=== PATIENT | male | born 1935 | race Caucasian/White ===

== ENCOUNTER 2017-06-15 16:05 | Observation (INO) ==
[2017-06-15] MEDS ORDERED: Simethicone 80 MG TAB.CHEW PO STA (17:17)
--- NOTE | 2017-06-15 17:23 | Emergency Department Note ---
Disposition Clinical Impression: SBO (small bowel obstruction), Left adrenal mass, UTI (urinary tract infection) , Elevated troponin Congestive heart failure Qualifiers: Congestive heart failure type: systolic Congestive heart failure chronicity: acute on chronic Qualified Code(s): I50.23 - Acute on chronic systolic ( congestive) heart failure Nausea & vomiting Qualifiers: Vomiting type: unspecified Vomiting Intractability: non-intractable Qualified Code(s): R11.2 - Nausea with vomiting, unspecified Disposition: Admitted As Inpatient Condition: Fair General Adult HPI - General Chief complaint: ED Shortness of Breath/Dyspnea Stated complaint: bilat foot swelling/chills/SOB Time Seen by Provider: 06/15/17 17:09 Source: patient Mode of arrival: ambulatory Limitations: no limitations Nursing Notes Reviewed: Yes Vital Signs Reviewed: Yes - History of Present Illness HPI Narrative: 81-year-old male with history of Chronic Kidney Disease, CAD with recent consult for possible CABG presents to the emergency department with worsening shortness of breath, lower stomach swelling, subjective chills over the last few days. Patient was sent to the hospital by his primary care provider as he was concerned about worsening CHF. Patient is also complaining of some nausea vomiting and diarrhea. He also has associated generalized abdominal tenderness. Pain Scale: 0 - Related Data Home Medications Medication Instructions Recorded Confirmed Cholecalciferol (D-3) [Vitamin D] 2,000 unit PO DAILY 04/22/17 06/15/17 Lactobacillus Combination No.8 1 cap PO DAILY 04/22/17 06/15/17 [Adult Probiotic] Multivitamin [Multi-Day Vitamins] 1 tab PO DAILY 04/22/17 06/15/17 [place]-3/Dha/Epa/Fish Oil [Fish Oil 1,000 mg PO DAILY 04/22/17 06/15/17 1,000 mg Softgel] Saw [place] Xtr/Zinc Picolin [Saw 1 cap PO DAILY 04/22/17 06/15/17 [place] Capsule] Potassium Chloride [Klor-Con 10] 10 meq PO BID 06/15/17 06/15/17 Previous Rx's Medication Instructions Recorded Rivaroxaban [Xarelto] 20 mg PO DAILY #30 tablet 04/27/17 Aspirin 81 mg PO DAILY #0 04/30/17 Atorvastatin [Lipitor] 40 mg PO HS #0 tab 04/30/17 Diltiazem CD (24hr) [Cardizem CD] 120 mg PO DAILY #0 04/30/17 Furosemide [Lasix] 40 mg PO DAILY #0 tab 04/30/17 Lisinopril [Zestril] 20 mg PO DAILY #0 tab 04/30/17 Metoprolol XL (24 HR) Succ [Toprol 100 mg PO BID #0 04/30/17 Xl] Allergies Allergy/AdvReac Type Severity Reaction Status Date / Time No Known Allergies Allergy Verified 06/15/17 17:03 All systems ED: reviewed and negative except as stated. Review of Systems: As Per HPI Constitutional: Reports: chills Cardiovascular: Reports: edema Respiratory: Reports: cough, dyspnea Gastrointestinal: Reports: abdominal pain, nausea Genitourinary: Denies: urgency Musculoskeletal: Denies: back pain Integumentary: Denies: rash Neurological: Denies: headache Past Medical History - Past Medical History Medical history: Reports: atrial fibrillation, coronary artery disease, hypertension Psychiatric history: Reports: no psych history - Social History Smoking Status: Never smoker Smokeless Tobacco Status: No Alcohol use: Reports: none Drug use: Reports: none Physical Exam General: Well Appearing elderly male, in no acute distress Head: autraumatic, EOMI, no conjuncitval pallor, no scleral icterus, Mouth: oral mucous membranes moist Neck: neck soft, trachea midline Chest:: Equal chest wall rise Lungs: rales bilaterally Heart: normal heart sounds, normal rate and rhythm, Abdomen: soft, mild tenderness of the lower abdomen to palpation, no rigidity, no guarding, no rebdound tenderness Lower Extremities: Bilateral pitting edema 2+, calves non-tender Integumentary: Skin warm, dry, and intact Neuro: Alert Psych: normal affect, normal mood - General Limitations: no limitations General appearance: alert Course Vital Signs Temperature 97.6 F 06/15/17 17:03 Pulse Rate 76 06/15/17 17:03 Respiratory Rate 20 06/15/17 17:03 Blood Pressure 111/77 06/15/17 17:03 O2 Sat by Pulse Oximetry 97 06/15/17 17:03 Temperature 97.6 F 06/16/17 07:20 Pulse Rate 92 06/16/17 07:20 Respiratory Rate 14 06/16/17 07:20 Blood Pressure 117/76 06/16/17 07:20 O2 Sat by Pulse Oximetry 93 06/16/17 07:20 Oxygen Delivery Oxygen Delivery Room Air Medical Decision Making - MDM Narrative Medical decision making narrative: 81-year-old male presents to the emergency department with worsening shortness of breath, and lower extremities swelling bilaterally. Initial chest x-ray reveals dilated loops of bowel which is concerning for bowel obstruction. Electrocardiogram reveals known atrial fibrillation with ST segment depressions in the V4, V5, V6. These are the same as previous electrical cardiograms. At this time, we are obtaining a CBC, BNP, CMP, Lipase. Due to the chest x-ray revealing dilated loops of bowel, and the fact that this patient has had multiple hernia repair surgeries, we are obtaining a CT scan of the abdomen and pelvis to rule out bowel obstruction. Patient is currently hemodynamically stable and not in any acute distress at this time. Patient CT scan scan of the abdomen and pelvis revealed a small bowel obstruction secondary to herniation of the distal ileum and cecum into a large right inguinal hernia. There is also a heterogeneous lesion in the left adrenal gland that may represent focal hemorrhage, but malignancy cannot be excluded. The radiologist recommends follow-up adrenal mass protocol CT or MRI in the next 3 months for further evaluation. The patient does have mild renal insufficiency on his superimposed chronic kidney disease. His new creatinine is 1.63 today. I have also have [place] 3002 on this patient. I have given him 40 mg of IV Lasix here in the emergency department. I am awaiting general surgery and the hospitalist for admission of this patient. Chest X-Ray 06/15/17 17:15 IMPRESSION: Multiple dilated bowel loops within visualized upper abdomen with air-fluid levels. Findings could represent a partially visualized of bowel obstruction or ileus. Consider correlation with any acute abdominal symptoms and further evaluation with dedicated abdomen imaging. Interval improvement in the right lower lobe opacity. Recommend radiographic follow-up to complete resolution. D/ / Sabino Garvin MD / Sabino Garvin MD Interpreting Provider: Sabino Garvin MD Abdomen/Pelvis CT 06/15/17 17:54 IMPRESSION: 1. Findings acute small bowel obstruction secondary to herniation of the distal ileum and cecum into a large right inguinal hernia. 2. Moderate left inguinal hernia containing a short segment of nonobstructed sigmoid colon. 3. Indeterminate heterogeneous lesion in the left adrenal gland may represent focal hemorrhage, although malignancy cannot be excluded. Follow-up adrenal mass protocol CT or MRI is recommended within 3 months after the patient's acute symptoms have resolved. 4. Benign right adrenal adenoma. 5. Nonobstructing calculus within the urinary bladder lumen. 6. Moderate prostatomegaly. D/ / Ha Escobar MD / Ha Escobar MD Interpreting Provider: Ha Escobar MD Vital Signs Temperature 97.6 F 06/15/17 17:03 Pulse Rate 76 06/15/17 17:03 Respiratory Rate 20 06/15/17 17:03 Blood Pressure 111/77 06/15/17 17:03 O2 Sat by Pulse Oximetry 97 06/15/17 17:03 Temperature 97.6 F 06/15/17 17:03 Pulse Rate 76 06/15/17 17:03 Respiratory Rate 20 06/15/17 17:03 Blood Pressure 111/77 06/15/17 17:03 O2 Sat by Pulse Oximetry 97 06/15/17 17:03 Oxygen Delivery Oxygen Delivery Room Air - Medical Records Medical records reviewed: Yes I reviewed the patient's medical records. - Lab Data Lab results reviewed: Yes I reviewed the patient's lab results. Result diagrams: 06/16/17 05:05 06/16/17 05:05 Lab Results 06/15/17 06/15/17 06/15/17 Range/Units 17:46 17:46 17:46 WBC 9.8 (4.3-11.1) K/mcL RBC 4.30 (4.19-5.50) M/mcL Hgb 13.8 (12.9-16.9) g/dL Hct 41.3 (37.5-50.1) % MCV 96.0 (83.0-100.0) fL MCH 32.1 (28.0-33.3) pg MCHC 33.4 (31.6-35.5) g/dL RDW 16.0 H (11.5-14.5) % Plt Count 166 (140-400) K/mcL MPV 10.6 (9.4-12.4) fL Immature Gran % 0.5 (0-4) % Seg Neutrophils % 76.6 % Lymphocytes % 13.9 % Monocytes % 8.8 % Eosinophils % 0.1 % Basophils % 0.1 % Neutrophils # 7.5 (1.6-8.9) K/mcL Lymphocytes # 1.4 (0.6-4.6) K/mcL Monocytes # 0.9 (0.0-1.3) K/mcL Eosinophils # 0.0 (0.0-0.6) K/mcL Basophils # 0.0 (0.0-0.2) K/mcL Sodium (136-145) mEq/L Potassium (3.5-4.5) mEq/L Chloride (98-109) mEq/L Carbon Dioxide (19-29) mEq/L BUN (8-26) mg/dL Creatinine (0.72-1.25) mg/dL Est GFR ( Amer) (> 60) Est GFR (Non-Af Amer) (> 60) BUN/Creatinine Ratio (6-26) Glucose (70-99) mg/dL Calculated Osmolality (280-300) Lactic Acid (0.5-2.2) mmol/L Calcium (8.6-10.8) mg/dL Total Bilirubin (0.2-1.2) mg/dL AST (5-34) Units/L ALT (0-55) Units/L Alkaline Phosphatase (38-126) Units/L Troponin I 0.11 H* (0-0.03) ng/mL B-Natriuretic Peptide (0-100) pg/mL Serum Total Protein (6.0-8.3) g/dL Albumin (3.5-5.0) g/dL Globulin (2.4-3.5) g/dL Albumin/Globulin Ratio (1.1-2.2) Lipase 18 (8-78) Units/L Urine Color (Yellow) Urine Clarity (Clear) Urine pH (5.0-8.0) pH Units Ur Specific [place] (1.010-1.025) Urine Protein (Neg-Trace) mg/dL Urine Glucose (UA) (Normal) mg/dL Urine Ketones (Negative) mg/dL Urine Blood (Negative) Urine Nitrite (Negative) Urine Bilirubin (Negative) Urine Urobilinogen (Normal) mg/dL Ur Leukocyte Esterase (Negative) Urine Microscopic RBC (0-3) per hpf Urine Microscopic WBC (0-3) per hpf Ur Squamous Epith Cells (None-Few) per lpf Urine Bacteria (None-Few) per hpf Hyaline Casts (None-Few) per lpf Ur Culture Indicated? (NO) 06/15/17 06/15/17 06/15/17 Range/Units 17:46 17:46 18:34 WBC (4.3-11.1) K/mcL RBC (4.19-5.50) M/mcL Hgb (12.9-16.9) g/dL Hct (37.5-50.1) % MCV (83.0-100.0) fL MCH (28.0-33.3) pg MCHC (31.6-35.5) g/dL RDW (11.5-14.5) % Plt Count (140-400) K/mcL MPV (9.4-12.4) fL Immature Gran % (0-4) % Seg Neutrophils % % Lymphocytes % % Monocytes % % Eosinophils % % Basophils % % Neutrophils # (1.6-8.9) K/mcL Lymphocytes # (0.6-4.6) K/mcL Monocytes # (0.0-1.3) K/mcL Eosinophils # (0.0-0.6) K/mcL Basophils # (0.0-0.2) K/mcL Sodium 140 (136-145) mEq/L Potassium 3.9 (3.5-4.5) mEq/L Chloride 105 (98-109) mEq/L Carbon Dioxide 25 (19-29) mEq/L BUN 42 H (8-26) mg/dL Creatinine 1.63 H (0.72-1.25) mg/dL Est GFR ( Amer) 49 L (> 60) Est GFR (Non-Af Amer) 41 L (> 60) BUN/Creatinine Ratio 26 (6-26) Glucose 116 H (70-99) mg/dL Calculated Osmolality 301 H (280-300) Lactic Acid (0.5-2.2) mmol/L Calcium 9.4 (8.6-10.8) mg/dL Total Bilirubin 1.0 (0.2-1.2) mg/dL AST 101 H (5-34) Units/L ALT 170 H (0-55) Units/L Alkaline Phosphatase 102 (38-126) Units/L Troponin I (0-0.03) ng/mL B-Natriuretic Peptide 3002 H (0-100) pg/mL Serum Total Protein 6.2 (6.0-8.3) g/dL Albumin 3.2 L (3.5-5.0) g/dL Globulin 3.0 (2.4-3.5) g/dL Albumin/Globulin Ratio 1.1 (1.1-2.2) Lipase (8-78) Units/L Urine Color Yellow (Yellow) Urine Clarity Turbid A (Clear) Urine pH 6.0 (5.0-8.0) pH Units Ur Specific [place] 1.017 (1.010-1.025) Urine Protein 30 H (Neg-Trace) mg/dL Urine Glucose (UA) Normal (Normal) mg/dL Urine Ketones Negative (Negative) mg/dL Urine Blood Large H (Negative) Urine Nitrite Negative (Negative) Urine Bilirubin Negative (Negative) Urine Urobilinogen Normal (Normal) mg/dL Ur Leukocyte Esterase Large H (Negative) Urine Microscopic RBC 3-5 H (0-3) per hpf Urine Microscopic WBC TNTC H (0-3) per hpf Ur Squamous Epith Cells Moderate H (None-Few) per lpf Urine Bacteria Many H (None-Few) per hpf Hyaline Casts None Seen (None-Few) per lpf Ur Culture Indicated? YES A (NO) 06/15/17 Range/Units 19:36 WBC (4.3-11.1) K/mcL RBC (4.19-5.50) M/mcL Hgb (12.9-16.9) g/dL Hct (37.5-50.1) % MCV (83.0-100.0) fL MCH (28.0-33.3) pg MCHC (31.6-35.5) g/dL RDW (11.5-14.5) % Plt Count (140-400) K/mcL MPV (9.4-12.4) fL Immature Gran % (0-4) % Seg Neutrophils % % Lymphocytes % % Monocytes % % Eosinophils % % Basophils % % Neutrophils # (1.6-8.9) K/mcL Lymphocytes # (0.6-4.6) K/mcL Monocytes # (0.0-1.3) K/mcL Eosinophils # (0.0-0.6) K/mcL Basophils # (0.0-0.2) K/mcL Sodium (136-145) mEq/L Potassium (3.5-4.5) mEq/L Chloride (98-109) mEq/L Carbon Dioxide (19-29) mEq/L BUN (8-26) mg/dL Creatinine (0.72-1.25) mg/dL Est GFR ( Amer) (> 60) Est GFR (Non-Af Amer) (> 60) BUN/Creatinine Ratio (6-26) Glucose (70-99) mg/dL Calculated Osmolality (280-300) Lactic Acid 1.1 (0.5-2.2) mmol/L Calcium (8.6-10.8) mg/dL Total Bilirubin (0.2-1.2) mg/dL AST (5-34) Units/L ALT (0-55) Units/L Alkaline Phosphatase (38-126) Units/L Troponin I (0-0.03) ng/mL B-Natriuretic Peptide (0-100) pg/mL Serum Total Protein (6.0-8.3) g/dL Albumin (3.5-5.0) g/dL Globulin (2.4-3.5) g/dL Albumin/Globulin Ratio (1.1-2.2) Lipase (8-78) Units/L Urine Color (Yellow) Urine Clarity (Clear) Urine pH (5.0-8.0) pH Units Ur Specific [place] (1.010-1.025) Urine Protein (Neg-Trace) mg/dL Urine Glucose (UA) (Normal) mg/dL Urine Ketones (Negative) mg/dL Urine Blood (Negative) Urine Nitrite (Negative) Urine Bilirubin (Negative) Urine Urobilinogen (Normal) mg/dL Ur Leukocyte Esterase (Negative) Urine Microscopic RBC (0-3) per hpf Urine Microscopic WBC (0-3) per hpf Ur Squamous Epith Cells (None-Few) per lpf Urine Bacteria (None-Few) per hpf Hyaline Casts (None-Few) per lpf Ur Culture Indicated? (NO) - Radiology Data Radiology results reviewed: Yes I reviewed the patient's radiology results. - EKG Data EKG #1 EKG attestation: Yes I reviewed and interpreted this EKG. EKG results narrative: Ventricular rate 118 bpm, TX interval no P waves, QRS duration 107 ms, QT 316 ms , QTC 386 process, normal axis. Atrial fibrillation with rapid ventricular response, ventricular rate 118 bpm. There is some ST depression in leads V4, V5, V6. However, this is not anything new compared to an electrocardiogram performed on 04/22/2017. Critical Care Time Critical Care Time: Yes Total Critical Care Time: 30 Attestation: Critical care performed: Time is exclusive of separately billable procedures. Time includes: direct patient care, patient reassessment, coordination of patient care, interpretation of data (laboratory data, radiology data, and respiratory data), review of patient's medical records, medical consultation and documentation of patient care. Procedures included in critical care time: Procedures excluded from critical care time: Attestation Statement - Attestation Attestation: I, Isaiah Costello DO, examined this patient [id number] and my medical decision-making was reviewed with Dr. Prakash Hernandez, Resident Physician. I agree with the documented findings, disposition and treatment plan as described except to the extent set forth below. Please see my progress notes for details. 81-year-old male presents to emergency room for evaluation of shortness of breath increased orthopnea and conversational dyspnea. Is also noted some fluid accumulation is legs. Has been in the hospital on multiple evaluations in the last month. He is told that his coronary artery disease requiring bypass surgery. Patient elected not to do that at this time. Patient denies any trauma or injuries. No abdominal discomfort or pain. Denies any fevers chills nausea vomiting is intermittent diarrhea but no other complaints or symptoms at this time. Physical exam is unremarkable lungs do have some intermittent crackles on expiration. Abdomen is soft no tenderness noted. Edema in the bilateral lower extremity up to the knee. Patient otherwise is in no acute distress at this time. EKG labs BNP troponin chest x-ray and evaluation to be completed. See detailed documentation of physical exam, medical intervention, medical decision-making and disposition and the resident physician's note Chest x-ray was concerning for possible dilated loops of bowel. CT of the abdomen does show hernia in the right lower quadrant inguinal area with distention proximal to the hernia site. Patient has been passing stool and having normal gas pattern in this time. No obstructive pathology based on symptom history but CT imaging is concerning for possible obstruction. There is also a significantly elevated BNP. IV Lasix given in the emergency room. Admission process to be completed for what appears to be shortness of breath secondary to fluid overload with chronic coronary artery disease as well as what appears to be distention of the intestines with nonspecific presentation of outlet obstruction versus luminal narrowing. Patient admitted for further evaluation and definitive management. Stable vital signs were repeated throughout the course of care here in the emergency room. Urine is concerning for infection will hospitalist to determine if antibiotic regimen is needed at this time
[2017-06-15 17:53] LABS: Basophils % 0.1 %; Eosinophils % 0.1 %; Hematocrit 41.3 % (37.5-50.1); Hemoglobin 13.8 g/dL (12.9-16.9); Immature Granulocytes % 0.5 % (0-4); Lymphocytes # 1.4 K/mcL (0.6-4.6); Lymphocytes % 13.9 %; Mean Corpuscular HGB Conc 33.4 g/dL (31.6-35.5); Mean Corpuscular Hemoglobin 32.1 pg (28.0-33.3); Mean Platelet Volume 10.6 fL (9.4-12.4); Monocytes # 0.9 K/mcL (0.0-1.3); Monocytes % 8.8 %; Neutrophils # 7.5 K/mcL (1.6-8.9); Platelet Count 166 K/mcL (140-400); Segmented Neutrophils % 76.6 %
[2017-06-15 18:07] LABS: Albumin 3.2 g/dL (3.5-5.0); Albumin/Globulin Ratio 1.1 (1.1-2.2); Calcium 9.4 mg/dL (8.6-10.8); Potassium 3.9 mEq/L (3.5-4.5); Total Protein 6.2 g/dL (6.0-8.3)
[2017-06-15] MEDS ORDERED: Ondansetron 4 MG/2 ML VIAL IVP ONE (18:19)
[2017-06-15 18:42] LABS: Bilirubin,Urine Negative (Negative); Blood,Urine Large (Negative); Clarity,Urine Turbid (Clear); Color,Urine Yellow (Yellow); Glucose,Urine (UA) Normal (Normal); Ketones,Urine Negative (Negative); Leukocyte Esterase,Urine Large (Negative); Nitrite,Urine Negative (Negative); Protein,Urine 30 mg/dL (Neg-Trace); Specific Gravity,Urine 1.017 (1.010-1.025); Urobilinogen,Urine Normal (Normal)
[2017-06-15 18:44] LABS: Bacteria,Urine Many per hpf (None-Few); Hyaline Casts,Urine None Seen per lpf (None-Few); Squamous Epithelial Cell,Urine Moderate per lpf (None-Few); WBC,Urine TNTC per hpf (0-3)
[2017-06-15] MEDS ORDERED: Furosemide 40 MG/4 ML VIAL IVP ONE (18:58)
--- NOTE | 2017-06-15 19:37 | Emergency Department Note ---
Disposition Clinical Impression: SBO (small bowel obstruction), Left adrenal mass, Elevated troponin Congestive heart failure Qualifiers: Congestive heart failure type: unspecified congestive heart failure type Congestive heart failure chronicity: acute on chronic Qualified Code(s): I50.9 - Heart failure, unspecified Nausea & vomiting Qualifiers: Vomiting type: unspecified Vomiting Intractability: non-intractable Qualified Code(s): R11.2 - Nausea with vomiting, unspecified UTI (urinary tract infection) Qualifiers: Urinary tract infection type: site unspecified Hematuria presence: without hematuria Qualified Code(s): N39.0 - Urinary tract infection, site not specified Disposition: Admitted As Inpatient Condition: Fair Referrals: Derick Marcelino MD [Primary Care Provider] - Forms: ED Satisfaction Letter Time of Disposition: 20:40 SOB HPI - General Chief Complaint: ED Shortness of Breath/Dyspnea Stated Complaint: bilat foot swelling/chills/SOB Time Seen by Provider: 06/15/17 17:09 Source: patient Mode of arrival: ambulatory Limitations: no limitations Nursing Notes Reviewed: Yes Vital Signs Reviewed: Yes - Related Data Home Medications Medication Instructions Recorded Confirmed Cholecalciferol (D-3) [Vitamin D] 2,000 unit PO DAILY 04/22/17 06/15/17 Lactobacillus Combination No.8 1 cap PO DAILY 04/22/17 06/15/17 [Adult Probiotic] Multivitamin [Multi-Day Vitamins] 1 tab PO DAILY 04/22/17 06/15/17 [place]-3/Dha/Epa/Fish Oil [Fish Oil 1,000 mg PO DAILY 04/22/17 06/15/17 1,000 mg Softgel] Saw [place] Xtr/Zinc Picolin [Saw 1 cap PO DAILY 04/22/17 06/15/17 [place] Capsule] Potassium Chloride [Klor-Con 10] 10 meq PO BID 06/15/17 06/15/17 Previous Rx's Medication Instructions Recorded Rivaroxaban [Xarelto] 20 mg PO DAILY #30 tablet 04/27/17 Aspirin 81 mg PO DAILY #0 04/30/17 Atorvastatin [Lipitor] 40 mg PO HS #0 tab 04/30/17 Diltiazem CD (24hr) [Cardizem CD] 120 mg PO DAILY #0 04/30/17 Furosemide [Lasix] 40 mg PO DAILY #0 tab 04/30/17 Lisinopril [Zestril] 20 mg PO DAILY #0 tab 04/30/17 Metoprolol XL (24 HR) Succ [Toprol 100 mg PO BID #0 04/30/17 Xl] Allergies Allergy/AdvReac Type Severity Reaction Status Date / Time No Known Allergies Allergy Verified 06/15/17 17:03 Constitutional: Reports: chills Cardiovascular: Reports: edema Respiratory: Reports: cough, dyspnea Gastrointestinal: Reports: abdominal pain, nausea Genitourinary: Denies: urgency Musculoskeletal: Denies: back pain Integumentary: Denies: rash Neurological: Denies: headache Past Medical History - Past Medical History Medical history: Reports: atrial fibrillation, coronary artery disease, hypertension Psychiatric history: Reports: no psych history - Social History Smoking Status: Never smoker Smokeless Tobacco Status: No Alcohol use: Reports: none Drug use: Reports: none Physical Exam - General Limitations: no limitations General appearance: alert - Head Head exam: atraumatic, normocephalic, normal inspection - Eye Eye exam: Present: normal appearance, PERRL, EOMI - ENT ENT exam: normal oropharynx, mucous membranes moist, other (NG tube in place) - Neck Neck exam: Present: normal inspection, full ROM, trachea midline - Chest Chest inspection: Present: normal inspection, symmetric chest wall rise - Respiratory Respiratory exam: Present: normal lung sounds bilaterally - Cardiovascular Cardiovascular exam: Present: regular rate, normal rhythm, normal heart sounds - Abdominal Exam Abdominal exam: Present: soft, other (mild generalized distention, no tenderness ). Absent: distention, guarding, rebound, rigidity - Extremities Exam Extremities exam: Present: normal inspection, full ROM. Absent: tenderness - Neurological Exam Neurological exam: Present: alert, oriented X3 - Psychiatric Psychiatric exam: Present: normal affect, normal mood - Skin Skin exam: Present: warm, dry, intact, normal color Course Vital Signs Temperature 97.6 F 06/15/17 17:03 Pulse Rate 76 06/15/17 17:03 Respiratory Rate 20 06/15/17 17:03 Blood Pressure 111/77 06/15/17 17:03 O2 Sat by Pulse Oximetry 97 06/15/17 17:03 Temperature 97.6 F 06/15/17 17:03 Pulse Rate 89 06/15/17 19:20 Respiratory Rate 14 06/15/17 19:20 Blood Pressure 123/87 06/15/17 19:20 O2 Sat by Pulse Oximetry 92 06/15/17 19:20 Oxygen Delivery Oxygen Delivery Room Air Shortness of Breath/Dyspnea - [facility] Narrative Medical decision making narrative: This patient was a sign out from previous team, Dr. Hernandez and Dr. Costello. Please see their notes for any additional details. In summary, patient is an 81 -year-old male with past medical history of CHF, previous CAD. He presented today due to shortness of breath. Patient was found to be in CHF exacerbation. He was given Lasix here. He had an incidental finding of dilated small bowel loops on chest x-ray. Further evaluation by CAT scan showed small bowel obstruction, nonincarcerated inguinal hernia. Patient was reexamined vomits up at bedside. He currently denies any abdominal pain. NG tube was placed. UA shows signs of UTI. Patient ordered ciprofloxacin. Hospitalist has accepted for admission. Of note, patient has elevated troponin level of 0.11, however, this is trending down from previous troponin levels. No current chest pain or shortness of breath. Vitals currently stable. Patient has no complaint currently. I spoke with surgery who have agreed to be a consult for the patient. Order has been placed for surgery consult. - Medical Records Medical records reviewed: Yes I reviewed the patient's medical records. - Lab Data Lab results reviewed: Yes I reviewed the patient's lab results. Result diagrams: 06/15/17 17:46 06/15/17 17:46 Lab Results 06/15/17 06/15/17 06/15/17 Range/Units 17:46 17:46 17:46 WBC 9.8 (4.3-11.1) K/mcL RBC 4.30 (4.19-5.50) M/mcL Hgb 13.8 (12.9-16.9) g/dL Hct 41.3 (37.5-50.1) % MCV 96.0 (83.0-100.0) fL MCH 32.1 (28.0-33.3) pg MCHC 33.4 (31.6-35.5) g/dL RDW 16.0 H (11.5-14.5) % Plt Count 166 (140-400) K/mcL MPV 10.6 (9.4-12.4) fL Immature Gran % 0.5 (0-4) % Seg Neutrophils % 76.6 % Lymphocytes % 13.9 % Monocytes % 8.8 % Eosinophils % 0.1 % Basophils % 0.1 % Neutrophils # 7.5 (1.6-8.9) K/mcL Lymphocytes # 1.4 (0.6-4.6) K/mcL Monocytes # 0.9 (0.0-1.3) K/mcL Eosinophils # 0.0 (0.0-0.6) K/mcL Basophils # 0.0 (0.0-0.2) K/mcL Sodium (136-145) mEq/L Potassium (3.5-4.5) mEq/L Chloride (98-109) mEq/L Carbon Dioxide (19-29) mEq/L BUN (8-26) mg/dL Creatinine (0.72-1.25) mg/dL Est GFR ( Amer) (> 60) Est GFR (Non-Af Amer) (> 60) BUN/Creatinine Ratio (6-26) Glucose (70-99) mg/dL Calculated Osmolality (280-300) Lactic Acid (0.5-2.2) mmol/L Calcium (8.6-10.8) mg/dL Total Bilirubin (0.2-1.2) mg/dL AST (5-34) Units/L ALT (0-55) Units/L Alkaline Phosphatase (38-126) Units/L Troponin I 0.11 H* (0-0.03) ng/mL B-Natriuretic Peptide (0-100) pg/mL Serum Total Protein (6.0-8.3) g/dL Albumin (3.5-5.0) g/dL Globulin (2.4-3.5) g/dL Albumin/Globulin Ratio (1.1-2.2) Lipase 18 (8-78) Units/L Urine Color (Yellow) Urine Clarity (Clear) Urine pH (5.0-8.0) pH Units Ur Specific [place] (1.010-1.025) Urine Protein (Neg-Trace) mg/dL Urine Glucose (UA) (Normal) mg/dL Urine Ketones (Negative) mg/dL Urine Blood (Negative) Urine Nitrite (Negative) Urine Bilirubin (Negative) Urine Urobilinogen (Normal) mg/dL Ur Leukocyte Esterase (Negative) Urine Microscopic RBC (0-3) per hpf Urine Microscopic WBC (0-3) per hpf Ur Squamous Epith Cells (None-Few) per lpf Urine Bacteria (None-Few) per hpf Hyaline Casts (None-Few) per lpf Ur Culture Indicated? (NO) 06/15/17 06/15/17 06/15/17 Range/Units 17:46 17:46 18:34 WBC (4.3-11.1) K/mcL RBC (4.19-5.50) M/mcL Hgb (12.9-16.9) g/dL Hct (37.5-50.1) % MCV (83.0-100.0) fL MCH (28.0-33.3) pg MCHC (31.6-35.5) g/dL RDW (11.5-14.5) % Plt Count (140-400) K/mcL MPV (9.4-12.4) fL Immature Gran % (0-4) % Seg Neutrophils % % Lymphocytes % % Monocytes % % Eosinophils % % Basophils % % Neutrophils # (1.6-8.9) K/mcL Lymphocytes # (0.6-4.6) K/mcL Monocytes # (0.0-1.3) K/mcL Eosinophils # (0.0-0.6) K/mcL Basophils # (0.0-0.2) K/mcL Sodium 140 (136-145) mEq/L Potassium 3.9 (3.5-4.5) mEq/L Chloride 105 (98-109) mEq/L Carbon Dioxide 25 (19-29) mEq/L BUN 42 H (8-26) mg/dL Creatinine 1.63 H (0.72-1.25) mg/dL Est GFR ( Amer) 49 L (> 60) Est GFR (Non-Af Amer) 41 L (> 60) BUN/Creatinine Ratio 26 (6-26) Glucose 116 H (70-99) mg/dL Calculated Osmolality 301 H (280-300) Lactic Acid (0.5-2.2) mmol/L Calcium 9.4 (8.6-10.8) mg/dL Total Bilirubin 1.0 (0.2-1.2) mg/dL AST 101 H (5-34) Units/L ALT 170 H (0-55) Units/L Alkaline Phosphatase 102 (38-126) Units/L Troponin I (0-0.03) ng/mL B-Natriuretic Peptide 3002 H (0-100) pg/mL Serum Total Protein 6.2 (6.0-8.3) g/dL Albumin 3.2 L (3.5-5.0) g/dL Globulin 3.0 (2.4-3.5) g/dL Albumin/Globulin Ratio 1.1 (1.1-2.2) Lipase (8-78) Units/L Urine Color Yellow (Yellow) Urine Clarity Turbid A (Clear) Urine pH 6.0 (5.0-8.0) pH Units Ur Specific [place] 1.017 (1.010-1.025) Urine Protein 30 H (Neg-Trace) mg/dL Urine Glucose (UA) Normal (Normal) mg/dL Urine Ketones Negative (Negative) mg/dL Urine Blood Large H (Negative) Urine Nitrite Negative (Negative) Urine Bilirubin Negative (Negative) Urine Urobilinogen Normal (Normal) mg/dL Ur Leukocyte Esterase Large H (Negative) Urine Microscopic RBC 3-5 H (0-3) per hpf Urine Microscopic WBC TNTC H (0-3) per hpf Ur Squamous Epith Cells Moderate H (None-Few) per lpf Urine Bacteria Many H (None-Few) per hpf Hyaline Casts None Seen (None-Few) per lpf Ur Culture Indicated? YES A (NO) 06/15/17 Range/Units 19:36 WBC (4.3-11.1) K/mcL RBC (4.19-5.50) M/mcL Hgb (12.9-16.9) g/dL Hct (37.5-50.1) % MCV (83.0-100.0) fL MCH (28.0-33.3) pg MCHC (31.6-35.5) g/dL RDW (11.5-14.5) % Plt Count (140-400) K/mcL MPV (9.4-12.4) fL Immature Gran % (0-4) % Seg Neutrophils % % Lymphocytes % % Monocytes % % Eosinophils % % Basophils % % Neutrophils # (1.6-8.9) K/mcL Lymphocytes # (0.6-4.6) K/mcL Monocytes # (0.0-1.3) K/mcL Eosinophils # (0.0-0.6) K/mcL Basophils # (0.0-0.2) K/mcL Sodium (136-145) mEq/L Potassium (3.5-4.5) mEq/L Chloride (98-109) mEq/L Carbon Dioxide (19-29) mEq/L BUN (8-26) mg/dL Creatinine (0.72-1.25) mg/dL Est GFR ( Amer) (> 60) Est GFR (Non-Af Amer) (> 60) BUN/Creatinine Ratio (6-26) Glucose (70-99) mg/dL Calculated Osmolality (280-300) Lactic Acid 1.1 (0.5-2.2) mmol/L Calcium (8.6-10.8) mg/dL Total Bilirubin (0.2-1.2) mg/dL AST (5-34) Units/L ALT (0-55) Units/L Alkaline Phosphatase (38-126) Units/L Troponin I (0-0.03) ng/mL B-Natriuretic Peptide (0-100) pg/mL Serum Total Protein (6.0-8.3) g/dL Albumin (3.5-5.0) g/dL Globulin (2.4-3.5) g/dL Albumin/Globulin Ratio (1.1-2.2) Lipase (8-78) Units/L Urine Color (Yellow) Urine Clarity (Clear) Urine pH (5.0-8.0) pH Units Ur Specific [place] (1.010-1.025) Urine Protein (Neg-Trace) mg/dL Urine Glucose (UA) (Normal) mg/dL Urine Ketones (Negative) mg/dL Urine Blood (Negative) Urine Nitrite (Negative) Urine Bilirubin (Negative) Urine Urobilinogen (Normal) mg/dL Ur Leukocyte Esterase (Negative) Urine Microscopic RBC (0-3) per hpf Urine Microscopic WBC (0-3) per hpf Ur Squamous Epith Cells (None-Few) per lpf Urine Bacteria (None-Few) per hpf Hyaline Casts (None-Few) per lpf Ur Culture Indicated? (NO) - Radiology Data Radiology results reviewed: Yes I reviewed the patient's radiology results. Chest X-Ray 06/15/17 17:15 IMPRESSION: Multiple dilated bowel loops within visualized upper abdomen with air-fluid levels. Findings could represent a partially visualized of bowel obstruction or ileus. Consider correlation with any acute abdominal symptoms and further evaluation with dedicated abdomen imaging. Interval improvement in the right lower lobe opacity. Recommend radiographic follow-up to complete resolution. D/ / Sabino Garvin MD / Sabino Garvin MD Interpreting Provider: Sabino Garvin MD Abdomen/Pelvis CT 06/15/17 17:54 IMPRESSION: 1. Findings acute small bowel obstruction secondary to herniation of the distal ileum and cecum into a large right inguinal hernia. 2. Moderate left inguinal hernia containing a short segment of nonobstructed sigmoid colon. 3. Indeterminate heterogeneous lesion in the left adrenal gland may represent focal hemorrhage, although malignancy cannot be excluded. Follow-up adrenal mass protocol CT or MRI is recommended within 3 months after the patient's acute symptoms have resolved. 4. Benign right adrenal adenoma. 5. Nonobstructing calculus within the urinary bladder lumen. 6. Moderate prostatomegaly. D/ / Ha Escobar MD / Ha Escobar MD Interpreting Provider: Ha Escobar MD Inge - Inge Situation: Demographics, MOA Background: Presenting Complaint, Relevant PMH, Meds, & Allergies Assessment: Vital Signs, Course and respsone to treatment, Exam Concerns, Patient/Family Expectation, Pertinant Lab Results, Outstanding Labs Recommendation: Barrier(s) to disposition S.B.ARhona Report Given to: Dr. Edenilson Alcazar Repor Time: 20:40
--- NOTE | 2017-06-15 19:43 | Emergency Department Note ---
START Narrative - START START: I examined this patient and my medical decision-making was reviewed with the Resident Physician. I agree with the documented findings, disposition and treatment plan as described except to the extent set forth below. 81 year old male with hx of unstable angina and known blockages but have decided to do medical managment rather than CABG presents with acute small bowel obstrution in addition to incresed swelling in his bilateral legs and with a HX of CHF and appears to have an elevate troponin due to previous ACS episode in additin to CHF excarbation. WE will admit to medicine with consult to surgery.
[2017-06-16] MEDS ORDERED: Acetaminophen 325 MG TABLET PO PRN (03:43)
[2017-06-16] MEDS ORDERED: Naloxone 0.4 MG/ML INJ IVP PRN (03:43)
[2017-06-16] MEDS ORDERED: 0.9 % Sodium Chloride 1,000 ML IVC SCH (04:00)
[2017-06-16 05:40] LABS: Basophils % 0.2 %; Eosinophils % 0.5 %; Hematocrit 38.6 % (37.5-50.1); Hemoglobin 12.7 g/dL (12.9-16.9); Immature Granulocytes % 0.5 % (0-4); Lymphocytes # 1.1 K/mcL (0.6-4.6); Lymphocytes % 13.6 %; Mean Corpuscular HGB Conc 32.9 g/dL (31.6-35.5); Mean Corpuscular Hemoglobin 32.1 pg (28.0-33.3); Mean Corpuscular Volume 97.5 fL (83.0-100.0); Monocytes # 0.7 K/mcL (0.0-1.3); Monocytes % 7.9 %; Neutrophils # 6.4 K/mcL (1.6-8.9); Platelet Count 154 K/mcL (140-400); Red Blood Count 3.96 M/mcL (4.19-5.50); Red Cell Distribution Width 15.9 % (11.5-14.5); Segmented Neutrophils % 77.3 %
[2017-06-16 05:52] LABS: BUN/Creatinine Ratio 33 (6-26); Blood Urea Nitrogen 39 mg/dL (8-26); Calcium 8.7 mg/dL (8.6-10.8); Carbon Dioxide 27 mEq/L (19-29); Chloride 107 mEq/L (98-109); Glucose 102 mg/dL (70-99); Magnesium 1.9 mg/dL (1.6-2.6); Osmolality,Calculated 304 (280-300); Potassium 3.5 mEq/L (3.5-4.5); Sodium 142 mEq/L (136-145); eGFR For African Americans > 60 (> 60); eGFR For Non-African Americans 59 (> 60)
--- NOTE | 2017-06-16 06:42 | Internal Med History&Physical ---
Date of Encounter: 06/16/17 Time of Encounter: 01:00 Assessment and Plan (1) A-fib Current visit: Yes Status: Acute Heart rate is well controlled. On xarelto, now on hold because of nothing by mouth. Will resume as patient can have diet. Qualifiers: Atrial fibrillation type: chronic Qualified Code(s): I48.2 - Chronic atrial fibrillation (2) DVT prophylaxis Current visit: No Status: Acute Patient is on xarelto. Hold because of nothing by mouth. Expect resume soon. (3) CAD (coronary artery disease) Current visit: No Status: Chronic Patient denies chest pain. Continue home medications when diet resumed Qualifiers: Coronary Disease-Associated Artery/Lesion type: [place] artery [place] vs. transplanted heart: [place] heart Associated angina: without angina Qualified Code(s): I25.10 - Atherosclerotic heart disease of [place] coronary artery without angina pectoris (4) Congestive heart failure Current visit: Yes Status: Acute LVEF 45-50%. Patient's shortness of breath has improved after Lasix IV in emergency room Qualifiers: Congestive heart failure type: systolic Congestive heart failure chronicity : acute on chronic Qualified Code(s): I50.23 - Acute on chronic systolic ( congestive) heart failure (5) SBO (small bowel obstruction) Current visit: Yes Status: Acute CT abdomen shows partial small bowel obstruction, caused by right-sided inguinal hernia. - Patient still passing gas and had a bowel movement. - There is no signs of incarceration of hernia - NG tube placed the ER - Keep nothing by mouth, lower rate IV fluid with concern of CHF. - Surgical consult informed by ER (6) UTI (urinary tract infection) Current visit: Yes Status: Acute Placed patient on Rocephin. Follow-up urine culture Qualifiers: Urinary tract infection type: site unspecified Hematuria presence: without hematuria Qualified Code(s): N39.0 - Urinary tract infection, site not specified Internal Medicine - H&P: HPI Chief complaint: Shortness of breath and leg swelling Admitted From: Home Plans for Post Hospital Care: Home History of present illness: Mr. Roman is a 81 year old male with history of A. fib on xarelto, CHF, CAD, inguinal hernia presents to ER for shortness of breath and bilateral leg swelling. Patient said he went to see PCP today and was suspected rales in lung , and pt was advised to go to ER to rule out pneumonia. In emergency room, chest x-ray shows no pneumonia but reveals dilated bowel loops. Further CT scan shows partial small bowel obstruction due to a right inguinal hernia. Patient was admitted for small bowel obstruction. Patient was also found UTI in emergency room. Patient denies nausea, vomiting, abdominal pain. Patient can passing gas and had bowel movement today. Patient does have some dysuria and urgency. Past Med Surg Social Fam HX - Past Medical History Medical history: atrial fibrillation, coronary artery disease, hypertension Psychiatric history: no psych history - Past Surgical History Surgical History: herniorrhaphy - Social History Smoking Status: Never smoker Smokeless Tobacco Status: No Alcohol use: none Drug use: none - Family History Brother Living Status: Hx Family Cancer: Yes (prostate) Internal Medicine - H&P: Meds Cholecalciferol (D-3) [Vitamin D] 2,000 unit PO DAILY 04/22/17 [History] Lactobacillus Combination No.8 [Adult Probiotic] 1 cap PO DAILY 04/22/17 [ History] Multivitamin [Multi-Day Vitamins] 1 tab PO DAILY 04/22/17 [History] [place]-3/Dha/Epa/Fish Oil [Fish Oil 1,000 mg Softgel] 1,000 mg PO DAILY 04/22/17 [History] Saw [place] Xtr/Zinc Picolin [Saw [place] Capsule] 1 cap PO DAILY 04/22/17 [ History] Rivaroxaban [Xarelto] 20 mg PO DAILY #30 tablet 04/27/17 [Rx] Aspirin 81 mg PO DAILY #0 04/30/17 [Rx] Atorvastatin [Lipitor] 40 mg PO HS #0 tab 04/30/17 [Rx] Diltiazem CD (24hr) [Cardizem CD] 120 mg PO DAILY #0 04/30/17 [Rx] Furosemide [Lasix] 40 mg PO DAILY #0 tab 04/30/17 [Rx] Lisinopril [Zestril] 20 mg PO DAILY #0 tab 04/30/17 [Rx] Metoprolol XL (24 HR) Succ [Toprol Xl] 100 mg PO BID #0 04/30/17 [Rx] Potassium Chloride [Klor-Con 10] 10 meq PO BID 06/15/17 [History] 3 Allergy/AdvReac Type Severity Reaction Status Date / Time No Known Allergies Allergy Verified 06/15/17 17:03 All Systems PM: A 10-system review of systems was performed and is negative for pertinent findings except as documented above in the HPI. - Constitutional Vitals: Temp Pulse Resp BP Pulse Ox 98.7 F 97 18 113/93 96 06/15/17 22:58 06/15/17 22:58 06/15/17 22:58 06/15/17 22:58 06/15/17 23:21 General appearance: Present: A&O X 3, no acute distress, answers questions appropriately - Head Head exam: Present: atraumatic, normocephalic - Eye Eye exam: Present: PERRL, conjuntiva pink, sclera anicteric Pupils: Present: PERRL - Neck Neck exam general surgery: Present: supple, trachea midline. Absent: lymphadenopathy - Respiratory Respiratory exam: Present: CTAB. Absent: accessory muscle use, rales, rhonchi, wheezes - Cardiovascular Cardiovascular exam: Present: RRR, +S1, +S2. Absent: diastolic murmur, gallop, rubs, systolic murmur - GI/Abdominal GI/Abdominal exam: Present: hyperactive bowel sounds, soft, no peritoneal signs. Absent: distended, tenderness Additional comments: Right inguinal hernia goes to scrotum, nontender, no signs of incarceration. Patient said he can put the hernia back the belly. - Extremities Exam Extremities exam: Present: warm, radial pulses palpable and symmetrical. Absent : calf tenderness, cyanotic, pedal edema - Neurological Exam Neurological exam: Present: CN II-XII intact, oriented X3, no focal deficits. Absent: pronater drift, facial droop, speech deficit - Skin Skin exam: Present: dry, intact Internal Med - H&P Results - Labs CBC & Chem 7: 06/16/17 05:05 06/16/17 05:05 Labs: Short CBC 06/16/17 Range/Units 05:05 WBC 8.3 (4.3-11.1) K/mcL Hgb 12.7 L (12.9-16.9) g/dL Hct 38.6 (37.5-50.1) % Plt Count 154 (140-400) K/mcL Neutrophils # 6.4 (1.6-8.9) K/mcL BMP 06/16/17 05:05 Sodium 142 Potassium 3.5 Chloride 107 Carbon Dioxide 27 BUN 39 H Creatinine 1.19 Glucose 102 H Calcium 8.7 Cardiac Enzymes 06/16/17 Range/Units 05:05 Troponin I 0.08 H* (0-0.03) ng/mL
--- NOTE | 2017-06-16 10:26 | General Surgery Consult Note ---
Date of Encounter: 06/16/17 Time of Encounter: 09:00 Assessment and Plan (1) Inguinal hernia of right side without obstruction or gangrene Current Visit: Yes Status: Acute R sided inguinal hernia viewed on CT scan and palpated. Hernia is currently not causing pain and this is a chronic problem. Patient is unsure if he wants surgery. Patient was instructed to follow-up with surgery after leaving the hospital to discuss options for management. Hernia not causing an obstruction as patient is still having regular flatus and BM. Plans: -f/u appointment in the outpatient office for further management - NG discontinued - Diet: may advance to fulls - Will continue to monitor tomorrow to see how he tolerates advancement of diet. (2) Nausea & vomiting Current Visit: Yes Status: Acute Patient's N/V has resolved. Patient is having positive flatus today and bowel movement yesterday therefore no small bowel obstruction present. Patient is hungry and ready to eat. Patient's NG tube was removed while in the room today. NG output equal to 50 mL. Can advance diet to full liquids. Qualifiers: Vomiting type: unspecified Vomiting Intractability: non-intractable Qualified Code(s): R11.2 - Nausea with vomiting, unspecified (3) Hydrocele in adult Current Visit: Yes Status: Acute f/u appointment with surgery in the outpatient setting. History of Present Illness Consult date: 06/16/17 Reason for consult: hernia Requesting physician: Vinod Lira History of present illness: Patient is a 81-year-old male with a past medical history of right sided inguinal hernia for years, CKD, Afib on xarelto, CAD presents to ER for shortness of breath, bilateral leg swelling, and NV. Surgery was consulted for possible small bowel obstruction secondary to inguinal hernia. Patient states that he is having inguinal hernia and denies pain within that region. Patient states that he is passing gas and had a BM yesterday. Today his N/V has resolved. Vitals are within normal limits. His NG output = [address] of abdomen and pelvis reported small bowel obstruction secondary to herniation of the distal ileum and cecum into a large right inguinal hernia. Past Med Surg Social Fam HX - Past Medical History Medical history: atrial fibrillation, cardiomyopathy (EF 40% ), coronary artery disease (with CABG 3 vessel ), hypertension Psychiatric history: no psych history - Past Surgical History Surgical History: herniorrhaphy - Social History Smoking Status: Never smoker Smokeless Tobacco Status: No Alcohol use: none Drug use: none - Family History Brother Living Status: Hx Family Cancer: Yes (prostate) Medications and Allergies Cholecalciferol (D-3) [Vitamin D] 2,000 unit PO DAILY 04/22/17 [History] Lactobacillus Combination No.8 [Adult Probiotic] 1 cap PO DAILY 04/22/17 [ History] Multivitamin [Multi-Day Vitamins] 1 tab PO DAILY 04/22/17 [History] [place]-3/Dha/Epa/Fish Oil [Fish Oil 1,000 mg Softgel] 1,000 mg PO DAILY 04/22/17 [History] Saw [place] Xtr/Zinc Picolin [Saw [place] Capsule] 1 cap PO DAILY 04/22/17 [ History] Rivaroxaban [Xarelto] 20 mg PO DAILY #30 tablet 04/27/17 [Rx] Aspirin 81 mg PO DAILY #0 04/30/17 [Rx] Atorvastatin [Lipitor] 40 mg PO HS #0 tab 04/30/17 [Rx] Diltiazem CD (24hr) [Cardizem CD] 120 mg PO DAILY #0 04/30/17 [Rx] Furosemide [Lasix] 40 mg PO DAILY #0 tab 04/30/17 [Rx] Lisinopril [Zestril] 20 mg PO DAILY #0 tab 04/30/17 [Rx] Metoprolol XL (24 HR) Succ [Toprol Xl] 100 mg PO BID #0 04/30/17 [Rx] Potassium Chloride [Klor-Con 10] 10 meq PO BID 06/15/17 [History] 3 Allergy/AdvReac Type Severity Reaction Status Date / Time No Known Allergies Allergy Verified 06/15/17 17:03 Review of Systems All systems PM: A 10-system review of systems was performed and is negative for pertinent findings except as documented above in the HPI. General Surgery Exam Initial Vital Signs Temp Pulse Resp BP Pulse Ox 97.6 F 76 20 111/77 97 06/15/17 17:03 06/15/17 17:03 06/15/17 17:03 06/15/17 17:03 06/15/17 17:03 - Additional Findings Constitutional: Alert, in no acute distress, well nourished, well developed. Head: NG tube removed while in room,Normocephalic, atraumatic, normal contour and symmetric, no masses, lesions or scars Heart: irregular rhythm, rate controlled , no murmurs Lungs: Clear to auscultation, no wheezes, rales, or rhonchi Abdomen: Soft, nondistended, nontender, and no masses palpable, bowel sounds present and normal, no guarding or rigidity. Extremities: No clubbing, cyanosis, or edema, radial pulse +2/4, capillary refill <2sec. Skin: Skin warm and dry, no lesions, no rashes, no jaundice Neurologic: Cranial nerves II through XII grossly intact, no focal deficits, strength within normal limits in all extremities Psych: Cooperative with exam, good eye contact, cognitive function intact, judgment good insight good, speech clear, thought process logical, and goal directed Exam Initial Vital Signs Temp Pulse Resp BP Pulse Ox 97.6 F 76 20 111/77 97 06/15/17 17:03 06/15/17 17:03 06/15/17 17:03 06/15/17 17:03 06/15/17 17:03 Results - Labs 06/16/17 05:05 06/16/17 05:05 Abnormal lab results RBC 3.96 M/mcL (4.19-5.50) L 06/16/17 05:05 Hgb 12.7 g/dL (12.9-16.9) L 06/16/17 05:05 RDW 15.9 % (11.5-14.5) H 06/16/17 05:05 BUN 39 mg/dL (8-26) H 06/16/17 05:05 Est GFR (Non-Af Amer) 59 (> 60) L 06/16/17 05:05 BUN/Creatinine Ratio 33 (6-26) H 06/16/17 05:05 Glucose 102 mg/dL (70-99) H 06/16/17 05:05 Calculated Osmolality 304 (280-300) H 06/16/17 05:05 AST 101 Units/L (5-34) H 06/15/17 17:46 ALT 170 Units/L (0-55) H 06/15/17 17:46 Troponin I 0.08 ng/mL (0-0.03) H* 06/16/17 05:05 B-Natriuretic Peptide 3002 pg/mL (0-100) H 06/15/17 17:46 Albumin 3.2 g/dL (3.5-5.0) L 06/15/17 17:46 Urine Clarity Turbid (Clear) A 06/15/17 18:34 Urine Protein 30 mg/dL (Neg-Trace) H 06/15/17 18:34 Urine Blood Large (Negative) H 06/15/17 18:34 Ur Leukocyte Esterase Large (Negative) H 06/15/17 18:34 Urine Microscopic RBC 3-5 per hpf (0-3) H 06/15/17 18:34 Urine Microscopic WBC TNTC per hpf (0-3) H 06/15/17 18:34 Ur Squamous Epith Cells Moderate per lpf (None-Few) H 06/15/17 18:34 Urine Bacteria Many per hpf (None-Few) H 06/15/17 18:34 Ur Culture Indicated? YES (NO) A 06/15/17 18:34 Diabetes panel 06/16/17 Range/Units 05:05 Sodium 142 (136-145) mEq/L Potassium 3.5 (3.5-4.5) mEq/L Chloride 107 (98-109) mEq/L Carbon Dioxide 27 (19-29) mEq/L BUN 39 H (8-26) mg/dL Creatinine 1.19 (0.72-1.25) mg/dL Glucose 102 H (70-99) mg/dL Calcium 8.7 (8.6-10.8) mg/dL Calcium panel 06/16/17 Range/Units 05:05 Calcium 8.7 (8.6-10.8) mg/dL Pituitary panel 06/16/17 Range/Units 05:05 Sodium 142 (136-145) mEq/L Potassium 3.5 (3.5-4.5) mEq/L Chloride 107 (98-109) mEq/L Carbon Dioxide 27 (19-29) mEq/L BUN 39 H (8-26) mg/dL Creatinine 1.19 (0.72-1.25) mg/dL Glucose 102 H (70-99) mg/dL Calcium 8.7 (8.6-10.8) mg/dL Adrenal panel 06/16/17 Range/Units 05:05 Sodium 142 (136-145) mEq/L Potassium 3.5 (3.5-4.5) mEq/L Chloride 107 (98-109) mEq/L Carbon Dioxide 27 (19-29) mEq/L BUN 39 H (8-26) mg/dL Creatinine 1.19 (0.72-1.25) mg/dL Glucose 102 H (70-99) mg/dL Calcium 8.7 (8.6-10.8) mg/dL All other labs normal. Consult Discharge Plan - Plan Referrals: Derick Marcelino MD [Primary Care Provider] -
[2017-06-16] MEDS ORDERED: *HR* Rivaroxaban 10 MG TABLET PO SCH (14:45)
[2017-06-16] MEDS ORDERED: Diltiazem CD (24hr) 120 MG CAPSULE PO SCH (14:45)
[2017-06-16] MEDS ORDERED: Aspirin 81 MG TAB.CHEW PO SCH (14:45)
[2017-06-16] MEDS ORDERED: Metoprolol XL (24 HR) Succ 50 MG TAB.ER.24H PO SCH (14:45)
[2017-06-16] MEDS ORDERED: Lisinopril 20 MG TABLET PO SCH (14:45)
--- NOTE | 2017-06-16 15:35 | Discharge Summary ---
Date of Encounter: 06/16/17 Time of Encounter: 15:33 - Discharge Diagnosis (1) UTI (urinary tract infection) Priority: Primary Status: Acute Qualifiers: Urinary tract infection type: acute cystitis Hematuria presence: with hematuria Qualified Code(s): N30.01 - Acute cystitis with hematuria (2) Congestive heart failure Priority: Primary Status: Acute Qualifiers: Congestive heart failure type: systolic Congestive heart failure chronicity : acute on chronic Qualified Code(s): I50.23 - Acute on chronic systolic ( congestive) heart failure (3) SBO (small bowel obstruction) Priority: Secondary Status: Acute (4) Inguinal hernia of right side without obstruction or gangrene Priority: Primary Status: Acute (5) CAD (coronary artery disease) Priority: Secondary Status: Chronic Qualifiers: Coronary Disease-Associated Artery/Lesion type: [place] artery [place] vs. transplanted heart: [place] heart Associated angina: without angina Qualified Code(s): I25.10 - Atherosclerotic heart disease of [place] coronary artery without angina pectoris (6) A-fib Priority: Secondary Status: Chronic Qualifiers: Atrial fibrillation type: chronic Qualified Code(s): I48.2 - Chronic atrial fibrillation - Discharge Medications Prescriptions: Ciprofloxacin HCl [Cipro] 250 mg PO BID #10 tab Home Medications: Cholecalciferol (D-3) [Vitamin D] 2,000 unit PO DAILY 04/22/17 [History] Lactobacillus Combination No.8 [Adult Probiotic] 1 cap PO DAILY 04/22/17 [ History] Multivitamin [Multi-Day Vitamins] 1 tab PO DAILY 04/22/17 [History] [place]-3/Dha/Epa/Fish Oil [Fish Oil 1,000 mg Softgel] 1,000 mg PO DAILY 04/22/17 [History] Saw [place] Xtr/Zinc Picolin [Saw [place] Capsule] 1 cap PO DAILY 04/22/17 [ History] Rivaroxaban [Xarelto] 20 mg PO DAILY #30 tablet 04/27/17 [Rx] Aspirin 81 mg PO DAILY #0 04/30/17 [Rx] Atorvastatin [Lipitor] 40 mg PO HS #0 tab 04/30/17 [Rx] Diltiazem CD (24hr) [Cardizem CD] 120 mg PO DAILY #0 04/30/17 [Rx] Furosemide [Lasix] 40 mg PO DAILY #0 tab 04/30/17 [Rx] Lisinopril [Zestril] 20 mg PO DAILY #0 tab 04/30/17 [Rx] Metoprolol XL (24 HR) Succ [Toprol Xl] 100 mg PO BID #0 04/30/17 [Rx] Potassium Chloride [Klor-Con 10] 10 meq PO BID 06/15/17 [History] Ciprofloxacin HCl [Cipro] 250 mg PO BID #10 tab 06/16/17 [Rx] Allergies/Adverse Reactions: 3 Allergy/AdvReac Type Severity Reaction Status Date / Time No Known Allergies Allergy Verified 06/15/17 17:03 Date of admission: 06/15/17 20:52 Primary care physician: Derick Marcelino MD Consults: Lynda Discharging clinician: Jeramie Olmstead Anticipated date of discharge: 06/16/17 - Patient Status Disposition: Home, Self-Care Condition: Fair Functional capacity at discharge: independent ambulation Overall status at discharge: patient is progressing back to baseline - Discharge Instructions Follow Up With: Derick Marcelino MD [Primary Care Provider] - (Follow up in 1-2 weeks.) Robert Howell DO [Partnered Physician] - (Follow up in 2-3 weeks) - Diet and Activity Activity: increase activity as tolerated Diet: advance to your usual diet Hospital course: Mr. Roman is a 81 year old male with hx of a fib on Xarelto, CHF, CAD and inguinal hernia presented to ED with dyspnea and edema. He went to PCP and was felt to have rales in lungs. Went to ED and Xray found possible SBO. CT abdomen consistent with SBO. NG placed and patient admitted. Mr Roman was placed in observation on med tele. NG maintained all night and removed in AM. He was started on liquid diet and progressed to full diet which he tolerated. He had no further GI issues. He did miss 2 doses of his cardiac meds and his heart rate did increase to over 100. PO meds given with improvement. At this time he is afebrile with stable vitals. He is ready for discharge home. He will complete course of abx for UTI. He will follow up with PCP and surgery. Explained that hernia will likely need repaired. - Time Spent with Patient Total time spent providing and/or coordinating discharge services: 40min - Constitutional Vitals: Temp Pulse Resp BP Pulse Ox 98.0 F 100 14 133/91 95 06/16/17 11:19 06/16/17 11:19 06/16/17 11:19 06/16/17 11:19 06/16/17 11:19 General appearance: Present: A&O X 3, no acute distress, answers questions appropriately
[2017-06-16 15:36] VITALS: BP 120/82
[2017-06-17] MEDS ORDERED: Cholecalciferol (D-3) 1,000 UNIT TABLET PO SCH (09:00)
--- NOTE | 2017-06-17 18:25 | Electrocardiograph Report ---
[address] [place], [place] [address] Test Date: 2017-06-15 Pat Name: Too Roman Department: 103 Room: 2NE22 Gender: M [employer]: : [id number] Requested By: Prakash Hernandez Order Number: [id number] Reading MD: Delgado Capone MD Measurements Intervals [place] Rate: 118 P: MT: 0 QRS: 6 QRSD: 107 T: 251 QT: 316 QTc: 386 Interpretive Statements ATRIAL FIBRILLATION WITH RAPID VENTRICULAR RESPONSE LATERAL ISCHEMIA Electronically Signed On 06-17-2017 18:23:27 EDT by Delgado Capone MD
== END 2017-06-16 17:08 | disposition home or self-care (01) ==
LOC: 2NENU 16:05 → EMEROO 16:05 → 2NENU 22:39
PROVIDERS: ADMIT Internal Medicine; ATTEND Internal Medicine

== ENCOUNTER 2017-10-05 13:09 | Inpatient (IN) ==
--- NOTE | 2017-10-05 13:53 | Emergency Department Note ---
Disposition Clinical Impression: Atrial fibrillation with RVR, Urinary retention Anemia Qualifiers: Anemia type: unspecified type Qualified Code(s): D64.9 - Anemia, unspecified Congestive heart failure Qualifiers: Heart failure type: unspecified Heart failure chronicity: unspecified Qualified Code(s): I50.9 - Heart failure, unspecified Chronic kidney disease Qualifiers: Chronic kidney disease stage: unspecified stage Qualified Code(s): N18.9 - Chronic kidney disease, unspecified UTI (urinary tract infection) Qualifiers: Urinary tract infection type: site unspecified Hematuria presence: without hematuria Qualified Code(s): N39.0 - Urinary tract infection, site not specified GI bleed Qualifiers: GI bleed type/associated pathology: unspecified gastrointestinal hemorrhage type Qualified Code(s): K92.2 - Gastrointestinal hemorrhage, unspecified Disposition: Admitted As Inpatient Condition: Fair General Adult HPI - General Chief complaint: ED General Medical Stated complaint: peripheral edema Time Seen by Provider: 10/05/17 13:17 Source: patient, EMS Mode of arrival: EMS Limitations: no limitations Nursing Notes Reviewed: Yes Vital Signs Reviewed: Yes - History of Present Illness HPI Narrative: 81-year-old male history of congestive heart failure, A. fib on Xarelto, CAD presents for evaluation of bilateral lower ext swelling. Patient states his bilateral lower ext swelling over the past 3 weeks. Patient also notes decreased urinary output in the past 24-48 hours. States he has been taking Lasix 40 mg a day. Patient denies any excessive dietary intake. Patient denies any chest pain or shortness of breath. Patient denies any fevers or cough. Patient does note scrotal edema. Patient had a recent hospitalization for CHF exacerbation in March of last year. Pain Scale: 3 - Related Data Home Medications Medication Instructions Recorded Confirmed Cholecalciferol (D-3) [Vitamin D] 2,000 unit PO DAILY 04/22/17 10/05/17 Lactobacillus Combination No.8 1 cap PO DAILY 04/22/17 10/05/17 [Adult Probiotic] Multivitamin [Multi-Day Vitamins] 1 tab PO DAILY 04/22/17 10/05/17 [place]-3/Dha/Epa/Fish Oil [Fish Oil 1,000 mg PO DAILY 04/22/17 10/05/17 1,000 mg Softgel] Saw Sprague Xtr/Zinc Picolin [Saw 1 cap PO DAILY 04/22/17 10/05/17 Sprague Capsule] Potassium Chloride [Klor-Con 10] 20 meq PO BID 06/15/17 10/05/17 Metoprolol Succinate [Toprol Xl] 25 mg PO BID 10/05/17 10/05/17 Rosuvastatin Calcium [Crestor] 10 mg PO DAILY 10/05/17 10/05/17 Previous Rx's Medication Instructions Recorded Rivaroxaban [Xarelto] 20 mg PO DAILY #30 tablet 04/27/17 Aspirin 81 mg PO DAILY #0 04/30/17 Diltiazem CD (24hr) [Cardizem CD] 120 mg PO DAILY #0 04/30/17 Furosemide [Lasix] 40 mg PO DAILY #0 tab 04/30/17 Lisinopril [Zestril] 20 mg PO DAILY #0 tab 04/30/17 Allergies Allergy/AdvReac Type Severity Reaction Status Date / Time Sulfa (Sulfonamide Allergy Rash Verified 10/05/17 13:28 Antibiotics) All systems ED: reviewed and negative except as stated. Constitutional: Denies: fever Cardiovascular: Denies: chest pain Respiratory: Denies: cough, dyspnea Gastrointestinal: Denies: abdominal pain, nausea, vomiting Past Medical History - Past Medical History Source: patient Medical history: Reports: atrial fibrillation, cardiomyopathy, CHF, coronary artery disease, hypertension Surgical history: Reports: herniorrhaphy Psychiatric history: Reports: no psych history - Social History Smoking Status: Never smoker Smokeless Tobacco Status: No Alcohol use: Reports: none Drug use: Reports: none Physical Exam - General Limitations: no limitations General appearance: alert, in no apparent distress - Head Head exam: atraumatic, normocephalic, normal inspection - Eye Eye exam: Present: normal appearance, PERRL, EOMI - ENT ENT exam: normal exam - Neck Neck exam: Present: normal inspection - Chest Chest inspection: Present: normal inspection, symmetric chest wall rise - Respiratory Respiratory exam: Present: normal lung sounds bilaterally, accessory muscle use. Absent: respiratory distress, prolonged expiratory phase - Cardiovascular Cardiovascular exam: Present: tachycardia, irregular rhythm. Absent: systolic murmur - Abdominal Exam Abdominal exam: Present: soft, Non-Tender - Male exam: Present: normal inspection, scrotal swelling - Extremities Exam Extremities exam: Present: pedal edema (1-2+ bilateral pitting edema), other ( CHRONIC WEEPING OVER LOWER EXT.) - Back Exam Back exam: Present: normal inspection - Neurological Exam Neurological exam: Present: alert, oriented X3 - Skin Skin exam: Present: warm, dry, intact, normal color Course Course Narrative: Patient seen and examined. Patient appears in no acute distress. Patient does have A. fib with RVR rate of 140. Patient's normotensive. Patient will get basic lab work including chest x-ray. Patient's clinical syndrome is likely congestive heart failure. Patient records reviewed does show that he has a recent left heart catheter which showed severe three-vessel disease with an EF of 40-45%. - Reevaluation(s) Reevaluation #1: Patient seen and examined. Patient's resting tachycardia. No acute distress. Time: 15:34 Reevaluation #2: Spoke with hospitalist who ultimately accepted the patient to the ICU Time: 17:01 Reevaluation #3: Updated on family on plan of care. Remains in the ER with stable vital signs. Time: 17:47 - Consultations Consultation #1: Spoke with the interlocking tower operator who states that the patient may come to the ICU with the hospitalist will need to write the orders. Time: 16:55 Vital Signs Temperature 97.6 F 10/05/17 13:18 Pulse Rate 134 10/05/17 13:18 Respiratory Rate 24 10/05/17 13:18 Blood Pressure 128/109 10/05/17 13:18 O2 Sat by Pulse Oximetry 100 10/05/17 13:18 Temperature 98.9 F 10/05/17 17:41 Pulse Rate 115 10/05/17 17:41 Respiratory Rate 24 10/05/17 17:45 Blood Pressure 103/68 10/05/17 17:45 O2 Sat by Pulse Oximetry 95 10/05/17 16:40 Oxygen Delivery Oxygen Delivery Room Air Medical Decision Making - MDM Narrative Medical decision making narrative: 81-year-old male patient for evaluation of lower leg swelling. Patient denies any dyspnea or chest pain. Patient was noted to be in A. fib with RVR. Patient did have recent heart catheter last year which showed an EF of 40-45% with triple-vessel disease. Patient on Xarelto. Patient was noted to be anemic upon arrival. Awaiting stool occult blood. Patient was given a single dose of Cardizem given his low blood pressure. Patient was also complaining about urinary retention and had immediate relief with Wills placement. Patient was also complaining of foul-smelling urine and will be treated for UTI. Given the patient's degree of anemia as well as borderline hypotension with tachycardia the patient be given 1 unit of PRBCs. Patient did have an elevated troponin however this likely secondary to his anemia and volume status. Patient did have positive occult blood and given his history was not given aspirin. Patient was also started on a Cardizem drip and pretreated with calcium. Patient's blood pressures remain softer in the ED course however patient's mentation has been stable. Discussed with interventionalists who states that that hospitalist would need to admit the patient to the ICU as it was near 5:00. - Medical Records Medical records reviewed: Yes I reviewed the patient's medical records. - Lab Data Lab results reviewed: Yes I reviewed the patient's lab results. Result diagrams: 10/05/17 14:28 10/05/17 14:28 Lab Results 10/05/17 10/05/17 10/05/17 Range/Units 14:28 14:28 14:28 WBC 7.3 (4.3-11.1) K/mcL RBC 2.92 L (4.19-5.50) M/mcL Hgb 7.5 L (12.9-16.9) g/dL Hct 25.0 L (37.5-50.1) % MCV 85.6 (83.0-100.0) fL MCH 25.7 L (28.0-33.3) pg MCHC 30.0 L (31.6-35.5) g/dL RDW 20.6 H (11.5-14.5) % Plt Count 226 (140-400) K/mcL MPV 11.5 (9.4-12.4) fL Immature Gran % 0.5 (0-4) % Seg Neutrophils % 72.4 % Lymphocytes % 13.8 % Monocytes % 13.2 % Eosinophils % 0.0 % Basophils % 0.1 % Neutrophils # 5.3 (1.6-8.9) K/mcL Lymphocytes # 1.0 (0.6-4.6) K/mcL Monocytes # 1.0 (0.0-1.3) K/mcL Eosinophils # 0.0 (0.0-0.6) K/mcL Basophils # 0.0 (0.0-0.2) K/mcL Nucleated RBCs/100 WBC 0.4 H (0) /100 WBC PT 39.0 H (9.4-12.1) Seconds INR 3.5 APTT 45.1 H (26.0-36.0) Seconds Sodium 140 (136-145) mEq/L Potassium 4.6 (3.5-5.1) mEq/L Chloride 113 H (98-107) mEq/L Carbon Dioxide 18 L (23-29) mEq/L BUN 51 H (8-23) mg/dL Creatinine 1.48 H (0.70-1.30) mg/dL Est GFR ( Amer) 55 L (> 60) Est GFR (Non-Af Amer) 46 L (> 60) BUN/Creatinine Ratio 34 H (6-26) Glucose 97 (70-105) mg/dL Calculated Osmolality 304 H (280-300) Calcium 9.0 (8.6-10.3) mg/dL Magnesium 2.5 (1.6-2.6) mg/dL Troponin I (< 0.04) ng/mL TSH 4.728 (0.340-5.600) mcIU/mL Urine Color (Yellow) Urine Clarity (Clear) Urine pH (5.0-8.0) pH Units Ur Specific [place] (1.010-1.025) Urine Protein (Neg-Trace) mg/dL Urine Glucose (UA) (Normal) mg/dL Urine Ketones (Negative) mg/dL Urine Blood (Negative) Urine Nitrite (Negative) Urine Bilirubin (Negative) Urine Urobilinogen (Normal) mg/dL Ur Leukocyte Esterase (Negative) Urine Microscopic RBC (0-3) per hpf Urine Microscopic WBC (0-3) per hpf Ur Squamous Epith Cells (None-Few) per lpf Urine Bacteria (None-Few) per hpf Hyaline Casts (None-Few) per lpf Ur Culture Indicated? (NO) Stool Occult Blood (Negative) Blood Type Antibody Screen Crossmatch 10/05/17 10/05/17 10/05/17 Range/Units 14:28 14:30 15:52 WBC (4.3-11.1) K/mcL RBC (4.19-5.50) M/mcL Hgb (12.9-16.9) g/dL Hct (37.5-50.1) % MCV (83.0-100.0) fL MCH (28.0-33.3) pg MCHC (31.6-35.5) g/dL RDW (11.5-14.5) % Plt Count (140-400) K/mcL MPV (9.4-12.4) fL Immature Gran % (0-4) % Seg Neutrophils % % Lymphocytes % % Monocytes % % Eosinophils % % Basophils % % Neutrophils # (1.6-8.9) K/mcL Lymphocytes # (0.6-4.6) K/mcL Monocytes # (0.0-1.3) K/mcL Eosinophils # (0.0-0.6) K/mcL Basophils # (0.0-0.2) K/mcL Nucleated RBCs/100 WBC (0) /100 WBC PT (9.4-12.1) Seconds INR APTT (26.0-36.0) Seconds Sodium (136-145) mEq/L Potassium (3.5-5.1) mEq/L Chloride (98-107) mEq/L Carbon Dioxide (23-29) mEq/L BUN (8-23) mg/dL Creatinine (0.70-1.30) mg/dL Est GFR ( Amer) (> 60) Est GFR (Non-Af Amer) (> 60) BUN/Creatinine Ratio (6-26) Glucose (70-105) mg/dL Calculated Osmolality (280-300) Calcium (8.6-10.3) mg/dL Magnesium (1.6-2.6) mg/dL Troponin I 0.05 H* (< 0.04) ng/mL TSH (0.340-5.600) mcIU/mL Urine Color Yellow (Yellow) Urine Clarity Cloudy A (Clear) Urine pH 6.0 (5.0-8.0) pH Units Ur Specific [place] 1.015 (1.010-1.025) Urine Protein 30 H (Neg-Trace) mg/dL Urine Glucose (UA) Normal (Normal) mg/dL Urine Ketones Negative (Negative) mg/dL Urine Blood Moderate H (Negative) Urine Nitrite Negative (Negative) Urine Bilirubin Negative (Negative) Urine Urobilinogen Normal (Normal) mg/dL Ur Leukocyte Esterase Large H (Negative) Urine Microscopic RBC 5-15 H (0-3) per hpf Urine Microscopic WBC TNTC H (0-3) per hpf Ur Squamous Epith Cells None Seen (None-Few) per lpf Urine Bacteria Few (None-Few) per hpf Hyaline Casts None Seen (None-Few) per lpf Ur Culture Indicated? YES A (NO) Stool Occult Blood (Negative) Blood Type O POSITIVE Antibody Screen NEGATIVE Crossmatch See Detail 10/05/17 Range/Units 15:53 WBC (4.3-11.1) K/mcL RBC (4.19-5.50) M/mcL Hgb (12.9-16.9) g/dL Hct (37.5-50.1) % MCV (83.0-100.0) fL MCH (28.0-33.3) pg MCHC (31.6-35.5) g/dL RDW (11.5-14.5) % Plt Count (140-400) K/mcL MPV (9.4-12.4) fL Immature Gran % (0-4) % Seg Neutrophils % % Lymphocytes % % Monocytes % % Eosinophils % % Basophils % % Neutrophils # (1.6-8.9) K/mcL Lymphocytes # (0.6-4.6) K/mcL Monocytes # (0.0-1.3) K/mcL Eosinophils # (0.0-0.6) K/mcL Basophils # (0.0-0.2) K/mcL Nucleated RBCs/100 WBC (0) /100 WBC PT (9.4-12.1) Seconds INR APTT (26.0-36.0) Seconds Sodium (136-145) mEq/L Potassium (3.5-5.1) mEq/L Chloride (98-107) mEq/L Carbon Dioxide (23-29) mEq/L BUN (8-23) mg/dL Creatinine (0.70-1.30) mg/dL Est GFR ( Amer) (> 60) Est GFR (Non-Af Amer) (> 60) BUN/Creatinine Ratio (6-26) Glucose (70-105) mg/dL Calculated Osmolality (280-300) Calcium (8.6-10.3) mg/dL Magnesium (1.6-2.6) mg/dL Troponin I (< 0.04) ng/mL TSH (0.340-5.600) mcIU/mL Urine Color (Yellow) Urine Clarity (Clear) Urine pH (5.0-8.0) pH Units Ur Specific [place] (1.010-1.025) Urine Protein (Neg-Trace) mg/dL Urine Glucose (UA) (Normal) mg/dL Urine Ketones (Negative) mg/dL Urine Blood (Negative) Urine Nitrite (Negative) Urine Bilirubin (Negative) Urine Urobilinogen (Normal) mg/dL Ur Leukocyte Esterase (Negative) Urine Microscopic RBC (0-3) per hpf Urine Microscopic WBC (0-3) per hpf Ur Squamous Epith Cells (None-Few) per lpf Urine Bacteria (None-Few) per hpf Hyaline Casts (None-Few) per lpf Ur Culture Indicated? (NO) Stool Occult Blood Positive A (Negative) Blood Type Antibody Screen Crossmatch - Radiology Data Radiology results reviewed: Yes I reviewed the patient's radiology results. Chest x-ray portable: Right pleural effusion with associated airspace disease likely atelectasis. Mild interstitial edema noted. - EKG Data EKG #1 EKG attestation: Yes I reviewed and interpreted this EKG. Rate: tachycardia Rhythm: A.Fib [place]/QRS: normal, IVCD ST segment depression in: v3, v4, v5 T wave inversions noted in: II When compared to previous EKG there are: changes noted Interpretation: nonspecific ST-T wave changes Critical Care Time Critical Care Time: Yes Total Critical Care Time: 60 Attestation: The high probability of a clinically significant, sudden or life threatening deterioration of the [CV/resp/heme/] system(s) required my full and direct attention, intervention and personal management. The aggregate critical care time was [60] minutes. This time is in addition to time spent performing reported procedures but includes the following: [x] Data Review and interpretation [x] Patient assessment and monitoring of vital signs [x] Documentation [x] Medication orders and management S.B.A.R. - S.B.AJoseph. Situation: Demographics Background: Presenting Complaint Assessment: Vital Signs, Course and respsone to treatment, Patient/Family Expectation Recommendation: Barrier(s) to disposition, Recommendation based on pending studies, treatments, or consults S.B.A.RNeha Report Given to: Dr. Silke Alcazar Repor Time: 15:59 Attestation Statement - Attestation Attestation: I examined this patient and my medical decision-making was reviewed with the Resident Physician, Dr. Yepez. I agree with the documented findings, disposition and treatment plan as described except to the extent set forth below. Patient is an 81-year-old elderly white male who presents to emergency department with multiple claim complaints today, beginning with generalized weakness, difficulty urinating, suprapubic abdominal pain and distention. Patient denies any chest pain pressure or heaviness, no palpitations or heart racing symptoms, no shortness of breath although visibly looks as if to be having increased work of breathing, no lightheadedness or syncope. Patient has a history of atrial fibrillation on Xarelto, and arrives tachycardic today with a stable blood pressure on arrival. Family is at bedside stating that he is appeared short of breath the last couple of days and had had increased lower extremity edema. Patient also has a history of CHF as well as known CAD. He had his Lasix increased recently by his doctor and is taking 80 mg a day now and states he has been feeling more short of breath since changing his medications. I agree with patient's physical exam findings as documented. Patient having mild respiratory distress on arrival but no hypoxia and tachycardic in atrial fibrillation. EKG shows atrial fibrillation with RVR and mild lateral ischemia but this is unchanged from prior EKG and likely rate related. Patient was placed on continuous monitoring of pulse ox, IV saline while established 2, labs were drawn and sent, portable chest x-ray obtained. We placed a Wills catheter due to patient's complaint of inability to urinate and suprapubic abdominal pain in patient with subsequent 1 L fluid out and Wills catheter bag. Urine was sent for urinalysis. Chest x-ray shows some mild interstitial edema. Labs show a new anemia with hemoglobin of 7.4 which is a significant change from his May hemoglobin which was 12. Bedside guaiac testing was performed and is positive for occult blood. No gross blood was appreciated on exam. We are holding off on fluids at this time as patient has congestive heart failure with some mild interstitial edema and lower edema at this time. We will transfuse the patient 2 units packed red blood cells. Consent will be signed in the ED for transfusion. Patient looks to have worsening acute renal insufficiency likely secondary to his recent increase in Lasix. Remainder of electrolytes are within normal limits. Patient with an elevated troponin which can be multifactorial at this time. He should has no chest pain and has been resting comfortably throughout his ED course. Patient was started on Cardizem in the ED with a bolus followed by drip although tachycardia could also be due to blood loss anemia. Blood transfusion will be initiated. Calcium is been administered for blood pressure support. Patient's blood pressure is improving. We had a sudden drop following Cardizem bolus. Patient remains resting comfortably at bedside. Case was discussed with the hospitalist who prefers patient in the ICU for closer monitoring. We did speak with the interlocking tower operator to refused to write orders as he was within 10 minutes of being off duty and requested the hospitalist write orders.
[2017-10-05 14:40] LABS: Bilirubin,Urine Negative (Negative); Blood,Urine Moderate (Negative); Clarity,Urine Cloudy (Clear); Color,Urine Yellow (Yellow); Glucose,Urine (UA) Normal (Normal); Ketones,Urine Negative (Negative); Leukocyte Esterase,Urine Large (Negative); Nitrite,Urine Negative (Negative); Protein,Urine 30 mg/dL (Neg-Trace); Specific Gravity,Urine 1.015 (1.010-1.025); Urobilinogen,Urine Normal (Normal)
[2017-10-05 14:43] LABS: Bacteria,Urine Few per hpf (None-Few); Hyaline Casts,Urine None Seen per lpf (None-Few); Squamous Epithelial Cell,Urine None Seen per lpf (None-Few); WBC,Urine TNTC per hpf (0-3)
[2017-10-05 14:46] LABS: INR 3.5
[2017-10-05 14:48] LABS: Basophils % 0.1 %; Immature Granulocytes % 0.5 % (0-4); Lymphocytes % 13.8 %; Mean Corpuscular Hemoglobin 25.7 pg (28.0-33.3); Mean Corpuscular Volume 85.6 fL (83.0-100.0); Mean Platelet Volume 11.5 fL (9.4-12.4); Monocytes % 13.2 %; Neutrophils # 5.3 K/mcL (1.6-8.9); Nucleated Red Blood Cells 0.4 /100 WBC (0); Platelet Count 226 K/mcL (140-400); Red Blood Count 2.92 M/mcL (4.19-5.50); Red Cell Distribution Width 20.6 % (11.5-14.5); Segmented Neutrophils % 72.4 %
[2017-10-05 14:49] LABS: Activated Partial Thrombo Time 45.1 Seconds (26.0-36.0)
[2017-10-05 15:03] LABS: Magnesium 2.5 mg/dL (1.6-2.6); Potassium 4.6 mEq/L (3.5-5.1)
[2017-10-05 15:07] LABS: Hemoglobin 7.5 g/dL (12.9-16.9)
[2017-10-05 15:08] LABS: Thyroid Stimulating Hormone 4.728 mcIU/mL (0.340-5.600)
[2017-10-05] MEDS ORDERED: Calcium Gluconate 3,000 MG in D5% in Water 250 ML IVPB ONE (16:04)
[2017-10-05] MEDS ORDERED: cefTRIAXone 1,000 MG in Water for inj. (sterile) 20 ML 10 ML IVP ONE (16:15)
[2017-10-05] MEDS ORDERED: 0.9 % Sodium Chloride 250 ML ONE (17:20)
--- NOTE | 2017-10-05 19:05 | Internal Med History&Physical ---
Date of Encounter: 10/05/17 Time of Encounter: 17:20 Assessment and Plan (1) Atrial fibrillation with RVR Current visit: Yes Status: Acute Continue Cardizem drip Add dig if he becomes hypotensive again and Cardizem cannot be increased Metoprolol held due to hypotension Consider Cardiology consult in am No chest pain and breathing comfortably Code(s): I48.91 - Unspecified atrial fibrillation SNOMED Code(s): 285760333719657 (2) GI bleed Current visit: Yes Status: Acute Likely slow GIB Xarelto held Aspirin held Serial Hgb GI called Qualifiers: GI bleed type/associated pathology: unspecified gastrointestinal hemorrhage type Qualified Code(s): K92.2 - Gastrointestinal hemorrhage, unspecified Code(s): K92.2 - Gastrointestinal hemorrhage, unspecified (3) Congestive heart failure Current visit: Yes Status: Acute Qualifiers: Heart failure type: unspecified Heart failure chronicity: unspecified Qualified Code(s): I50.9 - Heart failure, unspecified Code(s): I50.9 - Heart failure, unspecified SNOMED Code(s): 60523604 (4) Anemia Current visit: Yes Status: Acute Likely due to slow GI bleed while on A/C I Unit of PRBC given Qualifiers: Anemia type: unspecified type Qualified Code(s): D64.9 - Anemia, unspecified Code(s): D64.9 - Anemia, unspecified SNOMED Code(s): 145406179 (5) UTI (urinary tract infection) Current visit: Yes Status: Acute Continue Rocephin Cultures pending Qualifiers: Urinary tract infection type: site unspecified Hematuria presence: without hematuria Qualified Code(s): N39.0 - Urinary tract infection, site not specified (6) CAD (coronary artery disease), [place] coronary artery Current visit: No Status: Acute History of CAD Initial troponin increased Likely due to demand ischemia secondary to anemai Aspirin held Continue trending Grace No chest pain Qualifiers: [place] vs. transplanted heart: [place] heart Associated angina: without angina Qualified Code(s): I25.10 - Atherosclerotic heart disease of [place] coronary artery without angina pectoris Internal Medicine - H&P: HPI Admitted From: Emergency Dept Plans for Post Hospital Care: Home History of present illness: 81 yr old man with PMH of CAD and A-Fib on Xarleto and aspirin who presented in the ER in A-Fib with RVR and 3 weeks of worsening LE edema. He's had [place] for several days but is breathing comfortably on RA at rest. His Spo2 on RA is >95% . He was mildly hypotensive until given a bolus of cardizem which dropped his blood systolic pressure into the 70s. He very edematous and volume overloaded so IVFs were not given in the ER. His Hgb is much lower today than in May ( 12.7 ---> 7.5). He was recently at [facility]'s office and his Lasix dose was increased from 40mg PO --> 80 mgPO daily. His renal function is wnl and no signs of ROSSI, but he's developed urinary retention. Past Med Surg Social Fam HX - Past Medical History Medical history: atrial fibrillation, cardiomyopathy, CHF, coronary artery disease, hypertension Psychiatric history: no psych history - Past Surgical History Surgical History: herniorrhaphy - Social History Smoking Status: Never smoker Smokeless Tobacco Status: No Alcohol use: none Drug use: none - Family History Brother Living Status: Hx Family Cancer: Yes (prostate) Internal Medicine - H&P: Meds Cholecalciferol (D-3) [Vitamin D] 2,000 unit PO DAILY 04/22/17 [History] Lactobacillus Combination No.8 [Adult Probiotic] 1 cap PO DAILY 04/22/17 [ History] Multivitamin [Multi-Day Vitamins] 1 tab PO DAILY 04/22/17 [History] [place]-3/Dha/Epa/Fish Oil [Fish Oil 1,000 mg Softgel] 1,000 mg PO DAILY 04/22/17 [History] [place] Xtr/Zinc Picolin [Saw [place] Capsule] 1 cap PO DAILY 04/22/17 [ History] Rivaroxaban [Xarelto] 20 mg PO DAILY #30 tablet 04/27/17 [Rx] Aspirin 81 mg PO DAILY #0 04/30/17 [Rx] Diltiazem CD (24hr) [Cardizem CD] 120 mg PO DAILY #0 04/30/17 [Rx] Furosemide [Lasix] 40 mg PO DAILY #0 tab 04/30/17 [Rx] Lisinopril [Zestril] 20 mg PO DAILY #0 tab 04/30/17 [Rx] Potassium Chloride [Klor-Con 10] 20 meq PO BID 06/15/17 [History] Metoprolol Succinate [Toprol Xl] 25 mg PO BID 10/05/17 [History] Rosuvastatin Calcium [Crestor] 10 mg PO DAILY 10/05/17 [History] 3 Allergy/AdvReac Type Severity Reaction Status Date / Time Sulfa (Sulfonamide Allergy Rash Verified 10/05/17 13:28 Antibiotics) All Systems PM: A 10-system review of systems was performed and is negative for pertinent findings except as documented above in the HPI. - Constitutional Constitutional: lethargy, no anorexia, no chills, no excessive sweating, no fever(s), no night sweats, no weight loss - EENT Eyes: no blurry vision, no decreased night vision Ears: no decreased hearing Nose, mouth and throat: no bleeding gums, no change in voice, no dysphagia, no facial pain - Cardiovascular Cardiovascular ROS IM: dyspnea on exertion, no chest pain, no diaphoresis - Respiratory Respiratory: dyspnea on exertion, no hemoptysis, no wheezing, no stridor - Gastrointestinal Gastrointestinal: no abdominal pain, no diarrhea, no hematemesis, no hematochezia, no loose stools, no melena, no tenesmus, no vomiting - Genitourinary Genitourinary ROS male: difficulty urinating, no hematuria - Psychiatric Psychiatric: no confusion, no homicidal ideation, no panic attacks, no suicidal ideation - Constitutional Vitals: Temp Pulse Resp BP Pulse Ox 98.9 F 124 26 94/78 97 10/05/17 17:41 10/05/17 18:19 10/05/17 18:19 10/05/17 18:19 10/05/17 18:19 General appearance: Present: mild distress, A&O X 3, pleasant - Head Head exam: Present: atraumatic, normocephalic - Eye Eye exam: Present: PERRL, conjuntiva pink, sclera anicteric Pupils: Present: PERRL - Neck Neck exam general surgery: Present: supple, trachea midline. Absent: lymphadenopathy - Respiratory Respiratory exam: Present: CTAB. Absent: accessory muscle use, rales, rhonchi, wheezes - Cardiovascular Cardiovascular exam: Present: RRR, +S1, +S2. Absent: diastolic murmur, gallop, rubs, systolic murmur - GI/Abdominal GI/Abdominal exam: Present: normal bowel sounds, soft, no peritoneal signs. Absent: distended, tenderness - Extremities Exam Extremities exam: Present: warm, radial pulses palpable and symmetrical. Absent : calf tenderness, cyanotic, pedal edema - Neurological Exam Neurological exam: Present: CN II-XII intact, oriented X3, no focal deficits. Absent: pronater drift, facial droop, speech deficit - Skin Skin exam: Present: dry, intact Internal Med - H&P Results - Labs CBC & Chem 7: 10/05/17 14:28 10/05/17 14:28 - VTE Reasons for not Prescribing Prophylaxis: Not indicated-Anticoagulated or INR therapeutic
[2017-10-05] MEDS ORDERED: *HR* Digoxin 0.5 MG/2 ML AMPUL IVP ONE (19:56)
[2017-10-05] MEDS: Furosemide 40 MG/4 ML VIAL IVP SCH (20:47)
[2017-10-05] MEDS ORDERED: Metoprolol XL (24 HR) Succ 25 MG TAB.ER.24H PO SCH (21:00)
[2017-10-05] MEDS ORDERED: 0.9 % Sodium Chloride 1,000 ML ONE (21:31)
[2017-10-05 23:29] LABS: % Iron Saturation 6 % (20-55); Ferritin 28 ng/ml (20-250); Iron 19 mcg/dL (65-175); Transferrin 231 mg/dL (203-362)
[2017-10-06 07:54] LABS: Basophils % 0.3 %; Eosinophils % 0.6 %; Hematocrit 24.9 % (37.5-50.1); Hemoglobin 7.5 g/dL (12.9-16.9); Immature Granulocytes % 0.8 % (0-4); Lymphocytes # 0.9 K/mcL (0.6-4.6); Lymphocytes % 12.2 %; Mean Corpuscular HGB Conc 30.1 g/dL (31.6-35.5); Mean Corpuscular Hemoglobin 25.8 pg (28.0-33.3); Mean Corpuscular Volume 85.6 fL (83.0-100.0); Mean Platelet Volume 10.8 fL (9.4-12.4); Monocytes # 0.7 K/mcL (0.0-1.3); Neutrophils # 5.5 K/mcL (1.6-8.9); Nucleated Red Blood Cells 0.3 /100 WBC (0); Platelet Count 170 K/mcL (140-400); Red Blood Count 2.91 M/mcL (4.19-5.50); Red Cell Distribution Width 20.1 % (11.5-14.5); Segmented Neutrophils % 76.1 %
[2017-10-06] MEDS: Lactobacillus 1 EACH CAP.SPRINK PO SCH (08:05)
[2017-10-06] MEDS: Cholecalciferol (D-3) 1,000 UNIT TABLET PO SCH (08:05)
[2017-10-06] MEDS: Furosemide 40 MG/4 ML VIAL IVP SCH ×3 (08:05→16:43)
[2017-10-06] MEDS: Multivit/Ca/Min/Fe/FA 1 TAB TABLET PO SCH (08:05)
[2017-10-06 08:47] LABS: Alanine Aminotransferase 23 Units/L (7-52); Albumin 2.7 g/dL (3.5-5.7); Albumin/Globulin Ratio 1.5 (1.1-2.2); Alkaline Phosphatase 48 Units/L (34-104); Aspartate Amino Transferase 21 Units/L (13-39); BUN/Creatinine Ratio 40 (6-26); Bilirubin,Total 0.6 mg/dL (0.3-1.0); Blood Urea Nitrogen 46 mg/dL (8-23); Calcium 8.4 mg/dL (8.6-10.3); Carbon Dioxide 21 mEq/L (23-29); Chloride 121 mEq/L (98-107); Globulin 1.8 g/dL (2.4-3.5); Glucose 81 mg/dL (70-105); Magnesium 2.2 mg/dL (1.6-2.6); Osmolality,Calculated 307 (280-300); Potassium 3.6 mEq/L (3.5-5.1); Sodium 143 mEq/L (136-145); Total Protein 4.5 g/dL (6.4-8.9); eGFR For African Americans > 60 (> 60); eGFR For Non-African Americans > 60 (> 60)
[2017-10-06] MEDS ORDERED: ZINC PICOLIN PO SCH (09:00)
[2017-10-06] MEDS ORDERED: SAW PALMETTO XTR PO SCH (09:00)
[2017-10-06] MEDS ORDERED: (Omega-3/Dha/Epa/Fish Oil [Fish Oil 1,000 Mg Softgel] PO SCH (09:00)
[2017-10-06] MEDS ORDERED: *HR* Phytonadione 10 MG/ML AMPUL SQ ONE (10:36)
--- NOTE | 2017-10-06 10:40 | Internal Medicine Consult Note ---
Date of Encounter: 10/06/17 Time of Encounter: 10:39 - Assessment and Plan (1) Melena Current Visit: Yes Status: Acute Assessment and plan: Given the drop of hemoglobin, melena, and some of his medications think GI bleeding certainly is a possibility. Specifically gastritis, esophagitis and/or ulcer disease. I recommended upper endoscopy, with risks and benefits being discussed with him, he has signed consent today. In the meantime, we'll hold his aspirin, his Xarelto, and recommended no further fish oil. We'll also make sure we hold his potassium at this time as it can be a GI irritant. I have talked to the hospitalist with his care, sounds like he may require another unit of blood today. His hemoglobin has been stable at 75, but again is received 1 unit of packed cells. (2) Iron deficiency anemia Current Visit: Yes Status: Acute Assessment and plan: Possibly due to GI bleeding or malnutrition. Qualifiers: Qualified Code(s): D50.9 - Iron deficiency anemia, unspecified (3) Atrial fibrillation with RVR Current Visit: Yes Status: Chronic (4) CAD (coronary artery disease), [place] coronary artery Current Visit: No Status: Chronic Qualifiers: [place] vs. transplanted heart: [place] heart Associated angina: without angina Qualified Code(s): I25.10 - Atherosclerotic heart disease of [place] coronary artery without angina pectoris Internal Medicine - CN: HPI - Data of Consult Patient: new to practice Requesting Physician: Princess Michel MD - Consult Narrative Reason for consult: Melena and anemia, possible need for endoscopy History of present illness: Mr. Roman is a 81 year old male admitted yesterday via the hospitalist service. I was asked to see him given melena, Hemoccult positive stool, and a change in his hemoglobin. This is a somewhat frail 81-year-old gentleman, very pleasant, who says he has not been doing well the last 3 months. He reports some exertional fatigue was found to be in the hospital with atrial fibrillation and rapid rate. He also reports some urinary retention on admission. He's had no abdominal complaints no nausea or vomiting admits he had one episode or stools were somewhat dark in the last week but he was taking Pepto- Bismol around that time. He reports having endoscopy roughly a year ago but I'm not able to find those reports. Past Med Surg Social Fam HX - Past Medical History Medical history: atrial fibrillation, cardiomyopathy, CHF, coronary artery disease, hypertension Psychiatric history: no psych history - Past Surgical History Surgical History: herniorrhaphy - Social History Smoking Status: Never smoker Smokeless Tobacco Status: No Alcohol use: none Drug use: none - Family History Brother Living Status: Hx Family Cancer: Yes (prostate) - Constitutional Constitutional: fatigue, weakness, no anorexia, no fever(s), no falls - Cardiovascular Cardiovascular ROS IM: dyspnea, dyspnea on exertion, edema, irregular heart rhythm, no chest pain, no diaphoresis - Respiratory Respiratory: dyspnea on exertion, no hemoptysis - Gastrointestinal Gastrointestinal: loose stools, melena, no abdominal pain, no coffee ground emesis, no diarrhea, no dyspepsia, no dysphagia, no early satiety, no heartburn , no nausea - Musculoskeletal Musculoskeletal ROS IM: no back pain - Integumentary Integumentary IM: sores Additional comments: On the lower extremities - Neurological Neurological ROS: no focal weakness Internal Medicine - CN: Meds Cholecalciferol (D-3) [Vitamin D] 2,000 unit PO DAILY 04/22/17 [History] Lactobacillus Combination No.8 [Adult Probiotic] 1 cap PO DAILY 04/22/17 [ History] Multivitamin [Multi-Day Vitamins] 1 tab PO DAILY 04/22/17 [History] [place]-3/Dha/Epa/Fish Oil [Fish Oil 1,000 mg Softgel] 1,000 mg PO DAILY 04/22/17 [History] Saw [place] Xtr/Zinc Picolin [Saw [place] Capsule] 1 cap PO DAILY 04/22/17 [ History] Rivaroxaban [Xarelto] 20 mg PO DAILY #30 tablet 04/27/17 [Rx] Aspirin 81 mg PO DAILY #0 04/30/17 [Rx] Diltiazem CD (24hr) [Cardizem CD] 120 mg PO DAILY #0 04/30/17 [Rx] Furosemide [Lasix] 40 mg PO DAILY #0 tab 04/30/17 [Rx] Lisinopril [Zestril] 20 mg PO DAILY #0 tab 04/30/17 [Rx] Potassium Chloride [Klor-Con 10] 20 meq PO BID 06/15/17 [History] Metoprolol Succinate [Toprol Xl] 25 mg PO BID 10/05/17 [History] Rosuvastatin Calcium [Crestor] 10 mg PO DAILY 10/05/17 [History] 3 Allergy/AdvReac Type Severity Reaction Status Date / Time Sulfa (Sulfonamide Allergy Rash Verified 10/05/17 13:28 Antibiotics) Internal Medicine - CN: Exam - Constitutional Vitals: Temp Pulse Resp BP Pulse Ox 98.2 F 94 18 97/64 95 10/06/17 07:17 10/06/17 07:17 10/06/17 07:17 10/06/17 07:17 10/06/17 07:17 General appearance IM: Present: cachectic, A&O X 3, pleasant, answers questions appropriately. Absent: mild distress - Head Head exam: Present: atraumatic - Eye Eye exam: Present: conjuntiva pink, sclera anicteric - Neck Neck exam general surgery: Present: full ROM, supple, trachea midline. Absent: nuchal rigidity - Respiratory Respiratory exam: Present: CTAB. Absent: wheezes, tachypnea - Cardiovascular Cardiovascular exam IM: Present: irregular rhythm, +S1, +S2, tachycardia. Absent: JVD, systolic murmur - GI/Abdominal GI/Abdominal exam IM: Present: normal bowel sounds (Moderate sized right inguinal hernia noted, catheter in place), soft, no peritoneal signs. Absent: rigid, splenomegaly, tenderness - Rectal Rectal exam: Present: deferred Internal Medicine - CN: Reslt - Labs CBC & Chem 7: 10/06/17 07:25 10/06/17 07:25 Labs: Short CBC 10/06/17 Range/Units 07:25 WBC 7.2 (4.3-11.1) K/mcL Hgb 7.5 L (12.9-16.9) g/dL Hct 24.9 L (37.5-50.1) % Plt Count 170 (140-400) K/mcL Neutrophils # 5.5 (1.6-8.9) K/mcL BMP 10/06/17 07:25 Sodium 143 Potassium 3.6 Chloride 121 H Carbon Dioxide 21 L BUN 46 H Creatinine 1.14 Glucose 81 Calcium 8.4 L Cardiac Enzymes 10/05/17 10/06/17 10/06/17 Range/Units 22:52 02:02 07:25 Troponin I 0.07 H* 0.07 H* 0.08 H* (< 0.04) ng/mL Liver Function 10/06/17 Range/Units 07:25 Total Bilirubin 0.6 (0.3-1.0) mg/dL AST 21 (13-39) Units/L ALT 23 (7-52) Units/L Alkaline Phosphatase 48 (34-104) Units/L Albumin 2.7 L (3.5-5.7) g/dL - ABG Interpretation ABG results: PT/INR, D-dimer PT 39.0 Seconds (9.4-12.1) H 10/05/17 14:28 Consult Discharge Plan - Plan Referrals: Derick Marcelino MD [Primary Care Provider] -
[2017-10-06 13:57] LABS: Hematocrit 24.6 % (37.5-50.1); Hemoglobin 7.5 g/dL (12.9-16.9)
--- NOTE | 2017-10-06 16:32 | Internal Med Progress Note ---
Date of Encounter: 10/06/17 Time of Encounter: 16:27 - Assessment and plan (1) GI bleed Current Visit: Yes Status: Acute Assessment and plan: Gastroenterology input appreciated. Plan for an upper GI endoscopy tomorrow. Place patient on IV PPI. High risk for complications. Qualifiers: GI bleed type/associated pathology: unspecified gastrointestinal hemorrhage type Qualified Code(s): K92.2 - Gastrointestinal hemorrhage, unspecified (2) Atrial fibrillation with RVR Current Visit: Yes Status: Acute Assessment and plan: Heart rate is better controlled. Wean off Cardizem drip. Place patient back on oral Cardizem and metoprolol. Continue to hold Xarelto for possible GI bleed. (3) Anemia Current Visit: Yes Status: Suspected Assessment and plan: Possibly from GI bleed. Hemoglobin remains low at 7.5 despite 1 PRBC transfusion. We will transfuse 1 unit packed red blood cells. Monitor blood counts. Plan for upper GI endoscopy tomorrow Qualifiers: Anemia type: other cause Other causes of anemia: acute posthemorrhagic Qualified Code(s): D62 - Acute posthemorrhagic anemia (4) CAD (coronary artery disease), [place] coronary artery Current Visit: No Status: Chronic Assessment and plan: no chest pain. Holding aspirin due to GI bleed. Resume metoprolol. Qualifiers: [place] vs. transplanted heart: [place] heart Associated angina: without angina Qualified Code(s): I25.10 - Atherosclerotic heart disease of [place] coronary artery without angina pectoris (5) Congestive heart failure Current Visit: Yes Status: Acute Assessment and plan: Good urine output after receiving IV Lasix. We will transition to oral Lasix. Qualifiers: Heart failure type: systolic Heart failure chronicity: acute on chronic Qualified Code(s): I50.23 - Acute on chronic systolic (congestive) heart failure (6) UTI (urinary tract infection) Current Visit: Yes Status: Acute Qualifiers: Urinary tract infection type: site unspecified Hematuria presence: without hematuria Qualified Code(s): N39.0 - Urinary tract infection, site not specified - Subjective Interval history: Patient is lying in bed. Appears comfortable. Denies any chest pain. No nausea or vomiting. No palpitations. No dizziness or lightheadedness. - Constitutional Vitals: Temp Pulse Resp BP Pulse Ox 98.0 F 96 16 102/63 97 10/06/17 11:07 10/06/17 11:07 10/06/17 11:07 10/06/17 11:07 10/06/17 11:07 General appearance: Present: cachectic, A&O X 3, pleasant, answers questions appropriately. Absent: mild distress - Neck Neck exam general surgery: Present: supple, trachea midline. Absent: lymphadenopathy - Respiratory Respiratory exam: Present: CTAB. Absent: accessory muscle use, rales, rhonchi, wheezes - Cardiovascular Cardiovascular exam: Present: irregular rhythm, +S1, +S2. Absent: diastolic murmur, gallop, rubs, systolic murmur - GI/Abdominal GI/Abdominal exam: Present: normal bowel sounds, soft, no peritoneal signs. Absent: distended, tenderness Internal Medicine: Result - Labs CBC & Chem 7: 10/06/17 13:40 10/06/17 07:25 Labs: Short CBC 10/06/17 10/06/17 Range/Units 07:25 13:40 WBC 7.2 (4.3-11.1) K/mcL Hgb 7.5 L 7.5 L (12.9-16.9) g/dL Hct 24.9 L 24.6 L (37.5-50.1) % Plt Count 170 (140-400) K/mcL Neutrophils # 5.5 (1.6-8.9) K/mcL BMP 10/06/17 07:25 Sodium 143 Potassium 3.6 Chloride 121 H Carbon Dioxide 21 L BUN 46 H Creatinine 1.14 Glucose 81 Calcium 8.4 L Cardiac Enzymes 10/05/17 10/06/17 10/06/17 Range/Units 22:52 02:02 07:25 Troponin I 0.07 H* 0.07 H* 0.08 H* (< 0.04) ng/mL Liver Function 10/06/17 Range/Units 07:25 Total Bilirubin 0.6 (0.3-1.0) mg/dL AST 21 (13-39) Units/L ALT 23 (7-52) Units/L Alkaline Phosphatase 48 (34-104) Units/L Albumin 2.7 L (3.5-5.7) g/dL - ABG Interpretation ABG results: PT/INR, D-dimer PT 39.0 Seconds (9.4-12.1) H 10/05/17 14:28 - VTE Reasons for not Prescribing Prophylaxis: Not indicated-Anticoagulated or INR therapeutic Documentation of Mechanical Device: Venous foot pump, device Consult Discharge Plan - Plan Referrals: Derick Marcelino MD [Primary Care Provider] -
[2017-10-06] MEDS: Diltiazem CD (24hr) 120 MG CAPSULE PO SCH (16:42)
[2017-10-06] MEDS: cefTRIAXone 1,000 MG in Water for inj. (sterile) 20 ML 10 ML IVP SCH (16:43)
[2017-10-06] MEDS: Pantoprazole 40 MG VIAL IVP SCH (19:34)
[2017-10-06 19:39] LABS: Hematocrit 24.2 % (37.5-50.1); Hemoglobin 7.3 g/dL (12.9-16.9)
[2017-10-06 22:31] LABS: INR 1.5; Prothrombin Time 15.8 Seconds (9.4-12.1)
[2017-10-07] MEDS: Pantoprazole 40 MG VIAL IVP SCH (06:26)
[2017-10-07] MEDS: Diltiazem CD (24hr) 120 MG CAPSULE PO SCH (08:00)
[2017-10-07] MEDS: Furosemide 40 MG/4 ML VIAL IVP SCH (08:01)
[2017-10-07] MEDS: Lactobacillus 1 EACH CAP.SPRINK PO SCH (08:01)
[2017-10-07] MEDS: Cholecalciferol (D-3) 1,000 UNIT TABLET PO SCH (08:01)
[2017-10-07] MEDS: Multivit/Ca/Min/Fe/FA 1 TAB TABLET PO SCH (08:01)
[2017-10-07 08:49] LABS: Basophils % 0.3 %; Eosinophils # 0.1 K/mcL (0.0-0.6); Hematocrit 25.7 % (37.5-50.1); Hemoglobin 7.6 g/dL (12.9-16.9); Immature Granulocytes % 1.2 % (0-4); Lymphocytes # 1.1 K/mcL (0.6-4.6); Lymphocytes % 18.7 %; Mean Corpuscular HGB Conc 29.6 g/dL (31.6-35.5); Mean Corpuscular Hemoglobin 25.5 pg (28.0-33.3); Mean Corpuscular Volume 86.2 fL (83.0-100.0); Mean Platelet Volume 10.3 fL (9.4-12.4); Monocytes # 0.8 K/mcL (0.0-1.3); Monocytes % 12.4 %; Platelet Count 162 K/mcL (140-400); Red Blood Count 2.98 M/mcL (4.19-5.50); Red Cell Distribution Width 20.2 % (11.5-14.5); Segmented Neutrophils % 65.4 %
[2017-10-07 08:50] LABS: INR 1.3; Prothrombin Time 14.2 Seconds (9.4-12.1)
[2017-10-07] MEDS ORDERED: Metoprolol XL (24 HR) Succ 25 MG TAB.ER.24H PO SCH (09:00)
[2017-10-07 09:06] LABS: BUN/Creatinine Ratio 33 (6-26); Blood Urea Nitrogen 32 mg/dL (8-23); Calcium 7.8 mg/dL (8.6-10.3); Carbon Dioxide 25 mEq/L (23-29); Chloride 117 mEq/L (98-107); Glucose 88 mg/dL (70-105); Osmolality,Calculated 302 (280-300); Potassium 2.9 mEq/L (3.5-5.1); Sodium 143 mEq/L (136-145); eGFR For African Americans > 60 (> 60); eGFR For Non-African Americans > 60 (> 60)
[2017-10-07] MEDS ORDERED: *HR* FentaNYL (PF) 100 MCG/2 ML VIAL ONE (09:08)
[2017-10-07] MEDS ORDERED: *HR* Midazolam HCl 5 MG/5 ML VIAL IVP ONE ×2 (09:08→09:31)
[2017-10-07] MEDS ORDERED: Simethicone 40 MG/0.6 ML MLS IR ONE (09:31)
[2017-10-07] MEDS ORDERED: *HR* FentaNYL (PF) 100 MCG/2 ML VIAL IVP ONE (09:31)
[2017-10-07] MEDS ORDERED: Tetracaine/Benzocaine/Butamben 200MG/SPRAY (100SPY/BOT) MM ONE (09:31)
--- NOTE | 2017-10-07 09:32 | Pre-Sedation Evaluation ---
Pre-sedation evaluation - Pre-sedation checklist Date of procedure: 10/07/17 Procedure: EGD Recent Vitals: Last Vital Signs Temp 97.9 F 10/07/17 08:04 Pulse 120 10/07/17 08:04 Resp 18 10/07/17 08:04 BP 113/73 10/07/17 08:04 Pulse Ox 92 10/07/17 08:04 H&P (including ROS) documented in medical record: Yes Previous reaction to sedatives/anesthetics: No Dietary Status: NPO after Midnight Dentition: dentures removed ASA Classification *see protocol: CLASS III-Severe systemic disease
--- NOTE | 2017-10-07 10:10 | Event Note ---
Date of Encounter: 10/07/17 Time of Encounter: 10:06 EGD 1. MIld gastric erosions 2. Mod. sized duodenal diverticula 3. Biopsies for H. Pylori done.. I will follow up. 4. Do not believe there is benefit with Colonoscopy. Plan 1. ASA only 2. No anticoagulation at this time 3. I will send jamari to his [employer] about anticoagulation 4. I have spoke to Sister about the CVA risk going forward 5. Cont. PPI therapy and Iron p.o.
--- NOTE | 2017-10-07 10:12 | Internal Med Progress Note ---
Date of Encounter: 10/07/17 Time of Encounter: 10:11 - Assessment and plan (1) Melena Current Visit: Yes Status: Acute (2) Iron deficiency anemia Current Visit: Yes Status: Acute Qualifiers: Qualified Code(s): D50.9 - Iron deficiency anemia, unspecified (3) Atrial fibrillation with RVR Current Visit: Yes Status: Acute (4) CAD (coronary artery disease), [place] coronary artery Current Visit: No Status: Chronic Qualifiers: [place] vs. transplanted heart: [place] heart Associated angina: without angina Qualified Code(s): I25.10 - Atherosclerotic heart disease of [place] coronary artery without angina pectoris (5) Gastric erosion with bleeding Current Visit: Yes Status: Acute Assessment and plan: ON PPI therapy.. no anticoagulation at this time. - Constitutional Vitals: Temp Pulse Resp BP Pulse Ox 97.9 F 115 14 111/89 92 10/07/17 08:04 10/07/17 09:45 10/07/17 09:45 10/07/17 09:45 10/07/17 09:45 General appearance: Present: cachectic, A&O X 3, pleasant, answers questions appropriately. Absent: mild distress Internal Medicine: Result - Labs CBC & Chem 7: 10/07/17 07:54 10/07/17 07:54 Labs: Short CBC 10/06/17 10/06/17 10/07/17 Range/Units 13:40 19:32 07:54 WBC 6.0 (4.3-11.1) K/mcL Hgb 7.5 L 7.3 L 7.6 L (12.9-16.9) g/dL Hct 24.6 L 24.2 L 25.7 L (37.5-50.1) % Plt Count 162 (140-400) K/mcL Neutrophils # 4.0 (1.6-8.9) K/mcL BMP 10/07/17 07:54 Sodium 143 Potassium 2.9 L Chloride 117 H Carbon Dioxide 25 BUN 32 H Creatinine 0.98 Glucose 88 Calcium 7.8 L - ABG Interpretation ABG results: PT/INR, D-dimer PT 14.2 Seconds (9.4-12.1) H 10/07/17 07:54 - VTE Reasons for not Prescribing Prophylaxis: Not indicated-Anticoagulated or INR therapeutic Documentation of Mechanical Device: Venous foot pump, device Consult Discharge Plan - Plan Referrals: Derick Marcelino MD [Primary Care Provider] -
--- NOTE | 2017-10-07 10:43 | Electrocardiograph Report ---
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
--- NOTE | 2017-10-07 14:57 | Internal Med Progress Note ---
Date of Encounter: 10/07/17 Time of Encounter: 12:15 - Assessment and plan (1) GI bleed Current Visit: Yes Status: Acute Assessment and plan: Upper GI endoscopy done today. Patient has some erosions and gastritis but no active bleeding. Hemoglobin levels remain low with no improvement despite PRBC transfusion. We will continue to monitor blood counts for now. Continue to hold anticoagulation. Moderate risk for complications. Qualifiers: GI bleed type/associated pathology: unspecified gastrointestinal hemorrhage type Qualified Code(s): K92.2 - Gastrointestinal hemorrhage, unspecified (2) Atrial fibrillation with RVR Current Visit: Yes Status: Acute Assessment and plan: Heart rate was better controlled yesterday evening. This morning heart rate reading between 100-120. Continue Cardizem at [address] patient back on metoprolol XL 25 mg twice daily. We will also use Lopressor 5 mg IV every 6 hours as needed for heart rate greater than 100. We will consult cardiology for further recommendations. (3) Anemia Current Visit: Yes Status: Suspected Assessment and plan: Hemoglobin levels remained low. We will continue to monitor. Continue IV PPI. On iron replacement therapy. Qualifiers: Anemia type: other cause Other causes of anemia: acute posthemorrhagic Qualified Code(s): D62 - Acute posthemorrhagic anemia (4) CAD (coronary artery disease), [place] coronary artery Current Visit: No Status: Chronic Qualifiers: [place] vs. transplanted heart: [place] heart Associated angina: without angina Qualified Code(s): I25.10 - Atherosclerotic heart disease of [place] coronary artery without angina pectoris (5) Congestive heart failure Current Visit: Yes Status: Acute Assessment and plan: Currently on oral Lasix. Patient developed hypokalemia. Will replete potassium. He has had good urine output. Will DC Wills catheter. Qualifiers: Heart failure type: systolic Heart failure chronicity: acute on chronic Qualified Code(s): I50.23 - Acute on chronic systolic (congestive) heart failure (6) UTI (urinary tract infection) Current Visit: Yes Status: Acute Assessment and plan: Being treated with ceftriaxone for possible UTI with gram-negative rods. Awaiting final culture results. Qualifiers: Urinary tract infection type: site unspecified Hematuria presence: without hematuria Qualified Code(s): N39.0 - Urinary tract infection, site not specified - Subjective Interval history: Patient underwent upper GI endoscopy today. Doing well post procedure. No complications. Denies any hematemesis or melena. No chest pain or palpitations. No nausea or vomiting. - Constitutional Vitals: Temp Pulse Resp BP Pulse Ox 97.9 F 108 18 108/80 94 10/07/17 12:46 10/07/17 12:46 10/07/17 12:46 10/07/17 12:46 10/07/17 12:46 General appearance: Present: cachectic, A&O X 3, pleasant, answers questions appropriately - Neck Neck exam general surgery: Present: supple, trachea midline. Absent: lymphadenopathy - Cardiovascular Cardiovascular exam: Present: irregular rhythm, +S1, +S2, tachycardia. Absent: diastolic murmur, gallop, rubs, systolic murmur - GI/Abdominal GI/Abdominal exam: Present: normal bowel sounds, soft, no peritoneal signs. Absent: distended, tenderness - Extremities Exam Extremities exam: Present: warm, radial pulses palpable and symmetrical. Absent : calf tenderness, cyanotic, pedal edema - Neurological Exam Neurological exam: Present: CN II-XII intact, oriented X3, no focal deficits. Absent: facial droop, speech deficit Internal Medicine: Result - Labs CBC & Chem 7: 10/07/17 07:54 10/07/17 07:54 Labs: Short CBC 10/06/17 10/07/17 Range/Units 19:32 07:54 WBC 6.0 (4.3-11.1) K/mcL Hgb 7.3 L 7.6 L (12.9-16.9) g/dL Hct 24.2 L 25.7 L (37.5-50.1) % Plt Count 162 (140-400) K/mcL Neutrophils # 4.0 (1.6-8.9) K/mcL BMP 10/07/17 07:54 Sodium 143 Potassium 2.9 L Chloride 117 H Carbon Dioxide 25 BUN 32 H Creatinine 0.98 Glucose 88 Calcium 7.8 L - ABG Interpretation ABG results: PT/INR, D-dimer PT 14.2 Seconds (9.4-12.1) H 10/07/17 07:54 - VTE Reasons for not Prescribing Prophylaxis: Not indicated-Anticoagulated or INR therapeutic Documentation of Mechanical Device: Graduated compression elastic hosiery Consult Discharge Plan - Plan Referrals: Derick Marcelino MD [Primary Care Provider] -
[2017-10-07] MEDS: cefTRIAXone 1,000 MG in Water for inj. (sterile) 20 ML 10 ML IVP SCH (16:15)
[2017-10-07] MEDS: Furosemide 40 MG TABLET PO SCH (16:15)
[2017-10-07] MEDS: Metoprolol XL (24 HR) Succ 25 MG TAB.ER.24H PO SCH (20:14)
[2017-10-07 20:46] LABS: Hematocrit 30.5 % (37.5-50.1)
[2017-10-07 20:48] LABS: Hemoglobin 9.4 g/dL (12.9-16.9)
[2017-10-08 02:08] LABS: Hematocrit 27.5 % (37.5-50.1); Hemoglobin 8.3 g/dL (12.9-16.9)
[2017-10-08 02:28] LABS: BUN/Creatinine Ratio 29 (6-26); Blood Urea Nitrogen 27 mg/dL (8-23); Calcium 7.6 mg/dL (8.6-10.3); Carbon Dioxide 26 mEq/L (23-29); Chloride 112 mEq/L (98-107); Glucose 110 mg/dL (70-105); Osmolality,Calculated 296 (280-300); Potassium 3.5 mEq/L (3.5-5.1); Sodium 140 mEq/L (136-145); eGFR For African Americans > 60 (> 60); eGFR For Non-African Americans > 60 (> 60)
[2017-10-08] MEDS: *HR* Metoprolol 5 MG/5 ML VIAL IVP PRN (05:55)
[2017-10-08 07:35] LABS: Hematocrit 28.8 % (37.5-50.1); Hemoglobin 8.7 g/dL (12.9-16.9)
[2017-10-08] MEDS: Cholecalciferol (D-3) 1,000 UNIT TABLET PO SCH (07:42)
[2017-10-08] MEDS: Diltiazem CD (24hr) 120 MG CAPSULE PO SCH (07:42)
[2017-10-08] MEDS: Multivit/Ca/Min/Fe/FA 1 TAB TABLET PO SCH (07:42)
[2017-10-08] MEDS: Furosemide 40 MG TABLET PO SCH ×2 (07:42→16:25)
[2017-10-08] MEDS: Metoprolol XL (24 HR) Succ 25 MG TAB.ER.24H PO SCH ×2 (07:43→23:25)
[2017-10-08] MEDS: Lactobacillus 1 EACH CAP.SPRINK PO SCH (07:43)
[2017-10-08] MEDS ORDERED: dilTIAZem HCl 60 MG TABLET PO ONE (14:45)
--- NOTE | 2017-10-08 14:54 | Internal Med Progress Note ---
Date of Encounter: 10/08/17 Time of Encounter: 14:54 - Assessment and plan (1) Gastric erosion with bleeding Current Visit: Yes Status: Acute Assessment and plan: Upper GI endoscopy showed gastric erosions. No active bleeding. Continue PPI. (2) GI bleed Current Visit: Yes Status: Acute Assessment and plan: Hemoglobin level at 8.7 today. Appears to be stabilizing. No reported hematemesis or melena. Will continue PPI. Continue to hold Xarelto Qualifiers: GI bleed type/associated pathology: unspecified gastrointestinal hemorrhage type Qualified Code(s): K92.2 - Gastrointestinal hemorrhage, unspecified (3) Atrial fibrillation with RVR Current Visit: Yes Status: Acute Assessment and plan: Heart rate mostly controlled with intermittent RVR. We will increase cardizem dosage to 180 mg PO daily. Continue to monitor response with telemetry. (4) Anemia Current Visit: Yes Status: Acute Assessment and plan: Blood counts have stabilized. Continue to hold anticoagulation. Monitor blood counts. Continue PPI. Qualifiers: Anemia type: other cause Other causes of anemia: acute posthemorrhagic Qualified Code(s): D62 - Acute posthemorrhagic anemia (5) CAD (coronary artery disease), [place] coronary artery Current Visit: Yes Status: Chronic Assessment and plan: No chest pain. Continue home medications. Will resume aspirin Qualifiers: [place] vs. transplanted heart: [place] heart Associated angina: without angina Qualified Code(s): I25.10 - Atherosclerotic heart disease of [place] coronary artery without angina pectoris (6) Congestive heart failure Current Visit: Yes Status: Acute Assessment and plan: Responded well to intravenous diuretics. Currently on oral Lasix. Continues to have good urine output. Patient does have scrotal edema. We will get scrotal ultrasound to look for any underlying complications. Qualifiers: Heart failure type: systolic Heart failure chronicity: acute on chronic Qualified Code(s): I50.23 - Acute on chronic systolic (congestive) heart failure (7) UTI (urinary tract infection) Current Visit: Yes Status: Acute Assessment and plan: Escherichia coli. Sensitive to quinolones and cephalosporins. Will place patient on cephalexin orally. Qualifiers: Urinary tract infection type: site unspecified Hematuria presence: without hematuria Qualified Code(s): N39.0 - Urinary tract infection, site not specified (8) Urinary retention Current Visit: Yes Status: Acute Assessment and plan: Wills catheter in place. Would recommend outpatient follow-up with urology for further evaluation and recommendations. - Subjective Interval history: Patient is currently lying in bed. Appears comfortable. No shortness of breath. Does have increased scrotal edema. He has also been having increased urinary retention and needed to be straight catheterized yesterday. He has not has any urine this morning and so a Wills catheter was placed. Heart rate has been in the 90s since this morning. Does go up to 110s with ambulation or any activity. - Constitutional Vitals: Temp Pulse Resp BP Pulse Ox 98.3 F 96 18 106/69 97 10/08/17 11:40 10/08/17 11:40 10/08/17 11:40 10/08/17 11:40 10/08/17 11:40 General appearance: Present: cachectic, A&O X 3, pleasant, answers questions appropriately - Neck Neck exam general surgery: Present: supple, trachea midline. Absent: lymphadenopathy - Respiratory Respiratory exam: Present: CTAB. Absent: accessory muscle use, rales, rhonchi, wheezes - Cardiovascular Cardiovascular exam: Present: RRR, +S1, +S2. Absent: diastolic murmur, gallop, rubs, systolic murmur - GI/Abdominal GI/Abdominal exam: Present: normal bowel sounds, soft, no peritoneal signs. Absent: distended, tenderness - Extremities Exam Extremities exam: Present: warm, radial pulses palpable and symmetrical. Absent : calf tenderness, cyanotic, pedal edema - Neurological Exam Neurological exam: Present: alert, oriented X3, no focal deficits. Absent: facial droop, speech deficit - Skin Skin exam: Present: dry, intact, pallor Internal Medicine: Result - Labs CBC & Chem 7: 10/08/17 06:57 10/08/17 01:21 Labs: Short CBC 10/07/17 10/08/17 10/08/17 Range/Units 20:36 01:21 06:57 Hgb 9.4 L D 8.3 L 8.7 L (12.9-16.9) g/dL Hct 30.5 L 27.5 L 28.8 L (37.5-50.1) % BMP 10/08/17 01:21 Sodium 140 Potassium 3.5 Chloride 112 H Carbon Dioxide 26 BUN 27 H Creatinine 0.92 Glucose 110 H Calcium 7.6 L - ABG Interpretation ABG results: PT/INR, D-dimer PT 14.2 Seconds (9.4-12.1) H 10/07/17 07:54 - VTE Reasons for not Prescribing Prophylaxis: Not indicated-Anticoagulated or INR therapeutic Documentation of Mechanical Device: Graduated compression elastic hosiery Consult Discharge Plan - Plan Referrals: Derick Marcelino MD [Primary Care Provider] - (SENT WEB REQUEST ON 10-08-17 @ [id number])
[2017-10-08] MEDS: Silvasorb 44.4 ML TUBE TP SCH (16:25)
[2017-10-08] MEDS: cephALEXin 500 MG CAPSULE PO SCH (19:53)
[2017-10-09] MEDS: Lactobacillus 1 EACH CAP.SPRINK PO SCH (07:29)
[2017-10-09] MEDS: Cholecalciferol (D-3) 1,000 UNIT TABLET PO SCH (07:29)
[2017-10-09] MEDS: Metoprolol XL (24 HR) Succ 25 MG TAB.ER.24H PO SCH ×2 (07:29→20:16)
[2017-10-09] MEDS: Furosemide 40 MG TABLET PO SCH ×2 (07:29→17:03)
[2017-10-09] MEDS: Multivit/Ca/Min/Fe/FA 1 TAB TABLET PO SCH (07:30)
[2017-10-09] MEDS: Diltiazem CD (24hr) 180 MG CAPSULE PO SCH (07:30)
[2017-10-09] MEDS: cephALEXin 500 MG CAPSULE PO SCH ×2 (07:30→20:16)
[2017-10-09] MEDS: Aspirin 81 MG TAB.CHEW PO SCH (07:30)
[2017-10-09 09:35] LABS: Basophils % 0.6 %; Eosinophils # 0.2 K/mcL (0.0-0.6); Eosinophils % 2.6 %; Hematocrit 32.2 % (37.5-50.1); Hemoglobin 9.7 g/dL (12.9-16.9); Lymphocytes # 0.9 K/mcL (0.6-4.6); Lymphocytes % 15.3 %; Mean Corpuscular HGB Conc 30.1 g/dL (31.6-35.5); Mean Corpuscular Hemoglobin 26.6 pg (28.0-33.3); Mean Corpuscular Volume 88.5 fL (83.0-100.0); Mean Platelet Volume 10.6 fL (9.4-12.4); Monocytes # 0.5 K/mcL (0.0-1.3); Monocytes % 7.8 %; Neutrophils # 4.5 K/mcL (1.6-8.9); Platelet Count 162 K/mcL (140-400); Red Blood Count 3.64 M/mcL (4.19-5.50); Red Cell Distribution Width 19.9 % (11.5-14.5); Segmented Neutrophils % 72.7 %
[2017-10-09 09:47] LABS: BUN/Creatinine Ratio 24 (6-26); Blood Urea Nitrogen 22 mg/dL (8-23); Calcium 8.1 mg/dL (8.6-10.3); Carbon Dioxide 25 mEq/L (23-29); Chloride 116 mEq/L (98-107); Glucose 135 mg/dL (70-105); Osmolality,Calculated 297 (280-300); Sodium 141 mEq/L (136-145); eGFR For African Americans > 60 (> 60); eGFR For Non-African Americans > 60 (> 60)
[2017-10-09] MEDS: Silvasorb 44.4 ML TUBE TP SCH (14:58)
[2017-10-09 15:47] LABS: Calcium 7.8 mg/dL (8.6-10.3); Magnesium 2.1 mg/dL (1.6-2.6)
--- NOTE | 2017-10-09 18:37 | Internal Med Progress Note ---
Date of Encounter: 10/09/17 Time of Encounter: 11:00 - Assessment and plan (1) Acute blood loss anemia Current Visit: No Status: Resolved Assessment and plan: -Hemoglobin now stable status post 2 units packed red blood cells -Suspect secondary to GI bleed (2) Gastric erosion with bleeding Current Visit: Yes Status: Acute Assessment and plan: EGD on 10/07/17 showed erosive gastropathy with nonbleeding duodenal diverticulum ; no active bleeding. Continue PPI. (3) Atrial fibrillation with RVR Current Visit: Yes Status: Acute Assessment and plan: -Heart rate mostly controlled with intermittent RVR after increasing cardizem dosage to 180 mg PO daily. -Continue to monitor response with telemetry. -Will consider restarting Xarelto on 10/10/79 (4) UTI (urinary tract infection) Current Visit: Yes Status: Acute Assessment and plan: Escherichia coli. Sensitive to quinolones and cephalosporins. Will continue on cephalexin orally. Qualifiers: Urinary tract infection type: site unspecified Hematuria presence: without hematuria Qualified Code(s): N39.0 - Urinary tract infection, site not specified (5) CAD (coronary artery disease), [place] coronary artery Current Visit: Yes Status: Chronic Assessment and plan: Stable; aspirin resumed Qualifiers: [place] vs. transplanted heart: [place] heart Associated angina: without angina Qualified Code(s): I25.10 - Atherosclerotic heart disease of [place] coronary artery without angina pectoris - Subjective Interval history: Heart rate better controlled today after oral Cardizem dose was increased Hemoglobin remained stable after transfusion with 2uPRBC - Constitutional Vitals: Temp Pulse Resp BP Pulse Ox 97.6 F 86 16 103/80 94 10/09/17 16:01 10/09/17 17:22 10/09/17 16:01 10/09/17 16:01 10/09/17 16:01 General appearance: Present: cachectic, A&O X 3, pleasant, answers questions appropriately - Respiratory Respiratory exam: Present: CTAB. Absent: accessory muscle use, rales, rhonchi, wheezes - Cardiovascular Cardiovascular exam: Present: RRR, +S1, +S2. Absent: diastolic murmur, gallop, rubs, systolic murmur Internal Medicine: Result - Labs CBC & Chem 7: 10/09/17 09:14 10/09/17 09:14 Labs: Short CBC 10/09/17 Range/Units 09:14 WBC 6.2 (4.3-11.1) K/mcL Hgb 9.7 L (12.9-16.9) g/dL Hct 32.2 L (37.5-50.1) % Plt Count 162 (140-400) K/mcL Neutrophils # 4.5 (1.6-8.9) K/mcL BMP 10/09/17 10/09/17 09:14 14:49 Sodium 141 Potassium 4.0 Chloride 116 H Carbon Dioxide 25 BUN 22 Creatinine 0.91 Glucose 135 H Calcium 8.1 L 7.8 L - ABG Interpretation ABG results: PT/INR, D-dimer PT 14.2 Seconds (9.4-12.1) H 10/07/17 07:54 - VTE Reasons for not Prescribing Prophylaxis: Not indicated-Anticoagulated or INR therapeutic Documentation of Mechanical Device: Graduated compression elastic hosiery Consult Discharge Plan - Plan Referrals: Derick Marcelino MD [Primary Care Provider] - 10/12/17 1:30 pm ()
[2017-10-09] MEDS: Ofloxacin OPTH Drops 5 ML BOTTLE RIGHT EYE SCH ×2 (20:16→23:20)
[2017-10-10] MEDS: Ofloxacin OPTH Drops 5 ML BOTTLE RIGHT EYE SCH ×6 (04:38→23:17)
[2017-10-10] MEDS: Aspirin 81 MG TAB.CHEW PO SCH (07:55)
[2017-10-10] MEDS: Furosemide 40 MG TABLET PO SCH (07:56)
[2017-10-10] MEDS: Lactobacillus 1 EACH CAP.SPRINK PO SCH (07:56)
[2017-10-10] MEDS: Metoprolol XL (24 HR) Succ 25 MG TAB.ER.24H PO SCH (07:56)
[2017-10-10] MEDS: Diltiazem CD (24hr) 180 MG CAPSULE PO SCH (07:56)
[2017-10-10] MEDS: Multivit/Ca/Min/Fe/FA 1 TAB TABLET PO SCH (07:56)
[2017-10-10] MEDS: Cholecalciferol (D-3) 1,000 UNIT TABLET PO SCH (07:56)
[2017-10-10] MEDS: Silvasorb 44.4 ML TUBE TP SCH (07:57)
[2017-10-10] MEDS: cephALEXin 500 MG CAPSULE PO SCH ×2 (07:57→20:54)
[2017-10-10] MEDS: *HR* Metoprolol 5 MG/5 ML VIAL IVP PRN (08:48)
[2017-10-10] MEDS ORDERED: 0.9 % Sodium Chloride 250 ML ONE (09:55)
[2017-10-10 09:58] LABS: Basophils % 0.4 %; Eosinophils # 0.3 K/mcL (0.0-0.6); Eosinophils % 3.7 %; Hematocrit 31.3 % (37.5-50.1); Hemoglobin 9.4 g/dL (12.9-16.9); Immature Granulocytes % 1.3 % (0-4); Lymphocytes # 1.1 K/mcL (0.6-4.6); Lymphocytes % 15.5 %; Mean Corpuscular Hemoglobin 26.4 pg (28.0-33.3); Mean Corpuscular Volume 87.9 fL (83.0-100.0); Mean Platelet Volume 10.4 fL (9.4-12.4); Monocytes # 0.5 K/mcL (0.0-1.3); Monocytes % 7.6 %; Neutrophils # 5.1 K/mcL (1.6-8.9); Platelet Count 174 K/mcL (140-400); Red Blood Count 3.56 M/mcL (4.19-5.50); Red Cell Distribution Width 20.2 % (11.5-14.5); Segmented Neutrophils % 71.5 %
[2017-10-10] MEDS ORDERED: Furosemide 20 MG/2 ML VIAL IVP ONE ×2 (10:12→10:19)
[2017-10-10 10:14] LABS: BUN/Creatinine Ratio 25 (6-26); Blood Urea Nitrogen 23 mg/dL (8-23); Calcium 8.3 mg/dL (8.6-10.3); Carbon Dioxide 23 mEq/L (23-29); Chloride 116 mEq/L (98-107); Glucose 130 mg/dL (70-105); Osmolality,Calculated 297 (280-300); Potassium 3.9 mEq/L (3.5-5.1); Sodium 141 mEq/L (136-145); eGFR For African Americans > 60 (> 60); eGFR For Non-African Americans > 60 (> 60)
--- NOTE | 2017-10-10 11:33 | Cardiology Consult Note ---
<[employer] - Last Filed: 10/10/17 13:00> Date of Encounter: 10/10/17 Time of Encounter: 11:27 Assessment and Plan (1) Tachycardia Current Visit: Yes Status: Acute Cardiology consulted for VT. Telemetry review shows 12 beat run of abberant afib. No VT seen. Continue bb. (2) Elevated troponin Current Visit: No Status: Acute Mild troponin elevation up to 0.08. Known severe 3 vessel CAD. Patient declines intervention. Likely demand ischemia in the setting of CHF and anemia. (3) Acute on chronic systolic CHF (congestive heart failure) Current Visit: Yes Status: Acute Acute on chronic CHF. Known ICMP. EF on this admission 40-45%. Mildly reduced from 45-50% 03/2017. C/o BLE edema and scrotal edema. + orthopnea. Change lasix to IV. Strict I&O and daily weights. Net - 9L for stay. Continues to have signficant edema. (4) CAD (coronary artery disease) Current Visit: No Status: Chronic H/o of known severe 3 vesel CAD seen on [facility] 12/2016. Patient declined CABG or intervention. Continue asa as tolerated. Continue beta-julian and statin. Qualifiers: Coronary Disease-Associated Artery/Lesion type: [place] artery [place] vs. transplanted heart: [place] heart Associated angina: without angina Qualified Code(s): I25.10 - Atherosclerotic heart disease of [place] coronary artery without angina pectoris (5) Atrial fibrillation with RVR Current Visit: Yes Status: Acute H/o atrial fibrillation on Xarelto. Initial EKG shows atrial fibrillation and ST depression noted. Known CAD. HR not well controlled. Likely exacerbated by acute anemia and CHF. States that he was titrating down his toprol xl in the out-pt setting due to fatigue. Fatigue likely due to anemia. Discussed with patient. Recommend stopping cardizem in the setting of cardiomyoathy and BLE edema and increasing toprol XL as tolerated. 24 hour telemetry review shows avg HR 100 bpm. HR 95-115 currently. Titrate meds to keep HR 100 or less. Recommend stopping xarelto in the setting of GI bleed. Stool guiac was positive. Continue asa. Discussion w patient/family: The assessment and plan as outlined above was discussed with the patient and/or family members who expressed understanding and agreement. All questions were answered. Thank you for involving us in the care of your patient. Please call with any questions. History of Present Illness Consult date: 10/10/17 Requesting physician: Nhan Wan Consult reason: afib with RVR, VT Chief complaint: SOB, BLE edema History of present illness: Mr. Roman is a 81 year old male with a history of severe 3 vessel CAD and atrial fibrillation on xarelto who presents with c/o fatigue, SOB, and BLE edema. He was initially found to have acute anemia concerning for GI bleed. He was also noted to have atrial fibrillation with RVR and possible VT. Hgb 7.5 on admission. No signs of acute bleeding per patient. EGD showed erosive gastropathy and non-bleeding diverticula, He was given 2 units of blood. He was noted to have a possible 12 beat run of VT at 1:12 pm yesterday. He denies chest pain or palpitations. C/o BLE and scrotal edema. C/o orthopnea. Past Med Surg Social Fam HX - Past Medical History Medical history: atrial fibrillation, cardiomyopathy, CHF, coronary artery disease, hypertension Psychiatric history: no psych history - Past Surgical History Surgical History: herniorrhaphy - Social History Smoking Status: Never smoker Smokeless Tobacco Status: No Alcohol use: none Drug use: none - Family History Brother Living Status: Hx Family Cancer: Yes (prostate) Medications and Allergies Cholecalciferol (D-3) [Vitamin D] 2,000 unit PO DAILY 04/22/17 [History] Lactobacillus Combination No.8 [Adult Probiotic] 1 cap PO DAILY 04/22/17 [ History] Multivitamin [Multi-Day Vitamins] 1 tab PO DAILY 04/22/17 [History] [place]-3/Dha/Epa/Fish Oil [Fish Oil 1,000 mg Softgel] 1,000 mg PO DAILY 04/22/17 [History] [place] Xtr/Zinc Picolin [Saw [place] Capsule] 1 cap PO DAILY 04/22/17 [ History] Rivaroxaban [Xarelto] 20 mg PO DAILY #30 tablet 04/27/17 [Rx] Aspirin 81 mg PO DAILY #0 04/30/17 [Rx] Diltiazem CD (24hr) [Cardizem CD] 120 mg PO DAILY #0 04/30/17 [Rx] Furosemide [Lasix] 40 mg PO DAILY #0 tab 04/30/17 [Rx] Lisinopril [Zestril] 20 mg PO DAILY #0 tab 04/30/17 [Rx] Potassium Chloride [Klor-Con 10] 20 meq PO BID 06/15/17 [History] Metoprolol Succinate [Toprol Xl] 25 mg PO BID 10/05/17 [History] Rosuvastatin Calcium [Crestor] 10 mg PO DAILY 10/05/17 [History] 3 Allergy/AdvReac Type Severity Reaction Status Date / Time Sulfa (Sulfonamide Allergy Rash Verified 10/05/17 13:28 Antibiotics) All Systems Review: A 10-system review of systems was performed and is negative for pertinent findings except as documented above in the HPI. Physical Examination Vital Signs, Last 4 Hours Temp Pulse Resp BP Pulse Ox 10/10/17 10:26 113 10/10/17 09:55 105 109/78 94 10/10/17 08:55 128 10/10/17 08:50 160 22 102/86 95 10/10/17 08:06 98.1 F 120 18 123/98 90 General: Conversant, No Apparent Distress HEENT: Atraumatic, Normocephaly, Mucus Membranes Moist Neck: No JVD, Normal carotid pulses Cardiac: Other (Irregular) Lungs: Normal Breath Sounds, No Wheeze, Rales, Rhonchi Neuro: Alert and responsive, No focal deficits noted Abdomen: Soft, Non-Tender Skin: No rashes noted on visualized skin Musculoskeletal: No Chest Wall Tenderness Extremities: No Clubbing, No Cyanosis, Normal Pulses, Other (1+ BLE edema, scrotal edema noted. ) Results 10/10/17 09:18 10/10/17 09:18 Lab Results 10/09/17 10/10/17 10/10/17 14:49 09:18 09:18 WBC 7.1 Hgb 9.4 L Hct 31.3 L Plt Count 174 Sodium 141 Potassium 3.9 Chloride 116 H Carbon Dioxide 23 BUN 23 Creatinine 0.92 Glucose 130 H Calcium 7.8 L 8.3 L Magnesium 2.1 - Imaging and Cardiology Echo: report reviewed Cardiac cath: report reviewed - EKG Interpretation EKG results cardiology: personally reviewed Consult Discharge Plan - Plan Referrals: Derick Marcelino MD [Primary Care Provider] - 10/12/17 1:30 pm () <Zysek,Natalia - Last Filed: 10/10/17 15:36> Date of Encounter: 10/10/17 - Attending Attestation I examined this patient and my medical decision-making was reviewed with the CLASSROOM INSTRUCTIONAL AIDE. I agree with the documented findings, disposition and treatment plan as described. Mr. Roman presents with fatigue, SOB and BLE edema. He was discovered to have acute blood loss anemia with positive hemoccult and has since been transfused. EGD demonstrated erosive gastropathy and nonbleeding diverticula. Xarelto has been stopped, previously on this for atrial fibrillation. Aspirin was continued. Patient has been hemodynamically stable. He appears comfortable at the bedside. Family was present. Plan discussed in detail. Recommend continuing low dose aspirin for CVA prevention in setting of AFIB. If bleeding persists, would recommend stopping aspirin. Since EGD demonstrated erosive gastropathy, recommend aspirin be taken with food/meal. Agree with PPI. Patient has slowly titrated down his BB due to symptoms of fatigue but this has not translated into an improvement of his symptoms. Given reduced EF, recommend stopping CCB in favor of using beta julian. Patient and family are in agreement. Mild elevation of troponin does not appear indicative of ACS. However, patient has known CAD but has declined intervention. EF remains stable. Will restart crestor (patient previously on 10mg three times WEEKLY). Agree with IV diuresis - 20mg BID. Will re-evaluate tomorrow. Assessment and Plan Discussion w patient/family: The assessment and plan as outlined above was discussed with the patient and/or family members who expressed understanding and agreement. All questions were answered. Thank you for involving us in the care of your patient. Please call with any questions. History of Present Illness History of present illness: Mr. Roman is a 81 year old male All Systems Review: A 10-system review of systems was performed and is negative for pertinent findings except as documented above in the HPI. Physical Examination Vital Signs, Last 4 Hours Temp Pulse Resp BP Pulse Ox 10/10/17 11:38 110 20 105/88 93 10/10/17 11:28 97.8 F 96 20 105/88 94 Results 10/10/17 09:18 10/10/17 09:18 Lab Results 10/09/17 10/10/17 10/10/17 14:49 09:18 09:18 WBC 7.1 Hgb 9.4 L Hct 31.3 L Plt Count 174 Sodium 141 Potassium 3.9 Chloride 116 H Carbon Dioxide 23 BUN 23 Creatinine 0.92 Glucose 130 H Calcium 7.8 L 8.3 L Magnesium 2.1
--- NOTE | 2017-10-10 11:41 | Electrocardiograph Report ---
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
[2017-10-10] MEDS: Furosemide 20 MG/2 ML VIAL IVP SCH (17:13)
--- NOTE | 2017-10-10 19:25 | Internal Med Progress Note ---
Date of Encounter: 10/10/17 Time of Encounter: 11:00 - Assessment and plan (1) Gastric erosion with bleeding Current Visit: Yes Status: Acute Assessment and plan: EGD on 10/07/17 showed erosive gastropathy with nonbleeding duodenal diverticulum ; no active bleeding. Continue PPI. (2) Atrial fibrillation with RVR Current Visit: Yes Status: Acute Assessment and plan: -Cardiology with recommendations for titration of Cardizem dose to maintain heart rate lower than 100 -Continue to monitor response with telemetry. -Recommendations to discontinue Xarelto and start aspirin (3) UTI (urinary tract infection) Current Visit: Yes Status: Acute Assessment and plan: Escherichia coli. Sensitive to quinolones and cephalosporins. Will continue on cephalexin orally. Qualifiers: Urinary tract infection type: site unspecified Hematuria presence: without hematuria Qualified Code(s): N39.0 - Urinary tract infection, site not specified (4) CAD (coronary artery disease), [place] coronary artery Current Visit: Yes Status: Chronic Assessment and plan: Stable; aspirin resumed Qualifiers: [place] vs. transplanted heart: [place] heart Associated angina: without angina Qualified Code(s): I25.10 - Atherosclerotic heart disease of [place] coronary artery without angina pectoris - Subjective Interval history: Heart rate better controlled today after oral Cardizem dose was increased Hemoglobin remained stable after transfusion with 2uPRBC - Constitutional Vitals: Temp Pulse Resp BP Pulse Ox 98.4 F 111 18 113/74 94 10/10/17 15:55 10/10/17 18:46 10/10/17 15:55 10/10/17 15:55 10/10/17 18:46 General appearance: Present: cachectic, A&O X 3, pleasant, answers questions appropriately - Respiratory Respiratory exam: Present: CTAB. Absent: accessory muscle use, rales, rhonchi, wheezes - Cardiovascular Cardiovascular exam: Present: RRR, +S1, +S2. Absent: diastolic murmur, gallop, rubs, systolic murmur Internal Medicine: Result - Labs CBC & Chem 7: 10/10/17 09:18 10/10/17 09:18 Labs: Short CBC 10/10/17 Range/Units 09:18 WBC 7.1 (4.3-11.1) K/mcL Hgb 9.4 L (12.9-16.9) g/dL Hct 31.3 L (37.5-50.1) % Plt Count 174 (140-400) K/mcL Neutrophils # 5.1 (1.6-8.9) K/mcL BMP 10/10/17 09:18 Sodium 141 Potassium 3.9 Chloride 116 H Carbon Dioxide 23 BUN 23 Creatinine 0.92 Glucose 130 H Calcium 8.3 L - ABG Interpretation ABG results: PT/INR, D-dimer PT 14.2 Seconds (9.4-12.1) H 10/07/17 07:54 - VTE Reasons for not Prescribing Prophylaxis: Not indicated-Anticoagulated or INR therapeutic Documentation of Mechanical Device: Graduated compression elastic hosiery Consult Discharge Plan - Plan Referrals: Derick Marcelino MD [Primary Care Provider] - 10/12/17 1:30 pm ()
[2017-10-10] MEDS: Metoprolol XL (24 HR) Succ 50 MG TAB.ER.24H PO SCH (20:55)
[2017-10-10] MEDS ORDERED: Furosemide 40 MG/4 ML VIAL IVP SCH (21:00)
[2017-10-10] MEDS: Melatonin 3 MG TABLET PO PRN (23:16)
[2017-10-11] MEDS: Ofloxacin OPTH Drops 5 ML BOTTLE RIGHT EYE SCH ×5 (03:37→21:14)
[2017-10-11] MEDS: cephALEXin 500 MG CAPSULE PO SCH ×2 (08:17→21:14)
[2017-10-11] MEDS: Multivit/Ca/Min/Fe/FA 1 TAB TABLET PO SCH (08:17)
[2017-10-11] MEDS: Lactobacillus 1 EACH CAP.SPRINK PO SCH (08:17)
[2017-10-11] MEDS: Cholecalciferol (D-3) 1,000 UNIT TABLET PO SCH (08:17)
[2017-10-11] MEDS: Aspirin 81 MG TAB.CHEW PO SCH (08:17)
[2017-10-11] MEDS: Furosemide 20 MG/2 ML VIAL IVP SCH (08:19)
[2017-10-11] MEDS: Silvasorb 44.4 ML TUBE TP SCH (08:21)
[2017-10-11] MEDS: Metoprolol XL (24 HR) Succ 50 MG TAB.ER.24H PO SCH ×2 (08:27→21:13)
[2017-10-11 10:32] LABS: Basophils # 0.1 K/mcL (0.0-0.2); Basophils % 0.8 %; Eosinophils # 0.3 K/mcL (0.0-0.6); Eosinophils % 4.7 %; Hematocrit 30.3 % (37.5-50.1); Hemoglobin 9.1 g/dL (12.9-16.9); Immature Granulocytes % 1.1 % (0-4); Lymphocytes # 1.1 K/mcL (0.6-4.6); Lymphocytes % 17.8 %; Mean Corpuscular Hemoglobin 26.5 pg (28.0-33.3); Mean Corpuscular Volume 88.3 fL (83.0-100.0); Mean Platelet Volume 11.3 fL (9.4-12.4); Monocytes # 0.5 K/mcL (0.0-1.3); Monocytes % 7.4 %; Neutrophils # 4.3 K/mcL (1.6-8.9); Platelet Count 191 K/mcL (140-400); Red Blood Count 3.43 M/mcL (4.19-5.50); Segmented Neutrophils % 68.2 %
[2017-10-11 11:00] LABS: BUN/Creatinine Ratio 26 (6-26); Blood Urea Nitrogen 21 mg/dL (8-23); Calcium 8.2 mg/dL (8.6-10.3); Carbon Dioxide 26 mEq/L (23-29); Chloride 113 mEq/L (98-107); Glucose 119 mg/dL (70-105); Osmolality,Calculated 298 (280-300); Potassium 3.6 mEq/L (3.5-5.1); Sodium 142 mEq/L (136-145); eGFR For African Americans > 60 (> 60); eGFR For Non-African Americans > 60 (> 60)
--- NOTE | 2017-10-11 12:34 | Cardiology Progress Note ---
Date of Encounter: 10/11/17 Time of Encounter: 10:45 Assessment and Plan (1) Elevated troponin Current Visit: No Status: Acute Mild troponin elevation up to 0.08. Known severe 3 vessel CAD. Patient declines intervention. Likely demand ischemia in the setting of CHF and anemia. (2) Acute on chronic systolic CHF (congestive heart failure) Current Visit: Yes Status: Acute Acute on chronic CHF. Known ICMP. EF on this admission 40-45%. Mildly reduced from 45-50% 03/2017. C/o BLE edema and scrotal edema. + orthopnea. Euvolemic on exam. Net negative 10L. IV lasix switched to po. Strict I&O and daily weights. -Cardiology will sign off and will follow in outpatient setting. -Follow up set. (3) Atrial fibrillation with RVR Current Visit: Yes Status: Acute H/o atrial fibrillation on Xarelto. Initial EKG shows atrial fibrillation and ST depression noted. Known CAD. HR not well controlled. Likely exacerbated by acute anemia and CHF. 24 hour telemetry review shows avg HR 92 bpm. Recommend stopping xarelto in the setting of GI bleed. Stool guiac was positive. Continue asa. Unable to titrate medication due to BP. BP 100-110s systolic. Will continue to monitor in outpatient setting. Follow up set (4) CAD (coronary artery disease) Current Visit: No Status: Chronic H/o of known severe 3 vesel CAD seen on [facility] 12/2016. Patient declined CABG or intervention. Continue asa as tolerated. Continue beta-julian and statin. Qualifiers: Coronary Disease-Associated Artery/Lesion type: [place] artery [place] vs. transplanted heart: [place] heart Associated angina: without angina Qualified Code(s): I25.10 - Atherosclerotic heart disease of [place] coronary artery without angina pectoris Discussion w patient/family: The assessment and plan as outlined above was discussed with the patient and/or family members who expressed understanding and agreement. All questions were answered. Thank you for involving us in the care of your patient. Please call with any questions. Discussed and reviewed with . Subjective Principal diagnosis: CHF, atrial fibrillation Interval history: Patient reports breathing is better today. States he feels much better than at admission. Objective Vital Signs, Last 4 Hours Temp Pulse Resp BP Pulse Ox 10/11/17 11:28 97.4 F L 117 18 116/66 93 General: Conversant, No Apparent Distress HEENT: Atraumatic, Normocephaly, Mucus Membranes Moist Neck: No JVD, Normal carotid pulses Cardiac: Normal S1 and S2, No Murmur, Other (Irregularly irregular. ) Lungs: Normal Breath Sounds, No Wheeze, Rales, Rhonchi Neuro: Alert and responsive, No focal deficits noted Abdomen: Soft, Non-Tender Skin: No rashes noted on visualized skin Musculoskeletal: No Chest Wall Tenderness Extremities: No Clubbing, No Cyanosis, No Edema, Normal Pulses Results 10/11/17 09:54 10/11/17 09:54 Lab Results Active Medications Aspirin (Aspirin) 81 mg PO DAILY [facility] Stop: 04/10/18 09:01 Last Admin: 10/11/17 08:17 Dose: 81 mg Cephalexin HCl (Keflex) 500 mg PO Q12H [facility]A Stop: 04/09/18 21:01 Last Admin: 10/11/17 08:17 Dose: 500 mg Docusate Sodium (Colace) 100 mg PO BID BELA PRN Reason: Protocol Stop: 04/11/18 21:01 Last Admin: 10/11/17 08:17 Dose: 100 mg Ferrous Sulfate (Ferrous Sulfate) 325 mg PO BIDWM BELA Stop: 04/08/18 17:01 Last Admin: 10/11/17 08:27 Dose: 325 mg Furosemide (Lasix) 40 mg PO DAILY [facility] Stop: 04/13/18 09:01 Diltiazem HCl 125 mg/ Sodium (Chloride) 125 mls @ 5 mls/hr IVC .Q24H BELA; 5 MG/ HR PRN Reason: Protocol Stop: 04/11/18 09:01 Last Admin: 10/11/17 09:46 Dose: Not Given Lactobacillus Acidophilus/Rhamnosus (Culturelle) 1 each PO DAILY [facility] Stop: 04/07/18 09:01 Last Admin: 10/11/17 08:17 Dose: 1 each Melatonin (Melatonin) 3 mg PO HS PRN PRN Reason: Insomnia Stop: 04/11/18 22:18 Last Admin: 10/10/17 23:16 Dose: 3 mg Metoprolol Succinate (Toprol Xl) 50 mg PO BID BELA Stop: 04/11/18 21:01 Last Admin: 10/11/17 08:27 Dose: 50 mg Metoprolol Tartrate (Lopressor) 5 mg IVP Q6HR PRN PRN Reason: Tachyarrhythmias Stop: 04/08/18 15:03 Last Admin: 10/10/17 08:48 Dose: 5 mg Multivitamins/Calcium (Thera M Plus) 1 tab PO DAILY [facility]A Stop: 04/07/18 09:01 Last Admin: 10/11/17 08:17 Dose: 1 tab Ofloxacin (Ocuflox) 2 drop RIGHT EYE Q4HR [facility]A Stop: 04/10/18 20:01 Last Admin: 10/11/17 08:18 Dose: 2 drop Omeprazole (Prilosec) 20 mg PO BIDAC BELA PRN Reason: Protocol Stop: 04/08/18 16:31 Last Admin: 10/11/17 06:22 Dose: 20 mg Potassium Chloride (Potassium Chloride) 40 meq PO BIDWM [facility]A Stop: 04/08/18 12:16 Last Admin: 10/11/17 08:17 Dose: 40 meq Rosuvastatin Calcium (Crestor) 10 mg PO 3XW BELA Stop: 04/13/18 09:01 Silver Nitrate (Silvasorb) 1 appl TP DAILY [facility] Stop: 04/09/18 14:01 Last Admin: 10/11/17 08:21 Dose: 1 appl Tamsulosin HCl (Flomax) 0.4 mg PO HS BELA PRN Reason: Protocol Stop: 04/09/18 21:01 Last Admin: 10/10/17 20:54 Dose: 0.4 mg Vitamin D (Vitamin D) 2,000 unit PO DAILY [facility] Stop: 04/07/18 09:01 Last Admin: 10/11/17 08:17 Dose: 2,000 unit Laboratory Tests 10/09/17 10/11/17 10/11/17 14:49 09:54 09:54 Hgb 9.1 L Potassium 3.6 Creatinine 0.81 Magnesium 2.1 - Imaging and Cardiology Chest Xray: report reviewed Echo: report reviewed - EKG Interpretation EKG results cardiology: other (Telemetry reviewed with average HR previous 12 hours noted to be 92, atrial fibrillation. PVCs noted. Intermittent atrial fibrillation with abberency noted.) - VTE Reasons for not Prescribing Prophylaxis: Not indicated-Anticoagulated or INR therapeutic Documentation of Mechanical Device: Graduated compression elastic hosiery Consult Discharge Plan - Plan Referrals: Derick Marcelino MD [Primary Care Provider] - 10/12/17 1:30 pm ()
--- NOTE | 2017-10-11 14:28 | Discharge Summary ---
Date of Encounter: 10/11/17 Time of Encounter: 11:00 - Discharge Diagnosis (1) Gastric erosion with bleeding Priority: Primary Status: Acute (2) Atrial fibrillation with RVR Priority: Primary Status: Acute (3) UTI (urinary tract infection) Priority: Primary Status: Acute Qualifiers: Urinary tract infection type: site unspecified Hematuria presence: without hematuria Qualified Code(s): N39.0 - Urinary tract infection, site not specified (4) CAD (coronary artery disease), [place] coronary artery Priority: Secondary Status: Chronic Qualifiers: [place] vs. transplanted heart: [place] heart Associated angina: without angina Qualified Code(s): I25.10 - Atherosclerotic heart disease of [place] coronary artery without angina pectoris - Discharge Medications Home Medications: Cholecalciferol (D-3) [Vitamin D] 2,000 unit PO DAILY 04/22/17 [History] Lactobacillus Combination No.8 [Adult Probiotic] 1 cap PO DAILY 04/22/17 [ History] Multivitamin [Multi-Day Vitamins] 1 tab PO DAILY 04/22/17 [History] [place]-3/Dha/Epa/Fish Oil [Fish Oil 1,000 mg Softgel] 1,000 mg PO DAILY 04/22/17 [History] [place] Xtr/Zinc Picolin [Saw [place] Capsule] 1 cap PO DAILY 04/22/17 [ History] Aspirin 81 mg PO DAILY #0 04/30/17 [Rx] Furosemide [Lasix] 40 mg PO DAILY #0 tab 04/30/17 [Rx] Lisinopril [Zestril] 20 mg PO DAILY #0 tab 04/30/17 [Rx] Potassium Chloride [Klor-Con 10] 20 meq PO BID 06/15/17 [History] Rosuvastatin Calcium [Crestor] 10 mg PO DAILY 10/05/17 [History] Docusate [Colace] 100 mg PO BID capsule 10/11/17 [Rx] Ferrous Sulfate 325 mg PO BIDWM tablet 10/11/17 [Rx] Melatonin 3 mg PO HS PRN tablet 10/11/17 [Rx] Metoprolol XL (24 HR) Succ [Toprol Xl] 50 mg PO BID tab.er.24h 10/11/17 [Rx] Ofloxacin OPTH Drops [Ocuflox] 2 drop RIGHT EYE Q4HR bottle 10/11/17 [Rx] Omeprazole [PriLOSEC] 20 mg PO BIDAC capsule. 10/11/17 [Rx] Potassium Chloride 40 meq PO BIDWM tab.er.prt 10/11/17 [Rx] Silvasorb 1 appl TP DAILY tube 10/11/17 [Rx] Tamsulosin [Flomax] 0.4 mg PO HS capsule 10/11/17 [Rx] Allergies/Adverse Reactions: 3 Allergy/AdvReac Type Severity Reaction Status Date / Time Sulfa (Sulfonamide Allergy Rash Verified 10/05/17 13:28 Antibiotics) Procedures/tests Complete & Pending: Procedures Performed prior 72 hours Category Date Time Status Testicular Ultrasound [US scrotum doppler] [US] Routine Exams 10/08/17 15:00 Completed ECG 12 lead ECG [ECG] Routine Y 10/09/17 14:33 Completed EKG [ECG 12 lead ECG] [ECG] Stat Y 10/09/17 14:15 Completed Date of admission: 10/05/17 16:14 Primary care physician: Derick Marcelino MD Consults: 10/05/17 18:33 Consult to Gastroenterology [CONS] Routine Consulting Provider: Gastroenterology Dina Reason for Consult: Suspected slow GIB Time Notified: 18:34 Call Completed: Yes 10/07/17 10:44 Consult to Occupational Therapy [CONS] Routine Comment: Evaluate, develop and implement POC Reason for Consult: discharge planning, generalized weakness Consult to Physical Therapy [CONS] Routine Comment: Evaluate, develop and implement POC Reason for Consult: discharge planning, generalized weakness 10/08/17 07:48 Consult to Wound Care [CONS] Routine Reason for Consult: opened bilster to right leg, and small open areas noted to feet. Call Completed: Yes 10/09/17 14:15 Consult to Cardiology [CONS] Routine Comment: Consulting Provider: Cardiology Dina Reason for Consult: VT Call Completed: No - Patient Status Disposition: Transfer SNF Condition: Fair - Discharge Instructions Follow Up With: Derick Marcelino MD [Primary Care Provider] - (patient is going to [facility] no PCP appointment is needed) Hospital course: Patient is an 81-year-old male with past medical history significant for ischemic cardiomyopathy and atrial fibrillation who presented to the ER on due to lower extremity edema. Patient reported of a 3 week history of lower extremity edema in addition to several day history of dyspnea with exertion. He was brought to the ER for further evaluation. In the ER, patient was found to be atrophic fibrillation with RVR and mildly hypotensive. Patient was also found to be anemic and to have pyuria on urinalysis. In addition, patient was also found to be in acute on chronic diastolic heart failure. Patient was admitted to medical surgical floor for further medical management During patients hospital stay an EGD was done on 10/07/17 which showed mild gastric erosions; patients hemoglobin remained stable during hospitalization. Cardiology was also consulted and suspected mild elevation in troponin was secondary to demand ischemia in the setting of acute on chronic diastolic heart failure with anemia. His lower extremity edema improved with IV diuresis which was then switched back to the patients home dose of oral Lasix. Patient also found to have atrial fibrillation with RVR but was unable to titrate medication due to low blood pressures. Cardiology recommendations for discontinuation of Xarelto in the setting of GI bleed but to continue aspirin. Patient also received a 3 day course of Keflex for UTI. Patient is now medically stable to be discharged to [facility] for strengthening conditioning and continue medical management. - Time Spent with Patient Total time spent providing and/or coordinating discharge services: Less than 30 minutes - Constitutional Vitals: Temp Pulse Resp BP Pulse Ox 97.4 F L 117 18 116/66 93 10/11/17 11:28 10/11/17 11:28 10/11/17 11:28 10/11/17 11:28 10/11/17 11:28 General appearance: Present: cachectic, A&O X 3, no acute distress, answers questions appropriately - Cardiovascular Cardiovascular exam: Present: RRR, +S1, +S2. Absent: diastolic murmur, gallop, rubs, systolic murmur - GI/Abdominal GI/Abdominal exam: Present: normal bowel sounds, soft, no peritoneal signs. Absent: distended, tenderness - VTE Reasons for not Prescribing Prophylaxis: Not indicated-Anticoagulated or INR therapeutic Documentation of Mechanical Device: Graduated compression elastic hosiery
--- NOTE | 2017-10-11 14:29 | Physician Discharge Referral ---
ExtendedCare Referral Info Institutional Level of Care: Skilled - Diagnosis (1) Gastric erosion with bleeding Priority: Primary Status: Acute (2) Atrial fibrillation with RVR Priority: Primary Status: Acute (3) UTI (urinary tract infection) Priority: Primary Status: Acute (4) CAD (coronary artery disease), [place] coronary artery Priority: Primary Status: Chronic - Transfer Medications Home Medications: Cholecalciferol (D-3) [Vitamin D] 2,000 unit PO DAILY 04/22/17 [History] Lactobacillus Combination No.8 [Adult Probiotic] 1 cap PO DAILY 04/22/17 [ History] Multivitamin [Multi-Day Vitamins] 1 tab PO DAILY 04/22/17 [History] [place]-3/Dha/Epa/Fish Oil [Fish Oil 1,000 mg Softgel] 1,000 mg PO DAILY 04/22/17 [History] [place] Xtr/Zinc Picolin [[place] Capsule] 1 cap PO DAILY 04/22/17 [ History] Aspirin 81 mg PO DAILY #0 04/30/17 [Rx] Furosemide [Lasix] 40 mg PO DAILY #0 tab 04/30/17 [Rx] Lisinopril [Zestril] 20 mg PO DAILY #0 tab 04/30/17 [Rx] Potassium Chloride [Klor-Con 10] 20 meq PO BID 06/15/17 [History] Rosuvastatin Calcium [Crestor] 10 mg PO DAILY 10/05/17 [History] Docusate [Colace] 100 mg PO BID capsule 10/11/17 [Rx] Ferrous Sulfate 325 mg PO BIDWM tablet 10/11/17 [Rx] Melatonin 3 mg PO HS PRN tablet 10/11/17 [Rx] Metoprolol XL (24 HR) Succ [Toprol Xl] 50 mg PO BID tab.er.24h 10/11/17 [Rx] Ofloxacin OPTH Drops [Ocuflox] 2 drop RIGHT EYE Q4HR bottle 10/11/17 [Rx] Omeprazole [PriLOSEC] 20 mg PO BIDAC capsule. 10/11/17 [Rx] Potassium Chloride 40 meq PO BIDWM tab.er.prt 10/11/17 [Rx] Silvasorb 1 appl TP DAILY tube 10/11/17 [Rx] Tamsulosin [Flomax] 0.4 mg PO HS capsule 10/11/17 [Rx] Allergies/Adverse Reactions: 3 Allergy/AdvReac Type Severity Reaction Status Date / Time Sulfa (Sulfonamide Allergy Rash Verified 10/05/17 13:28 Antibiotics) - Respiratory Orders Smoking Cessation: Smoking cessation has been advised. For more information, call the [place] Tobacco Quit Line at 5-649-RVXGNOW. CERTIFICATION: I certify that the transfer of the above named patient to an Extended Care Facility is necessary for the continuing treatment of the diagnosis listed. The above information is true and accurate reflection of patient's current condition. Confidential - Redisclosure prohibited without a patient's written consent.
[2017-10-11] MEDS: *HR* Metoprolol 5 MG/5 ML VIAL IVP PRN ×2 (14:31→23:04)
[2017-10-11] MEDS: Melatonin 3 MG TABLET PO PRN (23:04)
[2017-10-12] MEDS: Ofloxacin OPTH Drops 5 ML BOTTLE RIGHT EYE SCH ×4 (06:22→12:44)
[2017-10-12] MEDS: Cholecalciferol (D-3) 1,000 UNIT TABLET PO SCH (08:50)
[2017-10-12] MEDS: Lactobacillus 1 EACH CAP.SPRINK PO SCH (08:51)
[2017-10-12] MEDS: Multivit/Ca/Min/Fe/FA 1 TAB TABLET PO SCH (08:52)
[2017-10-12] MEDS: cephALEXin 500 MG CAPSULE PO SCH (08:52)
[2017-10-12] MEDS: Aspirin 81 MG TAB.CHEW PO SCH (08:52)
[2017-10-12] MEDS: Silvasorb 44.4 ML TUBE TP SCH (08:52)
[2017-10-12] MEDS: Metoprolol XL (24 HR) Succ 50 MG TAB.ER.24H PO SCH (08:53)
[2017-10-12] MEDS ORDERED: Furosemide 40 MG TABLET PO SCH (09:00)
[2017-10-12 12:00] VITALS: BP 96/62
--- NOTE | 2017-10-12 17:01 | Event Note ---
Date of Encounter: 10/12/17 Time of Encounter: 11:00 Patient's heart rate now controlled for atrial fibrillation after increasing the dose of metoprolol to 75 mg twice daily;blood pressures remain stable. Patient is medically stable to be discharged to the ECF today
--- NOTE | 2017-10-30 17:27 | Electrocardiograph Report ---
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
== END 2017-10-12 13:59 | DRG 308 ==
LOC: EMEROO 13:09 → 2NENU 16:14 → SUATTDRO 16:14 → ICNU 17:18 → 2NNU 18:32
PROVIDERS: ADMIT Internal Medicine; ATTEND Hospitalist
PROC: ENDOEBX (2017-10-07 09:30)

== ENCOUNTER 2017-10-22 13:10 | Inpatient (IN) ==
--- NOTE | 2017-10-22 14:16 | Emergency Department Note ---
Disposition Clinical Impression: Atrial fibrillation with RVR Congestive heart failure Qualifiers: Heart failure type: unspecified Heart failure chronicity: unspecified Qualified Code(s): I50.9 - Heart failure, unspecified CKD (chronic kidney disease) Qualifiers: Chronic kidney disease stage: unspecified stage Qualified Code(s): N18.9 - Chronic kidney disease, unspecified Anemia Qualifiers: Anemia type: unspecified type Qualified Code(s): D64.9 - Anemia, unspecified Disposition: Admitted As Inpatient Condition: Fair Referrals: Derick Marcelino MD [Primary Care Provider] - Forms: ED Satisfaction Letter, Work/School Release General Adult HPI - General Chief complaint: ED General Medical Stated complaint: general Time Seen by Provider: 10/22/17 13:13 Source: patient, EMS Mode of arrival: EMS Limitations: no limitations Nursing Notes Reviewed: Yes Vital Signs Reviewed: Yes - History of Present Illness HPI Narrative: 81-year-old male history of congestive heart failure who presents to the ER via EMS with a chief complaint of low O2 reading. Patient reports there there were having trouble getting his oxygen saturation. He was reported to be 68% on 2 L. He reports it has trouble picking him up there. He has had similar swelling as well as shortness of breath. He denies any chest pain. Compliant with his medications. No other complaints. 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 Denies: chest pain Treatments Prior to Arrival: none - Related Data Home Medications Medication Instructions Recorded Confirmed Cholecalciferol (D-3) [Vitamin D] 2,000 unit PO DAILY 04/22/17 10/22/17 Lactobacillus Combination No.8 1 cap PO DAILY 04/22/17 10/22/17 [Adult Probiotic] Multivitamin [Multi-Day Vitamins] 1 tab PO DAILY 04/22/17 10/22/17 [place]-3/Dha/Epa/Fish Oil [Fish Oil 1,000 mg PO DAILY 04/22/17 10/22/17 1,000 mg Softgel] Ascorbate Calcium/Bioflavonoid 1 tab PO DAILY 10/22/17 10/22/17 [Edith-C 500 mg Tablet] Atorvastatin Calcium [Lipitor] 20 mg PO DAILY 10/22/17 10/22/17 Metoprolol [Lopressor] 75 mg PO BID 10/22/17 10/22/17 Previous Rx's Medication Instructions Recorded Aspirin 81 mg PO DAILY #0 04/30/17 Furosemide [Lasix] 40 mg PO DAILY #0 tab 04/30/17 Lisinopril [Zestril] 20 mg PO DAILY #0 tab 04/30/17 Ferrous Sulfate 325 mg PO BIDWM tablet 10/11/17 Melatonin 3 mg PO HS PRN tablet 10/11/17 Ofloxacin OPTH Drops [Ocuflox] 2 drop RIGHT EYE Q4HR bottle 10/11/17 Omeprazole [PriLOSEC] 20 mg PO BIDAC capsule. 10/11/17 Potassium Chloride 40 meq PO BIDWM tab.er.prt 10/11/17 Tamsulosin [Flomax] 0.4 mg PO HS capsule 10/11/17 Allergies Allergy/AdvReac Type Severity Reaction Status Date / Time Sulfa (Sulfonamide Allergy Rash Verified 10/05/17 13:28 Antibiotics) All systems ED: reviewed and negative except as stated. Constitutional: Denies: fever Cardiovascular: Denies: chest pain, palpitations Respiratory: Reports: dyspnea. Denies: cough Gastrointestinal: Denies: abdominal pain, nausea, vomiting Past Medical History - Past Medical History Attestation: Yes The following information was validated with the patient. Source: patient Medical history: Reports: atrial fibrillation, cardiomyopathy, CHF, coronary artery disease, hypertension Surgical history: Reports: herniorrhaphy Psychiatric history: Reports: no psych history - Social History Smoking Status: Never smoker Smokeless Tobacco Status: No Alcohol use: Reports: none Drug use: Reports: none Physical Exam - General Limitations: no limitations General appearance: alert, in no apparent distress - Head Head exam: atraumatic, normocephalic - Eye Eye exam: Present: normal appearance - ENT ENT exam: normal exam - Neck Neck exam: Present: normal inspection, full ROM - Chest Chest inspection: Present: normal inspection, symmetric chest wall rise - Respiratory Respiratory exam: Present: normal lung sounds bilaterally - Cardiovascular Cardiovascular exam: Present: tachycardia, irregular rhythm, normal heart sounds - Abdominal Exam Abdominal exam: Present: soft, Non-Tender. Absent: tenderness - Extremities Exam Extremities exam: Present: normal inspection, full ROM - Expanded Upper Extremity Exam Shoulder exam: Present: normal inspection, full ROM Arm exam: Present: normal inspection, full ROM Elbow exam: Present: normal inspection, full ROM Forearm/Wrist exam: Present: normal inspection, full ROM Hand exam: Present: normal inspection, full ROM - Expanded Lower Extremity Exam Hip/Pelvis exam: Present: normal inspection, full ROM Upper leg exam: Present: normal inspection, full ROM Knee exam: Present: normal inspection, full ROM Lower leg exam: Present: normal inspection, full ROM, swelling (2+ bilateral lower extremity pitting edema) Ankle exam: Present: normal inspection, full ROM Foot/toe exam: Present: normal inspection, full ROM - Skin Skin exam: Present: warm, dry Course Course Narrative: Patient seen and examined. Vital signs reviewed. Get an EKG, chest x-ray. Screening troponin and BNP. I will review his previous admission and cardiology consultation. - Reevaluation(s) Reevaluation #1: Heart rate improved with 5 mg of Lopressor. Blood pressure holding currently. We will admit for A. fib RVR as well as CHF exacerbation. - Consultations Consultation #1: I spoke with the on-call loans officer Dr. Jones. Discussed the patient's history and exam imaging labs and interventions. Patient has a history of poorly-controlled atrial fibrillation with marginal blood pressures. We have given him 5 mg of Lopressor with some response. He agrees with continuing IV push doses as needed. Does not recommended to load the patient with anything currently. Vital Signs Temperature 97.4 F L 10/22/17 13:17 Pulse Rate 75 10/22/17 13:17 Respiratory Rate 18 10/22/17 13:17 Blood Pressure 89/61 10/22/17 13:17 O2 Sat by Pulse Oximetry 95 10/22/17 13:17 Temperature 97.4 F L 10/22/17 13:17 Pulse Rate 103 10/22/17 16:41 Respiratory Rate 16 10/22/17 16:41 Blood Pressure 98/66 10/22/17 16:41 O2 Sat by Pulse Oximetry 100 10/22/17 16:41 Oxygen Delivery Oxygen Delivery Nasal Cannula Medical Decision Making - MDM Narrative Medical decision making narrative: 81-year-old male presents to the ER due to poor pulse ox reading at nursing facility shortness of breath and lower extremities swelling. History of CHF with recent admission. Noted to have continued pleural effusion here today with lower extremity edema. EKG is A. fib. He is currently not on anticoagulation secondary to recent GI bleed. He is noted to be tachycardic here ranging up to 140 but mostly in the 110s to 120s with a marginal blood pressure. Most recent echo of 40-45%. He was given 5 mg of IV Lopressor with some improvement of his tachycardia. Case discussed with on-call loans officer who does not recommend to load the patient and would prefer IV as needed pushes. Patient admitted to the hospitalist service for A. fib RVR, CHF exacerbation. - Lab Data Lab results reviewed: Yes I reviewed the patient's lab results. Result diagrams: 10/22/17 14:21 10/22/17 14:21 Lab Results 10/22/17 10/22/17 10/22/17 Range/Units 14:21 14:21 14:21 WBC 6.7 (4.3-11.1) K/mcL RBC 3.78 L (4.19-5.50) M/mcL Hgb 10.2 L (12.9-16.9) g/dL Hct 35.1 L (37.5-50.1) % MCV 92.9 (83.0-100.0) fL MCH 27.0 L (28.0-33.3) pg MCHC 29.1 L (31.6-35.5) g/dL RDW 24.8 H (11.5-14.5) % Plt Count 209 (140-400) K/mcL MPV 10.9 (9.4-12.4) fL Immature Gran % 0.8 (0-4) % Seg Neutrophils % 74.6 % Lymphocytes % 15.9 % Monocytes % 7.7 % Eosinophils % 0.5 % Basophils % 0.5 % Neutrophils # 5.0 (1.6-8.9) K/mcL Lymphocytes # 1.1 (0.6-4.6) K/mcL Monocytes # 0.5 (0.0-1.3) K/mcL Eosinophils # 0.0 (0.0-0.6) K/mcL Basophils # 0.0 (0.0-0.2) K/mcL Nucleated RBCs/100 WBC 0.3 H (0) /100 WBC Platelet Estimate Normal (Normal) Polychromasia 1+ A (Not Present) Anisocytosis 2+ A (Not Present) Ovalocytes 1+ A (Not Present) Sodium 140 (136-145) mEq/L Potassium 5.2 H (3.5-5.1) mEq/L Chloride 118 H (98-107) mEq/L Carbon Dioxide 18 L (23-29) mEq/L BUN 57 H (8-23) mg/dL Creatinine 1.60 H (0.70-1.30) mg/dL Est GFR ( Amer) 51 L (> 60) Est GFR (Non-Af Amer) 42 L (> 60) BUN/Creatinine Ratio 36 H (6-26) Glucose 106 H (70-105) mg/dL Calculated Osmolality 306 H (280-300) Calcium 9.1 (8.6-10.3) mg/dL Troponin I 0.03 (< 0.04) ng/mL B-Natriuretic Peptide (Less than 100) pg/mL 10/22/17 Range/Units 14:21 WBC (4.3-11.1) K/mcL RBC (4.19-5.50) M/mcL Hgb (12.9-16.9) g/dL Hct (37.5-50.1) % MCV (83.0-100.0) fL MCH (28.0-33.3) pg MCHC (31.6-35.5) g/dL RDW (11.5-14.5) % Plt Count (140-400) K/mcL MPV (9.4-12.4) fL Immature Gran % (0-4) % Seg Neutrophils % % Lymphocytes % % Monocytes % % Eosinophils % % Basophils % % Neutrophils # (1.6-8.9) K/mcL Lymphocytes # (0.6-4.6) K/mcL Monocytes # (0.0-1.3) K/mcL Eosinophils # (0.0-0.6) K/mcL Basophils # (0.0-0.2) K/mcL Nucleated RBCs/100 WBC (0) /100 WBC Platelet Estimate (Normal) Polychromasia (Not Present) Anisocytosis (Not Present) Ovalocytes (Not Present) Sodium (136-145) mEq/L Potassium (3.5-5.1) mEq/L Chloride (98-107) mEq/L Carbon Dioxide (23-29) mEq/L BUN (8-23) mg/dL Creatinine (0.70-1.30) mg/dL Est GFR ( Amer) (> 60) Est GFR (Non-Af Amer) (> 60) BUN/Creatinine Ratio (6-26) Glucose (70-105) mg/dL Calculated Osmolality (280-300) Calcium (8.6-10.3) mg/dL Troponin I (< 0.04) ng/mL B-Natriuretic Peptide 2620 H (Less than 100) pg/mL - Radiology Data Radiology results reviewed: Yes I reviewed the patient's radiology results. Chest X-Ray 10/22/17 14:06 IMPRESSION: 1. Unchanged small to moderate right pleural effusion with compressive atelectasis. D/ / Ishan Parker MD / Ishan Parker MD Interpreting Provider: Ishan Parker MD - EKG Data EKG #1 EKG attestation: Yes I reviewed and interpreted this EKG. EKG results narrative: EKG demonstrates atrial fibrillation with RVR with a rate of 119. Normal axis. Normal intervals. Normal R-wave progression. T-wave inversions in leads V5 and V6. No gross ST elevations or depressions. No acute ischemic findings. Attestation Statement - Attestation Attestation: I examined this patient and my medical decision-making was reviewed with the Resident Physician, Dr. Carpenter. I agree with the documented findings, disposition and treatment plan as described except to the extent set forth below. Patient is 81-year-old white male with a history of atrial fibrillation and congestive heart failure who is brought to the emergency department with complaints of shortness of breath it has been gradual in onset over the past 48 hours and decreased oxygen saturation at extended care facility. Patient arrives in no acute distress complaining of generalized fatigue and short of breath over the past 2 days. Patient denies any chest pain pressure or heaviness, no dizziness, no abdominal pain nausea vomiting. Patient has some bilateral lower extremity edema but states baseline for him. Patient in atrial fibrillation with RVR on arrival with a heart rate that ranges between 110 and 1 40 bpm. I reviewed patient's physical exam findings as documented. Patient was in no acute distress on arrival. EKG shows atrial fibrillation with RVR. No signs of ischemia. Chest x-ray shows trace pleural effusion. Labs show an elevated BNP, normal troponin. Due to patient's borderline blood pressure readings and after review of his records by cardiology stating difficulty and rate control due to low blood pressure and discontinuing his Cardizem as at present we gave the patient one-time dose of Lopressor here which seemed to improve his heart rate which is now between 95 and 105. Patient 's blood pressure has remained stable with that. Patient's sister reports that he started therapy this week and had been doing well until over the weekend and has seemed to have gradually worsening fatigue and shortness of breath. Patient will be admitted for further evaluation of acute exacerbation of CHF and A. fib with RVR with better rate control at this time. Case was discussed with cardiology and they were consulate from the ED and agree with intermittent boluses of Lopressor versus starting the patient on a drip. Case discussed with the hospitalist who accepted patient for admission.
[2017-10-22 14:37] LABS: Basophils % 0.5 %; Eosinophils % 0.5 %; Hematocrit 35.1 % (37.5-50.1); Hemoglobin 10.2 g/dL (12.9-16.9); Immature Granulocytes % 0.8 % (0-4); Lymphocytes # 1.1 K/mcL (0.6-4.6); Lymphocytes % 15.9 %; Mean Corpuscular HGB Conc 29.1 g/dL (31.6-35.5); Mean Corpuscular Volume 92.9 fL (83.0-100.0); Mean Platelet Volume 10.9 fL (9.4-12.4); Monocytes # 0.5 K/mcL (0.0-1.3); Monocytes % 7.7 %; Nucleated Red Blood Cells 0.3 /100 WBC (0); Platelet Count 209 K/mcL (140-400); Red Blood Count 3.78 M/mcL (4.19-5.50); Red Cell Distribution Width 24.8 % (11.5-14.5); Segmented Neutrophils % 74.6 %
[2017-10-22 14:42] LABS: Calcium 9.1 mg/dL (8.6-10.3); Potassium 5.2 mEq/L (3.5-5.1)
[2017-10-22] MEDS ORDERED: *HR* Metoprolol 5 MG/5 ML VIAL IVP ONE (14:43)
[2017-10-22 15:36] LABS: Anisocytosis 2+ (Not Present)
[2017-10-22 15:37] LABS: Polychromasia 1+ (Not Present)
[2017-10-22 15:38] LABS: Ovalocytes 1+ (Not Present); Platelet Estimate Normal (Normal)
[2017-10-22] MEDS ORDERED: Furosemide 20 MG/2 ML VIAL IVP ONE (16:06)
[2017-10-22] MEDS ORDERED: *HR* Digoxin 0.5 MG/2 ML AMPUL IVP ONE (21:41)
[2017-10-22] MEDS ORDERED: 0.9 % Sodium Chloride 250 ML IVC ONE (21:42)
[2017-10-22] MEDS ORDERED: Acetaminophen 325 MG TABLET PO PRN (21:55)
[2017-10-22] MEDS ORDERED: Naloxone 0.4 MG/ML INJ IVP PRN (21:55)
--- NOTE | 2017-10-22 23:01 | Internal Med History&Physical ---
Date of Encounter: 10/22/17 Time of Encounter: 21:05 Assessment and Plan (1) Atrial fibrillation with RVR Current visit: Yes Status: Acute 1. Will give a STAT dose of Digoxin and continue PRN Lopressor if BP stabilizes. 2. If tolerates, we can try amiodarone dip once BP stabilizes more. 3. Cardiology consulted through ER. 4. Will trend troponins, EKG's, and monitor electrolytes -- correcting them as necessary. (2) Acute kidney injury superimposed on CKD Current visit: Yes Status: Acute 1. Hold BP meds and administer IVF with bolus as above. 2. Monitor Renal function and consult nephrology if needed. (3) Congestive heart failure Current visit: Yes Status: Chronic 1. No acute process. 2. Patient has chronic systolic CHF. 3. Patient may likely develop acute CHF secondary to IVF we will be administering. Discussed with family at length, and they understand that we may need to deal with complications thereof. Qualifiers: Heart failure type: systolic Heart failure chronicity: chronic Qualified Code(s): I50.22 - Chronic systolic (congestive) heart failure (4) DVT prophylaxis Current visit: No Status: Acute 1. Heparin SQ. Internal Medicine - H&P: HPI Chief complaint: abrnomal heart rate Admitted From: Emergency Dept Plans for Post Hospital Care: Transfer Residential Facility History of present illness: Mr. Roman is a 81 year old male who presents the ER from [facility] for concerns of reported low oxygen saturation. He was found to have evidence of atrial fibrillation with rapid ventricular response and hypotension. He also had a markedly elevated BNP, which is actually at his baseline. Nonetheless he was given diuretics in the ER and low-dose beta julian. He was then admitted to hospitalist service for atrial fibrillation with rapid ventricular response. Upon my assessment of the patient at the bedside, patient is alert, mentating well, denies chest pain or shortness of breath, and has no reported concerns at the moment. His blood pressure is low (80s over 60s) and heart rate is bouncing between 110-140. On exam, his lungs are clear and he exhibits no distress whatsoever. He does have some 1-2+ pitting edema of his legs. I discussed with him and his sister and [id number] the need to increase his blood pressure and treat his heart rate. Clinically he does not appear to be in acute CHF, although he does have chronic systolic CHF. I am going to give him some small fluid bolus and digoxin in hopes of maintaining hemodynamic stability. In the event he decompensates further from a hemodynamic or respiratory standpoint, he may require cardioversion and/or further respiratory support in the form of BiPAP and/or intubation. I explained this to patient and sister and her [id number], and they agreed to proceed with above measures if necessary. However, I'm hopeful we will not need to pursue aggressive measures. We risk acute CHF exacerbation with IV fluid boluses. However, my treatment options for his atrial fibrillation are limited due to his low blood pressure. He denies any fevers, cough, chest pain, shortness of breath, vomiting, or diarrhea. He does complain of some weakness. I discussed the above at length with patient and family members present, and they are in agreement with plan of care. Past Med Surg Social Fam HX - Past Medical History Attestation: Yes The following information was validated with the patient. Source: patient, old records reviewed, obtained from family Medical history: atrial fibrillation, cardiomyopathy, CHF, coronary artery disease, hypertension Psychiatric history: no psych history - Past Surgical History Surgical History: herniorrhaphy - Social History Smoking Status: Never smoker Smokeless Tobacco Status: No Alcohol use: none Drug use: none Current living situation: ECF Activity Level: Uses cane/walker Recent Out of Country Travel Within the Last 8 Weeks: No - Family History Brother Living Status: Hx Family Cancer: Yes (prostate) Mother Living Status: Father Living Status: Internal Medicine - H&P: Meds Cholecalciferol (D-3) [Vitamin D] 2,000 unit PO DAILY 04/22/17 [History] Lactobacillus Combination No.8 [Adult Probiotic] 1 cap PO DAILY 04/22/17 [ History] Multivitamin [Multi-Day Vitamins] 1 tab PO DAILY 04/22/17 [History] [place]-3/Dha/Epa/Fish Oil [Fish Oil 1,000 mg Softgel] 1,000 mg PO DAILY 04/22/17 [History] Aspirin 81 mg PO DAILY #0 04/30/17 [Rx] Furosemide [Lasix] 40 mg PO DAILY #0 tab 04/30/17 [Rx] Lisinopril [Zestril] 20 mg PO DAILY #0 tab 04/30/17 [Rx] Ferrous Sulfate 325 mg PO BIDWM tablet 10/11/17 [Rx] Melatonin 3 mg PO HS PRN tablet 10/11/17 [Rx] Ofloxacin OPTH Drops [Ocuflox] 2 drop RIGHT EYE Q4HR bottle 10/11/17 [Rx] Omeprazole [PriLOSEC] 20 mg PO BIDAC capsule. 10/11/17 [Rx] Potassium Chloride 40 meq PO BIDWM tab.er.prt 10/11/17 [Rx] Tamsulosin [Flomax] 0.4 mg PO HS capsule 10/11/17 [Rx] Ascorbate Calcium/Bioflavonoid [Edith-C 500 mg Tablet] 1 tab PO DAILY 10/22/17 [ History] Atorvastatin Calcium [Lipitor] 20 mg PO DAILY 10/22/17 [History] Metoprolol [Lopressor] 75 mg PO BID 10/22/17 [History] 3 Allergy/AdvReac Type Severity Reaction Status Date / Time Sulfa (Sulfonamide Allergy Rash Verified 10/05/17 13:28 Antibiotics) - Constitutional Constitutional: weakness, no chills, no fever(s) - EENT Eyes: no blurry vision, no change in vision Ears: no ear pain, no tinnitus Nose, mouth and throat: no nasal congestion, no sinus pressure, no sore throat - Cardiovascular Cardiovascular ROS IM: edema, irregular heart rhythm, palpitations, no chest pain, no dyspnea, no dyspnea on exertion, no lightheadedness, no paroxysmal nocturnal dyspnea, no syncope - Respiratory Respiratory: no cough, no hemoptysis, no chest congestion, no excessive phlegm production, no change in phlegm color - Gastrointestinal Gastrointestinal: no abdominal pain, no diarrhea, no hematemesis, no hematochezia, no melena, no nausea, no vomiting - Genitourinary Genitourinary ROS male: no dysuria, no flank pain, no hematuria - Musculoskeletal Musculoskeletal ROS IM: no arthralgias - Integumentary Integumentary IM: no rash, no jaundice - Neurological Neurological ROS: weakness, no focal weakness, no frequent falls, no headache(s) - Psychiatric Psychiatric: no anxiety, no depression - Endocrine Endocrine IM: no polydipsia, no polyuria - Hematologic/Lymphatic Hematologic/Lymphatic: no easy bruising, no lymphadenopathy - Allergic/Immunologic Allergic/Immunologic: no wheezing, no GI upset with certain foods - Constitutional Vitals: Temp Pulse Resp BP Pulse Ox 97.9 F 100 16 70/57 98 10/22/17 19:47 10/22/17 20:05 10/22/17 20:05 10/22/17 20:05 10/22/17 20:05 General appearance: Present: cooperative, A&O X 3, pleasant, no acute distress, answers questions appropriately - Head Head exam: Present: atraumatic, normal inspection - Eye Eye exam: Present: EOMI, normal appearance, PERRL. Absent: scleral icterus Pupils: Present: normal accommodation - ENT ENT exam: Present: mucous membranes dry, normal exam, normal oropharynx - Neck Neck exam general surgery: Present: full ROM, supple. Absent: lymphadenopathy, tenderness, nuchal rigidity - Expanded Neck Exam Neck exam: Absent: carotid bruit - Respiratory Respiratory exam: Present: CTAB. Absent: chest wall tenderness, rales, respiratory distress, rhonchi, wheezes, tachypnea - Cardiovascular Cardiovascular exam: Present: distant heart sounds, irregular rhythm, +S1, +S2, tachycardia. Absent: diastolic murmur, JVD, systolic murmur - GI/Abdominal GI/Abdominal exam: Present: normal bowel sounds, soft. Absent: hepatomegaly, mass, splenomegaly, tenderness - Extremities Exam Extremities exam: Present: full ROM, normal capillary refill, pedal edema (1-2+) , warm, radial pulses palpable and symmetrical. Absent: calf tenderness, cyanotic, joint swelling, tenderness - Back Exam Back exam: Absent: CVA tenderness (L), CVA tenderness (R) - Neurological Exam Neurological exam: Present: alert, CN II-XII intact, oriented X3, no focal deficits, strengths equal and symetr throughout - Psychiatric Psychiatric exam: Present: normal affect, normal mood - Skin Skin exam: Present: dry, warm. Absent: rash Internal Med - H&P Results - Labs CBC & Chem 7: 10/22/17 14:21 10/22/17 14:21 - EKG Data -: EKG Interpreted by Myself - EKG Data Prior EKG available for review: no EKG comments: 10/22/17 23:14 atrial fibrillation w RVR - Diagnostic Studies Chest x-ray Status: image reviewed by me (small pleural effusion; no acute CHF)
--- NOTE | 2017-10-23 00:24 | Event Note ---
Date of Encounter: 10/23/17 Time of Encounter: 00:[address] Palm the V/Q findigns and request for IVC filter. He is in agreement. He requests to continue gentle IVF hydration for kidney preservation, LE Dopplers, and he will plan on IVC filter early this morning around 6 AM. Will ask RN to notify family of plans for later this morning.
[2017-10-23] MEDS: Ofloxacin OPTH Drops 5 ML BOTTLE RIGHT EYE SCH ×6 (00:44→20:24)
[2017-10-23] MEDS: 0.9 % Sodium Chloride 1,000 ML IVC SCH ×2 (00:47→13:59)
[2017-10-23] MEDS: *HR* Heparin 5,000 UNIT/ML VIAL SQ SCH ×2 (06:15→18:39)
[2017-10-23 06:29] LABS: INR 1.3; Prothrombin Time 13.9 Seconds (9.4-12.1)
[2017-10-23 06:31] LABS: Activated Partial Thrombo Time 31.4 Seconds (26.0-36.0)
[2017-10-23] MEDS ORDERED: *HR* Heparin 10,000 UNIT/10 ML VIAL ONE (06:43)
[2017-10-23] MEDS ORDERED: 0.9 % Sodium Chloride 1,000 ML ONE (06:43)
[2017-10-23] MEDS ORDERED: Isovue-300 200 mL Infus..BTL IV ONE (06:43)
[2017-10-23] MEDS ORDERED: Heparin 1,000 UNITS/500 mL 500 ML ONE ×2 (06:43→15:29)
[2017-10-23 06:44] LABS: Albumin 2.8 g/dL (3.5-5.7); Albumin/Globulin Ratio 1.2 (1.1-2.2); Basophils # 0.1 K/mcL (0.0-0.2); Basophils % 0.7 %; Bilirubin,Total 0.5 mg/dL (0.3-1.0); Calcium 8.8 mg/dL (8.6-10.3); Chol/HDL Ratio 4.3 (0-4.9); Eosinophils # 0.2 K/mcL (0.0-0.6); Eosinophils % 2.5 %; Globulin 2.3 g/dL (2.4-3.5); Hemoglobin 9.8 g/dL (12.9-16.9); Immature Granulocytes % 0.5 % (0-4); Lymphocytes # 1.2 K/mcL (0.6-4.6); Lymphocytes % 15.9 %; Magnesium 2.5 mg/dL (1.6-2.6); Mean Corpuscular HGB Conc 29.7 g/dL (31.6-35.5); Mean Corpuscular Hemoglobin 27.3 pg (28.0-33.3); Mean Corpuscular Volume 91.9 fL (83.0-100.0); Mean Platelet Volume 11.4 fL (9.4-12.4); Monocytes # 0.7 K/mcL (0.0-1.3); Monocytes % 9.4 %; Neutrophils # 5.2 K/mcL (1.6-8.9); Platelet Count 204 K/mcL (140-400); Potassium 4.6 mEq/L (3.5-5.1); Red Blood Count 3.59 M/mcL (4.19-5.50); Total Protein 5.1 g/dL (6.4-8.9)
--- NOTE | 2017-10-23 07:03 | Event Note ---
Date of Encounter: 10/23/17 Time of Encounter: 06:30 Mr. Roman is an 81-year-old white male who was admitted via the ER from an ECF late last night because of decreased O2 saturation and a variety of other medical concerns. I was called last night after midnight because of the issue of a moderately positive VQ scan with low O2 saturation. There was a concern raised for an occult pulmonary embolism. As the patient had a recent GI bleed he cannot be anticoagulated and so therefore an IVC filter was requested. Arrangements were made for this to be placed at 7 AM this morning. When I arrived to obtain informed consent the patient abruptly announced that he no longer wants the filter. After a long, full, and exhaustive discussion of the indication and concerns regarding the IVC filter placement the patient was adamant in his refusal. I discussed this issue with the patient's and the patient's sisters who were in the room at the time of this discussion. Therefore I will cancel the IVC filter insertion.
[2017-10-23 08:08] LABS: Anisocytosis 2+ (Not Present)
[2017-10-23 08:09] LABS: Ovalocytes 1+ (Not Present); Platelet Estimate Normal (Normal); Poikilocytosis 1+ (Not Present)
[2017-10-23] MEDS: Ascorbic Acid 500 MG TABLET PO SCH (08:31)
[2017-10-23] MEDS: Aspirin 81 MG TAB.CHEW PO SCH (08:31)
[2017-10-23] MEDS: Cholecalciferol (D-3) 1,000 UNIT TABLET PO SCH (08:31)
[2017-10-23] MEDS: Multivit/Ca/Min/Fe/FA 1 TAB TABLET PO SCH (08:32)
[2017-10-23] MEDS: Lactobacillus 1 EACH CAP.SPRINK PO SCH (08:32)
--- NOTE | 2017-10-23 08:45 | Cardiology Consult Note ---
Date of Encounter: 10/23/17 Time of Encounter: 08:40 Assessment and Plan (1) Atrial fibrillation with RVR Current Visit: Yes Status: Acute Likely secondary to hypoxemia and PE, slow and gradual titration of CCB IV (no Bolus) as tolerated to be held for SBP less than 100 mmHg. Likely patient may not be able to tolerate the CCB, ideally no CCB or rate control would be indicated if patient was a candidate for treatment of his PE with AC. We may consider lenient Afib for now. (2) Congestive heart failure Current Visit: Yes Status: Chronic Likely not a culprit at this time, gentle diuresis only. His SOB may not improve as his culprit is the PE. Dehydration and worsening renal fx may result with aggressive diuresis. Qualifiers: Heart failure type: systolic Heart failure chronicity: chronic Qualified Code(s): I50.22 - Chronic systolic (congestive) heart failure Discussion w patient/family: The assessment and plan as outlined above was discussed with the patient and/or family members who expressed understanding and agreement. All questions were answered. Thank you for involving us in the care of your patient. Please call with any questions. History of Present Illness Consult date: 10/23/17 Consult reason: Hypoxemia Chief complaint: SOB History of present illness: Mr. 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 Patient found to have PE on V/Q scan but since he has erosive gastritis he is unable to take AC. A discussion of possible IVC filter resulted in the patient declining the procedure. In regards to his CHF he seems euvolemic and most of his SOB and afib RVR are likely a result of his PE. Mild elevated troponins adynamic and baseline BNP with clear lungs on auscultation. He does have LE edema and continues on gentle diuresis. He has a hx of refusing any procedures and has been known to no take his BB in the past. I feel his afib is going to be difficult to control due to PE/SOB and sympathetic overdrive. Past Med Surg Social Fam HX - Past Medical History Medical history: atrial fibrillation, cardiomyopathy, CHF, coronary artery disease, hypertension Psychiatric history: no psych history - Past Surgical History Surgical History: herniorrhaphy - Social History Smoking Status: Never smoker Smokeless Tobacco Status: No Alcohol use: none Drug use: none - Family History Brother Living Status: Hx Family Cancer: Yes (prostate) Mother Living Status: Father Living Status: Medications and Allergies Cholecalciferol (D-3) [Vitamin D] 2,000 unit PO DAILY 04/22/17 [History] Lactobacillus Combination No.8 [Adult Probiotic] 1 cap PO DAILY 04/22/17 [ History] Multivitamin [Multi-Day Vitamins] 1 tab PO DAILY 04/22/17 [History] [place]-3/Dha/Epa/Fish Oil [Fish Oil 1,000 mg Softgel] 1,000 mg PO DAILY 04/22/17 [History] Aspirin 81 mg PO DAILY #0 04/30/17 [Rx] Furosemide [Lasix] 40 mg PO DAILY #0 tab 04/30/17 [Rx] Lisinopril [Zestril] 20 mg PO DAILY #0 tab 04/30/17 [Rx] Ferrous Sulfate 325 mg PO BIDWM tablet 10/11/17 [Rx] Melatonin 3 mg PO HS PRN tablet 10/11/17 [Rx] Ofloxacin OPTH Drops [Ocuflox] 2 drop RIGHT EYE Q4HR bottle 10/11/17 [Rx] Omeprazole [PriLOSEC] 20 mg PO BIDAC capsule. 10/11/17 [Rx] Potassium Chloride 40 meq PO BIDWM tab.er.prt 10/11/17 [Rx] Tamsulosin [Flomax] 0.4 mg PO HS capsule 10/11/17 [Rx] Ascorbate Calcium/Bioflavonoid [Edith-C 500 mg Tablet] 1 tab PO DAILY 10/22/17 [ History] Atorvastatin Calcium [Lipitor] 20 mg PO DAILY 10/22/17 [History] Metoprolol [Lopressor] 75 mg PO BID 10/22/17 [History] 3 Allergy/AdvReac Type Severity Reaction Status Date / Time Sulfa (Sulfonamide Allergy Rash Verified 10/05/17 13:28 Antibiotics) All Systems Review: The remainder of the systems were reviewed and are negative Physical Examination Vital Signs, Last 4 Hours Temp Pulse Resp BP Pulse Ox 10/23/17 07:10 98.5 F 108 20 105/78 93 General: Conversant, No Apparent Distress HEENT: Atraumatic, Normocephaly, Mucus Membranes Moist Neck: No JVD, Normal carotid pulses Cardiac: Reg Rate and Rhythm, Normal S1 and S2, No Murmur Lungs: Normal Breath Sounds, No Wheeze, Rales, Rhonchi Neuro: Alert and responsive, No focal deficits noted Abdomen: Soft, Non-Tender Skin: No rashes noted on visualized skin Musculoskeletal: No Chest Wall Tenderness Extremities: No Clubbing, No Cyanosis, No Edema (Chaitanya LE edema), Normal Pulses Results 10/23/17 05:40 10/23/17 05:40 Lab Results 10/23/17 10/23/17 10/23/17 05:40 05:40 05:40 WBC 7.3 Hgb 9.8 L Hct 33.0 L Plt Count 204 INR 1.3 APTT 31.4 Sodium 144 Potassium 4.6 Chloride 119 H Carbon Dioxide 21 L BUN 54 H Creatinine 1.63 H Glucose 93 Calcium 8.8 Magnesium 2.5 Total Bilirubin 0.5 AST 18 ALT 26 Alkaline Phosphatase 80 Troponin I 10/23/17 05:40 WBC Hgb Hct Plt Count INR APTT Sodium Potassium Chloride Carbon Dioxide BUN Creatinine Glucose Calcium Magnesium Total Bilirubin AST ALT Alkaline Phosphatase Troponin I 0.04 H* Consult Discharge Plan - Plan Referrals: Derick Marcelino MD [Primary Care Provider] -
--- NOTE | 2017-10-23 09:40 | Internal Med Progress Note ---
Date of Encounter: 10/23/17 Time of Encounter: 10:04 - Assessment and plan (1) Acute respiratory failure with hypoxia Current Visit: Yes Status: Acute Assessment and plan: VQ scan was performed and showed "Triple match" with right lower lobe airspace disease, and matching perfusion and ventilatory defects. Modified PIOPED criteria intermediate probability for PE. The patient adamantly refused. Patient was informed of this risk and vascular surgery was consulted to place an IVC filter as patient is not a candidate for anticoagulation secondary to recent GI bleed. Patient initially refused IVC filter but is stating this afternoon that he is willing to get the IVC filter. We have also considered sending him to [facility] for cardiac percutaneous cathere-based thrombectomy and have discussed with cardiology who states that he is not a good candidate. Left lower extremity Doppler was negative for DVT. Echo is pending to assess for right heart strain. Nephrology was consult to manage ROSSI. Patient is unable to obtain a CTA due to ROSSI therefore PE is unconfirmed. Patient is currently still tachycardic and hypotensive. Discussed the option of palliative care. Plan: -IVC filter placement today - echo pending - cardiology is following - palliative care consulted, will see tomorrow - ASA (2) Congestive heart failure Current Visit: Yes Status: Chronic Assessment and plan: Cardiology consult and please shortness of breath is related to the pulmonary embolism instead of congestive heart failure. Plan: - Cardiology consulted and does not believe his SOB is due to CHF -Troponin = 0.03, 0.04, 0.04 - Most likely 2/2 to demand ischemia for possible PE / respiratory distress Qualifiers: Heart failure type: systolic Heart failure chronicity: chronic Qualified Code(s): I50.22 - Chronic systolic (congestive) heart failure (3) Atrial fibrillation with RVR Current Visit: Yes Status: Acute Assessment and plan: Plan: - metoprolol 75mg BID instructed to hold if systolic < 105. - cardiology consulted - cardiac diet (4) ROSSI (acute kidney injury) Current Visit: Yes Status: Acute Assessment and plan: Creatinine previously normal on 10/21/17. Creatinine today 1.63. Plan: -NS @75ml/hr -nephrology following (5) DVT prophylaxis Current Visit: No Status: Acute Assessment and plan: Heparin SQ - Subjective Interval history: Today patient states that he is able to breathe well on 3 L of nasal cannula. Patient does not have any home oxygen. Patient denies chest pain. Other than [place]. A 10 point review of systems was negative. - Constitutional Vitals: Temp Pulse Resp BP Pulse Ox 98.5 F 108 20 105/78 93 10/23/17 07:10 10/23/17 07:10 10/23/17 07:10 10/23/17 07:10 10/23/17 07:10 General appearance: Present: cooperative, A&O X 3, pleasant, no acute distress, answers questions appropriately Exam: Constitutional: sleepy but an answering questions appropriately, well nourished , well developed. Head: Normocephalic, atraumatic, normal contour and symmetric, no masses, lesions or scars Heart: irregular rhythm, regular rate, no murmurs Lungs: Clear to auscultation, no wheezes, rales, or rhonchi Abdomen: Soft, nondistended, nontender, no guarding or rigidity. Extremities:R lower extremity with clean dressing, Left lower extremity with venous status changes to the skin, + 1 pitting edema radial pulse +2/4, capillary refill <2sec. Skin: Skin warm and dry, no jaundice Neurologic: Cranial nerves II through XII grossly intact, no focal deficits, strength within normal limits in all extremities, speech is clear Psych: Cooperative with exam, good eye contact Internal Medicine: Result - Labs CBC & Chem 7: 10/23/17 05:40 10/23/17 05:40 Labs: Short CBC 10/23/17 Range/Units 05:40 WBC 7.3 (4.3-11.1) K/mcL Hgb 9.8 L (12.9-16.9) g/dL Hct 33.0 L (37.5-50.1) % Plt Count 204 (140-400) K/mcL Neutrophils # 5.2 (1.6-8.9) K/mcL BMP 10/23/17 05:40 Sodium 144 Potassium 4.6 Chloride 119 H Carbon Dioxide 21 L BUN 54 H Creatinine 1.63 H Glucose 93 Calcium 8.8 Cardiac Enzymes 10/23/17 Range/Units 05:40 Troponin I 0.04 H* (< 0.04) ng/mL Liver Function 10/23/17 Range/Units 05:40 Total Bilirubin 0.5 (0.3-1.0) mg/dL AST 18 (13-39) Units/L ALT 26 (7-52) Units/L Alkaline Phosphatase 80 (34-104) Units/L Albumin 2.8 L (3.5-5.7) g/dL - ABG Interpretation ABG results: PT/INR, D-dimer PT 13.9 Seconds (9.4-12.1) H 10/23/17 05:40 Consult Discharge Plan - Plan Referrals: Derick Marcelino MD [Primary Care Provider] -
--- NOTE | 2017-10-23 10:52 | Event Note ---
Date of Encounter: 10/23/17 Time of Encounter: 10:39 Patient seen and examined. Agree with the Resident's note as written by Dr. Cheatham. I have provided supervision in the care of the patient. Admitted with suspected PE on V/Q study. Refusing IVC filter now. Anticoags contraindicated due to history of GIB. Also in Afib wih RVR with cardiology following. colonoscopy last March showed divericulosis but no bleeding. 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 No anticoags were recommended per EGD report. Patient still borderline hypotensive which hinders adequate treatment of afib. HR is around 110 which isn't too bad. Does not see in acute CHF but does have 2 + LE edema. Hypoxemia likely from suspected PE. Would need to have a detailed discussion with family about risks and benefits of anticoagulation since refusing IVC. Cardiology's help with this would be appreciated. Hard to predict what the right answer to this is. Would check an echo and r/o right heart strain since hypotensive and tachy. check LE dopplers b/l Afib is ok for now. Being gently hydrated due to ROSSI and low BP but would worry about volume overload. ROSSI is multifactorial with hypoperfusion, cardiorenal syndrome. Would ask nephrology to see c/w ASA/statin/BB Hold other antihypertensives including lisinopil Lasix on hold and will evaluate need for it as we go. Cardiology is helping too
--- NOTE | 2017-10-23 12:00 | Event Note ---
Date of Encounter: 10/23/17 Time of Encounter: 12:00 - Cardiology Event Note Seen by Dr. Jones, discussed and reviewed, recommend palliative care consult if deemed appropriate. Patient currently DNR/Comfort Care arrest.
--- NOTE | 2017-10-23 13:40 | Nephrology Consult Note ---
Date of Encounter: 10/23/17 Time of Encounter: 13:36 Assessment and Plan (1) ROSSI (acute kidney injury) Current Visit: No Status: Resolved Review of past labs show normal renal function over last year with several AKIs ROSSI workup to include: UA, urine culture, urine sodium, urine creatinine, urine eosinophils, CPK, uric acid, protein/creatinine ratio, and renal ultrasound. Strict I/Os Agree with holding all b/p meds including Lisinopril. Agree with holding Lasix Avoid nephrotoxins if possible (2) Atrial fibrillation with RVR Current Visit: Yes Status: Acute per cardiology/primary team (3) Congestive heart failure Current Visit: Yes Status: Chronic per cardiology/primary team Qualifiers: Heart failure type: systolic Heart failure chronicity: chronic Qualified Code(s): I50.22 - Chronic systolic (congestive) heart failure History of Present Illness - Reason for Consult Consult date: 10/23/17 - Chief Complaint Afib with RVR, ROSSI - History of Present Illness Mr. Roman is a 81 year old male who was admitted for low oxygen saturation, atrial fibrillation with rapid ventricular response and hypotension. Patient has a PMH of afib, cardiomyopathy, CHF, CAD, and HTN. On admission he was found to also have an ROSSI. Patient seems confused at times, difficult to get a good history. Patient believes he has an upcoming appointment with Dr Blackwood for a past hospital f/u when he had a previous ROSSI but he is unsure. Past Med Surg Social Fam HX - Past Medical History Medical history: atrial fibrillation, cardiomyopathy, CHF, coronary artery disease, hypertension Psychiatric history: no psych history - Past Surgical History Surgical History: herniorrhaphy - Social History Smoking Status: Never smoker Smokeless Tobacco Status: No Alcohol use: none Drug use: none - Family History Brother Living Status: Hx Family Cancer: Yes (prostate) Mother Living Status: Father Living Status: Medications and Allergies Cholecalciferol (D-3) [Vitamin D] 2,000 unit PO DAILY 04/22/17 [History] Lactobacillus Combination No.8 [Adult Probiotic] 1 cap PO DAILY 04/22/17 [ History] Multivitamin [Multi-Day Vitamins] 1 tab PO DAILY 04/22/17 [History] [place]-3/Dha/Epa/Fish Oil [Fish Oil 1,000 mg Softgel] 1,000 mg PO DAILY 04/22/17 [History] Aspirin 81 mg PO DAILY #0 04/30/17 [Rx] Furosemide [Lasix] 40 mg PO DAILY #0 tab 04/30/17 [Rx] Lisinopril [Zestril] 20 mg PO DAILY #0 tab 04/30/17 [Rx] Ferrous Sulfate 325 mg PO BIDWM tablet 10/11/17 [Rx] Melatonin 3 mg PO HS PRN tablet 10/11/17 [Rx] Ofloxacin OPTH Drops [Ocuflox] 2 drop RIGHT EYE Q4HR bottle 10/11/17 [Rx] Omeprazole [PriLOSEC] 20 mg PO BIDAC capsule.dr 10/11/17 [Rx] Potassium Chloride 40 meq PO BIDWM tab.er.prt 10/11/17 [Rx] Tamsulosin [Flomax] 0.4 mg PO HS capsule 10/11/17 [Rx] Ascorbate Calcium/Bioflavonoid [Edith-C 500 mg Tablet] 1 tab PO DAILY 10/22/17 [ History] Atorvastatin Calcium [Lipitor] 20 mg PO DAILY 10/22/17 [History] Metoprolol [Lopressor] 75 mg PO BID 10/22/17 [History] 3 Allergy/AdvReac Type Severity Reaction Status Date / Time Sulfa (Sulfonamide Allergy Rash Verified 10/05/17 13:28 Antibiotics) Review of Systems All Systems: reviewed and no additional remarkable complaints except as stated Constitutional: malaise, no chills, no fatigue Cardiovascular: dyspnea, dyspnea on exertion, no chest pain Gastrointestinal: no diarrhea, no vomiting Neurological: confusion Exam - Vital Signs Vital signs: Initial Vital Signs Temp Pulse Resp BP Pulse Ox 97.4 F L 75 18 89/61 95 10/22/17 13:17 10/22/17 13:17 10/22/17 13:17 10/22/17 13:17 10/22/17 13:17 Vital Signs - Last 8 Hours Temp Pulse Resp BP Pulse Ox 10/23/17 11:18 77 18 107/64 95 10/23/17 07:10 98.5 F 108 20 105/78 93 Intake and Output 10/22/17 10/23/17 10/23/17 23:59 07:59 15:59 Intake Total 360 / 360 Output Total 500 / 500 Balance -500 / -500 360 / 360 Intake: Oral 360 / 360 Output: Catheter 500 / 500 Other: Meal Breakfast Percent of Meal Consumed 100% Weight 79.5 kg Blood Glucose* 91 Patient Weight 10/23/17 23:59 Weight 79.5 kg - General Appearance General appearance: frail EENT: ATNC, mucous membranes moist, hearing intact, vision intact Neck: supple Respiratory: clear (decreased ) Cardiology: edema, normal S1, normal S2 Gastrointestinal: no tenderness, no guarding Integumentary: warm and dry Neurologic: confused Psychiatric: mood/affect appropriate, cooperative Results - Lab Results 10/23/17 05:40 10/23/17 05:40 Most recent lab results Calcium 8.8 mg/dL (8.6-10.3) 10/23/17 05:40 Magnesium 2.5 mg/dL (1.6-2.6) 10/23/17 05:40 Consult Discharge Plan - Plan Referrals: Derick Marcelino MD [Primary Care Provider] -
[2017-10-23 14:41] LABS: Uric Acid 10.8 mg/dL (2.3-7.6)
[2017-10-23] MEDS ORDERED: ISOVUE-250 150 ML INFUS..BTL IV ONE (15:34)
--- NOTE | 2017-10-23 16:22 | Vascular/Endovasc Consult Note ---
Date of Encounter: 10/23/17 Time of Encounter: 16:00 Assessment and Plan (1) Pulmonary embolus Current Visit: Yes Status: Acute The patient has moderate probability for a pulmonary embolus on his VQ scan. He cannot be anticaogulated due to a recent GI bleed. Given his comorbidities, he would not be able to tolerate another pulmonary embolus. An inferior vena cava filter has been recommended to reduce his risk of additional pulmonary emboli. The risks, benefits and alternatives were discussed and all questions were answered. He expressed understanding and wishes to proceed. 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 Roman is a 81 year old male with multiple medical comorbidities including atrial fibrillation, coronary artery disease with cardiomyopathy, and hypertension who presented to the [facility] emergency room with complaints of shortness of breath. The patient was noted to be in atrial fibrillation with rapid ventricular response. He was prveiously anticoagulated, but had a recent GI bleed. The patient underwent a VQ scan and was noted to have moderate probability of a pulmonary embolus. Due to his comobidities, an inferior vena cava filter was recommended and vascular surgery was consulted. At the time of exam, the patient is comfortable and alert. He denies chest pain or shortness of breath. Past Med Surg Social Fam HX - Past Medical History Medical history: atrial fibrillation, cardiomyopathy, CHF, coronary artery disease, hypertension Psychiatric history: no psych history - Past Surgical History Surgical History: herniorrhaphy - Social History Smoking Status: Never smoker Smokeless Tobacco Status: No Alcohol use: none Drug use: none - Family History Brother Living Status: Hx Family Cancer: Yes (prostate) Mother Living Status: Father Living Status: Medications and Allergies Cholecalciferol (D-3) [Vitamin D] 2,000 unit PO DAILY 04/22/17 [History] Lactobacillus Combination No.8 [Adult Probiotic] 1 cap PO DAILY 04/22/17 [ History] Multivitamin [Multi-Day Vitamins] 1 tab PO DAILY 04/22/17 [History] [place]-3/Dha/Epa/Fish Oil [Fish Oil 1,000 mg Softgel] 1,000 mg PO DAILY 04/22/17 [History] Aspirin 81 mg PO DAILY #0 04/30/17 [Rx] Furosemide [Lasix] 40 mg PO DAILY #0 tab 04/30/17 [Rx] Lisinopril [Zestril] 20 mg PO DAILY #0 tab 04/30/17 [Rx] Ferrous Sulfate 325 mg PO BIDWM tablet 10/11/17 [Rx] Melatonin 3 mg PO HS PRN tablet 10/11/17 [Rx] Ofloxacin OPTH Drops [Ocuflox] 2 drop RIGHT EYE Q4HR bottle 10/11/17 [Rx] Omeprazole [PriLOSEC] 20 mg PO BIDAC capsule. 10/11/17 [Rx] Potassium Chloride 40 meq PO BIDWM tab.er.prt 10/11/17 [Rx] Tamsulosin [Flomax] 0.4 mg PO HS capsule 10/11/17 [Rx] Ascorbate Calcium/Bioflavonoid [Edith-C 500 mg Tablet] 1 tab PO DAILY 10/22/17 [ History] Atorvastatin Calcium [Lipitor] 20 mg PO DAILY 10/22/17 [History] Metoprolol [Lopressor] 75 mg PO BID 10/22/17 [History] 3 Allergy/AdvReac Type Severity Reaction Status Date / Time Sulfa (Sulfonamide Allergy Rash Verified 10/05/17 13:28 Antibiotics) All Systems Review: The remainder of the systems were reviewed and are negative - Constitutional Constitutional: chills, no fever(s) - Cardiovascular Cardiovascular: dyspnea on exertion, no chest pain at rest Exam General: Present: Conversant, No Apparent Distress Neck: Absent: JVD, Lymphadenopathy, Left Carotid bruit, Right Carotid bruit Cardiac: Present: Irregular Rhythm Lungs: Present: Normal Breath Sounds Neuro: Present: Alert and responsive, No focal deficits noted Abdomen: Present: Soft, Non-tender. Absent: Masses Vascular: Present: Normal capillary refill, Edema (trace edema). Absent: Cyanosis Skin: Present: No rashes noted on visualized skin Consult Discharge Plan - Plan Referrals: Derick Marcelino MD [Primary Care Provider] -
--- NOTE | 2017-10-23 16:22 | Pre-Sedation Evaluation ---
Pre-sedation evaluation - Pre-sedation checklist Date of procedure: 10/23/17 Procedure: IVC filter placement Recent Vitals: Last Vital Signs Temp 98.5 F 10/23/17 07:10 Pulse 77 10/23/17 11:18 Resp 18 10/23/17 11:18 BP 107/64 10/23/17 11:18 Pulse Ox 95 10/23/17 11:18 H&P (including ROS) documented in medical record: Yes Previous reaction to sedatives/anesthetics: No Dietary Status: NPO after Midnight Dentition: dentures removed ASA Classification *see protocol: CLASS III-Severe systemic disease Plan of Care: Pt appropriate candidate for procedure/moderate/conscious sedation , Risks/benefits of procedure/sedation discussed w/ patient/family
--- NOTE | 2017-10-23 16:58 | Invasive Diagnostic Lab Proc ---
Name: Too Roman Date of Study: 10/23/2017 Date: 1935 Ht: 183.0 in Medical Record#: [id number] Age: 81 Wt: 79.5 lb Gender: Male BSA: 2.02 Order #: [id number] BMI: 23.74 Physicians Performing MD: Too Hampton MD Referring MD: Referring MD: Staff Name Position Time In Dorinda Uriostegui RT (R) Monitor Meghan Kasper RN Meter Maker Tejal Rai RT (R) Scrub Indications Pulmonary Embolism Procedures Performed IVC FILTER PLACEMENT Pre-Procedure Checklist Informed consent is complete signed and on chart. H&P is on chart. ID band is on and ID verified with patient. Patient NPO for procedure The procedure was described for the patient and questions were answered. Blood Pressure: 102/63 ECG is on chart. Rhythm: Atrial Fibrillation Plan of Care Patient will tolerate the procedure without complications. Adequate level of comfort will be maintained. Hemodynamics will remain stable Patient will recover from procedure without complications. Respiratory function will be maintained. Cardiac rhythm will remain stable. Patient temperature will be maintained. Patient and/or family have verbalized understanding of the procedure. Patient Education Chief Complaint/Reason for Test: IVC filter Developmental Category: Geriatric (65+ years) Learning Barriers: None Education Needs: Procedure Education Method: Verbal Information Taught: IVC filter Educational Evaluation: Able to repeat information Intravenous Access Time IV Size Location DC'd Fluid/Drip Rate Units RN 15:35 20g 1 1/4" Patent On Arrival Rt Antecubital 0.9NaCl 25 ml/hr Meghan Kasper RN Allergies Sulfa (Sulfonamide Antibiotics) Vital Signs Time BP Systolic BP Diastolic HR O2 Sats ASA 06:46 AM 102 63 84 97 04:10 PM 04:10 PM 04:25 PM 04:25 PM 04:23 PM 107 65 103 04:27 PM 111 66 111 93 04:32 PM 98 68 116 93 04:33 PM 103 63 102 93 04:37 PM 104 68 126 04:42 PM 89 66 123 04:47 PM 100 65 127 Procedure Medications Time Medication Dose Units Method Route 04:11 PM Oxygen 4 L/min nasal cannula 04:31 PM Lidocaine 2% 10 ml Subcutaneous 04:30 PM Lidocaine 2% 10 ml Subcutaneous ASA Classification: CLASS III- Severe systemic disease (i.e. prior AMI, diabetes with vascular complications, morbid obesity) Trent Score Preprocedure Postprocedure Activity 2- Moves 4 extremities sustained head lift Activity 2- Moves 4 extremities sustained head lift Circulation 2- SBP +/= 20 points of pre-anesthetic level Circulation 2- SBP +/= 20 points of pre-anesthetic level Consciousness 2- Awake and alert oriented x 3 Consciousness 2- Awake and alert oriented x 3 O2 Saturation 1- Needs O2 inhalation to maintain O2 saturation of 90% O2 Saturation 1- Needs O2 inhalation to maintain O2 saturation of 90% Respiratory 2- Able to deep breathe and cough well Respiratory 2- Able to deep breathe and cough well Total Score 9 Total Score 9 Contrast: Isovue 250- 150ml Contrast Amount: 15 ml Fluoro Dose: 104 mGy Procedure Log Time Note Entered By 04:00 PM Pt arrived to cath laboratory technician 1 at 16:00 tsites 04:00 PM Physician paged/called 16:00 tsites 04:08 PM Physican responded and notified patient is ready 16:07 tsites 04:10 PM Time: 16:10 Is patient comfortable and pain free?: Yes scoates 04:10 PM Time: 16:10LOC: 5 = Fully awake and oriented or at pre-proc level scoates 04:10 PM Sheree Heredia RN Position: Monitor Time in: 16:10 scoates 04:10 PM Meghan Kasper RN Position: Meter Maker Time in: 16:10 scoates 04:11 PM Tejal Rai RT (R) Position: Scrub Time in: 16:10 scoates 04:11 PM 16:11 Oxygen at 4 L/min per nasal cannula by Meghan Kasper RN scoates 04:19 PM Physician arrived 16:19 scoates 04:19 PM Sign in performed according to hospital policy. scoates 04:19 PM Procedure start 16:19 scoates 04:19 PM Time out perfomed scoates 04:25 PM Time: 16:10 Is patient comfortable and pain free?: Yes scoates 04:25 PM Time: 16:25LOC: 5 = Fully awake and oriented or at pre-proc level scoates 04:31 PM Ultrasound, Sonosite, utilized to obtain vascular access scoates 04:27 PM ASA Class CLASS III- Severe systemic disease (i.e. prior AMI, diabetes with vascular complications, morbid obesity) scoates 04:30 PM Time out perfomed scoates 04:31 PM Patient charges- Angio tray pack, Pulse Oximetry and ACIST tubing and transducer scoates 04:31 PM 16:31 10 ml Lidocaine 2% to right groin Subcutaneous Given By Too Hampton MD scoates 04:33 PM Patient Charges- Cook Celect IVC Filter ,Tray Pack and Pulse Oximetry. scoates 04:34 PM Access obtain and IVC Filter sheath inserted Rt Femoral vein. scoates 04:35 PM Inferiorvenacavagram performed. scoates 04:36 PM 10mls of contrast hand injected by Dr. Hampton to IVC scoates 04:36 PM IVC Filter inserted into the inferior vena cava scoates 04:37 PM IVC Filter deployed into the inferior vena cava scoates 04:37 PM 5mls of contrast hand injected scoates 04:33 PM 16:33 10 ml Lidocaine 2% to right groin Subcutaneous Given By Too Hampton MD scoates 04:39 PM Procedure completed at 16:39 scoates 04:40 PM Sign Out completed: Radiation Dose 104 mGy Fluoro Time: 0.8 minutes. Isovue 250- 150ml contrast 15 ml given by Too Hampton MD. Complications: None. Confirmed administered medications:Yes scoates 04:40 PM Time: 16:25 Is patient comfortable and pain free?: Yes scoates 04:40 PM Time: 16:25LOC: 4 = Oriented but drowsy scoates 04:41 PM Isovue 250- 150ml,1 bottle(s) used. scoates 04:41 PM Venous sheath pulled using manual compression and V+Pad for 12 minutes by Dorinda Uriostegui RT (R) scoates 04:42 PM Estimated Blood Loss: minimal scoates 04:42 PM Post EKG: NSR scoates 04:43 PM 16:43 Post Pulses: Bilateral DP & PT 1+. scoates 04:44 PM Information taught: Carotid angiogram and IVC filter scoates 04:44 PM Education needs: Procedure, Plan of Care, and Responsibilities of Patient in Care scoates 04:44 PM Learning barriers: None scoates 04:45 PM Education methods: Verbal scoates 04:45 PM Education evaluation: Able to repeat information scoates 04:45 PM Patient pain level 0/10 scoates 04:47 PM Delay to floor: No scoates 04:48 PM Pt taken to Room# 2 scoates 04:48 PM Family placed in consult room. scoates 04:49 PM Complications: None scoates 04:49 PM Isovue 250- 150ml contrast 15 ml given by Too Hampton MD scoates 04:49 PM Radiation Dose 104 mGy scoates 04:50 PM Report given to Emely BANKS. Pt taken to , Room # 2 16:50 scoates 04:51 PM Post Blood Pressure: 100/65 scoates 04:52 PM Site status No bleeding/hematoma - Rt Groin as reported by Dorinda Uriostegui RT (R) at 16:51 scoates 04:52 PM Opsite applied scoates 04:52 PM Patient out of room 16:52 scoates 06:43 AM PVIStat 04:21 PM Vitals capture started with the following parameters, Patient=Adult, Interval=5 min, Initial Pwnaggpu=975 mmHg, Deflation Rate=3 mmHg, Cuff placed on Right Arm 04:21 PM Recorded ECG: OH=782 Condition=Condition 1 04:23 PM AQ=594 bpm, FQUY=988/65 mmhg, Resp=21 B/min, Comment=afib 04:27 PM OG=307 bpm, XZPI=164/66 mmhg, SpO2=93 %, Resp=18 B/min, Comment=afib 04:32 PM GB=546 bpm, NIBP=98/68 mmhg, SpO2=93 %, Resp=22 B/min, Comment=afib 04:32 PM NIBP STAT measurement started. 04:33 PM EQ=504 bpm, KNUI=130/63 mmhg, SpO2=93 %, Resp=24 B/min, Comment=afib 04:37 PM RU=429 bpm, LYBU=322/68 mmhg, Resp=14 B/min, Comment=afib 04:42 PM EB=750 bpm, NIBP=89/66 mmhg, Resp=22 B/min, Comment=afib 04:42 PM NIBP STAT measurement started. 04:46 PM NIBP STAT measurement started. 04:47 PM TC=983 bpm, CIYT=513/65 mmhg, Resp=20 B/min, Comment=afib Post Procedure Information Blood Pressure: 100/65 mmHg Rhythm: NSR Post procedure instructions given Report Given To: Jose G Salmeron Site Checks Time Location Status Staff Sheath In? Note 4:51:00 PM Rt Groin Bleeding Dorinda Uriostegui RT (R) Pulses Time Site Pre Procedure Post Procedure Note 10/23/2017 3:35:00 PM Bilateral DP & PT 1+ 10/23/2017 3:35:00 PM Bilateral radial 2+ 4:43:00 PM Bilateral DP & PT 1+ Updated by Sheree Epstein RN on 10/23/2017 4:53:45 PM electronically signed on 10/23/2017 4:54:12 PM with status of Final
[2017-10-23] MEDS ORDERED: *HR* Metoprolol 5 MG/5 ML VIAL IVP ONE ×2 (18:52→18:57)
[2017-10-24 04:59] LABS: BUN/Creatinine Ratio 36 (6-26); Blood Urea Nitrogen 46 mg/dL (8-23); Calcium 8.6 mg/dL (8.6-10.3); Carbon Dioxide 22 mEq/L (23-29); Chloride 120 mEq/L (98-107); Glucose 92 mg/dL (70-105); Osmolality,Calculated 306 (280-300); Potassium 4.6 mEq/L (3.5-5.1); Sodium 142 mEq/L (136-145); eGFR For African Americans > 60 (> 60); eGFR For Non-African Americans 53 (> 60)
[2017-10-24 05:01] LABS: Hematocrit 32.1 % (37.5-50.1); Hemoglobin 9.5 g/dL (12.9-16.9); Mean Corpuscular HGB Conc 29.6 g/dL (31.6-35.5); Mean Corpuscular Hemoglobin 27.4 pg (28.0-33.3); Mean Corpuscular Volume 92.5 fL (83.0-100.0); Mean Platelet Volume 11.4 fL (9.4-12.4); Platelet Count 183 K/mcL (140-400); Red Blood Count 3.47 M/mcL (4.19-5.50); Red Cell Distribution Width 25.3 % (11.5-14.5)
[2017-10-24] MEDS: Ofloxacin OPTH Drops 5 ML BOTTLE RIGHT EYE SCH ×6 (08:57→21:10)
[2017-10-24] MEDS: Aspirin 81 MG TAB.CHEW PO SCH (08:59)
[2017-10-24] MEDS: *HR* Heparin 5,000 UNIT/ML VIAL SQ SCH ×2 (08:59→18:17)
[2017-10-24] MEDS: Multivit/Ca/Min/Fe/FA 1 TAB TABLET PO SCH (08:59)
[2017-10-24] MEDS: Ascorbic Acid 500 MG TABLET PO SCH (08:59)
[2017-10-24] MEDS: Lactobacillus 1 EACH CAP.SPRINK PO SCH (08:59)
[2017-10-24] MEDS: Cholecalciferol (D-3) 1,000 UNIT TABLET PO SCH (08:59)
--- NOTE | 2017-10-24 09:32 | Palliative - Consult Note ---
<Ignacia Conner - Last Filed: 10/24/17 09:10> Date of Encounter: 10/24/17 Time of Encounter: 09:10 - Assessment and Plan (1) Goals of care, counseling/discussion Current Visit: Yes Status: Acute Assessment and plan: Patient's current code status is DNR-CCA. Patient treated for probable pulmonary embolism with IVC filter. Palliative care was consulted when the patient was unwilling to have IVC filter placed and cardiology had deemed him a poor candidate for transfer to obtain a cardiac percutaneous catheter-based thrombectomy at [facility]. Later that afternoon he was willing to get the IVC filter and it was placed. Today the patient states he is feeling great, denies any nausea or pain. He is asking when he will go back to rehab. He states that he was at the [facility] for rehab and plans to go back to finish. His ultimate goal is to go home. Currently this patient is not a candidate for hospice. We did discuss options for hospice and palliative care in the future if his condition declines. All pt questions were answered. (2) Pulmonary embolus Current Visit: Yes Status: Acute Assessment and plan: V/Q showed moderate probability for PE. Pt had IVC filter placed yesterday as he is not currently a candidate for anti-coagulation secondary to recent GI bleed. Qualifiers: Pulmonary embolism type: other Chronicity: acute Qualified Code(s): I26.99 - Other pulmonary embolism without acute cor pulmonale (3) Congestive heart failure Current Visit: Yes Status: Chronic Assessment and plan: ECHO 10/23 shows and EF of 25-30%, previous EF 45% Qualifiers: Heart failure type: systolic Heart failure chronicity: chronic Qualified Code(s): I50.22 - Chronic systolic (congestive) heart failure (4) A-fib Current Visit: No Status: Chronic Assessment and plan: Came in with Afib RVR, currently rate controlled. Qualifiers: Atrial fibrillation type: chronic Qualified Code(s): I48.2 - Chronic atrial fibrillation Palliative-CN HPI - Data of Consult Patient: new to practice (Her) Consult date: 10/24/17 Requesting Physician: Princess Michel MD Primary Care Provider: Derick Marcelino MD Family Provider: Derick Marcelino MD - Consult Narrative Reason for consult: Assess eligibility for hospice, discuss goals of care. History of present illness: Mr. Roman is a 81 year old male with a PMH of a-fib, cardiomyopathy, CHF, CAD, and HTN who presented to [facility] ED from [facility] 10/22 for concerns of reported low oxygen saturation. He was found to have evidence of atrial fibrillation RVR and hypotension. He also had a markedly elevated BNP, which was at his baseline. Pt had a V/Q scan which showed moderate probability for PE. The patient was unable to receive anticoagulation due to recent GI bleed 2 weeks ago. It was discussed with the patient, his sister and his and they were at that time agree of agreeable to IVC filter placement. When Dr. Palm came to obtain consent the patient refused the procedure. Palliative care was consulted when the patient was unwilling to have IVC filter placed and cardiology had deemed him a poor candidate for transfer to obtain a cardiac percutaneous catheter-based thrombectomy at [facility]. Later that afternoon he was willing to get the IVC filter and it was placed. This morning the patient states he is feeling great, he does not have any pain, denies nausea, denies shortness of breath, denies chest pain and has been eating well. He asked when he will be going to rehabilitation. He states that he lives with his and 2 sisters. Has he had previously been at rehabilitation and his ultimate goal is to continue his rehabilitation and go home with them. CC: Princess Michel MD Past Med Surg Social Fam HX - Past Medical History Medical history: atrial fibrillation, cardiomyopathy, CHF, coronary artery disease, hypertension Psychiatric history: no psych history - Past Surgical History Surgical History: herniorrhaphy - Social History Smoking Status: Never smoker Smokeless Tobacco Status: No Alcohol use: none Drug use: none - Family History Brother Living Status: Hx Family Cancer: Yes (prostate) Mother Living Status: Father Living Status: Medications and Allergies Cholecalciferol (D-3) [Vitamin D] 2,000 unit PO DAILY 04/22/17 [History] Lactobacillus Combination No.8 [Adult Probiotic] 1 cap PO DAILY 04/22/17 [ History] Multivitamin [Multi-Day Vitamins] 1 tab PO DAILY 04/22/17 [History] Kneeland-3/Dha/Epa/Fish Oil [Fish Oil 1,000 mg Softgel] 1,000 mg PO DAILY 04/22/17 [History] Aspirin 81 mg PO DAILY #0 04/30/17 [Rx] Furosemide [Lasix] 40 mg PO DAILY #0 tab 04/30/17 [Rx] Lisinopril [Zestril] 20 mg PO DAILY #0 tab 04/30/17 [Rx] Ferrous Sulfate 325 mg PO BIDWM tablet 10/11/17 [Rx] Melatonin 3 mg PO HS PRN tablet 10/11/17 [Rx] Ofloxacin OPTH Drops [Ocuflox] 2 drop RIGHT EYE Q4HR bottle 10/11/17 [Rx] Omeprazole [PriLOSEC] 20 mg PO BIDAC capsule. 10/11/17 [Rx] Potassium Chloride 40 meq PO BIDWM tab.er.prt 10/11/17 [Rx] Tamsulosin [Flomax] 0.4 mg PO HS capsule 10/11/17 [Rx] Ascorbate Calcium/Bioflavonoid [Edith-C 500 mg Tablet] 1 tab PO DAILY 10/22/17 [ History] Atorvastatin Calcium [Lipitor] 20 mg PO DAILY 10/22/17 [History] Metoprolol [Lopressor] 75 mg PO BID 10/22/17 [History] 3 Allergy/AdvReac Type Severity Reaction Status Date / Time Sulfa (Sulfonamide Allergy Rash Verified 10/05/17 13:28 Antibiotics) All systems: reviewed and no additional remarkable complaints except as stated Palliative Care-Exam - Constitutional Vitals: Temp Pulse Resp BP Pulse Ox 98 F 98 18 109/72 100 10/24/17 07:11 10/24/17 07:11 10/24/17 03:49 10/24/17 07:11 10/24/17 07:11 General appearance: Present: average body habitus, no acute distress - Head Head Exam: Present: atraumatic, normal inspection, normocephalic - Eye Eye exam: Present: EOMI, PERRL - ENT ENT exam: Present: mucous membranes moist - Neck Neck exam: Present: normal inspection - Respiratory Respiratory exam: Present: CTAB - Cardiovascular Cardiovascular exam: Present: irregular rhythm - GI/Abdominal Exam GI/Abdominal exam: Present: normal bowel sounds, soft. Absent: tenderness - Extremities Exam Extremities exam: Present: normal capillary refill - Expanded Lower Extremities Exam Lower Leg exam: Present: abrasion (left stanley, pink). Absent: swelling - Neurological Exam Neurological exam: Present: alert, no focal deficits. Absent: speech deficit - Psychiatric Psychiatric exam: Present: normal affect, normal mood - Skin Skin exam: Present: dry, warm Internal Medicine - CN: Reslt - Labs CBC & Chem 7: 10/24/17 04:32 10/24/17 04:32 Labs: Short CBC 10/24/17 Range/Units 04:32 WBC 6.5 (4.3-11.1) K/mcL Hgb 9.5 L (12.9-16.9) g/dL Hct 32.1 L (37.5-50.1) % Plt Count 183 (140-400) K/mcL BMP 10/24/17 04:32 Sodium 142 Potassium 4.6 Chloride 120 H Carbon Dioxide 22 L BUN 46 H Creatinine 1.29 Glucose 92 Calcium 8.6 Cardiac Enzymes 10/23/17 Range/Units 12:42 Troponin I 0.04 H* (< 0.04) ng/mL - ABG Interpretation ABG results: PT/INR, D-dimer PT 13.9 Seconds (9.4-12.1) H 10/23/17 05:40 - Impressions Impressions Echocardiogram 10/23/17 11:18 Impressions: LVEF 25-30%. Mildly dilated left ventricle. Severe global left ventricular systolic dysfunction. Atypical septal motion consistent with bundle branch block. Indeterminate diastolic function. Mildly dilated right ventricle with normal function. RV:LV ratio is approximately 1.0. Severely dilated left atrium. Severely dilated right atrium. Mild-moderate tricuspid regurgitation. Mild pulmonary hypertension. Estimated RVSP is 38-43 mmHg, including an estimated RA pressure of 15-20 mmHg. Left Ventricular Wall Motion: Rest Echo Findings The apex, apical inferior, mid inferior, basal inferior, apical anterior, mid anterior, basal anterior, apical septal, mid inferior septal, basal inferior septal, apical lateral, mid anterior lateral, basal anterior lateral, mid anterior septal, mid inferior lateral, basal anterior septal and basal inferior lateral mccracken were hypokinetic. Findings: Study Quality * Technically adequate exam. ECG Findings * Atrial fibrillation, BBB. Left Ventricle * LVEF 25-30%. * Mildly dilated left ventricle. * Severe global left ventricular systolic dysfunction. * Atypical septal motion consistent with bundle branch block. * Indeterminate diastolic function. Right Ventricle * Mildly dilated right ventricle with normal function. Left Atrium * Severely dilated left atrium. Right Atrium * Severely dilated right atrium. Interatrial Septum * No obvious evidence of a PFO by color Doppler. Aortic Valve * Trileaflet aortic valve. * Mildly sclerotic aortic valve leaflets. * Trace aortic regurgitation. * No aortic stenosis. Mitral Valve * Normal mitral valve structure and function. * No mitral stenosis. * Trace mitral regurgitation. Tricuspid Valve * Normal tricuspid valve structure. * Mild-moderate tricuspid regurgitation. * Mild pulmonary hypertension. Estimated RVSP is 38-43 mmHg, including an estimated RA pressure of 15-20 mmHg. Pulmonic Valve * Normal pulmonic valve structure and function. * No pulmonic regurgitation. Aorta * Normally sized aortic root. Pericardium * The pericardium appears normal. Pulmonary Artery * Normal visualized portions of the main pulmonary artery. IVC * The IVC is dilated. * < 50% respiratory change. Consult Discharge Plan - Plan Referrals: Derick Marcelino MD [Primary Care Provider] - Palliative Quality Palliative Quality: Screen for Code Status: Yes, Screen for Goals of Care: Yes, Screen for Pain: Yes, If Pain Regimen Started, Initiate Bowel Regimen: Yes, Screen for Nausea/Vomitting: Yes Code Status: DNR-CCA <Joe Liu - Last Filed: 10/24/17 11:00> Date of Encounter: 10/24/17 Palliative-CN HPI - Data of Consult Requesting Physician: Princess Michel MD Primary Care Provider: Derick Marcelino MD - Consult Narrative History of present illness: Mr. Roman is a 81 year old male CC: Princess Michel MD Palliative Care-Exam - Constitutional Vitals: Temp Pulse Resp BP Pulse Ox 98 F 108 18 109/72 100 10/24/17 07:11 10/24/17 07:35 10/24/17 03:49 10/24/17 07:11 10/24/17 07:11 Internal Medicine - CN: Reslt - Labs CBC & Chem 7: 10/24/17 04:32 10/24/17 04:32 Labs: Short CBC 10/24/17 Range/Units 04:32 WBC 6.5 (4.3-11.1) K/mcL Hgb 9.5 L (12.9-16.9) g/dL Hct 32.1 L (37.5-50.1) % Plt Count 183 (140-400) K/mcL BMP 10/24/17 04:32 Sodium 142 Potassium 4.6 Chloride 120 H Carbon Dioxide 22 L BUN 46 H Creatinine 1.29 Glucose 92 Calcium 8.6 Cardiac Enzymes 10/23/17 Range/Units 12:42 Troponin I 0.04 H* (< 0.04) ng/mL - ABG Interpretation ABG results: PT/INR, D-dimer PT 13.9 Seconds (9.4-12.1) H 10/23/17 05:40 - Impressions Impressions Echocardiogram 10/23/17 11:18 Impressions: LVEF 25-30%. Mildly dilated left ventricle. Severe global left ventricular systolic dysfunction. Atypical septal motion consistent with bundle branch block. Indeterminate diastolic function. Mildly dilated right ventricle with normal function. RV:LV ratio is approximately 1.0. Severely dilated left atrium. Severely dilated right atrium. Mild-moderate tricuspid regurgitation. Mild pulmonary hypertension. Estimated RVSP is 38-43 mmHg, including an estimated RA pressure of 15-20 mmHg. Left Ventricular Wall Motion: Rest Echo Findings The apex, apical inferior, mid inferior, basal inferior, apical anterior, mid anterior, basal anterior, apical septal, mid inferior septal, basal inferior septal, apical lateral, mid anterior lateral, basal anterior lateral, mid anterior septal, mid inferior lateral, basal anterior septal and basal inferior lateral mccracken were hypokinetic. Findings: Study Quality * Technically adequate exam. ECG Findings * Atrial fibrillation, BBB. Left Ventricle * LVEF 25-30%. * Mildly dilated left ventricle. * Severe global left ventricular systolic dysfunction. * Atypical septal motion consistent with bundle branch block. * Indeterminate diastolic function. Right Ventricle * Mildly dilated right ventricle with normal function. Left Atrium * Severely dilated left atrium. Right Atrium * Severely dilated right atrium. Interatrial Septum * No obvious evidence of a PFO by color Doppler. Aortic Valve * Trileaflet aortic valve. * Mildly sclerotic aortic valve leaflets. * Trace aortic regurgitation. * No aortic stenosis. Mitral Valve * Normal mitral valve structure and function. * No mitral stenosis. * Trace mitral regurgitation. Tricuspid Valve * Normal tricuspid valve structure. * Mild-moderate tricuspid regurgitation. * Mild pulmonary hypertension. Estimated RVSP is 38-43 mmHg, including an estimated RA pressure of 15-20 mmHg. Pulmonic Valve * Normal pulmonic valve structure and function. * No pulmonic regurgitation. Aorta * Normally sized aortic root. Pericardium * The pericardium appears normal. Pulmonary Artery * Normal visualized portions of the main pulmonary artery. IVC * The IVC is dilated. * < 50% respiratory change. - Attending Attestation I examined this patient and my medical decision-making was reviewed with the Resident Physician. I agree with the documented findings, disposition and treatment plan as described except to the extent set forth below. as per resident note, pt not appropriate for hospice at this time as all questions are answered we will sign off please reconsult as needed
[2017-10-24] MEDS ORDERED: Furosemide 40 MG TABLET PO ONE (10:55)
--- NOTE | 2017-10-24 10:56 | Cardiology Progress Note ---
Date of Encounter: 10/24/17 Time of Encounter: 10:52 Assessment and Plan (1) Atrial fibrillation with RVR Current Visit: Yes Status: Acute Likely secondary to hypoxemia and PE. Likely patient may not be able to tolerate the CCB, ideally no CCB or rate control would be indicated if patient was a candidate for treatment of his PE with AC. Will allow for sub-optimal rate control in the setting of acute PE. Continue lopressor. (2) Acute on chronic systolic CHF (congestive heart failure) Current Visit: No Status: Acute Acute on chronic systolic CHF. TTE showes: LVEF 25-30%. Mildly dilated left ventricle. Severe global left ventricular systolic dysfunction. Atypical septal motion consistent with bundle branch block. Indeterminate diastolic function. Mildly dilated right ventricle with normal function. RV:LV ratio is approximately 1.0. Severely dilated left atrium. Severely dilated right atrium. Mild-moderate tricuspid regurgitation. Mild pulmonary hypertension. Estimated RVSP is 38-43 mmHg, including an estimated RA pressure of 15-20 mmHg. EF 40-45% previously. Known severe three vessel CAD. Patient declines CABG. Mild fluid overload on exam today. Reports drinking a large amount of water yesterday for renal US. Lasix initially held secondary to ROSSI. Kidney function improved. Will give one time dose lasix today. May need lower dose at discharge. Repeat as needed. Avoid aggressive diuresis. Strict I&O and daily weights. (3) Triple vessel coronary artery disease Current Visit: No Status: Acute Known severe three vessel CAD. Declined CABG previously. Continue asa, statin, and BB. Palliative care consulted this admission. (4) Pulmonary embolus Current Visit: Yes Status: Acute S/p IVC. Unfortunately he is not a candidate for AC due to GI bleed. Hospitalist following. Qualifiers: Pulmonary embolism type: other Chronicity: acute Qualified Code(s): I26.99 - Other pulmonary embolism without acute cor pulmonale Discussion w patient/family: The assessment and plan as outlined above was discussed with the patient and/or family members who expressed understanding and agreement. All questions were answered. Thank you for involving us in the care of your patient. Please call with any questions. Subjective Principal diagnosis: atrial fibrillation, PE Interval history: Patient continues to be SOB. Denies complications from his procedure. Objective Vital Signs, Last 4 Hours Temp Pulse BP Pulse Ox 10/24/17 07:35 108 10/24/17 07:11 98 F 98 109/72 100 General: Conversant, No Apparent Distress HEENT: Atraumatic, Normocephaly, Mucus Membranes Moist Neck: No JVD, Normal carotid pulses Cardiac: Other (Irregularly irregular) Lungs: Normal Breath Sounds, No Wheeze, Rales, Rhonchi Neuro: Alert and responsive, No focal deficits noted Abdomen: Soft, Non-Tender Skin: No rashes noted on visualized skin Musculoskeletal: No Chest Wall Tenderness Extremities: No Clubbing, No Cyanosis, Normal Pulses, Other (2+ ankle edema) Results 10/24/17 04:32 10/24/17 04:32 Lab Results 10/23/17 10/24/17 10/24/17 12:42 04:32 04:32 WBC 6.5 Hgb 9.5 L Hct 32.1 L Plt Count 183 Sodium 142 Potassium 4.6 Chloride 120 H Carbon Dioxide 22 L BUN 46 H Creatinine 1.29 Glucose 92 Calcium 8.6 Troponin I 0.04 H* - Imaging and Cardiology Echo: report reviewed Consult Discharge Plan - Plan Referrals: Derick Marcelino MD [Primary Care Provider] -
--- NOTE | 2017-10-24 10:58 | Event Note ---
Date of Encounter: 10/24/17 Time of Encounter: 10:51 Patient seen and examined. Agree with the Resident's note as written by Dr. Cheatham. I have provided supervision in the care of the patient. Admitted with suspected PE on V/Q study. Refusing IVC filter initally but changed his and and fillter placed 10/23. Anticoags contraindicated due to history of GIB. Also in Afib wih RVR with cardiology following. colonoscopy last March showed divericulosis but no bleeding. 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 No anticoags were recommended per EGD report. Patient is hemodynamically a little better. BP 109/72. HR is stil 90-115. Does not seem in acute CHF but does have 2+ LE edema. Hypoxemia likely from suspected PE. Echo yesterday did not show RH strain but showed EF 25-30%. Mild pulm HTN s/p IVC. No anticoags to risk of GI bleed. Negative LE's for DVT. Echo with EF 25-30%. 2016 echo with EF 45-50% Has known triple vessel disease from previous Cath for which he opted not to get a CABG Cardiology is aware. Will follow recs. c/w ASA/statin/BB Afib is in 90-110 Being gently hydrated due to ROSSI and low BP. ROSSI is improving. stop IVF. Appreciate Nephrology's help resume lisinopil when able since EF is depressed Lasix on hold and will evaluate need for it as we go. May benefit from a touch of lasix today. Cardiology and nephrology's help with this is appreciated. Palliative's help is appreciated.
--- NOTE | 2017-10-24 13:08 | Nephrology Progress Note ---
Date of Encounter: 10/24/17 Time of Encounter: 13:07 - Assessment and Plan (1) Acute kidney injury superimposed on CKD Current Visit: Yes Status: Acute ROSSI on CKD Improved with saline, but he has significant edema. Agree with re-introducing lasix. Will monitor renal function. Avoid nephrotoxins. Adjust medications for renal function. PT consut to avoid progressive debility. Subjective Principal diagnosis: atrial fibrillation, PE Interval history: Patient seen. He feels much better. His family is at his bedside. Objective - Vital Signs Vital signs: Vital Signs Temp Pulse Resp BP Pulse Ox 10/24/17 11:31 108 10/24/17 11:14 97.3 F L 103 20 103/74 95 10/24/17 07:35 108 10/24/17 07:11 98 F 98 109/72 100 10/24/17 03:49 98.9 F 114 18 100/73 96 10/23/17 23:45 97.5 F L 114 21 99/70 94 10/23/17 20:30 98.1 F 125 20 106/77 99 10/23/17 19:00 135 22 107/96 100 10/23/17 18:49 98.2 F 137 22 113/65 96 10/23/17 17:21 98 F 96 18 112/79 95 10/23/17 17:05 98.1 F 104 20 120/76 96 Intake and Output 10/23/17 10/24/17 10/24/17 23:59 07:59 15:59 Intake Total 1000 / 1000 Output Total 720 / 720 400 / 400 300 / 300 Balance 280 / 280 -400 / -400 -300 / -300 Intake: Oral 1000 / 1000 Output: Urine 475 / 475 Catheter 245 / 245 400 / 400 300 / 300 Other: Meal Dinner Percent of Meal Consumed 35% Weight 82.8 kg Blood Glucose* 103 Patient Weight 10/24/17 23:59 Weight 82.8 kg - General Appearance General appearance: Present: well-developed, well-nourished Respiratory: Present: rales (rare scattered) Cardiology: Present: edema (2+ bilateral lower extremities. ) Additional Comments: tachycardic Integumentary: Present: warm and dry Neurologic: Present: alert and oriented x3 Psychiatric: Present: mood/affect appropriate - Lab 10/24/17 04:32 10/24/17 04:32 Most recent lab results Calcium 8.6 mg/dL (8.6-10.3) 10/24/17 04:32 Magnesium 2.5 mg/dL (1.6-2.6) 10/23/17 05:40 Consult Discharge Plan - Plan Referrals: Derick Marcelino MD [Primary Care Provider] -
--- NOTE | 2017-10-24 15:58 | Internal Med Progress Note ---
Date of Encounter: 10/24/17 Time of Encounter: 15:54 - Assessment and plan (1) Acute respiratory failure with hypoxia Current Visit: Yes Status: Acute Assessment and plan: Patient arrived from [facility] with chief complaint of low oxygen saturation's. He was also found to be in a fib with RVR. He was previously not on anticoagulation because of his history of G.I. bleed. V/Q scan from 10/22/17 showed "tripe match with right lower lobe airspace disease , and matching perfusion and ventilatory defects- intermediate probability for PE. The fact that his shortness of breath, low oxygen saturation, afib with RVR is suspected to be secondary to a PE, suspect massless PE as patient has been tachycardic and hypotensive. He has been carefully hydrated with IV fluids for his ROSSI, fluids have since been stopped. Patient received IVC filter on 10/23/17. I lateral lower extremity Doppler's have been negative for DVT. Plan: appreciate cardiology and nephrology recommendations. Patient received one-time dose of IV Lasix today (signs of volume overload on PE ): continue diuresis PRN IV fluids have been stopped. Continue with beta julian withholding parameters, strict I/O, daily weights anticoagulation is contraindicated due to history of G.I. bleed patient would benefit from resuming lisinopril when BP is more stable. (2) Congestive heart failure Current Visit: Yes Status: Chronic Assessment and plan: Echo from 10/23/17 shows LVEF 25-30%, mildly dilated left ventricle, global severe left ventricular systolic function, atypical septal motion with bundle branch block, indeterminate diastolic function, mildly dilated right ventricle with normal function, severely dilated left atrium, severely dilated right atrium, mild to moderate tricuspid regurgitation, mild pulmonary hypertension. prior EF 40-45%. appreciate cardiology recommendations. Carefully diaries as needed, as patient is hypotensive. continue with strict I/O, daily weights. Qualifiers: Heart failure type: systolic Heart failure chronicity: chronic Qualified Code(s): I50.22 - Chronic systolic (congestive) heart failure (3) Atrial fibrillation with RVR Current Visit: Yes Status: Acute Assessment and plan: Etiology likely secondary to suspected PE. Currently patient is mildly tachycardic, this was complicated by the fact that he has been hypotensive as well, which limits our treatment options. Plan: continue metoprolol, hold for SBP<100, HR<70 (4) ROSSI (acute kidney injury) Current Visit: No Status: Resolved Assessment and plan: significantly improved todAY. received IVF, which have since been discontinued. Plan: appreciate nephrology recs. Urine eosinophils, urine sodium, urine Pr/Cr ratio pending. (5) Triple vessel coronary artery disease Current Visit: No Status: Acute Assessment and plan: Patient have known severe 3 vessel CAD. He has declined CABG in the past. Plan: continue ASA, statin, BB (with holding parameters) (6) DVT prophylaxis Current Visit: No Status: Acute Assessment and plan: Heparin SQ - Subjective Interval history: 81 year-old male evaluated at bedside. he denies nausea, vomiting, diarrhea, fever, chills, chest pain, shortness of breath. He denies any new problems today. - Constitutional Vitals: Temp Pulse Resp BP Pulse Ox 97.3 F L 99 20 103/74 95 10/24/17 11:14 10/24/17 15:50 10/24/17 11:14 10/24/17 11:14 10/24/17 11:14 General appearance: Present: cooperative, A&O X 3, pleasant, no acute distress, answers questions appropriately - Head Head exam: Present: atraumatic, normocephalic - Neck Neck exam general surgery: Present: supple, trachea midline - Respiratory Respiratory exam: Present: CTAB - Cardiovascular Cardiovascular exam: Present: irregular rhythm, tachycardia - GI/Abdominal GI/Abdominal exam: Present: normal bowel sounds, soft. Absent: distended, tenderness - Extremities Exam Additional comments: +2 bilateral lower extremity pitting edema. - Neurological Exam Neurological exam: Present: alert, oriented X3, no focal deficits - Skin Skin exam: Present: intact Internal Medicine: Result - Labs CBC & Chem 7: 10/24/17 04:32 10/24/17 04:32 Labs: Short CBC 10/24/17 Range/Units 04:32 WBC 6.5 (4.3-11.1) K/mcL Hgb 9.5 L (12.9-16.9) g/dL Hct 32.1 L (37.5-50.1) % Plt Count 183 (140-400) K/mcL BMP 10/24/17 04:32 Sodium 142 Potassium 4.6 Chloride 120 H Carbon Dioxide 22 L BUN 46 H Creatinine 1.29 Glucose 92 Calcium 8.6 - ABG Interpretation ABG results: PT/INR, D-dimer PT 13.9 Seconds (9.4-12.1) H 10/23/17 05:40 - Impressions Impressions Echocardiogram 10/23/17 11:18 Impressions: LVEF 25-30%. Mildly dilated left ventricle. Severe global left ventricular systolic dysfunction. Atypical septal motion consistent with bundle branch block. Indeterminate diastolic function. Mildly dilated right ventricle with normal function. RV:LV ratio is approximately 1.0. Severely dilated left atrium. Severely dilated right atrium. Mild-moderate tricuspid regurgitation. Mild pulmonary hypertension. Estimated RVSP is 38-43 mmHg, including an estimated RA pressure of 15-20 mmHg. Left Ventricular Wall Motion: Rest Echo Findings The apex, apical inferior, mid inferior, basal inferior, apical anterior, mid anterior, basal anterior, apical septal, mid inferior septal, basal inferior septal, apical lateral, mid anterior lateral, basal anterior lateral, mid anterior septal, mid inferior lateral, basal anterior septal and basal inferior lateral mccracken were hypokinetic. Findings: Study Quality * Technically adequate exam. ECG Findings * Atrial fibrillation, BBB. Left Ventricle * LVEF 25-30%. * Mildly dilated left ventricle. * Severe global left ventricular systolic dysfunction. * Atypical septal motion consistent with bundle branch block. * Indeterminate diastolic function. Right Ventricle * Mildly dilated right ventricle with normal function. Left Atrium * Severely dilated left atrium. Right Atrium * Severely dilated right atrium. Interatrial Septum * No obvious evidence of a PFO by color Doppler. Aortic Valve * Trileaflet aortic valve. * Mildly sclerotic aortic valve leaflets. * Trace aortic regurgitation. * No aortic stenosis. Mitral Valve * Normal mitral valve structure and function. * No mitral stenosis. * Trace mitral regurgitation. Tricuspid Valve * Normal tricuspid valve structure. * Mild-moderate tricuspid regurgitation. * Mild pulmonary hypertension. Estimated RVSP is 38-43 mmHg, including an estimated RA pressure of 15-20 mmHg. Pulmonic Valve * Normal pulmonic valve structure and function. * No pulmonic regurgitation. Aorta * Normally sized aortic root. Pericardium * The pericardium appears normal. Pulmonary Artery * Normal visualized portions of the main pulmonary artery. IVC * The IVC is dilated. * < 50% respiratory change. Consult Discharge Plan - Plan Referrals: Derick Marcelino MD [Primary Care Provider] -
[2017-10-25] MEDS: *HR* Heparin 5,000 UNIT/ML VIAL SQ SCH ×2 (05:55→16:45)
[2017-10-25] MEDS: Ofloxacin OPTH Drops 5 ML BOTTLE RIGHT EYE SCH ×4 (05:56→11:47)
[2017-10-25 06:08] LABS: BUN/Creatinine Ratio 39 (6-26); Blood Urea Nitrogen 46 mg/dL (8-23); Calcium 8.9 mg/dL (8.6-10.3); Carbon Dioxide 21 mEq/L (23-29); Chloride 119 mEq/L (98-107); Glucose 107 mg/dL (70-105); Osmolality,Calculated 308 (280-300); Potassium 4.1 mEq/L (3.5-5.1); Sodium 143 mEq/L (136-145); eGFR For African Americans > 60 (> 60); eGFR For Non-African Americans 59 (> 60)
[2017-10-25] MEDS: Cholecalciferol (D-3) 1,000 UNIT TABLET PO SCH (08:13)
[2017-10-25] MEDS: Aspirin 81 MG TAB.CHEW PO SCH (08:13)
[2017-10-25] MEDS: Ascorbic Acid 500 MG TABLET PO SCH (08:13)
[2017-10-25] MEDS: Multivit/Ca/Min/Fe/FA 1 TAB TABLET PO SCH (08:13)
[2017-10-25] MEDS: Lactobacillus 1 EACH CAP.SPRINK PO SCH (08:13)
--- NOTE | 2017-10-25 10:50 | Event Note ---
Date of Encounter: 10/25/17 Time of Encounter: 10:45 Patient seen and examined. Agree with the Resident's note as written by Dr. Cheatham. I have provided supervision in the care of the patient. Admitted with suspected PE on V/Q study. Refusing IVC filter initially but changed his mind later and and fillter placed 10/23. Anticoags contraindicated due to history of GIB. Also in Afib wih RVR with cardiology following. colonoscopy last March showed divericulosis but no bleeding. 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 No anticoags were recommended per EGD report. Patient continues to improve hemodynamically. BP 104/81. HR again in 90-115. Hypoxemia likely from suspected PE. Echo did not show RH strain but showed EF 25-30%. Mild pulm HTN Given 40 mg IV lasix yesterday. kidney function continues to improve s/p IVC. No anticoags to risk of GI bleed. Negative LE's for DVT. Echo with EF 25-30%. 2016 echo with EF 45-50% Has known triple vessel disease from previous Cath for which he opted not to get a CABG Cardiology is aware. Will follow recs. c/w ASA/statin/BB Afib is in 90-110 IVF stopped. Would give another dose of 40 mg IV lasix today. s/p 40 mg IV lasix yesterday Appreciate Nephrology's help resume lisinopril when able since EF is depressed Cardiology and nephrology's help with this is appreciated. Palliative's help is appreciated.
[2017-10-25] MEDS ORDERED: Furosemide 40 MG/4 ML VIAL IVP ONE (11:35)
--- NOTE | 2017-10-25 13:32 | Nephrology Progress Note ---
Date of Encounter: 10/25/17 Time of Encounter: 13:29 - Assessment and Plan (1) Acute kidney injury superimposed on CKD Current Visit: Yes Status: Acute ROSSI on CKD Improved with saline, but he has significant edema. Agree with re-introducing lasix. Will schedule daily lasix. Will monitor renal function. Avoid nephrotoxins. Adjust medications for renal function. PT consut to avoid progressive debility. Wound consult for his right leg wound He would benefit from rate control of his atrial fibrillation. Hemoglobin stable. Monitor. (2) Debility Current Visit: Yes Status: Acute (3) Anemia Current Visit: Yes Status: Acute Qualifiers: Anemia type: unspecified type Qualified Code(s): D64.9 - Anemia, unspecified (4) Atrial fibrillation with RVR Current Visit: Yes Status: Acute Subjective Principal diagnosis: atrial fibrillation, PE Interval history: Patient seen. He feels much better. His family is at his bedside. He is complaining about a leg wound that he states was dressed when he came to the hospital. Objective - Vital Signs Vital signs: Vital Signs Temp Pulse Resp BP Pulse Ox 10/25/17 12:03 96 10/25/17 10:48 97.6 F 102 20 101/83 99 10/25/17 08:22 113 10/25/17 06:41 97.8 F 117 18 104/81 100 10/25/17 05:03 98.5 F 96 19 112/80 98 10/24/17 22:06 97.8 F 106 18 108/83 100 10/24/17 19:25 97.7 F 127 107/74 20 10/24/17 16:20 97.2 F L 92 18 100/75 91 10/24/17 15:50 99 Intake and Output 10/24/17 10/25/17 10/25/17 23:59 07:59 15:59 Intake Total 240 / 240 240 / 240 480 / 480 Output Total 1200 / 1200 200 / 200 200 / 200 Balance -960 / -960 40 / 40 280 / 280 Intake: Oral 240 / 240 240 / 240 480 / 480 Output: Urine 750 / 750 Catheter 450 / 450 200 / 200 200 / 200 Other: Meal Dinner Breakfast Percent of Meal Consumed 100% 100% Weight 81.8 kg Patient Weight 10/25/17 23:59 Weight 81.8 kg - General Appearance General appearance: Present: well-developed, well-nourished EENT: Present: ATNC Neck: Present: supple Respiratory: Present: clear Cardiology: Present: edema, regular rate Gastrointestinal: Present: no tenderness Integumentary: Present: warm and dry Neurologic: Present: alert and oriented x3 Musculoskeletal: Present: no cyanosis Psychiatric: Present: mood/affect appropriate - Lab 10/24/17 04:32 10/25/17 05:26 Most recent lab results Calcium 8.9 mg/dL (8.6-10.3) 10/25/17 05:26 Magnesium 2.5 mg/dL (1.6-2.6) 10/23/17 05:40 Consult Discharge Plan - Plan Referrals: Derick Marcelino MD [Primary Care Provider] -
--- NOTE | 2017-10-25 13:58 | Internal Med Progress Note ---
Date of Encounter: 10/25/17 Time of Encounter: 10:00 - Assessment and plan (1) Acute respiratory failure with hypoxia Current Visit: Yes Status: Acute Assessment and plan: Patient arrived from [facility] with chief complaint of low oxygen saturation's. He was also found to be in a fib with RVR. He was previously not on anticoagulation because of his history of G.I. bleed. V/Q scan from 10/22/17 showed "tripe match with right lower lobe airspace disease , and matching perfusion and ventilatory defects- intermediate probability for PE. The fact that his shortness of breath, low oxygen saturation, afib with RVR is suspected to be secondary to a PE, suspect massless PE as patient has been tachycardic and hypotensive. He has been carefully hydrated with IV fluids for his ROSSI, fluids have since been stopped. Patient received IVC filter on 10/23/17. I lateral lower extremity Doppler's have been negative for DVT. 10/23/17: Echo showed EF 25-30% mild RV dilation, severe RA dilation, mild/ moderate tricupside regurg. Plan: -appreciate cardiology and nephrology recommendations. -Patient received one-time dose of IV Lasix again today (signs of volume overload on PE): continue diuresis PRN -IV fluids have been stopped. -Continue with beta julian withholding parameters, -strict I/O, daily weights -anticoagulation is contraindicated due to history of G.I. bleed -patient might benefit from resuming lisinopril when BP is more stable. (2) Congestive heart failure Current Visit: Yes Status: Chronic Assessment and plan: Echo from 10/23/17 shows LVEF 25-30%, mildly dilated left ventricle, global severe left ventricular systolic function, atypical septal motion with bundle branch block, indeterminate diastolic function, mildly dilated right ventricle with normal function, severely dilated left atrium, severely dilated right atrium, mild to moderate tricuspid regurgitation, mild pulmonary hypertension. prior EF 40-45%. appreciate cardiology recommendations. Carefully diaries as needed, as patient is hypotensive. continue with strict I/O, daily weights. Qualifiers: Heart failure type: systolic Heart failure chronicity: chronic Qualified Code(s): I50.22 - Chronic systolic (congestive) heart failure (3) Atrial fibrillation with RVR Current Visit: Yes Status: Acute Assessment and plan: Etiology likely secondary to suspected PE. Currently patient is mildly tachycardic, this was complicated by the fact that he has been hypotensive as well, which limits our treatment options. Plan: continue metoprolol, hold for SBP<100, HR<70 (4) ROSSI (acute kidney injury) Current Visit: Yes Status: Acute Assessment and plan: Creatinine previously normal on 10/21/17. Creatinine today 1.63. Plan: -NS @75ml/hr, d/c today -nephrology following (5) DVT prophylaxis Current Visit: No Status: Acute Assessment and plan: Heparin SQ - Subjective Interval history: Today patient states that he is able to breathe well on 3 L of nasal cannula with no worsening SOB, he actually believes it to have improved a little. Patient denies chest pain, dizziness, abd pain, N/V. Patient does not have any home oxygen. Patient denies chest pain. Other than stated in the HPI a 10 point review of systems was negative. - Constitutional Vitals: Temp Pulse Resp BP Pulse Ox 97.6 F 96 20 101/83 99 10/25/17 10:48 10/25/17 12:03 10/25/17 10:48 10/25/17 10:48 10/25/17 10:48 General appearance: Present: cooperative, A&O X 3, pleasant, no acute distress, answers questions appropriately Exam: Constitutional: Alert, A&O x3, answering questions appropriately, well nourished, well developed. Head: Normocephalic, atraumatic, normal contour and symmetric, no masses, lesions or scars Heart: irregular rhythm, regular rate, no murmurs Lungs: Clear to auscultation, no wheezes, rales, or rhonchi Abdomen: Soft, nondistended, nontender, no guarding or rigidity. Extremities:R lower extremity with ~4cm diameter of area with prior bullous, Left lower extremity with venous status changes to the skin, + 1 pitting edema radial pulse +2/4, capillary refill <2sec. Skin: Skin warm and dry, no jaundice Neurologic: Cranial nerves II through XII grossly intact, no focal deficits, strength within normal limits in all extremities, speech is clear Psych: Cooperative with exam, good eye contact Internal Medicine: Result - Labs CBC & Chem 7: 10/24/17 04:32 10/25/17 05:26 Labs: BMP 10/25/17 05:26 Sodium 143 Potassium 4.1 Chloride 119 H Carbon Dioxide 21 L BUN 46 H Creatinine 1.18 Glucose 107 H Calcium 8.9 - ABG Interpretation ABG results: PT/INR, D-dimer PT 13.9 Seconds (9.4-12.1) H 10/23/17 05:40 - Impressions Impressions Retroperitoneum Ultrasound 10/24/17 17:00 IMPRESSION: Unremarkable ultrasound of the kidneys and urinary bladder. D/ / Kellen Montez Cha, MD / Kellen Montez Cha, MD Interpreting Provider: Kellen Montez Cha, MD Consult Discharge Plan - Plan Referrals: Derick Marcelino MD [Primary Care Provider] -
[2017-10-25] MEDS: Silvasorb 44.4 ML TUBE TP SCH (16:46)
[2017-10-26 04:49] LABS: Hemoglobin 9.6 g/dL (12.9-16.9)
[2017-10-26 04:51] LABS: Hematocrit 32.9 % (37.5-50.1); Mean Corpuscular HGB Conc 29.2 g/dL (31.6-35.5); Mean Corpuscular Hemoglobin 27.3 pg (28.0-33.3); Mean Corpuscular Volume 93.5 fL (83.0-100.0); Mean Platelet Volume 10.2 fL (9.4-12.4); Platelet Count 161 K/mcL (140-400); Red Blood Count 3.52 M/mcL (4.19-5.50); Red Cell Distribution Width 25.6 % (11.5-14.5)
[2017-10-26 05:08] LABS: BUN/Creatinine Ratio 35 (6-26); Blood Urea Nitrogen 39 mg/dL (8-23); Calcium 8.6 mg/dL (8.6-10.3); Carbon Dioxide 23 mEq/L (23-29); Chloride 117 mEq/L (98-107); Glucose 101 mg/dL (70-105); Osmolality,Calculated 304 (280-300); Potassium 3.8 mEq/L (3.5-5.1); Sodium 142 mEq/L (136-145); eGFR For African Americans > 60 (> 60); eGFR For Non-African Americans > 60 (> 60)
[2017-10-26] MEDS: *HR* Heparin 5,000 UNIT/ML VIAL SQ SCH ×2 (06:07→17:22)
--- NOTE | 2017-10-26 07:42 | Electrocardiograph Report ---
[place] [id number] Test Date: 2017-10-22 Pat Name: Too Roman Department: 102 Room: 2N02 Gender: M [employer]: Deidre : 1935 Requested By: Laureano Carpenter Order Number: [id number] Reading MD: Samir Flores DO Measurements Intervals [place] Rate: 119 P: IN: 0 QRS: 15 QRSD: 106 T: 216 QT: 312 QTc: 383 Interpretive Statements ATRIAL FIBRILLATION WITH RAPID VENTRICULAR RESPONSE INTRAVENTRICULAR CONDUCTION DELAY ST DEVIATION AND MODERATE T-WAVE ABNORMALITY, CONSIDER LATERAL ISCHEMIA Electronically Signed On 10-26-2017 7:40:09 EST by Samir Flores DO
[2017-10-26] MEDS: Lactobacillus 1 EACH CAP.SPRINK PO SCH (09:08)
[2017-10-26] MEDS: Aspirin 81 MG TAB.CHEW PO SCH (09:09)
[2017-10-26] MEDS: Furosemide 40 MG/4 ML VIAL IVP SCH (09:09)
[2017-10-26] MEDS: Ascorbic Acid 500 MG TABLET PO SCH (09:09)
[2017-10-26] MEDS: Multivit/Ca/Min/Fe/FA 1 TAB TABLET PO SCH (09:09)
[2017-10-26] MEDS: Cholecalciferol (D-3) 1,000 UNIT TABLET PO SCH (09:09)
[2017-10-26] MEDS: Silvasorb 44.4 ML TUBE TP SCH (09:10)
--- NOTE | 2017-10-26 10:44 | Event Note ---
Date of Encounter: 10/26/17 Time of Encounter: 10:41 Nephrology Chart Review Improved renal function. I reviewed the sign-out from my colleague, labs, med list, progress notes, imaging and vitals. Agree with resuming his Lasix and would place him on his home dose at discharge. Since his renal function has dramatically improved, I will sign-off at this time. Please feel free to call or reconsult as needed. Thank you for having consulted the [facility] group.
--- NOTE | 2017-10-26 10:49 | Event Note ---
Date of Encounter: 10/26/17 Time of Encounter: 10:45 Patient seen and examined. Agree with the Resident's note as written by Dr. Cheatham. I have provided supervision in the care of the patient. Admitted with suspected PE on V/Q study. Refusing IVC filter initially but changed his mind later and and fillter placed 10/23. Anticoags contraindicated due to history of GIB. Also in Afib wih RVR with cardiology following. colonoscopy last March showed divericulosis but no bleeding. 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 No anticoags were recommended per EGD report. BP 106/76. HR is staying in the 90s currently. Hypoxemia likely from suspected PE and CHF. Echo did not show RH strain but showed EF 25-30%. Mild pulm HTN Given 40 mg IV lasix last 2 days. kidney function continues to improve s/p IVC. No anticoags to risk of GI bleed. Negative LE's for DVT. Echo with EF 25-30%. 2016 echo with EF 45-50% Has known triple vessel disease from previous Cath for which he opted not to get a CABG Cardiology is aware. Will follow recs. c/w ASA/statin/BB Afib is in 90-110 IVF stopped. lasix 40 mg IV daily. The fact that his kidney function improved with lasix tells me that there i some cardiac component to this (possibly cardiorenal) Appreciate Nephrology's help. Signed off resume lisinopril when able since EF is depressed Cardiology and nephrology's help with this is appreciated. Palliative's help is appreciated. PT/OT Possible d/c in a couple days.
--- NOTE | 2017-10-26 15:25 | Internal Med Progress Note ---
Date of Encounter: 10/26/17 Time of Encounter: 12:20 - Assessment and plan (1) Acute respiratory failure with hypoxia Current Visit: Yes Status: Acute Assessment and plan: Patient arrived from [facility] with chief complaint of low oxygen saturation's. He was also found to be in a fib with RVR. He was previously not on anticoagulation because of his history of G.I. bleed. V/Q scan from 10/22/17 showed "tripe match with right lower lobe airspace disease , and matching perfusion and ventilatory defects- intermediate probability for PE. The fact that his shortness of breath, low oxygen saturation, afib with RVR is suspected to be secondary to a PE, suspect massless PE as patient has been tachycardic and hypotensive. He has been carefully hydrated with IV fluids for his ROSSI, fluids have since been stopped. Patient received IVC filter on 10/23/17. I lateral lower extremity Doppler's have been negative for DVT. 10/23/17: Echo showed EF 25-30% mild RV dilation, severe RA dilation, mild/ moderate tricupside regurg. Plan: -appreciate cardiology and nephrology recommendations. -Patient received lasix 40mg daily (signs of volume overload on PE): continue diuresis PRN -IV fluids have been stopped. -Continue with beta julian withholding parameters, -strict I/O, daily weights -anticoagulation is contraindicated due to history of G.I. bleed -patient might benefit from resuming lisinopril when BP is more stable. (2) Congestive heart failure Current Visit: Yes Status: Chronic Assessment and plan: Echo from 10/23/17 shows LVEF 25-30%, mildly dilated left ventricle, global severe left ventricular systolic function, atypical septal motion with bundle branch block, indeterminate diastolic function, mildly dilated right ventricle with normal function, severely dilated left atrium, severely dilated right atrium, mild to moderate tricuspid regurgitation, mild pulmonary hypertension. prior EF 40-45%. appreciate cardiology recommendations. Carefully diaries as needed, as patient is hypotensive. continue with strict I/O, daily weights. Qualifiers: Heart failure type: systolic Heart failure chronicity: chronic Qualified Code(s): I50.22 - Chronic systolic (congestive) heart failure (3) Atrial fibrillation with RVR Current Visit: Yes Status: Acute Assessment and plan: Etiology likely secondary to suspected PE. Currently patient is mildly tachycardic, this was complicated by the fact that he has been hypotensive as well, which limits our treatment options. Rate is better controlled today. Plan: continue metoprolol, hold for SBP<100, HR<70 - replaced K with 40meq PO (4) ROSSI (acute kidney injury) Current Visit: Yes Status: Acute Assessment and plan: Creatinine previously normal on 10/21/17. Creatinine today 1.11 (1.18). Still improving despite lasix. Plan: -NS @75ml/hr, d/c -nephrology following (5) DVT prophylaxis Current Visit: No Status: Acute Assessment and plan: Heparin SQ - Subjective Interval history: Today patient states that he is able to breathe well on 2 L of nasal cannula with no worsening SOB. Patient denies chest pain, dizziness, abd pain, N/V. Patient does not have any home oxygen. Family was concerned yesterday about him being confused in the morning. Other than stated in the HPI a 10 point review of systems was negative. - Constitutional Vitals: Temp Pulse Resp BP Pulse Ox 98.0 F 102 16 102/72 100 10/26/17 15:00 10/26/17 15:00 10/26/17 15:00 10/26/17 15:00 10/26/17 15:00 General appearance: Present: cooperative, A&O X 3, pleasant, no acute distress, answers questions appropriately Exam: Constitutional: Alert, answering questions appropriately, well nourished, well developed. Head: Normocephalic, atraumatic, normal contour and symmetric, no masses, lesions or scars Heart: irregular rhythm, regular rate, no murmurs Lungs: + crackles in R lower base, left side with diminished breath sounds, Abdomen: Soft, nondistended, nontender, no guarding or rigidity. Extremities:R lower extremity with ~4cm diameter of area with prior bullous now dressed, Left lower extremity with venous status changes to the skin, + 1 pitting edema radial pulse +2/4, capillary refill <2sec. Skin: Skin warm and dry, no jaundice Neurologic: Cranial nerves II through XII grossly intact, no focal deficits, strength within normal limits in all extremities, speech is clear Psych: Cooperative with exam, good eye contact Internal Medicine: Result - Labs CBC & Chem 7: 10/26/17 04:20 10/26/17 04:20 Labs: Short CBC 10/26/17 Range/Units 04:20 WBC 6.5 (4.3-11.1) K/mcL Hgb 9.6 L (12.9-16.9) g/dL Hct 32.9 L (37.5-50.1) % Plt Count 161 (140-400) K/mcL BMP 10/26/17 04:20 Sodium 142 Potassium 3.8 Chloride 117 H Carbon Dioxide 23 BUN 39 H Creatinine 1.11 Glucose 101 Calcium 8.6 - ABG Interpretation ABG results: PT/INR, D-dimer PT 13.9 Seconds (9.4-12.1) H 10/23/17 05:40 Consult Discharge Plan - Plan Referrals: Derick Marcelino MD [Primary Care Provider] -
[2017-10-26] MEDS: Melatonin 3 MG TABLET PO PRN (21:53)
[2017-10-27] MEDS ORDERED: *HR* Digoxin 0.5 MG/2 ML AMPUL IVP ONE (02:12)
[2017-10-27 04:48] LABS: Hematocrit 32.1 % (37.5-50.1); Hemoglobin 9.6 g/dL (12.9-16.9); Mean Corpuscular HGB Conc 29.9 g/dL (31.6-35.5); Mean Corpuscular Hemoglobin 27.5 pg (28.0-33.3); Mean Platelet Volume 10.9 fL (9.4-12.4); Platelet Count 161 K/mcL (140-400); Red Blood Count 3.49 M/mcL (4.19-5.50)
[2017-10-27 05:11] LABS: BUN/Creatinine Ratio 32 (6-26); Blood Urea Nitrogen 40 mg/dL (8-23); Calcium 8.5 mg/dL (8.6-10.3); Carbon Dioxide 23 mEq/L (23-29); Chloride 118 mEq/L (98-107); Glucose 115 mg/dL (70-105); Osmolality,Calculated 307 (280-300); Potassium 3.8 mEq/L (3.5-5.1); Sodium 143 mEq/L (136-145); eGFR For African Americans > 60 (> 60); eGFR For Non-African Americans 55 (> 60)
[2017-10-27] MEDS: *HR* Heparin 5,000 UNIT/ML VIAL SQ SCH ×2 (05:26→18:07)
[2017-10-27] MEDS: Furosemide 40 MG/4 ML VIAL IVP SCH (08:23)
[2017-10-27] MEDS: Cholecalciferol (D-3) 1,000 UNIT TABLET PO SCH (08:24)
[2017-10-27] MEDS: Lactobacillus 1 EACH CAP.SPRINK PO SCH (08:24)
[2017-10-27] MEDS: Aspirin 81 MG TAB.CHEW PO SCH (08:24)
[2017-10-27] MEDS: Multivit/Ca/Min/Fe/FA 1 TAB TABLET PO SCH (08:24)
[2017-10-27] MEDS: Silvasorb 44.4 ML TUBE TP SCH (08:25)
[2017-10-27] MEDS: Ascorbic Acid 500 MG TABLET PO SCH (08:25)
--- NOTE | 2017-10-27 16:35 | Internal Med Progress Note ---
Date of Encounter: 10/27/17 Time of Encounter: 16:24 - Assessment and plan (1) Atrial fibrillation with RVR Current Visit: Yes Status: Acute Assessment and plan: Etiology likely secondary to suspected PE. Currently patient is mildly tachycardic, this was complicated by the fact that he has been hypotensive as well, which limits our treatment options. Rate is better controlled Continue metoprolol 75 mg twice a day and digioxin (2) ROSSI (acute kidney injury) Current Visit: No Status: Resolved Assessment and plan: Creatinine improved. (3) DVT prophylaxis Current Visit: No Status: Acute Assessment and plan: Heparin SQ (4) CAD (coronary artery disease), [place] coronary artery Current Visit: No Status: Chronic Assessment and plan: Severe CAD, patient declined CABG Qualifiers: [place] vs. transplanted heart: [place] heart Associated angina: without angina Qualified Code(s): I25.10 - Atherosclerotic heart disease of [place] coronary artery without angina pectoris (5) Acute on chronic systolic CHF (congestive heart failure) Current Visit: No Status: Acute Assessment and plan: Continue diuresis, continue beta Elmer unable to add on SARAHI inhibitor due to low BP (6) Acute respiratory failure with hypoxia Current Visit: Yes Status: Acute Assessment and plan: Multifactorial, from atrial A. fib RVR, acute on chronic systolic failure, possible PE.. 10/23/17: Echo showed EF 25-30% mild RV dilation, severe RA dilation, mild/ moderate tricupside regurg. Plan: -appreciate cardiology and nephrology recommendations. -Patient received lasix 40mg daily (signs of volume overload on PE): continue diuresis PRN -Continue with beta julian withholding parameters, -strict I/O, daily weights -anticoagulation is contraindicated due to history of G.I. bleed -patient might benefit from resuming lisinopril when BP is more stable. (7) Pulmonary embolus Current Visit: Yes Status: Acute Assessment and plan: Not a candidate for anticoagulation due to GI bleeding. Stated post filter placement Qualifiers: Pulmonary embolism type: other Chronicity: acute Qualified Code(s): I26.99 - Other pulmonary embolism without acute cor pulmonale (8) Goals of care, counseling/discussion Current Visit: Yes Status: Acute Assessment and plan: We will consult palliative care due to prolonged hospitalization and debilitation - Time Spent With Patient 25 - 35 minutes - Subjective Interval history: Mr. Roman is a 81 year old male who presents the [facility] for concerns of reported low oxygen saturation. He was found to have evidence of atrial fibrillation with rapid ventricular response and hypotension. He also had a markedly elevated BNP, which is actually at his baseline. Nonetheless he was given diuretics in the ER and low-dose beta julian. He was then admitted to hospitalist service for atrial fibrillation with rapid ventricular response on had a V/Q with moderate probability for PE. given the new Atrial Fib/RVR, reported hypoxemia, and low BP. We are unable to proceed with anti-coagulation due to GI bleed 2 weeks ago and endoscopy recommendations to avoid anticoagulation. They are in agreement for IVC filter placement. 1. atrail fib with RVR, cardiology was consultative, unable to tolerate CCB, on metoprolol 75 mg BID, and digoxin, 2. acute on chronic systolic CHF, on lasix 3. severe CAD, patient declined CABG 4. possible acute PE, s/p filter, not candidate for AC due to recent GI bleeding 5. acute on chronic hypoxic respiratory failure 6. DNR-CCA 7. ARF resolved - Constitutional Vitals: Temp Pulse Resp BP Pulse Ox 97.1 F L 90 18 116/87 99 10/27/17 15:40 10/27/17 15:40 10/27/17 15:40 10/27/17 15:40 10/27/17 15:40 General appearance: Present: cooperative, A&O X 3, pleasant, no acute distress, answers questions appropriately Exam: CONSTITUTIONAL: patient appears as an age appropriate male in no acute distress. EYES Clear sclerae, bilateral pupils are equal, reactive to light. EMOI. RESPIRATORY: No accessory muscle use, bilateral crackles/rales. CARDIOVASCULAR: Regular heart rate, normal S1 and S2, no murmurs GASTROINTESTINAL: bowel sounds present, soft, no tenderness. MUSCULOSKELETAL: Joints in normal range of motion, no clubbing, no edema, no cyanosis. Bilateral peripheral pulses 2+. NEUROLOGIC: CN II to XII are grossly intact, no focal neurological deficit. Internal Medicine: Result - Labs CBC & Chem 7: 10/27/17 04:32 10/27/17 04:32 Labs: Short CBC 10/27/17 Range/Units 04:32 WBC 5.4 (4.3-11.1) K/mcL Hgb 9.6 L (12.9-16.9) g/dL Hct 32.1 L (37.5-50.1) % Plt Count 161 (140-400) K/mcL BMP 10/27/17 04:32 Sodium 143 Potassium 3.8 Chloride 118 H Carbon Dioxide 23 BUN 40 H Creatinine 1.26 Glucose 115 H Calcium 8.5 L - ABG Interpretation ABG results: PT/INR, D-dimer PT 13.9 Seconds (9.4-12.1) H 10/23/17 05:40 Consult Discharge Plan - Plan Referrals: Derick Marcelino MD [Primary Care Provider] -
[2017-10-27 23:04] LABS: Bilirubin,Urine Negative (Negative); Blood,Urine Trace (Negative); Clarity,Urine Turbid (Clear); Color,Urine Yellow (Yellow); Glucose,Urine (UA) Normal (Normal); Ketones,Urine Negative (Negative); Leukocyte Esterase,Urine Large (Negative); Nitrite,Urine Negative (Negative); Protein,Urine 30 mg/dL (Neg-Trace); Specific Gravity,Urine 1.022 (1.010-1.025); Urobilinogen,Urine Normal (Normal)
[2017-10-27 23:07] LABS: Bacteria,Urine Many per hpf (None-Few); Hyaline Casts,Urine Few per lpf (None-Few); Squamous Epithelial Cell,Urine Moderate per lpf (None-Few); WBC,Urine TNTC per hpf (0-3)
[2017-10-27 23:13] LABS: Protein/Creatinine Ratio,Urine 0.62 mg/mg (0.00-0.20); Sodium, Urine 12.7 mEq/L
[2017-10-27 23:20] LABS: Yeast,Urine Many per hpf (None Seen)
[2017-10-28] MEDS: Melatonin 3 MG TABLET PO PRN (01:45)
[2017-10-28] MEDS: cefTRIAXone 1,000 MG in Water for inj. (sterile) 20 ML 10 ML IVP SCH ×2 (02:59→08:03)
[2017-10-28 04:34] LABS: Basophils # 0.1 K/mcL (0.0-0.2); Basophils % 0.9 %; Eosinophils # 0.2 K/mcL (0.0-0.6); Eosinophils % 3.3 %; Hematocrit 36.1 % (37.5-50.1); Hemoglobin 10.8 g/dL (12.9-16.9); Immature Platelets 3.5 % (1.1-6.1); Lymphocytes # 0.9 K/mcL (0.6-4.6); Lymphocytes % 15.6 %; Mean Corpuscular HGB Conc 29.9 g/dL (31.6-35.5); Mean Corpuscular Hemoglobin 27.7 pg (28.0-33.3); Mean Corpuscular Volume 92.6 fL (83.0-100.0); Mean Platelet Volume 10.5 fL (9.4-12.4); Monocytes # 0.4 K/mcL (0.0-1.3); Monocytes % 7.2 %; Neutrophils # 4.2 K/mcL (1.6-8.9); Platelet Count 172 K/mcL (140-400); Red Cell Distribution Width 26.2 % (11.5-14.5)
[2017-10-28 04:44] LABS: BUN/Creatinine Ratio 32 (6-26); Blood Urea Nitrogen 36 mg/dL (8-23); Calcium 8.6 mg/dL (8.6-10.3); Carbon Dioxide 24 mEq/L (23-29); Chloride 114 mEq/L (98-107); Glucose 99 mg/dL (70-105); Osmolality,Calculated 306 (280-300); Potassium 3.5 mEq/L (3.5-5.1); Sodium 144 mEq/L (136-145); eGFR For African Americans > 60 (> 60); eGFR For Non-African Americans > 60 (> 60)
[2017-10-28 05:14] LABS: Anisocytosis 1+ (Not Present); Macrocytosis Present (Not Present); Platelet Estimate Normal (Normal); Polychromasia 1+ (Not Present)
[2017-10-28 05:15] LABS: Poikilocytosis 1+ (Not Present)
[2017-10-28] MEDS: *HR* Heparin 5,000 UNIT/ML VIAL SQ SCH ×2 (06:47→17:40)
[2017-10-28] MEDS: Furosemide 40 MG/4 ML VIAL IVP SCH (08:03)
[2017-10-28] MEDS: Multivit/Ca/Min/Fe/FA 1 TAB TABLET PO SCH (08:04)
[2017-10-28] MEDS: Lactobacillus 1 EACH CAP.SPRINK PO SCH (08:04)
[2017-10-28] MEDS: Ascorbic Acid 500 MG TABLET PO SCH (08:04)
[2017-10-28] MEDS: Cholecalciferol (D-3) 1,000 UNIT TABLET PO SCH (08:04)
[2017-10-28] MEDS: Aspirin 81 MG TAB.CHEW PO SCH (08:04)
[2017-10-28] MEDS: Silvasorb 44.4 ML TUBE TP SCH (08:05)
[2017-10-28] MEDS ORDERED: Furosemide 40 MG/4 ML VIAL IVP ONE (13:27)
--- NOTE | 2017-10-28 13:31 | Internal Med Progress Note ---
Date of Encounter: 10/28/17 Time of Encounter: 13:29 - Assessment and plan (1) Acute on chronic systolic CHF (congestive heart failure) Current Visit: No Status: Acute Assessment and plan: Continue diuresis, continue beta Elmer unable to add on SARAHI inhibitor due to low BP increased lasix to 40 mg BID (2) Atrial fibrillation with RVR Current Visit: Yes Status: Acute Assessment and plan: Etiology likely secondary to suspected PE. Currently patient is mildly tachycardic, this was complicated by the fact that he has been hypotensive as well, which limits our treatment options. Rate is better controlled Continue metoprolol 75 mg twice a day and digioxin (3) ROSSI (acute kidney injury) Current Visit: No Status: Resolved Assessment and plan: Creatinine improved. (4) CAD (coronary artery disease), [place] coronary artery Current Visit: No Status: Chronic Assessment and plan: Severe CAD, patient declined CABG Qualifiers: [place] vs. transplanted heart: [place] heart Associated angina: without angina Qualified Code(s): I25.10 - Atherosclerotic heart disease of [place] coronary artery without angina pectoris (5) Acute respiratory failure with hypoxia Current Visit: Yes Status: Acute Assessment and plan: Multifactorial, from atrial A. fib RVR, acute on chronic systolic failure, possible PE.. 10/23/17: Echo showed EF 25-30% mild RV dilation, severe RA dilation, mild/ moderate tricupside regurg. Plan: -appreciate cardiology and nephrology recommendations. -Patient received lasix 40mg daily (signs of volume overload on PE): continue diuresis PRN -Continue with beta julian withholding parameters, -strict I/O, daily weights -anticoagulation is contraindicated due to history of G.I. bleed -patient might benefit from resuming lisinopril when BP is more stable. (6) Pulmonary embolus Current Visit: Yes Status: Acute Assessment and plan: Not a candidate for anticoagulation due to GI bleeding. Stated post filter placement Qualifiers: Pulmonary embolism type: other Chronicity: acute Qualified Code(s): I26.99 - Other pulmonary embolism without acute cor pulmonale (7) Goals of care, counseling/discussion Current Visit: Yes Status: Acute Assessment and plan: palliative care was consulted due to prolonged hospitalization and debilitation DNR-CCA now SNF when cardiology is on (8) DVT prophylaxis Current Visit: No Status: Acute Assessment and plan: Heparin SQ (9) UTI (urinary tract infection) Current Visit: Yes Status: Acute Assessment and plan: patient has chronic kumar cath, complicated UTI due to kumar, continue ceftriaxone, pending culture Qualifiers: Urinary tract infection type: catheter-associated UTI Indwelling urinary catheter type: indwelling urethral catheter Encounter type: initial encounter Qualified Code(s): T83.511A - Infection and inflammatory reaction due to indwelling urethral catheter, initial encounter; N39.0 - Urinary tract infection , site not specified; N39.0 - Urinary tract infection, site not specified - Subjective Interval history: Mr. Roman is a 81 year old male who presents the ER from [facility] for concerns of reported low oxygen saturation. He was found to have evidence of atrial fibrillation with rapid ventricular response and hypotension. He also had a markedly elevated BNP, which is actually at his baseline. Nonetheless he was given diuretics in the ER and low-dose beta julian. He was then admitted to hospitalist service for atrial fibrillation with rapid ventricular response on had a V/Q with moderate probability for PE. given the new Atrial Fib/RVR, reported hypoxemia, and low BP. We are unable to proceed with anti-coagulation due to GI bleed 2 weeks ago and endoscopy recommendations to avoid anticoagulation. They are in agreement for IVC filter placement. 1. atrail fib with RVR, cardiology was consultative, unable to tolerate CCB, on metoprolol 75 mg BID, and digoxin, 2. acute on chronic systolic CHF, on lasix IV, increased to 40 mg BID 3. severe CAD, patient declined CABG 4. possible acute PE, s/p filter, not candidate for AC due to recent GI bleeding 5. acute on chronic hypoxic respiratory failure 6. DNR-CCA 7. ARF resolved continue diuresis discharge to SNF when cardiology is ok - Constitutional Vitals: Temp Pulse Resp BP Pulse Ox 97.7 F 100 20 115/75 99 10/28/17 07:00 10/28/17 11:15 10/28/17 11:15 10/28/17 11:15 10/28/17 11:15 General appearance: Present: cooperative, A&O X 3, pleasant, no acute distress, answers questions appropriately Exam: CONSTITUTIONAL: patient appears as an age appropriate male in no acute distress. EYES Clear sclerae, bilateral pupils are equal, reactive to light. EMOI. RESPIRATORY: No accessory muscle use, bilateral crackles to auscultation, no wheezing, no crackles/rales. CARDIOVASCULAR: Regular heart rate, normal S1 and S2, no murmurs GASTROINTESTINAL: bowel sounds present, soft, no tenderness. MUSCULOSKELETAL: Joints in normal range of motion, no clubbing, +++edema, no cyanosis. Bilateral peripheral pulses 2+. NEUROLOGIC: CN II to XII are grossly intact, no focal neurological deficit. Internal Medicine: Result - Labs CBC & Chem 7: 10/28/17 02:49 10/28/17 02:49 Labs: Short CBC 10/28/17 Range/Units 02:49 WBC 5.8 (4.3-11.1) K/mcL Hgb 10.8 L (12.9-16.9) g/dL Hct 36.1 L (37.5-50.1) % Plt Count 172 (140-400) K/mcL Neutrophils # 4.2 (1.6-8.9) K/mcL BMP 10/28/17 02:49 Sodium 144 Potassium 3.5 Chloride 114 H Carbon Dioxide 24 BUN 36 H Creatinine 1.14 Glucose 99 Calcium 8.6 Urine 10/27/17 Range/Units 14:53 Urine Color Yellow (Yellow) Urine Clarity Turbid A (Clear) Urine pH 6.0 (5.0-8.0) pH Units Ur Specific [place] 1.022 (1.010-1.025) Urine Protein 30 H (Neg-Trace) mg/dL Urine Glucose (UA) Normal (Normal) mg/dL - ABG Interpretation ABG results: PT/INR, D-dimer PT 13.9 Seconds (9.4-12.1) H 10/23/17 05:40 - VTE Documentation of Mechanical Device: Intermittent pneumatic compression device Consult Discharge Plan - Plan Referrals: Derick Marcelino MD [Primary Care Provider] -
[2017-10-29] MEDS: *HR* Heparin 5,000 UNIT/ML VIAL SQ SCH ×2 (06:23→16:22)
[2017-10-29 06:46] LABS: Basophils % 0.7 %; Eosinophils # 0.2 K/mcL (0.0-0.6); Hematocrit 35.4 % (37.5-50.1); Hemoglobin 10.4 g/dL (12.9-16.9); Immature Granulocytes % 0.5 % (0-4); Lymphocytes % 17.9 %; Mean Corpuscular HGB Conc 29.4 g/dL (31.6-35.5); Mean Corpuscular Hemoglobin 27.3 pg (28.0-33.3); Mean Corpuscular Volume 92.9 fL (83.0-100.0); Mean Platelet Volume 10.2 fL (9.4-12.4); Monocytes # 0.5 K/mcL (0.0-1.3); Monocytes % 8.4 %; Platelet Count 165 K/mcL (140-400); Red Blood Count 3.81 M/mcL (4.19-5.50); Red Cell Distribution Width 25.9 % (11.5-14.5); Segmented Neutrophils % 68.5 %
[2017-10-29 07:04] LABS: BUN/Creatinine Ratio 32 (6-26); Blood Urea Nitrogen 32 mg/dL (8-23); Calcium 8.3 mg/dL (8.6-10.3); Carbon Dioxide 26 mEq/L (23-29); Chloride 113 mEq/L (98-107); Glucose 90 mg/dL (70-105); Magnesium 1.9 mg/dL (1.6-2.6); Osmolality,Calculated 302 (280-300); Potassium 3.1 mEq/L (3.5-5.1); Sodium 143 mEq/L (136-145); eGFR For African Americans > 60 (> 60); eGFR For Non-African Americans > 60 (> 60)
[2017-10-29] MEDS: Ascorbic Acid 500 MG TABLET PO SCH (08:35)
[2017-10-29] MEDS: Aspirin 81 MG TAB.CHEW PO SCH (08:35)
[2017-10-29] MEDS: Cholecalciferol (D-3) 1,000 UNIT TABLET PO SCH (08:35)
[2017-10-29] MEDS: Multivit/Ca/Min/Fe/FA 1 TAB TABLET PO SCH (08:35)
[2017-10-29] MEDS: Furosemide 40 MG/4 ML VIAL IVP SCH ×2 (08:36→16:22)
[2017-10-29] MEDS: Lactobacillus 1 EACH CAP.SPRINK PO SCH (08:36)
[2017-10-29] MEDS: cefTRIAXone 1,000 MG in Water for inj. (sterile) 20 ML 10 ML IVP SCH (08:37)
[2017-10-29] MEDS: Silvasorb 44.4 ML TUBE TP SCH (08:40)
--- NOTE | 2017-10-29 10:12 | Internal Med Progress Note ---
Date of Encounter: 10/29/17 Time of Encounter: 10:07 - Assessment and plan (1) Acute on chronic systolic CHF (congestive heart failure) Current Visit: No Status: Acute Assessment and plan: Continue diuresis, continue beta Elmer unable to add on SARAHI inhibitor due to low BP increased lasix to 40 mg BID (2) Atrial fibrillation with RVR Current Visit: Yes Status: Acute Assessment and plan: Etiology likely secondary to suspected PE. Currently patient is mildly tachycardic, this was complicated by the fact that he has been hypotensive as well, which limits our treatment options. Rate is better controlled Continue metoprolol 75 mg twice a day hypokalemia, replaced (3) ROSSI (acute kidney injury) Current Visit: No Status: Resolved Assessment and plan: Creatinine improved. (4) CAD (coronary artery disease), [place] coronary artery Current Visit: No Status: Chronic Assessment and plan: Severe CAD, patient declined CABG Qualifiers: [place] vs. transplanted heart: [place] heart Associated angina: without angina Qualified Code(s): I25.10 - Atherosclerotic heart disease of [place] coronary artery without angina pectoris (5) Acute respiratory failure with hypoxia Current Visit: Yes Status: Acute Assessment and plan: Multifactorial, from atrial A. fib RVR, acute on chronic systolic failure, possible PE.. 10/23/17: Echo showed EF 25-30% mild RV dilation, severe RA dilation, mild/ moderate tricupside regurg. Plan: -appreciate cardiology and nephrology recommendations. -Patient received lasix 40mg daily (signs of volume overload on PE): continue diuresis PRN -Continue with beta julian withholding parameters, -strict I/O, daily weights -anticoagulation is contraindicated due to history of G.I. bleed -patient might benefit from resuming lisinopril when BP is more stable. (6) Pulmonary embolus Current Visit: Yes Status: Acute Assessment and plan: Not a candidate for anticoagulation due to GI bleeding. Stated post filter placement Qualifiers: Pulmonary embolism type: other Chronicity: acute Qualified Code(s): I26.99 - Other pulmonary embolism without acute cor pulmonale (7) Goals of care, counseling/discussion Current Visit: Yes Status: Acute Assessment and plan: palliative care was consulted due to prolonged hospitalization and debilitation DNR-CCA now SNF when cardiology is ok in 1-2 days continue diuresis (8) DVT prophylaxis Current Visit: No Status: Acute Assessment and plan: Heparin SQ (9) UTI (urinary tract infection) Current Visit: Yes Status: Acute Assessment and plan: patient has chronic kumar cath, complicated UTI due to kumar, continue ceftriaxone, pending sensitivity Qualifiers: Urinary tract infection type: catheter-associated UTI Indwelling urinary catheter type: indwelling urethral catheter Encounter type: initial encounter Qualified Code(s): T83.511A - Infection and inflammatory reaction due to indwelling urethral catheter, initial encounter; N39.0 - Urinary tract infection , site not specified; N39.0 - Urinary tract infection, site not specified - Time Spent With Patient 25 - 35 minutes - Subjective Interval history: Mr. Roman is a 81 year old male who presents the ER from [facility] for concerns of reported low oxygen saturation. He was found to have evidence of atrial fibrillation with rapid ventricular response and hypotension. He also had a markedly elevated BNP, which is actually at his baseline. Nonetheless he was given diuretics in the ER and low-dose beta julian. He was then admitted to hospitalist service for atrial fibrillation with rapid ventricular response on had a V/Q with moderate probability for PE. given the new Atrial Fib/RVR, reported hypoxemia, and low BP. We are unable to proceed with anti-coagulation due to GI bleed 2 weeks ago and endoscopy recommendations to avoid anticoagulation. They are in agreement for IVC filter placement. 1. atrail fib with RVR, cardiology was consultative, unable to tolerate CCB, on metoprolol 75 mg BID, and digoxin, 2. acute on chronic systolic CHF, on lasix IV, increased to 40 mg BID 3. severe CAD, patient declined CABG 4. possible acute PE, s/p filter, not candidate for AC due to recent GI bleeding 5. acute on chronic hypoxic respiratory failure 6. DNR-CCA 7. ARF resolved continue diuresis, O2 down to 2 L discharge to SNF in 1-2 days he still has a lot of leg swelling, I increased iV lasix to 40 mg BID placed fluids restriction to 1.5 L pending urine culture chronci kumar, need to follow up urology - Constitutional Vitals: Temp Pulse Resp BP Pulse Ox 98.0 F 97 18 120/86 100 10/29/17 07:31 10/29/17 08:03 10/29/17 07:31 10/29/17 07:31 10/29/17 07:31 General appearance: Present: cooperative, A&O X 3, pleasant, no acute distress, answers questions appropriately Exam: CONSTITUTIONAL: patient appears as an age appropriate male in no acute distress. EYES Clear sclerae, bilateral pupils are equal, reactive to light. EMOI. RESPIRATORY: No accessory muscle use, bilateral crackles/rales. CARDIOVASCULAR: Regular heart rate, normal S1 and S2, no murmurs GASTROINTESTINAL: bowel sounds present, soft, no tenderness. MUSCULOSKELETAL: Joints in normal range of motion, no clubbing, +++ edema, no cyanosis. Bilateral peripheral pulses 2+. NEUROLOGIC: CN II to XII are grossly intact, no focal neurological deficit. Internal Medicine: Result - Labs CBC & Chem 7: 10/29/17 05:41 10/29/17 05:41 Labs: Short CBC 10/29/17 Range/Units 05:41 WBC 5.8 (4.3-11.1) K/mcL Hgb 10.4 L (12.9-16.9) g/dL Hct 35.4 L (37.5-50.1) % Plt Count 165 (140-400) K/mcL Neutrophils # 4.0 (1.6-8.9) K/mcL BMP 10/29/17 05:41 Sodium 143 Potassium 3.1 L Chloride 113 H Carbon Dioxide 26 BUN 32 H Creatinine 1.00 Glucose 90 Calcium 8.3 L - ABG Interpretation ABG results: PT/INR, D-dimer PT 13.9 Seconds (9.4-12.1) H 10/23/17 05:40 - VTE Documentation of Mechanical Device: Intermittent pneumatic compression device Consult Discharge Plan - Plan Referrals: Derick Marcelino MD [Primary Care Provider] -
[2017-10-29] MEDS ORDERED: Potassium Chloride Elixir 20 MEQ/15 ML UDC PO ONE (10:14)
[2017-10-29 17:07] LABS: Bilirubin,Urine Negative (Negative); Blood,Urine Moderate (Negative); Clarity,Urine Turbid (Clear); Color,Urine Yellow (Yellow); Glucose,Urine (UA) Normal (Normal); Ketones,Urine Negative (Negative); Leukocyte Esterase,Urine Large (Negative); Nitrite,Urine Negative (Negative); Protein,Urine 100 mg/dL (Neg-Trace); Specific Gravity,Urine 1.024 (1.010-1.025); Urobilinogen,Urine Normal (Normal)
[2017-10-29 17:30] LABS: Bacteria,Urine None Seen per hpf (None-Few); Squamous Epithelial Cell,Urine Few per lpf (None-Few); WBC,Urine TNTC per hpf (0-3)
[2017-10-29 17:49] LABS: Hyaline Casts,Urine Few per lpf (None-Few)
[2017-10-29 17:50] LABS: Yeast,Urine Many per hpf (None Seen)
[2017-10-29] MEDS: Melatonin 3 MG TABLET PO PRN (21:10)
[2017-10-30] MEDS ORDERED: *HR* Digoxin 0.5 MG/2 ML AMPUL IVP ONE (02:34)
[2017-10-30] MEDS ORDERED: *HR* Metoprolol 5 MG/5 ML VIAL IVP ONE (02:36)
[2017-10-30 04:51] LABS: BUN/Creatinine Ratio 33 (6-26); Blood Urea Nitrogen 32 mg/dL (8-23); Calcium 8.4 mg/dL (8.6-10.3); Carbon Dioxide 27 mEq/L (23-29); Chloride 111 mEq/L (98-107); Glucose 101 mg/dL (70-105); Magnesium 2.1 mg/dL (1.6-2.6); Osmolality,Calculated 301 (280-300); Potassium 3.9 mEq/L (3.5-5.1); Sodium 142 mEq/L (136-145); eGFR For African Americans > 60 (> 60); eGFR For Non-African Americans > 60 (> 60)
[2017-10-30] MEDS: *HR* Heparin 5,000 UNIT/ML VIAL SQ SCH ×2 (05:41→17:24)
[2017-10-30] MEDS: cefTRIAXone 1,000 MG in Water for inj. (sterile) 20 ML 10 ML IVP SCH (07:51)
[2017-10-30] MEDS: Lactobacillus 1 EACH CAP.SPRINK PO SCH (07:51)
[2017-10-30] MEDS: Ascorbic Acid 500 MG TABLET PO SCH (07:52)
[2017-10-30] MEDS: Aspirin 81 MG TAB.CHEW PO SCH (07:52)
[2017-10-30] MEDS: Multivit/Ca/Min/Fe/FA 1 TAB TABLET PO SCH (07:52)
[2017-10-30] MEDS: Cholecalciferol (D-3) 1,000 UNIT TABLET PO SCH (07:52)
[2017-10-30] MEDS: Furosemide 40 MG/4 ML VIAL IVP SCH (07:53)
--- NOTE | 2017-10-30 07:55 | Internal Med Progress Note ---
<Randall Montanez - Last Filed: 10/30/17 16:41> Date of Encounter: 10/30/17 Time of Encounter: 07:49 - Assessment and plan (1) Acute respiratory failure with hypoxia Current Visit: Yes Status: Acute Assessment and plan: Patient arrived from ECF with chief complaint of low oxygen saturation's. He was also found to be in a fib with RVR. He was previously not on anticoagulation because of his history of G.I. bleed. V/Q scan from 10/22/17 showed intermediate probability for PE. The fact that his shortness of breath, low oxygen saturation, afib with RVR is suspected to be secondary to a PE, He has been carefully hydrated with IV fluids for his ROSSI, fluids have since been stopped. Since then, he has been volume overloaded. Patient received IVC filter on 10/23/17. bilateral lower extremity Doppler's have been negative for DVT. Plan: decrease lasix to once per day Continue with beta julian withholding parameters, strict I/O, daily weights anticoagulation is contraindicated due to history of G.I. bleed patient would benefit from resuming lisinopril when BP is more stable. dig loading patient today. will see how heart rate does overnight. possible discharge tomorrow to ECF (2) Congestive heart failure Current Visit: Yes Status: Chronic Assessment and plan: Echo from 10/23/17 shows LVEF 25-30%, mildly dilated left ventricle, global severe left ventricular systolic function, atypical septal motion with bundle branch block, indeterminate diastolic function, mildly dilated right ventricle with normal function, severely dilated left atrium, severely dilated right atrium, mild to moderate tricuspid regurgitation, mild pulmonary hypertension. prior EF 40-45%. Plan: decreased lasix to 40mg daily continue with strict I/O, daily weights. Qualifiers: Heart failure type: systolic Heart failure chronicity: chronic Qualified Code(s): I50.22 - Chronic systolic (congestive) heart failure (3) Atrial fibrillation with RVR Current Visit: Yes Status: Acute Assessment and plan: Etiology multifactorial in setting of CHF, PE, currently tachycardic patient went into Afib RVR again last night- suspect possible over diuresis. Plan: Continue metoprolol 75 mg twice a day decreased dose of lasix dig loading today. will see how heart rate does (4) Altered mental status Current Visit: Yes Status: Acute Assessment and plan: She has been having intermittent episodes where he is confused and has visual hallucinations. Etiology not clear at this time, but suspect acute delirium in hospital setting. Urinalysis was done which showed some contamination, but patient does have chronic Wills in due to history of urinary retention. He was supposed to follow -up outpatient with urology. Urine culture grew Enterococcus Faecalis: received 3 days rocephin. Plan: changed antibiotic to ampicillin, day 1. will switch to oral ampicillin upon discharge. Qualifiers: Altered mental status type: unspecified Qualified Code(s): R41.82 - Altered mental status, unspecified (5) ROSSI (acute kidney injury) Current Visit: No Status: Resolved Assessment and plan: Resolved Continue to monitor. (6) Triple vessel coronary artery disease Current Visit: No Status: Acute Assessment and plan: Patient have known severe 3 vessel CAD. He has declined CABG in the past. Plan: continue ASA, statin, BB (with holding parameters) (7) Goals of care, counseling/discussion Current Visit: Yes Status: Acute Assessment and plan: palliative care was consulted to discuss goals of care otions. DNR-CCA now discharge planning to SNF (8) DVT prophylaxis Current Visit: No Status: Acute Assessment and plan: Heparin SQ - Subjective Interval history: 81 year-old male evaluated at bedside. he denies nausea, vomiting, diarrhea, fever, chills, chest pain, shortness of breath. He denies any new problems today. he is alert and oriented x3 - Constitutional Vitals: Temp Pulse Resp BP Pulse Ox 97.7 F 115 17 141/93 97 10/30/17 06:35 10/30/17 06:35 10/30/17 06:35 10/30/17 06:35 10/30/17 04:13 General appearance: Present: cooperative, A&O X 3, pleasant, no acute distress, answers questions appropriately - Head Head exam: Present: atraumatic, normocephalic - Neck Neck exam general surgery: Present: supple, trachea midline - Respiratory Respiratory exam: Present: CTAB - Cardiovascular Cardiovascular exam: Present: irregular rhythm, tachycardia - GI/Abdominal GI/Abdominal exam: Present: normal bowel sounds, soft. Absent: distended, tenderness - Extremities Exam Additional comments: sore present and right lower extremity. Bilateral +2 pitting edema present up mid calf - Neurological Exam Neurological exam: Present: alert, oriented X3, no focal deficits - Psychiatric Psychiatric exam: Present: normal affect, normal mood - Skin Skin exam: Present: intact Internal Medicine: Result - Labs CBC & Chem 7: 10/29/17 05:41 10/30/17 02:34 Labs: BMP 10/30/17 02:34 Sodium 142 Potassium 3.9 D Chloride 111 H Carbon Dioxide 27 BUN 32 H Creatinine 0.97 Glucose 101 Calcium 8.4 L Urine 10/29/17 Range/Units 14:31 Urine Color Yellow (Yellow) Urine Clarity Turbid A (Clear) Urine pH 6.0 (5.0-8.0) pH Units Ur Specific [place] 1.024 (1.010-1.025) Urine Protein 100 H (Neg-Trace) mg/dL Urine Glucose (UA) Normal (Normal) mg/dL - ABG Interpretation ABG results: PT/INR, D-dimer PT 13.9 Seconds (9.4-12.1) H 10/23/17 05:40 - VTE Documentation of Mechanical Device: Intermittent pneumatic compression device Consult Discharge Plan - Plan Referrals: Derick Marcelino MD [Primary Care Provider] - <Gerald Epstein Jorge - Last Filed: 10/30/17 18:44> Date of Encounter: 10/30/17 - Constitutional Vitals: Temp Pulse Resp BP Pulse Ox 97.4 F L 97 18 129/91 95 10/30/17 15:50 10/30/17 15:50 10/30/17 15:50 10/30/17 15:50 10/30/17 15:50 Internal Medicine: Result - Labs CBC & Chem 7: 10/29/17 05:41 10/30/17 02:34 Labs: BMP 10/30/17 02:34 Sodium 142 Potassium 3.9 D Chloride 111 H Carbon Dioxide 27 BUN 32 H Creatinine 0.97 Glucose 101 Calcium 8.4 L - ABG Interpretation ABG results: PT/INR, D-dimer PT 13.9 Seconds (9.4-12.1) H 10/23/17 05:40 - Attending Attestation I examined this patient and my medical decision-making was reviewed with the Resident Physician. I agree with the documented findings, disposition and treatment plan as described except to the extent set forth below.
[2017-10-30] MEDS: Silvasorb 44.4 ML TUBE TP SCH (11:38)
[2017-10-30] MEDS ORDERED: *HR* Digoxin 0.25 MG TABLET PO ONE (14:40)
[2017-10-30] MEDS: Ampicillin 1,000 MG in 0.9 % Sodium Chloride Mini Bag 100 ML IVPB SCH ×2 (15:08→21:58)
[2017-10-30] MEDS: Melatonin 3 MG TABLET PO PRN (20:29)
[2017-10-31] MEDS: Ampicillin 1,000 MG in 0.9 % Sodium Chloride Mini Bag 100 ML IVPB SCH ×7 (00:19→23:24)
[2017-10-31 05:00] LABS: BUN/Creatinine Ratio 36 (6-26); Blood Urea Nitrogen 27 mg/dL (8-23); Calcium 8.2 mg/dL (8.6-10.3); Carbon Dioxide 31 mEq/L (23-29); Chloride 112 mEq/L (98-107); Glucose 91 mg/dL (70-105); Magnesium 1.9 mg/dL (1.6-2.6); Osmolality,Calculated 303 (280-300); Potassium 3.5 mEq/L (3.5-5.1); Sodium 144 mEq/L (136-145); eGFR For African Americans > 60 (> 60); eGFR For Non-African Americans > 60 (> 60)
[2017-10-31] MEDS: *HR* Heparin 5,000 UNIT/ML VIAL SQ SCH ×2 (05:43→18:39)
[2017-10-31] MEDS: Aspirin 81 MG TAB.CHEW PO SCH (08:24)
[2017-10-31] MEDS: Cholecalciferol (D-3) 1,000 UNIT TABLET PO SCH (08:24)
[2017-10-31] MEDS: Multivit/Ca/Min/Fe/FA 1 TAB TABLET PO SCH (08:24)
[2017-10-31] MEDS: Ascorbic Acid 500 MG TABLET PO SCH (08:24)
[2017-10-31] MEDS: Furosemide 40 MG/4 ML VIAL IVP SCH (08:24)
[2017-10-31] MEDS: Lactobacillus 1 EACH CAP.SPRINK PO SCH (08:24)
[2017-10-31] MEDS: Silvasorb 44.4 ML TUBE TP SCH (10:30)
--- NOTE | 2017-10-31 11:27 | Discharge Summary ---
<Randall Montanez - Last Filed: 11/01/17 10:11> Date of Encounter: 11/01/17 Time of Encounter: 11:16 - Discharge Diagnosis (1) Acute respiratory failure with hypoxia Priority: Primary Status: Acute (2) V-tach Priority: Secondary Status: Acute (3) Congestive heart failure Priority: Secondary Status: Chronic Qualifiers: Heart failure type: systolic Heart failure chronicity: chronic Qualified Code(s): I50.22 - Chronic systolic (congestive) heart failure (4) Atrial fibrillation with RVR Priority: Secondary Status: Acute (5) Altered mental status Priority: Secondary Status: Acute Qualifiers: Altered mental status type: unspecified Qualified Code(s): R41.82 - Altered mental status, unspecified (6) ROSSI (acute kidney injury) Priority: Secondary Status: Resolved (7) Triple vessel coronary artery disease Priority: Secondary Status: Acute (8) Goals of care, counseling/discussion Priority: Secondary Status: Acute (9) DVT prophylaxis Priority: Secondary Status: Acute Hospital course: Mr. Roman is a 81 year old male with past medical history of G.I. bleed, atrial flutter oblation, cardiomyopathy, CHF, coronary artery disease, hypertension. Patient arrived to the emergency department from [facility] on 10/22/17 in atrial fibrillation with rapid ventricular response, and concerns for low oxygen saturation's with hypotension. He was admitted for further workup. Patient was not a candidate for CTA for evaluation of possible PE because of his renal function (came in with ROSSI with Cr of 1.6. V/Q scan was done showed intermediate probability for PE. Patient was not a candidate for anticoagulation due to his history of G.I. bleed. Because of his hypotension and tachycardia, suspicion for PE was very high. Echocardiogram showed LVEF 25- 30%, mildly dilated left ventricle, severe global left ventricular systolic dysfunction, atypical septal wall motion consistent with bundle branch block, indeterminate diastolic function, mildly dilated right ventricle with normal function, severely dilated left atrium, severely dilated right atrium, mild- moderate pulmonary hypertension. Consult to cardiology was made. They recommended gradual titration of calcium channel julian. They also stated that his shortness of breath, hypoxia, hypertension was likely secondary to the suspected pulmonary embolism and not secondary to acute CHF. They recommended continued beta julian as tolerated by his blood pressure, and had no further treatment options available. Patient was full code when he came in, and because of his worsening status, consult the palliative care was made. Patient' s code status was changed to DNR comfort care arrest. Nephrology was consulted for ROSSI, and he was hydrated and his kidney function significantly improved. Later during his hospital course, he did become fluid overloaded and required some diuresis. Did have altered mental status intermittently during his hospitalization, and urine culture was positive for VRE, sensitive to ampicillin. Patient was started on ampicillin, attention continue this for a total of 10 days (script printed) He has 9 more days of antibiotics left to take after leaving the hospital. Since he is not a candidate for anticoagulation, patient did have IVC filter placed on 10/23/17. His hospitalization, his hypotension improved, and to shortness of breath improved as well. He should be continued on lisinopril in the senior care as tolerated by his blood pressure. He should also continue on a dose digoxin as tolerated by HR. on 11/01/16, patient was about to be discharged and then went into [facility] for about 10 beats that self resolved. patient was asymptomatic. he was given bolus of amiodarone then started on 400mg PO amiodarone daily starting 11/01. he should continue on 400mg daily for 1 week, then start on 200mg PO daily. Patient was discharged from the hospital in stable condition. Discharge discussed with: patient, family - Time Spent with Patient Total time spent providing and/or coordinating discharge services: Greater than 30 minutes (35) - Discharge Medications Prescriptions: Ampicillin Trihydrate 500 mg PO Q6H #36 capsule Home Medications: Cholecalciferol (D-3) [Vitamin D] 2,000 unit PO DAILY 04/22/17 [History] Lactobacillus Combination No.8 [Adult Probiotic] 1 cap PO DAILY 04/22/17 [ History] Multivitamin [Multi-Day Vitamins] 1 tab PO DAILY 04/22/17 [History] [place]-3/Dha/Epa/Fish Oil [Fish Oil 1,000 mg Softgel] 1,000 mg PO DAILY 04/22/17 [History] Aspirin 81 mg PO DAILY #0 04/30/17 [Rx] Furosemide [Lasix] 40 mg PO DAILY #0 tab 04/30/17 [Rx] Ferrous Sulfate 325 mg PO BIDWM tablet 10/11/17 [Rx] Melatonin 3 mg PO HS PRN tablet 10/11/17 [Rx] Ofloxacin OPTH Drops [Ocuflox] 2 drop RIGHT EYE Q4HR bottle 10/11/17 [Rx] Omeprazole [PriLOSEC] 20 mg PO BIDAC capsule. 10/11/17 [Rx] Potassium Chloride 40 meq PO BIDWM tab.er.prt 10/11/17 [Rx] Tamsulosin [Flomax] 0.4 mg PO HS capsule 10/11/17 [Rx] Ascorbate Calcium/Bioflavonoid [Edith-C 500 mg Tablet] 1 tab PO DAILY 10/22/17 [ History] Atorvastatin Calcium [Lipitor] 20 mg PO DAILY 10/22/17 [History] Metoprolol [Lopressor] 75 mg PO BID 10/22/17 [History] Acetaminophen [Tylenol] 650 mg PO Q6HR PRN tablet 10/31/17 [Rx] Ampicillin Trihydrate 500 mg PO Q6H #36 capsule 10/31/17 [Rx] Digoxin [Lanoxin] 0.125 mg PO DAILY tablet 10/31/17 [Rx] Silvasorb 1 appl TP DAILY tube 10/31/17 [Rx] Amiodarone [Cordarone] 400 mg PO DAILY tablet 11/01/17 [Rx] Allergies/Adverse Reactions: 3 Allergy/AdvReac Type Severity Reaction Status Date / Time Sulfa (Sulfonamide Allergy Rash Verified 10/05/17 13:28 Antibiotics) Date of admission: 10/22/17 23:44 Primary care physician: Derick Marcelino MD Consults: 10/23/17 00:19 Consult to Vascular Surgery [CONS] Stat Consulting Provider: Vascular Surgery [place] Reason for Consult: IVC filter Call Completed: Yes 10/23/17 11:52 Consult to Nephrology [CONS] Routine Consulting Provider: Kidney Dina/QUE/PONCHO/UNA Reason for Consult: ROSSI Time Notified: 11:53 Call Completed: Yes 10/23/17 15:42 Consult to Palliative Care [CONS] Routine Comment: Consulting Provider: Palliative Care [place] Reason for Consult: PE unable to anticoagulate, considering palliative options Time Notified: 15:43 Call Completed: Yes 10/24/17 14:28 Consult to Occupational Therapy [CONS] Routine Comment: Evaluate, develop and implement POC Reason for Consult: eval and treat Consult to Physical Therapy [CONS] Routine Comment: Evaluate, develop and implement POC Reason for Consult: eval and treat 10/25/17 10:26 Consult to Wound Care [CONS] Routine Reason for Consult: Right lower leg wound. Call Completed: No Discharging clinician: Randall Montanez Anticipated date of discharge: 10/31/17 - Constitutional Vitals: Temp Pulse Resp BP Pulse Ox 97.4 F L 110 16 130/96 100 10/31/17 07:13 10/31/17 08:38 10/31/17 07:13 10/31/17 07:13 10/31/17 07:13 General appearance: Present: cooperative, A&O X 3, pleasant, no acute distress, answers questions appropriately - Head Head exam: Present: atraumatic, normocephalic - Neck Neck exam general surgery: Present: supple, trachea midline - Respiratory Respiratory exam: Present: CTAB - Cardiovascular Cardiovascular exam: Present: irregular rhythm, +S1, +S2 - Extremities Exam Additional comments: +2 bilateral lower extremity pitting edema. Sore present on right leg - Neurological Exam Neurological exam: Present: alert, oriented X3, no focal deficits - Psychiatric Psychiatric exam: Present: normal affect, normal mood - Patient Status Disposition: Transfer SNF Condition: Fair Functional capacity at discharge: independent ambulation Overall status at discharge: patient is progressing back to baseline - Discharge Instructions Instructions: Ampicillin (Injection), Heart Failure (DC), Atrial Fibrillation ( DC), Vancomycin Resistant Enterococcus Infection (DC) Follow Up With: Derick Marcelino MD [Primary Care Provider] - (PATIENT DISCHARGED TO [facility]. ) Additional Instructions: Follow-up with your primary care provider within one week of discharge. Finish course of ampicillin for a total of 10 days. Continue amiodarone 400 mg PO daily x1 week (starting 11/01/16) then 200 mg PO daily thereafter diurese as needed. - Diet and Activity Activity: as per physical therapy Diet: low fat, low cholesterol - VTE Documentation of Mechanical Device: Intermittent pneumatic compression device <Gerald Epstein - Last Filed: 11/01/17 18:50> Orders not resulted at time of discharge: Pending orders 10/31/17 13:34 EKG [ECG 12 lead ECG] [ECG] Stat Date of Encounter: 11/01/17 Hospital course: Mr. Roman is a 81 year old male - Time Spent with Patient Total time spent providing and/or coordinating discharge services: Date of admission: 10/22/17 23:44 Primary care physician: Derick Marcelino MD Consults: 10/23/17 00:19 Consult to Vascular Surgery [CONS] Stat Consulting Provider: Vascular Surgery [place] Reason for Consult: IVC filter Call Completed: Yes 10/23/17 11:52 Consult to Nephrology [CONS] Routine Consulting Provider: Kidney Dina/QUE/PONCHO/UNA Reason for Consult: ROSSI Time Notified: 11:53 Call Completed: Yes 10/23/17 15:42 Consult to Palliative Care [CONS] Routine Comment: Consulting Provider: Palliative Care [place] Reason for Consult: PE unable to anticoagulate, considering palliative options Time Notified: 15:43 Call Completed: Yes 10/24/17 14:28 Consult to Occupational Therapy [CONS] Routine Comment: Evaluate, develop and implement POC Reason for Consult: eval and treat Consult to Physical Therapy [CONS] Routine Comment: Evaluate, develop and implement POC Reason for Consult: eval and treat 10/25/17 10:26 Consult to Wound Care [CONS] Routine Reason for Consult: Right lower leg wound. Call Completed: No - Constitutional Vitals: Temp Pulse Resp BP Pulse Ox 98.0 F 85 18 131/99 100 11/01/17 07:21 11/01/17 07:21 11/01/17 07:21 11/01/17 07:21 11/01/17 07:21 - Attending Attestation I examined this patient and my medical decision-making was reviewed with the Resident Physician. I agree with the documented findings, disposition and treatment plan as described except to the extent set forth below.
--- NOTE | 2017-10-31 11:55 | Physician Discharge Referral ---
ExtendedCare Referral Info Transfer To: ECF Provider in Charge after Transfer: PCP Institutional Level of Care: Skilled - Diagnosis (1) Acute respiratory failure with hypoxia Priority: Primary Status: Acute (2) Congestive heart failure Priority: Secondary Status: Chronic (3) Atrial fibrillation with RVR Priority: Secondary Status: Acute (4) Altered mental status Priority: Secondary Status: Acute (5) ROSSI (acute kidney injury) Priority: Secondary Status: Resolved (6) Triple vessel coronary artery disease Priority: Secondary Status: Acute (7) Goals of care, counseling/discussion Priority: Secondary Status: Acute (8) DVT prophylaxis Priority: Secondary Status: Acute Prognosis: Fair Aware of Diagnosis: Patient, Family Aware of Prognosis: Patient, Family - Transfer Medications Prescriptions: Ampicillin Trihydrate 500 mg PO Q6H #36 capsule Home Medications: Cholecalciferol (D-3) [Vitamin D] 2,000 unit PO DAILY 04/22/17 [History] Lactobacillus Combination No.8 [Adult Probiotic] 1 cap PO DAILY 04/22/17 [ History] Multivitamin [Multi-Day Vitamins] 1 tab PO DAILY 04/22/17 [History] [place]-3/Dha/Epa/Fish Oil [Fish Oil 1,000 mg Softgel] 1,000 mg PO DAILY 04/22/17 [History] Aspirin 81 mg PO DAILY #0 04/30/17 [Rx] Furosemide [Lasix] 40 mg PO DAILY #0 tab 04/30/17 [Rx] Ferrous Sulfate 325 mg PO BIDWM tablet 10/11/17 [Rx] Melatonin 3 mg PO HS PRN tablet 10/11/17 [Rx] Ofloxacin OPTH Drops [Ocuflox] 2 drop RIGHT EYE Q4HR bottle 10/11/17 [Rx] Omeprazole [PriLOSEC] 20 mg PO BIDAC capsule. 10/11/17 [Rx] Potassium Chloride 40 meq PO BIDWM tab.er.prt 10/11/17 [Rx] Tamsulosin [Flomax] 0.4 mg PO HS capsule 10/11/17 [Rx] Ascorbate Calcium/Bioflavonoid [Edith-C 500 mg Tablet] 1 tab PO DAILY 10/22/17 [ History] Atorvastatin Calcium [Lipitor] 20 mg PO DAILY 10/22/17 [History] Metoprolol [Lopressor] 75 mg PO BID 10/22/17 [History] Acetaminophen [Tylenol] 650 mg PO Q6HR PRN tablet 10/31/17 [Rx] Ampicillin Trihydrate 500 mg PO Q6H #36 capsule 10/31/17 [Rx] Digoxin [Lanoxin] 0.125 mg PO DAILY tablet 10/31/17 [Rx] Silvasorb 1 appl TP DAILY tube 10/31/17 [Rx] Amiodarone [Cordarone] 400 mg PO DAILY tablet 11/01/17 [Rx] Allergies/Adverse Reactions: 3 Allergy/AdvReac Type Severity Reaction Status Date / Time Sulfa (Sulfonamide Allergy Rash Verified 10/05/17 13:28 Antibiotics) - Respiratory Orders Oxygen / L per min Smoking Cessation: Smoking cessation has been advised. For more information, call the [employer] Med[employer] Tobacco Quit Line at 7-982-FPYY-NOW. - Ancillary Orders May use pressure relief devices daily prn, May go on SANDRA w/family/respon democrat w /meds at nurse discretion PRN - Advance Directives Code Status: DNR-Arrest - Mobility Orders Ambulate - Rehabiliation Orders Rehab Potential: Fair Rehab Orders: Evaluation for Physical Therapy, Evaluation for Occupational Therapy - Treatments Skin tear care topically daily PRN per policy, May check for fecal impaction rectally daily PRN, Fleet enema rectally every other day PRN cleansing purposes - Diet Orders Cardiac CERTIFICATION: I certify that the transfer of the above named patient to an Extended Care Facility is necessary for the continuing treatment of the diagnosis listed. The above information is true and accurate reflection of patient's current condition. Confidential - Redisclosure prohibited without a patient's written consent.
[2017-10-31] MEDS ORDERED: Potassium Phosphate 44 MEQ in 0.9 % Sodium Chloride 250 ML IVPB PRN (14:10)
[2017-10-31] MEDS: Amiodarone Premix 150 MG/100 ML BAG IVPB SCH ×3 (14:53→18:41)
[2017-10-31 14:55] LABS: Basophils % 0.6 %; Eosinophils # 0.1 K/mcL (0.0-0.6); Eosinophils % 2.1 %; Hematocrit 36.5 % (37.5-50.1); Hemoglobin 10.8 g/dL (12.9-16.9); Immature Granulocytes % 0.6 % (0-4); Lymphocytes # 0.9 K/mcL (0.6-4.6); Lymphocytes % 17.1 %; Mean Corpuscular HGB Conc 29.6 g/dL (31.6-35.5); Mean Corpuscular Hemoglobin 27.8 pg (28.0-33.3); Mean Corpuscular Volume 93.8 fL (83.0-100.0); Mean Platelet Volume 9.6 fL (9.4-12.4); Monocytes # 0.4 K/mcL (0.0-1.3); Monocytes % 7.8 %; Neutrophils # 3.8 K/mcL (1.6-8.9); Platelet Count 152 K/mcL (140-400); Red Blood Count 3.89 M/mcL (4.19-5.50); Red Cell Distribution Width 25.6 % (11.5-14.5); Segmented Neutrophils % 71.8 %
[2017-10-31 15:00] LABS: BUN/Creatinine Ratio 30 (6-26); Blood Urea Nitrogen 22 mg/dL (8-23); Calcium 7.9 mg/dL (8.6-10.3); Carbon Dioxide 30 mEq/L (23-29); Chloride 112 mEq/L (98-107); Glucose 100 mg/dL (70-105); Osmolality,Calculated 303 (280-300); Sodium 145 mEq/L (136-145); eGFR For African Americans > 60 (> 60); eGFR For Non-African Americans > 60 (> 60)
--- NOTE | 2017-10-31 15:23 | Internal Med Progress Note ---
<RahulusRandall - Last Filed: 10/31/17 15:20> Date of Encounter: 10/31/17 Time of Encounter: 15:21 - Assessment and plan (1) Acute respiratory failure with hypoxia Current Visit: Yes Status: Acute Assessment and plan: Patient arrived from ECF with chief complaint of low oxygen saturation's. He was also found to be in a fib with RVR. He was previously not on anticoagulation because of his history of G.I. bleed. V/Q scan from 10/22/17 showed intermediate probability for PE. afib with RVR is suspected to be secondary to a PE, He has been carefully hydrated with IV fluids for his ROSSI, fluids have since been stopped. Since then, he has been volume overloaded. Patient received IVC filter on 10/23/17. bilateral lower extremity Doppler's have been negative for DVT. Plan: lasix IV daily Continue with beta julian with holding parameters, strict I/O, daily weights anticoagulation is contraindicated due to history of G.I. bleed patient would benefit from resuming lisinopril when BP is more stable. possible discharge tomorrow to ECF (2) Congestive heart failure Current Visit: Yes Status: Chronic Assessment and plan: Echo from 10/23/17 shows LVEF 25-30%, mildly dilated left ventricle, global severe left ventricular systolic function, atypical septal motion with bundle branch block, indeterminate diastolic function, mildly dilated right ventricle with normal function, severely dilated left atrium, severely dilated right atrium, mild to moderate tricuspid regurgitation, mild pulmonary hypertension. prior EF 40-45%. Plan: decreased lasix to 40mg daily continue with strict I/O, daily weights. Qualifiers: Heart failure type: systolic Heart failure chronicity: chronic Qualified Code(s): I50.22 - Chronic systolic (congestive) heart failure (3) Atrial fibrillation with RVR Current Visit: Yes Status: Acute Assessment and plan: Etiology multifactorial in setting of CHF, PE, currently tachycardic Plan: Continue metoprolol 75 mg twice a day continue lasix (5) ROSSI (acute kidney injury) Current Visit: No Status: Resolved Assessment and plan: Resolved (6) Triple vessel coronary artery disease Current Visit: No Status: Acute Assessment and plan: Patient have known severe 3 vessel CAD. He has declined CABG in the past. Plan: continue ASA, statin, BB (with holding parameters) (7) Goals of care, counseling/discussion Current Visit: Yes Status: Acute Assessment and plan: palliative care was consulted to discuss goals of care options. DNR-CCA now discharge planning to SNF (8) DVT prophylaxis Current Visit: No Status: Acute Assessment and plan: Heparin SQ (9) V-tach Current Visit: Yes Status: Acute Assessment and plan: patient was about to be discharged today but had a 10 beat run of vtach. Plan: electrolytes replaced 300mg amiodarone IV now. will switch to oral tomorrow hold digoxin due to low HR (10) UTI (urinary tract infection) Current Visit: Yes Status: Acute Assessment and plan: cultures positive for VRE, sensitive to ampicillin, day 2 Qualifiers: Urinary tract infection type: site unspecified Hematuria presence: without hematuria Qualified Code(s): N39.0 - Urinary tract infection, site not specified - Subjective Interval history: 81 year-old male evaluated at bedside. he denies nausea, vomiting, diarrhea, fever, chills, chest pain, shortness of breath. He denies any new problems today. he is alert and oriented x3 - Constitutional Vitals: Temp Pulse Resp BP Pulse Ox 97.4 F L 86 18 117/82 100 10/31/17 11:20 10/31/17 15:02 10/31/17 15:00 10/31/17 15:00 10/31/17 15:00 General appearance: Present: cooperative, A&O X 3, pleasant, no acute distress, answers questions appropriately - Head Head exam: Present: atraumatic, normocephalic - Neck Neck exam general surgery: Present: supple, trachea midline - Respiratory Respiratory exam: Present: CTAB - Cardiovascular Cardiovascular exam: Present: irregular rhythm, +S1, +S2 - GI/Abdominal GI/Abdominal exam: Present: normal bowel sounds, soft. Absent: distended, tenderness - Extremities Exam Extremities exam: Absent: cyanotic Additional comments: +2 bilateral lower extremity pitting edema. - Neurological Exam Neurological exam: Present: alert, oriented X3, no focal deficits - Psychiatric Psychiatric exam: Present: normal affect, normal mood - Skin Skin exam: Present: intact Additional comments: right lower extremity ulcer present. Internal Medicine: Result - Labs CBC & Chem 7: 10/31/17 14:29 10/31/17 14:29 Labs: Short CBC 10/31/17 Range/Units 14:29 WBC 5.3 (4.3-11.1) K/mcL Hgb 10.8 L (12.9-16.9) g/dL Hct 36.5 L (37.5-50.1) % Plt Count 152 (140-400) K/mcL BMP 10/31/17 10/31/17 03:45 14:29 Sodium 144 145 Potassium 3.5 3.0 L Chloride 112 H 112 H Carbon Dioxide 31 H 30 H BUN 27 H 22 Creatinine 0.76 0.74 Glucose 91 100 Calcium 8.2 L 7.9 L Cardiac Enzymes 10/31/17 Range/Units 14:01 Troponin I 0.03 (< 0.04) ng/mL - ABG Interpretation ABG results: PT/INR, D-dimer PT 13.9 Seconds (9.4-12.1) H 10/23/17 05:40 - VTE Documentation of Mechanical Device: Intermittent pneumatic compression device Consult Discharge Plan - Plan Instructions: Ampicillin (Injection), Heart Failure (DC), Atrial Fibrillation ( DC), Vancomycin Resistant Enterococcus Infection (DC) Referrals: Derick Marcelino MD [Primary Care Provider] - (PATIENT DISCHARGED TO [facility]. ) Prescriptions: Ampicillin Trihydrate 500 mg PO Q6H #36 capsule <Gerald Epstein - Last Filed: 10/31/17 17:49> Date of Encounter: 10/31/17 - Constitutional Vitals: Temp Pulse Resp BP Pulse Ox 97.4 F L 79 18 114/75 100 10/31/17 16:30 10/31/17 16:30 10/31/17 16:30 10/31/17 16:30 10/31/17 16:30 Internal Medicine: Result - Labs CBC & Chem 7: 10/31/17 14:29 10/31/17 14:29 Labs: Short CBC 10/31/17 Range/Units 14:29 WBC 5.3 (4.3-11.1) K/mcL Hgb 10.8 L (12.9-16.9) g/dL Hct 36.5 L (37.5-50.1) % Plt Count 152 (140-400) K/mcL Neutrophils # 3.8 (1.6-8.9) K/mcL BMP 10/31/17 10/31/17 03:45 14:29 Sodium 144 145 Potassium 3.5 3.0 L Chloride 112 H 112 H Carbon Dioxide 31 H 30 H BUN 27 H 22 Creatinine 0.76 0.74 Glucose 91 100 Calcium 8.2 L 7.9 L Cardiac Enzymes 10/31/17 Range/Units 14:01 Troponin I 0.03 (< 0.04) ng/mL - ABG Interpretation ABG results: PT/INR, D-dimer PT 13.9 Seconds (9.4-12.1) H 10/23/17 05:40 - Attending Attestation I examined this patient and my medical decision-making was reviewed with the Resident Physician. I agree with the documented findings, disposition and treatment plan as described except to the extent set forth below. Prolonged conversation with the sisters. His prognosis is quite poor, not expected to do well. Hopefully discharge tomorrow on amiodarone.
[2017-10-31] MEDS ORDERED: Potassium Chloride Elixir 20 MEQ/15 ML UDC PO ONE (16:00)
[2017-10-31 17:06] LABS: Anisocytosis 2+ (Not Present); Platelet Estimate Normal (Normal); Poikilocytosis 1+ (Not Present)
[2017-10-31] MEDS ORDERED: *HR* Amiodarone 200 MG TABLET PO ONE (21:00)
[2017-10-31] MEDS ORDERED: *HR* Digoxin 0.25 MG TABLET PO ONE (22:00)
[2017-11-01] MEDS: Ampicillin 1,000 MG in 0.9 % Sodium Chloride Mini Bag 100 ML IVPB SCH ×3 (05:02→08:07)
[2017-11-01] MEDS: *HR* Heparin 5,000 UNIT/ML VIAL SQ SCH (05:03)
[2017-11-01 05:06] LABS: Magnesium 2.2 mg/dL (1.6-2.6); Potassium 3.9 mEq/L (3.5-5.1)
[2017-11-01 07:23] VITALS: BP 131/99
[2017-11-01] MEDS: Furosemide 40 MG/4 ML VIAL IVP SCH (07:36)
[2017-11-01] MEDS: Ascorbic Acid 500 MG TABLET PO SCH (07:36)
[2017-11-01] MEDS: Cholecalciferol (D-3) 1,000 UNIT TABLET PO SCH (07:37)
[2017-11-01] MEDS: Aspirin 81 MG TAB.CHEW PO SCH (07:37)
[2017-11-01] MEDS: Multivit/Ca/Min/Fe/FA 1 TAB TABLET PO SCH (07:37)
[2017-11-01] MEDS: Lactobacillus 1 EACH CAP.SPRINK PO SCH (07:37)
[2017-11-01] MEDS ORDERED: *HR* Digoxin 0.125 MG TABLET PO SCH (09:00)
[2017-11-01] MEDS ORDERED: *HR* Amiodarone 200 MG TABLET PO SCH (09:45)
== END 2017-11-01 11:12 | DRG 166 ==
LOC: 2ANU 13:10 → EMEROO 13:10 → 2NNU 18:42 → SUATTDRO 23:44
PROVIDERS: ADMIT Family Medicine; ATTEND Hospitalist

== ENCOUNTER 2018-06-04 12:38 | Observation (INO) ==
[2018-06-04] MEDS ORDERED: Isovue-370 500 ML INFUS..BTL IV ONE (13:01)
[2018-06-04] MEDS ORDERED: 0.9 % Sodium Chloride 500 ML IVC ONE ×2 (13:02→14:47)
[2018-06-04 13:35] LABS: Basophils % 0.1 %; Eosinophils % 0.2 %; Hematocrit 43.3 % (37.5-50.1); Hemoglobin 14.1 g/dL (12.9-16.9); Lymphocytes # 0.8 K/mcL (0.6-4.6); Lymphocytes % 8.2 %; Mean Corpuscular HGB Conc 32.6 g/dL (31.6-35.5); Mean Corpuscular Hemoglobin 32.8 pg (28.0-33.3); Mean Corpuscular Volume 100.7 fL (83.0-100.0); Mean Platelet Volume 10.1 fL (9.4-12.4); Monocytes # 0.7 K/mcL (0.0-1.3); Monocytes % 7.7 %; Neutrophils # 7.9 K/mcL (1.6-8.9); Platelet Count 169 K/mcL (140-400); Red Cell Distribution Width 14.1 % (11.5-14.5); Segmented Neutrophils % 82.8 %
[2018-06-04 13:58] LABS: Albumin 2.9 g/dL (3.5-5.7); Albumin/Globulin Ratio 1.2 (1.1-2.2); Bilirubin,Direct 0.3 mg/dL (0.0-0.2); Bilirubin,Indirect 0.6 mg/dL (0.0-1.2); Bilirubin,Total 0.9 mg/dL (0.3-1.0); Calcium 8.4 mg/dL (8.6-10.3); Globulin 2.4 g/dL (2.4-3.5); Potassium 4.6 mEq/L (3.5-5.1); Total Protein 5.3 g/dL (6.4-8.9)
[2018-06-04 13:59] LABS: Troponin I 0.04 ng/mL (< 0.04)
[2018-06-04 14:56] LABS: Bilirubin,Urine Negative (Negative); Blood,Urine Moderate (Negative); Clarity,Urine Turbid (Clear); Color,Urine Yellow (Yellow); Glucose,Urine (UA) Normal (Normal); Ketones,Urine Negative (Negative); Leukocyte Esterase,Urine Large (Negative); Nitrite,Urine Negative (Negative); Protein,Urine 30 mg/dL (Neg-Trace); Specific Gravity,Urine 1.015 (1.010-1.025); Urobilinogen,Urine Normal (Normal)
[2018-06-04 14:58] LABS: Bacteria,Urine Many per hpf (None-Few); Hyaline Casts,Urine None Seen per lpf (None-Few); Squamous Epithelial Cell,Urine Many per lpf (None-Few); WBC,Urine TNTC per hpf (0-3)
[2018-06-04] MEDS ORDERED: cefTRIAXone 1,000 MG in Water for inj. (sterile) 20 ML 10 ML IVP STA (15:48)
--- NOTE | 2018-06-04 16:04 | Emergency Department Note ---
Disposition Clinical Impression: ROSSI (acute kidney injury) UTI (urinary tract infection) Qualifiers: Urinary tract infection type: site unspecified Hematuria presence: with hematuria Qualified Code(s): N39.0 - Urinary tract infection, site not specified Disposition: Admitted As Inpatient Condition: Good General Adult HPI - General Chief complaint: ED Abdominal Pain Stated complaint: UTI Time Seen by Provider: 06/04/18 12:51 Source: patient, EMS Limitations: no limitations Nursing Notes Reviewed: Yes Vital Signs Reviewed: Yes - History of Present Illness HPI Narrative: Patient presents to the emergency department with a medical history of A. fib, cardiomyopathy, CHF, coronary artery disease, hypertension. He arrived to the emergency department today with concern for possible urinary tract infection. Patient has a Wills catheter in place. He states that he started having lower abdominal pain approximately 1 week ago. It has been constant since that time. He has not had significant fevers or chills. He was found on the monitor to be in A. fib RVR with a heart rate of 140. He states that he has not had chest pain or shortness of breath or dizziness. States that he has had nausea but no vomiting. Mild decrease in appetite with no change to bowel movements. Patient does have a mass in the right lower quadrant which she states has been there for quite some time. He cannot give any further characteristics about it but does state that he has a previous hernia. Overall the patient looks well given his significantly elevated heart rate. We will give him fluids to initially attempt with rate control given his concern for possible urinary tract infection and this precipitating his A. fib. Patient will undergo further blood well at work as well as urinalysis and CT scan. His old medical records have been evaluated and he does appear to have a admission from October which was significant for an ejection fraction of 25-30%. During his stay in the hospital he did undergo a run of V. tach. He did receive amiodarone as well as calcium channel blockers during that visit.. Pain Scale: 4 - Related Data Home Medications Medication Instructions Recorded Confirmed Cholecalciferol (D-3) [Vitamin D] 2,000 unit PO DAILY 04/22/17 06/04/18 Lactobacillus Combination No.8 1 cap PO DAILY 04/22/17 06/04/18 [Adult Probiotic] Multivitamin [Multi-Day Vitamins] 1 tab PO DAILY 04/22/17 06/04/18 [place]-3/Dha/Epa/Fish Oil [Fish Oil 1,000 mg PO DAILY 04/22/17 06/04/18 1,000 mg Softgel] Ascorbate Calcium/Bioflavonoid 1 tab PO DAILY 10/22/17 06/04/18 [Edith-C 500 mg Tablet] Atorvastatin Calcium [Lipitor] 20 mg PO DAILY 10/22/17 06/04/18 Lutein 40 mg PO DAILY 06/04/18 06/04/18 Metoprolol XL (24 HR) Succ [Toprol 12.5 mg PO BID 06/04/18 06/04/18 Xl] Ubidecarenone [Coq10] 200 mg PO DAILY 06/04/18 06/04/18 Previous Rx's Medication Instructions Recorded Aspirin 81 mg PO DAILY #0 04/30/17 Furosemide [Lasix] 40 mg PO DAILY #0 tab 04/30/17 Ferrous Sulfate 325 mg PO BIDWM tablet 10/11/17 Melatonin 3 mg PO HS PRN tablet 10/11/17 Omeprazole [PriLOSEC] 20 mg PO BIDAC capsule. 10/11/17 Potassium Chloride 40 meq PO BIDWM tab.er.prt 10/11/17 Tamsulosin [Flomax] 0.4 mg PO HS capsule 10/11/17 Acetaminophen [Tylenol] 650 mg PO Q6HR PRN tablet 10/31/17 Digoxin [Lanoxin] 0.125 mg PO DAILY tablet 10/31/17 Allergies Allergy/AdvReac Type Severity Reaction Status Date / Time Sulfa (Sulfonamide Allergy Rash Verified 10/05/17 13:28 Antibiotics) Review of Systems: As Per HPI Constitutional: Reports: weakness. Denies: fever, chills Cardiovascular: Denies: chest pain, palpitations Respiratory: Denies: cough, dyspnea Gastrointestinal: Reports: abdominal pain, nausea Genitourinary: Reports: other (Discomfort from Wills) Musculoskeletal: Denies: back pain, neck pain Integumentary: Denies: rash, abrasion Neurological: Reports: weakness (Generalized). Denies: headache Psychiatric: Denies: anxiety, depression Endocrine: Reports: fatigue Past Medical History - Past Medical History Medical history: Reports: atrial fibrillation, cardiomyopathy, CHF, coronary artery disease, hyperlipidemia, hypertension, pulmonary embolus Surgical history: Reports: herniorrhaphy Psychiatric history: Reports: no psych history - Social History Smoking Status: Never smoker Smokeless Tobacco Status: No Alcohol use: Reports: none Drug use: Reports: none Physical Exam General: Well appearing, nontoxic, no acute distress Head: Normocephalic Atraumatic Eyes: PERRL, EOMI ENT: Airway patent, no stridor Neck: supple, no meningismus Chest: Lungs clear to auscultation bilateral Cardiac: Irregular rate and rhythm Abdomen: soft, moderate suprapubic tenderness associated possible hernia to the right lower quadrant that does not appear to be reducible but does not cause significant pain with palpation., nondistended; no guarding, rebound, or tenderness to percussion Musculoskeletal: Calves symmetric, nontender Skin: No rash, normal skin tone Neuro: Alert and Oriented to person, place, and time; No focal deficit, CN 2-12 symmetric and intact - General Limitations: no limitations General appearance: alert, in no apparent distress Course - Reevaluation(s) Reevaluation #1: Patient with significant urinary tract infection in history of present illness. Patient placed on antibiotics and given further fluids. Patient does have a decreased ejection fraction. Boluses have been given 500 mL aliquots. - Consultations Consultation #1: Discussed with hospitalist. Patient accepted for admission. Vital Signs Temperature 99.5 F 06/04/18 13:20 Pulse Rate 154 06/04/18 13:20 Respiratory Rate 18 06/04/18 13:20 Blood Pressure 143/90 06/04/18 13:20 O2 Sat by Pulse Oximetry 96 06/04/18 13:20 Temperature 98.3 F 06/04/18 18:45 Pulse Rate 90 06/04/18 18:45 Respiratory Rate 15 06/04/18 18:45 Blood Pressure 123/86 06/04/18 18:45 O2 Sat by Pulse Oximetry 97 06/04/18 18:45 Oxygen Delivery Oxygen Delivery Room Air Medical Decision Making - Medical Records Medical records reviewed: Yes I reviewed the patient's medical records. - Lab Data Lab results reviewed: Yes I reviewed the patient's lab results. Result diagrams: 06/04/18 13:16 06/04/18 13:16 Lab Results 06/04/18 06/04/18 06/04/18 Range/Units 13:16 13:16 13:16 WBC 9.6 (4.3-11.1) K/mcL RBC 4.30 (4.19-5.50) M/mcL Hgb 14.1 (12.9-16.9) g/dL Hct 43.3 (37.5-50.1) % MCV 100.7 H (83.0-100.0) fL MCH 32.8 (28.0-33.3) pg MCHC 32.6 (31.6-35.5) g/dL RDW 14.1 (11.5-14.5) % Plt Count 169 (140-400) K/mcL MPV 10.1 (9.4-12.4) fL Immature Gran % 1.0 (0-4) % Seg Neutrophils % 82.8 % Lymphocytes % 8.2 % Monocytes % 7.7 % Eosinophils % 0.2 % Basophils % 0.1 % Neutrophils # 7.9 (1.6-8.9) K/mcL Lymphocytes # 0.8 (0.6-4.6) K/mcL Monocytes # 0.7 (0.0-1.3) K/mcL Eosinophils # 0.0 (0.0-0.6) K/mcL Basophils # 0.0 (0.0-0.2) K/mcL Sodium 140 (136-145) mEq/L Potassium 4.6 (3.5-5.1) mEq/L Chloride 112 H (98-107) mEq/L Carbon Dioxide 25 (23-29) mEq/L BUN 60 H (8-23) mg/dL Creatinine 1.53 H (0.70-1.30) mg/dL Est GFR ( Amer) 53 L (> 60) Est GFR (Non-Af Amer) 44 L (> 60) BUN/Creatinine Ratio 39 H (6-26) Glucose 110 H (70-105) mg/dL Calculated Osmolality 308 H (280-300) Lactic Acid 0.8 (0.5-2.2) mmol/L Calcium 8.4 L (8.6-10.3) mg/dL Total Bilirubin 0.9 (0.3-1.0) mg/dL Direct Bilirubin 0.3 H (0.0-0.2) mg/dL Indirect Bilirubin 0.6 (0.0-1.2) mg/dL AST 24 (13-39) Units/L ALT 24 (7-52) Units/L Alkaline Phosphatase 66 (34-104) Units/L Troponin I 0.04 H* (< 0.04) ng/mL Serum Total Protein 5.3 L (6.4-8.9) g/dL Albumin 2.9 L (3.5-5.7) g/dL Globulin 2.4 (2.4-3.5) g/dL Albumin/Globulin Ratio 1.2 (1.1-2.2) Lipase 25 (11-82) Units/L Urine Color (Yellow) Urine Clarity (Clear) Urine pH (5.0-8.0) pH Units Ur Specific [place] (1.010-1.025) Urine Protein (Neg-Trace) mg/dL Urine Glucose (UA) (Normal) mg/dL Urine Ketones (Negative) mg/dL Urine Blood (Negative) Urine Nitrite (Negative) Urine Bilirubin (Negative) Urine Urobilinogen (Normal) mg/dL Ur Leukocyte Esterase (Negative) Urine Microscopic RBC (0-3) per hpf Urine Microscopic WBC (0-3) per hpf Ur Squamous Epith Cells (None-Few) per lpf Urine Bacteria (None-Few) per hpf Hyaline Casts (None-Few) per lpf Urine Yeast Ur Culture Indicated? (NO) Digoxin 1.3 (0.8-2.0) ng/mL 06/04/18 Range/Units 14:16 WBC (4.3-11.1) K/mcL RBC (4.19-5.50) M/mcL Hgb (12.9-16.9) g/dL Hct (37.5-50.1) % MCV (83.0-100.0) fL MCH (28.0-33.3) pg MCHC (31.6-35.5) g/dL RDW (11.5-14.5) % Plt Count (140-400) K/mcL MPV (9.4-12.4) fL Immature Gran % (0-4) % Seg Neutrophils % % Lymphocytes % % Monocytes % % Eosinophils % % Basophils % % Neutrophils # (1.6-8.9) K/mcL Lymphocytes # (0.6-4.6) K/mcL Monocytes # (0.0-1.3) K/mcL Eosinophils # (0.0-0.6) K/mcL Basophils # (0.0-0.2) K/mcL Sodium (136-145) mEq/L Potassium (3.5-5.1) mEq/L Chloride (98-107) mEq/L Carbon Dioxide (23-29) mEq/L BUN (8-23) mg/dL Creatinine (0.70-1.30) mg/dL Est GFR ( Amer) (> 60) Est GFR (Non-Af Amer) (> 60) BUN/Creatinine Ratio (6-26) Glucose (70-105) mg/dL Calculated Osmolality (280-300) Lactic Acid (0.5-2.2) mmol/L Calcium (8.6-10.3) mg/dL Total Bilirubin (0.3-1.0) mg/dL Direct Bilirubin (0.0-0.2) mg/dL Indirect Bilirubin (0.0-1.2) mg/dL AST (13-39) Units/L ALT (7-52) Units/L Alkaline Phosphatase (34-104) Units/L Troponin I (< 0.04) ng/mL Serum Total Protein (6.4-8.9) g/dL Albumin (3.5-5.7) g/dL Globulin (2.4-3.5) g/dL Albumin/Globulin Ratio (1.1-2.2) Lipase (11-82) Units/L Urine Color Yellow (Yellow) Urine Clarity Turbid A (Clear) Urine pH 6.0 (5.0-8.0) pH Units Ur Specific [place] 1.015 (1.010-1.025) Urine Protein 30 H (Neg-Trace) mg/dL Urine Glucose (UA) Normal (Normal) mg/dL Urine Ketones Negative (Negative) mg/dL Urine Blood Moderate H (Negative) Urine Nitrite Negative (Negative) Urine Bilirubin Negative (Negative) Urine Urobilinogen Normal (Normal) mg/dL Ur Leukocyte Esterase Large H (Negative) Urine Microscopic RBC 5-15 H (0-3) per hpf Urine Microscopic WBC TNTC H (0-3) per hpf Ur Squamous Epith Cells Many H (None-Few) per lpf Urine Bacteria Many H (None-Few) per hpf Hyaline Casts None Seen (None-Few) per lpf Urine Yeast Test Not Performed Ur Culture Indicated? NO. A (NO) Digoxin (0.8-2.0) ng/mL - Radiology Data Radiology results reviewed: Yes I reviewed the patient's radiology results. - EKG Data EKG #1 EKG attestation: Yes I reviewed and interpreted this EKG. EKG results narrative: EKG shows atrial fibrillation with a rate of 141. Irregular and rate. QRS 85. QTC 399. Patient has no significant elevations or depressions. No old EKG for comparison. Does have mild depressions throughout the lateral leads precordially with associated T-wave inversion.
[2018-06-04 16:12] LABS: Digoxin 1.3 ng/mL (0.8-2.0)
[2018-06-04] MEDS ORDERED: Naloxone 0.4 MG/ML INJ IVP PRN (17:30)
[2018-06-04] MEDS ORDERED: 0.9 % Sodium Chloride 1,000 ML IVC SCH (17:30)
[2018-06-04] MEDS ORDERED: Acetaminophen 325 MG TABLET PO PRN (17:37)
[2018-06-04] MEDS ORDERED: Melatonin 3 MG TABLET PO PRN (17:37)
[2018-06-04] MEDS ORDERED: *HR* Metoprolol 5 MG/5 ML VIAL IVP ONE (17:38)
--- NOTE | 2018-06-04 19:20 | Electrocardiograph Report ---
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
--- NOTE | 2018-06-04 19:38 | Internal Med History&Physical ---
Date of Encounter: 06/04/18 Time of Encounter: 18:00 Internal Medicine - H&P: HPI Chief complaint: abdominal pain Admitted From: Home Plans for Post Hospital Care: Home History of present illness: Mr. Roman is a 82 year old male with history of Afib not on AC ( GIB), HFrEF, HTN presented to the ED with lower abdominal pain. as per patient his abdominal pain started 1 week ago and is progressively worsening. his pain is located in the suprapubic area and radiates to the Right lower quadrant and is also associated with Dysuria and frequency. he denies hematuria, fever, chills, n/v/ D. he does have history of atrial fibrillation and is currently not on AC secondary to GIB. he reports that he is complaint with his medications. does report sthat he was told that he has a hernia in the past. In the ED he was found to be in Afib with RVR, UA was grossly positive and kumar catheter was mal positioned which was adjusted with good urine output. he was started on IV abx and was given fluids and endorsed for admission for further management. currently he denies fever, chills, N/V/D, chest pain, palpitations, LOC, syncope. Past Med Surg Social Fam HX - Past Medical History Medical history: atrial fibrillation, cardiomyopathy, CHF, coronary artery disease, hyperlipidemia, hypertension, pulmonary embolus Additional medical history: pt reports HTN but is not medicated Psychiatric history: no psych history - Past Surgical History Surgical History: herniorrhaphy Additional surgical history: hernia surgery. stent for PE - Social History Smoking Status: Never smoker Smokeless Tobacco Status: No Alcohol use: none Drug use: none - Family History Brother Living Status: Hx Family Cancer: Yes (prostate) Mother Living Status: Father Living Status: Internal Medicine - H&P: Meds Cholecalciferol (D-3) [Vitamin D] 2,000 unit PO DAILY 04/22/17 [History] Lactobacillus Combination No.8 [Adult Probiotic] 1 cap PO DAILY 04/22/17 [ History] Multivitamin [Multi-Day Vitamins] 1 tab PO DAILY 04/22/17 [History] [place]-3/Dha/Epa/Fish Oil [Fish Oil 1,000 mg Softgel] 1,000 mg PO DAILY 04/22/17 [History] Aspirin 81 mg PO DAILY #0 04/30/17 [Rx] Furosemide [Lasix] 40 mg PO DAILY #0 tab 04/30/17 [Rx] Ferrous Sulfate 325 mg PO BIDWM tablet 10/11/17 [Rx] Melatonin 3 mg PO HS PRN tablet 10/11/17 [Rx] Omeprazole [PriLOSEC] 20 mg PO BIDAC capsule. 10/11/17 [Rx] Potassium Chloride 40 meq PO BIDWM tab.er.prt 10/11/17 [Rx] Tamsulosin [Flomax] 0.4 mg PO HS capsule 10/11/17 [Rx] Ascorbate Calcium/Bioflavonoid [Edith-C 500 mg Tablet] 1 tab PO DAILY 10/22/17 [ History] Atorvastatin Calcium [Lipitor] 20 mg PO DAILY 10/22/17 [History] Acetaminophen [Tylenol] 650 mg PO Q6HR PRN tablet 10/31/17 [Rx] Digoxin [Lanoxin] 0.125 mg PO DAILY tablet 10/31/17 [Rx] Lutein 40 mg PO DAILY 06/04/18 [History] Metoprolol XL (24 HR) Succ [Toprol Xl] 12.5 mg PO BID 06/04/18 [History] Ubidecarenone [Coq10] 200 mg PO DAILY 06/04/18 [History] 3 Allergy/AdvReac Type Severity Reaction Status Date / Time Sulfa (Sulfonamide Allergy Rash Verified 10/05/17 13:28 Antibiotics) All Systems PM: review of systems was performed and is negative for pertinent findings except as documented above in the HPI. - Constitutional Vitals: Temp Pulse Resp BP Pulse Ox 98.3 F 90 15 123/86 97 06/04/18 18:45 06/04/18 18:45 06/04/18 18:45 06/04/18 18:45 06/04/18 18:45 Exam: General: Patient is alert, oriented, no acute distress, Head: atraumatic, normocephalic, Eye: normal appearance, PERRL, no scleral icterus, no conjunctival injection ENT: mucous membranes moist, normal external ear exam Neck: normal inspection, trachea midline, full ROM, no carotid bruits Chest: normal inspection, symmetric chest rise Respiratory: Good respiratory effort. Bilateral breath sounds are clear without wheezing, crackles, or rhonchi. Cardiovascular: irregularly irregular . s1 and s2 No clicks, rubs, gallops, or murmors. Abdomen: Bowel sounds present normoactive x-4 quadrants. Abdomen is soft, nondistended. no Epigastric tenderness. No guarding or rebound. No organomegaly noted musculoskeletal: Spontaneously moving all extremities. no edema, no calf tenderness Skin: warm, dry, intact. Neuro: Alert and oriented x4. Sensation light touch intact. Cranial nerves 2- 12 is intact. no focal deficits Psych: Patient's affect is normal kumar drainig yellow urine Internal Med - H&P Results - Labs CBC & Chem 7: 06/04/18 13:16 06/04/18 13:16 - Assessment and plan (1) Acute renal failure (ARF) Current Visit: Yes Status: Acute Assessment and plan: most likely secondary to obstruction S/P kumar placement with urine out put creatinine is was 0.92 on 05/14 now 1.53 will start him on gentle hydration with 40 cc of IVF for 12 hours- monitor for overload as he has history of HFrEF continue flomax urology consultation Qualifiers: Acute renal failure type: unspecified Qualified Code(s): N17.9 - Acute kidney failure, unspecified (2) Complicated UTI (urinary tract infection) Current Visit: Yes Status: Acute Assessment and plan: Ct A/P Right-sided hydronephrosis and hydroureter, likely related to the distended bladder. No obstructive uropathy apparent. Stable moderate prostatomegaly starte don ceftriaxone in the ED follow Bcx and follow ucx continue ceftriaxone (3) Elevated troponin Current Visit: No Status: Acute Assessment and plan: most likely secondary to Afib with RVR and supply vs kemal jose will follow troponin Q6H along with EKG if significant increase in troponin or EKG changes or active chest pain consider loading with ASA and plavix and startig heprin drip along with cardiology consultation continue metoprolol, ASA, lipitor (4) Atrial fibrillation Current Visit: Yes Status: Acute Assessment and plan: rate controlled with home dose metoprolol most likely went into RVR secondary to obstructive uropathy not on AC secondary to GI bleed continue ASA Qualifiers: Atrial fibrillation type: chronic Qualified Code(s): I48.2 - Chronic atrial fibrillation (5) HFrEF (heart failure with reduced ejection fraction) Current Visit: Yes Status: Acute Assessment and plan: HFrEF 25-30% continue metoprolol, lipitor and ASA currently not in volume overload continue tele monitoring EF 40-45% previously. Known severe three vessel CAD. Patient declined CABG. TTE on 10/22 LVEF 25-30%. Mildly dilated left ventricle. Severe global left ventricular systolic dysfunction. Atypical septal motion consistent with bundle branch block. Indeterminate diastolic function. Mildly dilated right ventricle with normal function. RV:LV ratio is approximately 1.0. Severely dilated left atrium. Severely dilated right atrium. Mild-moderate tricuspid regurgitation. Mild pulmonary hypertension. Estimated RVSP is 38-43 mmHg, including an estimated RA pressure of 15-20 mmHg. Qualifiers: Heart failure chronicity: chronic Qualified Code(s): I50.22 - Chronic systolic (congestive) heart failure (6) Inguinal hernia Current Visit: Yes Status: Acute Assessment and plan: Ct A/P Large right inguinal hernia containing portions of the cecum and small bowel loops without obstruction or significant inflammation. Free fluid in the dependent portion of the hernia. follow with surgery as OP Qualifiers: Obstruction and gangrene presence: without obstruction or gangrene Laterality: unilateral Recurrence: recurrent Qualified Code(s): K40.91 - Unilateral inguinal hernia, without obstruction or gangrene, recurrent (7) Bladder calculus Current Visit: Yes Status: Acute Assessment and plan: Ct A/P with large bladder calculus noted dependently, similar to the previous study. The calculus measures approximately 10 x 20 mm in size. urology consulted janis follow recommendations (8) DVT prophylaxis Current Visit: No Status: Acute Assessment and plan: heparin SC - Time Spent With Patient Total time spent is greater than 50% in coordination of care (as documented) at patient's floor/unit and/or counseling patient:
[2018-06-04] MEDS: Metoprolol XL (24 HR) Succ 25 MG TAB.ER.24H PO SCH (20:08)
[2018-06-04] MEDS: *HR* Heparin 5,000 UNIT/ML VIAL SQ SCH (20:09)
[2018-06-05 01:18] LABS: Basophils % 0.3 %; Eosinophils % 0.5 %; Hematocrit 38.1 % (37.5-50.1); Hemoglobin 12.8 g/dL (12.9-16.9); Immature Granulocytes % 0.8 % (0-4); Lymphocytes # 0.5 K/mcL (0.6-4.6); Lymphocytes % 6.2 %; Mean Corpuscular HGB Conc 33.6 g/dL (31.6-35.5); Mean Corpuscular Hemoglobin 33.1 pg (28.0-33.3); Mean Corpuscular Volume 98.4 fL (83.0-100.0); Mean Platelet Volume 9.8 fL (9.4-12.4); Monocytes # 0.7 K/mcL (0.0-1.3); Monocytes % 8.6 %; Neutrophils # 6.6 K/mcL (1.6-8.9); Platelet Count 153 K/mcL (140-400); Red Blood Count 3.87 M/mcL (4.19-5.50); Red Cell Distribution Width 14.4 % (11.5-14.5); Segmented Neutrophils % 83.6 %
[2018-06-05 01:37] LABS: BUN/Creatinine Ratio 39 (6-26); Blood Urea Nitrogen 52 mg/dL (8-23); Carbon Dioxide 23 mEq/L (23-29); Chloride 113 mEq/L (98-107); Glucose 117 mg/dL (70-105); Osmolality,Calculated 305 (280-300); Potassium 4.1 mEq/L (3.5-5.1); Sodium 140 mEq/L (136-145); eGFR For Non-African Americans 51 (> 60)
[2018-06-05] MEDS: *HR* Heparin 5,000 UNIT/ML VIAL SQ SCH ×3 (05:21→21:11)
[2018-06-05] MEDS ORDERED: Ubidecarenone [Coq10] 200 MG PO SCH (09:00)
--- NOTE | 2018-06-05 09:28 | Urology - Consult Note ---
<Samira Stafford N - Last Filed: 06/05/18 09:23> Date of Encounter: 06/05/18 Time of Encounter: 09:23 - Assessment and Plan (1) Bladder calculus Current Visit: Yes Status: Acute Assessment and plan: Patient is an 82-year-old male who presents the history of bladder calculus. Patient has a known bladder calculus for which he is initially decided not to treat. Patient is encouraged to follow-up with Dr. Leal as an outpatient in order to discuss treatment options. There is concern for recurrent urinary tract infection as well as this may lead to hematuria in the future. (2) UTI (urinary tract infection) Current Visit: Yes Status: Acute Assessment and plan: Patient is an 82-year-old male who presents the history of urinary tract infection. 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 Emergency department did not send initial urine specimen for culture. Patient likely has colonization secondary to indwelling Kumar catheter. Patient has been placed on IV Rocephin. Qualifiers: Urinary tract infection type: site unspecified Hematuria presence: with hematuria Qualified Code(s): N39.0 - Urinary tract infection, site not specified; R31.9 - Hematuria, unspecified (3) Urinary retention Current Visit: No Status: Acute Assessment and plan: Patient is an 82-year-old male who presents the history of urinary retention secondary to benign prostatic hypertrophy. Kumar catheter has been repositioned and is now sufficiently draining clear urine into bedside bag. Patient wishes to continue with indwelling Kumar catheter. Patient has been placed on Flomax. Encouraged patient to follow-up with Dr. Leal as an outpatient to discuss further options if patient wishes. Urology CN:[facility] Consult date: 06/05/18 Reason for consult Urology: Hydronephrosis History of present illness: Patient is an 82-year-old male who presents with history of an enlarged prostate , urinary retention and hydronephrosis. The patient presented to the emergency department with complaints of lower abdominal pain, dysuria, and decreased urine output. On examination, it was found that the Kumar catheter was mispositioned in the prostatatic urethra. Kumar was repositioned, and significant urine output was noted. Patient has a long-standing history of urinary retention secondary to benign prostatic hypertrophy. Patient has a histroy of UTI with VRE and bladder calculus. Patient was seen by Dr. Leal in October 2017 and elected to continue with indwelling Kumar catheter. Patient reports catheter has been changed monthly. Patient denies any prior history of difficulty with catheter. Patient states he is currently feeling much better and denies any abdominal pain, flank pain, nausea,vomiting, fever, chills. Patient does not wish to proceed with voiding trial or Kumar catheter removal in the future. Patient denies known family history of prostate cancer. Past Med Surg Social Fam HX - Past Medical History Medical history: atrial fibrillation, cardiomyopathy, CHF, coronary artery disease, hyperlipidemia, hypertension, pulmonary embolus Additional medical history: pt reports HTN but is not medicated Psychiatric history: no psych history - Past Surgical History Surgical History: herniorrhaphy Additional surgical history: hernia surgery. stent for PE - Social History Smoking Status: Never smoker Smokeless Tobacco Status: No Alcohol use: none Drug use: none - Family History Brother Living Status: Hx Family Cancer: Yes (prostate) Mother Living Status: Father Living Status: Medications and Allergies Cholecalciferol (D-3) [Vitamin D] 2,000 unit PO DAILY 04/22/17 [History] Lactobacillus Combination No.8 [Adult Probiotic] 1 cap PO DAILY 04/22/17 [ History] Multivitamin [Multi-Day Vitamins] 1 tab PO DAILY 04/22/17 [History] [place]-3/Dha/Epa/Fish Oil [Fish Oil 1,000 mg Softgel] 1,000 mg PO DAILY 04/22/17 [History] Aspirin 81 mg PO DAILY #0 04/30/17 [Rx] Furosemide [Lasix] 40 mg PO DAILY #0 tab 04/30/17 [Rx] Ferrous Sulfate 325 mg PO BIDWM tablet 10/11/17 [Rx] Melatonin 3 mg PO HS PRN tablet 10/11/17 [Rx] Omeprazole [PriLOSEC] 20 mg PO BIDAC capsule. 10/11/17 [Rx] Potassium Chloride 40 meq PO BIDWM tab.er.prt 10/11/17 [Rx] Tamsulosin [Flomax] 0.4 mg PO HS capsule 10/11/17 [Rx] Ascorbate Calcium/Bioflavonoid [[place]ith-C 500 mg Tablet] 1 tab PO DAILY 10/22/17 [ History] Atorvastatin Calcium [Lipitor] 20 mg PO DAILY 10/22/17 [History] Acetaminophen [Tylenol] 650 mg PO Q6HR PRN tablet 10/31/17 [Rx] Digoxin [Lanoxin] 0.125 mg PO DAILY tablet 10/31/17 [Rx] Lutein 40 mg PO DAILY 06/04/18 [History] Metoprolol XL (24 HR) Succ [Toprol Xl] 25 mg PO BID 06/04/18 [History] Ubidecarenone [Coq10] 200 mg PO DAILY 06/04/18 [History] 3 Allergy/AdvReac Type Severity Reaction Status Date / Time Sulfa (Sulfonamide Allergy Rash Verified 10/05/17 13:28 Antibiotics) Review of Systems - Constitutional no chills, no fatigue, no fever(s) - EENT Nose, mouth and throat: no dizziness, no headache(s) - Cardiovascular no chest pain, no diaphoresis, no dyspnea - Respiratory no cough, no dyspnea - Gastrointestinal no abdominal pain, no nausea, no vomiting - Genitourinary difficulty urinating, no dysuria, no flank pain, no hematuria, no urinary frequency, no urinary hesitancy, no urinary urgency - Musculoskeletal no back pain - Integumentary no lesions, no rash, no swelling - Neurological no confusion, no syncope - Psychiatric no anxiety, no confusion - Hematologic/Lymphatic no easy bleeding, no easy bruising - Allergic/Immunologic no throat swelling, no wheezing Exam Initial Vital Signs Temp Pulse Resp BP Pulse Ox 99.5 F 154 18 143/90 96 06/04/18 13:20 06/04/18 13:20 06/04/18 13:20 06/04/18 13:20 06/04/18 13:20 - General physical appearance Present: well developed, no distress, no pain - Eyes Present: PERRL, normal ocular movement - ENT Present: normal nares, no hearing loss, no congestion - Neck Present: no masses, trachea midline - Respiratory Present: normal respiratory effort - Cardiovascular Cardiovascular exam IM: RRR - Abdomen Abdomen: Present: soft, non tender - Genitourinary other (indwelling kumar catheter draining clear urine into bedside bag ) - Integumentary Present: no rash, no abnormal pigmentation - Neurologic Present: normal coordination - Musculoskeletal Present: other (normal posture ) Urology Results - Labs 06/05/18 00:49 06/05/18 00:49 Abnormal lab results RBC 3.87 M/mcL (4.19-5.50) L 06/05/18 00:49 Hgb 12.8 g/dL (12.9-16.9) L 06/05/18 00:49 Lymphocytes # 0.5 K/mcL (0.6-4.6) L 06/05/18 00:49 Chloride 113 mEq/L (98-107) H 06/05/18 00:49 BUN 52 mg/dL (8-23) H 06/05/18 00:49 Creatinine 1.35 mg/dL (0.70-1.30) H 06/05/18 00:49 Est GFR (Non-Af Amer) 51 (> 60) L 06/05/18 00:49 BUN/Creatinine Ratio 39 (6-26) H 06/05/18 00:49 Glucose 117 mg/dL (70-105) H 06/05/18 00:49 Calculated Osmolality 305 (280-300) H 06/05/18 00:49 Calcium 8.0 mg/dL (8.6-10.3) L 06/05/18 00:49 Direct Bilirubin 0.3 mg/dL (0.0-0.2) H 06/04/18 13:16 Troponin I 0.04 ng/mL (< 0.04) H* 06/05/18 00:49 Serum Total Protein 5.3 g/dL (6.4-8.9) L 06/04/18 13:16 Albumin 2.9 g/dL (3.5-5.7) L 06/04/18 13:16 Urine Clarity Turbid (Clear) A 06/04/18 14:16 Urine Protein 30 mg/dL (Neg-Trace) H 06/04/18 14:16 Urine Blood Moderate (Negative) H 06/04/18 14:16 Ur Leukocyte Esterase Large (Negative) H 06/04/18 14:16 Urine Microscopic RBC 5-15 per hpf (0-3) H 06/04/18 14:16 Urine Microscopic WBC TNTC per hpf (0-3) H 06/04/18 14:16 Ur Squamous Epith Cells Many per lpf (None-Few) H 06/04/18 14:16 Urine Bacteria Many per hpf (None-Few) H 06/04/18 14:16 Ur Culture Indicated? NO. (NO) A 06/04/18 14:16 Diabetes panel 06/05/18 Range/Units 00:49 Sodium 140 (136-145) mEq/L Potassium 4.1 (3.5-5.1) mEq/L Chloride 113 H (98-107) mEq/L Carbon Dioxide 23 (23-29) mEq/L BUN 52 H (8-23) mg/dL Creatinine 1.35 H (0.70-1.30) mg/dL Glucose 117 H (70-105) mg/dL Calcium 8.0 L (8.6-10.3) mg/dL Calcium panel 06/05/18 Range/Units 00:49 Calcium 8.0 L (8.6-10.3) mg/dL Pituitary panel 06/05/18 Range/Units 00:49 Sodium 140 (136-145) mEq/L Potassium 4.1 (3.5-5.1) mEq/L Chloride 113 H (98-107) mEq/L Carbon Dioxide 23 (23-29) mEq/L BUN 52 H (8-23) mg/dL Creatinine 1.35 H (0.70-1.30) mg/dL Glucose 117 H (70-105) mg/dL Calcium 8.0 L (8.6-10.3) mg/dL Adrenal panel 06/05/18 Range/Units 00:49 Sodium 140 (136-145) mEq/L Potassium 4.1 (3.5-5.1) mEq/L Chloride 113 H (98-107) mEq/L Carbon Dioxide 23 (23-29) mEq/L BUN 52 H (8-23) mg/dL Creatinine 1.35 H (0.70-1.30) mg/dL Glucose 117 H (70-105) mg/dL Calcium 8.0 L (8.6-10.3) mg/dL All other labs normal. - Imaging CT scan - abdomen: report reviewed, image reviewed CT scan - pelvis: report reviewed, image reviewed Consult Discharge Plan - Plan Referrals: Derick Marcelino MD [Primary Care Provider] - <Jacinto Blevins - Last Filed: 06/05/18 18:53> Date of Encounter: 06/05/18 - Assessment and Plan (1) Bladder calculus Current Visit: Yes Status: Acute Assessment and plan: Patient seen in conjunction with physician pathologist assistant. Patient does not wish to have catheter removed at this time. Maintain catheter through hospital stay and at discharge. Follow up with Dr. Leal as an outpatient. Patient is still undecided whether he wishes to pursue any more aggressive therapy Exam Initial Vital Signs Temp Pulse Resp BP Pulse Ox 99.5 F 154 18 143/90 96 06/04/18 13:20 06/04/18 13:20 06/04/18 13:20 06/04/18 13:20 06/04/18 13:20 Urology Results - Labs 06/05/18 00:49 06/05/18 00:49 Abnormal lab results RBC 3.87 M/mcL (4.19-5.50) L 06/05/18 00:49 Hgb 12.8 g/dL (12.9-16.9) L 06/05/18 00:49 Lymphocytes # 0.5 K/mcL (0.6-4.6) L 06/05/18 00:49 Chloride 113 mEq/L (98-107) H 06/05/18 00:49 BUN 52 mg/dL (8-23) H 06/05/18 00:49 Creatinine 1.35 mg/dL (0.70-1.30) H 06/05/18 00:49 Est GFR (Non-Af Amer) 51 (> 60) L 06/05/18 00:49 BUN/Creatinine Ratio 39 (6-26) H 06/05/18 00:49 Glucose 117 mg/dL (70-105) H 06/05/18 00:49 Calculated Osmolality 305 (280-300) H 06/05/18 00:49 Calcium 8.0 mg/dL (8.6-10.3) L 06/05/18 00:49 Direct Bilirubin 0.3 mg/dL (0.0-0.2) H 06/04/18 13:16 Troponin I 0.04 ng/mL (< 0.04) H* 06/05/18 00:49 Serum Total Protein 5.3 g/dL (6.4-8.9) L 06/04/18 13:16 Albumin 2.9 g/dL (3.5-5.7) L 06/04/18 13:16 Urine Clarity Turbid (Clear) A 06/04/18 14:16 Urine Protein 30 mg/dL (Neg-Trace) H 06/04/18 14:16 Urine Blood Moderate (Negative) H 06/04/18 14:16 Ur Leukocyte Esterase Large (Negative) H 06/04/18 14:16 Urine Microscopic RBC 5-15 per hpf (0-3) H 06/04/18 14:16 Urine Microscopic WBC TNTC per hpf (0-3) H 06/04/18 14:16 Ur Squamous Epith Cells Many per lpf (None-Few) H 06/04/18 14:16 Urine Bacteria Many per hpf (None-Few) H 06/04/18 14:16 Ur Culture Indicated? NO. (NO) A 06/04/18 14:16 Diabetes panel 06/05/18 Range/Units 00:49 Sodium 140 (136-145) mEq/L Potassium 4.1 (3.5-5.1) mEq/L Chloride 113 H (98-107) mEq/L Carbon Dioxide 23 (23-29) mEq/L BUN 52 H (8-23) mg/dL Creatinine 1.35 H (0.70-1.30) mg/dL Glucose 117 H (70-105) mg/dL Calcium 8.0 L (8.6-10.3) mg/dL Calcium panel 06/05/18 Range/Units 00:49 Calcium 8.0 L (8.6-10.3) mg/dL Pituitary panel 06/05/18 Range/Units 00:49 Sodium 140 (136-145) mEq/L Potassium 4.1 (3.5-5.1) mEq/L Chloride 113 H (98-107) mEq/L Carbon Dioxide 23 (23-29) mEq/L BUN 52 H (8-23) mg/dL Creatinine 1.35 H (0.70-1.30) mg/dL Glucose 117 H (70-105) mg/dL Calcium 8.0 L (8.6-10.3) mg/dL Adrenal panel 06/05/18 Range/Units 00:49 Sodium 140 (136-145) mEq/L Potassium 4.1 (3.5-5.1) mEq/L Chloride 113 H (98-107) mEq/L Carbon Dioxide 23 (23-29) mEq/L BUN 52 H (8-23) mg/dL Creatinine 1.35 H (0.70-1.30) mg/dL Glucose 117 H (70-105) mg/dL Calcium 8.0 L (8.6-10.3) mg/dL All other labs normal.
[2018-06-05] MEDS: Cholecalciferol (D-3) 1,000 UNIT TABLET PO SCH (09:55)
[2018-06-05] MEDS: Metoprolol XL (24 HR) Succ 25 MG TAB.ER.24H PO SCH ×2 (09:55→21:11)
[2018-06-05] MEDS: Ascorbic Acid 500 MG TABLET PO SCH (09:55)
[2018-06-05] MEDS: Multivit/Ca/Min/Fe/FA 1 TAB TABLET PO SCH (09:55)
[2018-06-05] MEDS: Aspirin 81 MG TAB.CHEW PO SCH (09:55)
[2018-06-05] MEDS: Lactobacillus 1 EACH CAP.SPRINK PO SCH (09:55)
[2018-06-05] MEDS: *HR* Digoxin 0.125 MG TABLET PO SCH (13:19)
--- NOTE | 2018-06-05 14:55 | Internal Med Progress Note ---
Hospitalist Progress Note - Encounter Date of Encounter: 06/05/18 Time of Encounter: 14:51 - Subjective Interval History: patient was seen and examined at bedside, and sister are at bedside. we discussed the plan of care we discussed goals of care and code status- as per sister he used to DNR CCA but patient wishes to remain full code understanding that he has heart diseases and has refused CABG and is at High risk fro arrhythmias and sudden cardiac . currently he denies N/v/D. does have a hernia and has had procedure done x 3 in the past but again has recurrent hernia and would not like any more operations. denies chest pain, palpitations, lef swelling, abdominal pain. - Exam Vitals: Temp Pulse Resp BP Pulse Ox 98.3 F 88 16 154/92 94 06/05/18 12:00 06/05/18 12:00 06/05/18 12:00 06/05/18 12:00 06/05/18 12:00 Exam: General: Patient is alert, oriented, no acute distress, Head: atraumatic, normocephalic, Eye: normal appearance, PERRL, no scleral icterus, no conjunctival injection ENT: mucous membranes moist, normal external ear exam Neck: normal inspection, trachea midline, full ROM, no carotid bruits Chest: normal inspection, symmetric chest rise Respiratory: Good respiratory effort. Bilateral breath sounds are clear without wheezing, crackles, or rhonchi. Cardiovascular: irregularly irregular . s1 and s2 No clicks, rubs, gallops, or murmors. Abdomen: Bowel sounds present normoactive x-4 quadrants. Abdomen is soft, nondistended. no Epigastric tenderness. No guarding or rebound. No organomegaly noted musculoskeletal: Spontaneously moving all extremities. no edema, no calf tenderness Skin: warm, dry, intact. Neuro: Alert and oriented x4. Sensation light touch intact. Cranial nerves 2- 12 is intact. no focal deficits Psych: Patient's affect is normal kumar drainig yellow urine - Assessment and Plan (1) Acute renal failure (ARF) Current Visit: Yes Status: Acute Assessment and Plan: most likely secondary to obstruction S/P kumar placement with urine out put creatinine is was 0.92 on 05/14 was 1.53 on admisson now 1.35 continue flomax urology consulted and recommendations appreciated (2) Complicated UTI (urinary tract infection) Current Visit: Yes Status: Acute Assessment and Plan: Ct A/P Right-sided hydronephrosis and hydroureter, likely related to the distended bladder. No obstructive uropathy apparent. Stable moderate prostatomegaly started on ceftriaxone in the ED Bcx sent 06/04 Ucx pending- nursing aware was started ceftriaxone - will change to unasyn as Ucx are pending patient does have history of VRE and Ecoli uti in the past as per urology recs - " Patient likely has colonization secondary to indwelling Kumar catheter." (3) Elevated troponin Current Visit: No Status: Acute Assessment and Plan: most likely secondary to Afib with RVR and supply vs demand mismatch in known CAD troponin trended flat, no active chest pain Known severe three vessel CAD. Patient declined CABG. on 10/22/17 and currently does not wish to have CABG continue metoprolol, ASA, lipitor EKG 06/04-Atrial fibrillation with rapid V-rate Possible sseptal infarct, age undetermined Lateral ST-T changes due to rate and/or ischemia (4) Atrial fibrillation Current Visit: Yes Status: Acute Assessment and Plan: patient with Afib with RVR not on AC secondary to GI bleed rate controlled with digoxin and metoprolol continue ASA (5) HFrEF (heart failure with reduced ejection fraction) Current Visit: Yes Status: Acute Assessment and Plan: HFREF EF has improved from 25-30% to 35-40% on 06/05/18 continue metoprolol, lipitor, digoxin and ASA currently not in volume overload continue tele monitoring 10/22/17 Echocardiogram showed LVEF 25-30%, mildly dilated left ventricle, severe global left ventricular systolic dysfunction, atypical septal wall motion consistent with bundle branch block, indeterminate diastolic function, mildly dilated right ventricle with normal function, severely dilated left atrium, severely dilated right atrium, mild-moderate pulmonary hypertension. 06/05/18- Impressions: Technically sub-optimal due to clinical status, tachycardia. LVEF 35-40%. Mildly dilated left ventricle. Global left ventricular systolic dysfunction with regional variations. Atypical septal motion consistent with bundle branch block. Indeterminate diastolic function. Mildly dilated right ventricle with normal function. Severely dilated left atrium. Mild mitral regurgitation. Mild tricuspid regurgitation (6) Inguinal hernia Current Visit: Yes Status: Acute Assessment and Plan: Ct A/P Large right inguinal hernia containing portions of the cecum and small bowel loops without obstruction or significant inflammation. Free fluid in the dependent portion of the hernia. morena reports he has had 3 x hernia surgery in the past and would not like to have any more surgical interventions (7) Bladder calculus Current Visit: Yes Status: Acute Assessment and Plan: Ct A/P with large bladder calculus noted dependently, similar to the previous study. The calculus measures approximately 10 x 20 mm in size. urology recs appreciated (8) DVT prophylaxis Current Visit: No Status: Acute Assessment and Plan: heparin SC (9) Counseling regarding goals of care Current Visit: Yes Status: Acute Assessment and Plan: i discussed the patient's plan of care he has known CAD and has declined CABG on admission in 09/2017 and continues to decline he understands that he is at risk for life threatening arrhythmias he wishes to be full code for now but will think about code status emotional support provided - Time Spent with Patient Total time spent is greater than 50% in coordination of care (as documented) at patient's floor/unit and/or counseling patient: Internal Medicine: Result - Labs CBC & Chem 7: 06/05/18 00:49 06/05/18 00:49 Labs: Short CBC 06/05/18 Range/Units 00:49 WBC 7.9 (4.3-11.1) K/mcL Hgb 12.8 L (12.9-16.9) g/dL Hct 38.1 (37.5-50.1) % Plt Count 153 (140-400) K/mcL Neutrophils # 6.6 (1.6-8.9) K/mcL BMP 06/05/18 00:49 Sodium 140 Potassium 4.1 Chloride 113 H Carbon Dioxide 23 BUN 52 H Creatinine 1.35 H Glucose 117 H Calcium 8.0 L Cardiac Enzymes 06/04/18 06/05/18 Range/Units 18:55 00:49 Troponin I 0.04 H* 0.04 H* (< 0.04) ng/mL - Impressions Impressions Echocardiogram 06/05/18 08:00 Impressions: Technically sub-optimal due to clinical status, tachycardia. LVEF 35-40%. Mildly dilated left ventricle. Global left ventricular systolic dysfunction with regional variations. Atypical septal motion consistent with bundle branch block. Indeterminate diastolic function. Mildly dilated right ventricle with normal function. Severely dilated left atrium. Mild mitral regurgitation. Mild tricuspid regurgitation. Consult Discharge Plan - Plan Referrals: Derick Marcelino MD [Primary Care Provider] - (1) Acute renal failure (ARF) Qualifiers: Acute renal failure type: unspecified Qualified Code(s): N17.9 - Acute kidney failure, unspecified (4) Atrial fibrillation Qualifiers: Atrial fibrillation type: chronic Qualified Code(s): I48.2 - Chronic atrial fibrillation (5) HFrEF (heart failure with reduced ejection fraction) Qualifiers: Heart failure chronicity: chronic Qualified Code(s): I50.22 - Chronic systolic (congestive) heart failure (6) Inguinal hernia Qualifiers: Obstruction and gangrene presence: without obstruction or gangrene Laterality : unilateral Recurrence: recurrent Qualified Code(s): K40.91 - Unilateral inguinal hernia, without obstruction or gangrene, recurrent
[2018-06-05] MEDS ORDERED: cefTRIAXone 2,000 MG in Water for inj. (sterile) 20 ML 20 ML IVPB SCH (18:00)
[2018-06-05] MEDS ORDERED: Ampicillin/Sulbactam 3,000 MG in 0.9 % Sodium Chloride Mini Bag 100 ML IVPB SCH (18:00)
[2018-06-05] MEDS ORDERED: Chloraseptic Spray 177 ML BOTTLE MM PRN (21:09)
[2018-06-06 04:50] LABS: BUN/Creatinine Ratio 34 (6-26); Blood Urea Nitrogen 40 mg/dL (8-23); Calcium 7.9 mg/dL (8.6-10.3); Carbon Dioxide 23 mEq/L (23-29); Chloride 112 mEq/L (98-107); Glucose 108 mg/dL (70-105); Osmolality,Calculated 302 (280-300); Potassium 3.9 mEq/L (3.5-5.1); Sodium 141 mEq/L (136-145); eGFR For Non-African Americans > 60 (> 60)
[2018-06-06] MEDS: *HR* Heparin 5,000 UNIT/ML VIAL SQ SCH (06:12)
[2018-06-06 07:36] VITALS: BP 145/97
[2018-06-06] MEDS: Metoprolol XL (24 HR) Succ 25 MG TAB.ER.24H PO SCH (07:58)
[2018-06-06] MEDS: *HR* Digoxin 0.125 MG TABLET PO SCH (07:58)
[2018-06-06] MEDS: Lactobacillus 1 EACH CAP.SPRINK PO SCH (08:27)
[2018-06-06] MEDS: Ascorbic Acid 500 MG TABLET PO SCH (08:27)
[2018-06-06] MEDS: Aspirin 81 MG TAB.CHEW PO SCH (08:27)
[2018-06-06] MEDS: Multivit/Ca/Min/Fe/FA 1 TAB TABLET PO SCH (08:27)
[2018-06-06] MEDS: Cholecalciferol (D-3) 1,000 UNIT TABLET PO SCH (08:27)
[2018-06-06] MEDS ORDERED: Bisacodyl 10 MG RECTAL SUPPOSITORY RC PRN (08:36)
--- NOTE | 2018-06-06 09:51 | Discharge Summary ---
- NOTES TO OUTPATIENT PROVIDER Notes to Outpatient Provider: follow up with BMP and renal function - creatinine returned to WNL- lasix restarted potassium suplemets held secondary to recent ARF. continue as per BMP and PCP discretion. follow up with cardiology as OP. follow up calcium adn vitamin D Orders not resulted at time of discharge: Pending orders 06/04/18 20:33 Culture,Blood [BC] Stat 06/05/18 09:57 EKG [ECG 12 lead ECG] [ECG] Stat Date of Encounter: 06/06/18 Time of Encounter: 09:45 - Discharge Diagnosis (1) Acute renal failure (ARF) Priority: Primary Status: Acute Qualifiers: Acute renal failure type: unspecified Qualified Code(s): N17.9 - Acute kidney failure, unspecified (2) Complicated UTI (urinary tract infection) Priority: Secondary Status: Acute (3) Elevated troponin Priority: Secondary Status: Acute (4) Atrial fibrillation Priority: Secondary Status: Acute Qualifiers: Atrial fibrillation type: chronic Qualified Code(s): I48.2 - Chronic atrial fibrillation (5) HFrEF (heart failure with reduced ejection fraction) Priority: Secondary Status: Acute Qualifiers: Heart failure chronicity: chronic Qualified Code(s): I50.22 - Chronic systolic (congestive) heart failure (6) Inguinal hernia Priority: Secondary Status: Acute Qualifiers: Obstruction and gangrene presence: without obstruction or gangrene Laterality: unilateral Recurrence: recurrent Qualified Code(s): K40.91 - Unilateral inguinal hernia, without obstruction or gangrene, recurrent (7) Bladder calculus Priority: Secondary Status: Acute (8) DVT prophylaxis Priority: Secondary Status: Acute (9) Counseling regarding goals of care Priority: Secondary Status: Acute Hospital course: Mr. Roman is a 82 year old male ith history of Afib not on AC ( GIB), Pe, HFrEF , HTN presented to the ED with lower abdominal pain. as per patient his abdominal pain started 1 week ago and is progressively worsening. his pain is located in the suprapubic area and radiates to the Right lower quadrant, dysuria and decreased urine out put. On examination, it was found that the Kumar catheter was mal positioned in the prostatatic urethra. Kumar was repositioned, and significant urine output was noted. With repositioning of the Kumar all his symptoms resolved. Basic labs on admission showed elevated BUN/creatinine in addition to mildly elevated troponin at 0.04. BUN and creatinine where followed and trended down, GFR also increased. Troponin was trended and a trended flat at 0.04. CT abdomen and pelvis showed right-sided hydronephrosis which was secondary to the distended bladder. Full report below. He was also found to be in atrial fibrillation with RVR and admission which resolved once the bladder obstruction was relieved by repositioning the Kumar. Elevated troponin is most likely secondary to A. fib with RVR in a patient with known CAD. As per chart review and as per patient he was offered CABG in September 2017 however he declined and he continues to decline. He does not want any invasive procedures. I also discussed with him about the right sided hernia and he reports that he has had 3 operations in the past but continues to suffer from the hernia and would not like any further procedures. Echocardiogram was done results below. He would like to follow-up with Dr. Flores as outpatient in regards to his heart disease and atrial fibrillation. Urology was consulted due to the bladder calculus in the prostatomegaly in addition to hydronephrosis and urinalysis that was obtained on admission. I discussed urinalysis with the urology team UA was positive for leukocyte esterase and WBCs along with many squamous epithelial cells which was most likely a contaminated sample, urine cultures obtained on admission were also suggestive of a contaminated sample. Patient was started on IV antibiotics on admission however since all his symptoms resolved with repositioning of the catheter along with him remaining afebrile throughout admission, without any leukocytosis antibiotics were stopped. I discussed this with the urology team who also agree. He is to follow-up at the urology clinic for the bladder calculus and prostatomegaly. I had a long discussion with patient and family at bedside about CODE STATUS and him declining CABG and other operations for his heart, hernia. I spoke to him about risks of sudden cardiac . We discussed CPR, mechanical ventilation and he decided to change his CODE STATUS to DNR CCA DNI. nurse at bedside who witnessed this conversation with patient. Emotional support was provided family at bedside are in agreement. he woul dlike to follow up with his primary care inregards to Persistent area of ground-glass nodule in attenuation in the right lower lung, for which CT correlation may be considered llasix was resumed as renal functions improved. potassium supplements were held secondaryt o recent ARF. for PCP to follow potassium and renal functions and adjust medications accordingly. CT a/pIMPRESSION: 1. A Kumar catheter balloon is inflated within the prostatic portion of the urethra. Moderate distention of the urinary bladder with small quantity of gas. Stable bladder calculus. Right-sided hydronephrosis and hydroureter, likely related to the distended bladder. No obstructive uropathy apparent. Stable moderate prostatomegaly. 2. Large right inguinal hernia containing portions of the cecum and small bowel loops without obstruction or significant inflammation. Free fluid in the dependent portion of the hernia. 3. Stable complex left adrenal lesion. A malignancy is not excluded, and consider follow-up CT or MRI as recommended previously. 4. Trace right pleural effusion with mild dependent atelectasis. Small quantity of intra-abdominal ascites. Increased perinephric inflammatory changes, likely related to the bladder outlet obstruction. Impressions: Technically sub-optimal due to clinical status, tachycardia. LVEF 35-40%. Mildly dilated left ventricle. Global left ventricular systolic dysfunction with regional variations. Atypical septal motion consistent with bundle branch block. Indeterminate diastolic function. Mildly dilated right ventricle with normal function. Severely dilated left atrium. Mild mitral regurgitation. Mild tricuspid regurgitation. CXR: Chronic appearing changes throughout the lung parenchyma are identified. Consolidation in the right base with right pleural effusion from 10/22/2017 has notably improved. Persistent area of ground-glass nodule in attenuation in the right lower lung, for which CT correlation may be considered. Discharge discussed with: patient, family, nurse - Time Spent with Patient Total time spent providing and/or coordinating discharge services: Greater than 30 minutes (40) - Discharge Medications Home Medications: Cholecalciferol (D-3) [Vitamin D] 2,000 unit PO DAILY 04/22/17 [History] Lactobacillus Combination No.8 [Adult Probiotic] 1 cap PO DAILY 04/22/17 [ History] Multivitamin [Multi-Day Vitamins] 1 tab PO DAILY 04/22/17 [History] [place]-3/Dha/Epa/Fish Oil [Fish Oil 1,000 mg Softgel] 1,000 mg PO DAILY 04/22/17 [History] Aspirin 81 mg PO DAILY #0 04/30/17 [Rx] Furosemide [Lasix] 40 mg PO DAILY #0 tab 04/30/17 [Rx] Ferrous Sulfate 325 mg PO BIDWM tablet 10/11/17 [Rx] Melatonin 3 mg PO HS PRN tablet 10/11/17 [Rx] Omeprazole [PriLOSEC] 20 mg PO BIDAC capsule. 10/11/17 [Rx] Tamsulosin [Flomax] 0.4 mg PO HS capsule 10/11/17 [Rx] Ascorbate Calcium/Bioflavonoid [Edith-C 500 mg Tablet] 1 tab PO DAILY 10/22/17 [ History] Atorvastatin Calcium [Lipitor] 20 mg PO DAILY 10/22/17 [History] Acetaminophen [Tylenol] 650 mg PO Q6HR PRN tablet 10/31/17 [Rx] Digoxin [Lanoxin] 0.125 mg PO DAILY tablet 10/31/17 [Rx] Lutein 40 mg PO DAILY 06/04/18 [History] Metoprolol XL (24 HR) Succ [Toprol Xl] 25 mg PO BID 06/04/18 [History] Ubidecarenone [Coq10] 200 mg PO DAILY 06/04/18 [History] Allergies/Adverse Reactions: 3 Allergy/AdvReac Type Severity Reaction Status Date / Time Sulfa (Sulfonamide Allergy Rash Verified 10/05/17 13:28 Antibiotics) Date of admission: 06/04/18 17:44 Primary care physician: Derick Marcelino MD Consults: 06/04/18 18:49 Consult to Nutrition [CONS] Routine Comment: Consulting Provider: NUTRITION Reason for Dietary Consult: MST Score 06/04/18 19:43 Consult to Urology [CONS] Routine Consulting Provider: [facility] [place] Reason for Consult: enlarged prostate, obstruction s/p kumar placement, has hydronephrosis Call Completed: No - Constitutional Vitals: Temp Pulse Resp BP Pulse Ox 98.6 F 90 18 145/97 96 06/06/18 07:35 06/06/18 07:35 06/06/18 07:35 06/06/18 07:35 06/06/18 07:35 Exam: General: Patient is alert, oriented, no acute distress, Head: atraumatic, normocephalic, Eye: normal appearance, PERRL, no scleral icterus, no conjunctival injection ENT: mucous membranes moist, normal external ear exam Neck: normal inspection, trachea midline, full ROM, no carotid bruits Chest: normal inspection, symmetric chest rise Respiratory: Good respiratory effort. Bilateral breath sounds are clear without wheezing, crackles, or rhonchi. Cardiovascular: irregular . s1 and s2 No clicks, rubs, gallops, or murmors. Abdomen: Bowel sounds present normoactive x-4 quadrants. Abdomen is soft, nondistended. no Epigastric tenderness. No guarding or rebound. No organomegaly noted musculoskeletal: Spontaneously moving all extremities. no edema, no calf tenderness Skin: warm, dry, intact. Neuro: Alert and oriented x4. Sensation light touch intact. Cranial nerves 2- 12 is intact. no focal deficits Psych: Patient's affect is normal kumar drainig yellow urine - Patient Status Disposition: Home, Self-Care Condition: Good Functional capacity at discharge: independent ambulation Overall status at discharge: patient is progressing back to baseline - Discharge Instructions Follow Up With: Filippo Leal MD [Partnered Physician] - 06/25/18 8:45 am (Please follow up as schedule....) Derick Marcelino MD [Primary Care Provider] - 06/13/18 1:30 pm (Please follow up as schedule....) Samir Flores DO [Partnered Physician] - (defect repairer glassware will call patient for an appt. to get an early Appt.) Forms: ED Satisfaction Letter, Work/School Release - Diet and Activity Activity: increase activity as tolerated Diet: advance to your usual diet, low salt diet
--- NOTE | 2018-06-06 10:38 | Physician Discharge Referral ---
Home Health/Hosp Referral Info Transfer to: Home Health Provider in Charge Post Discharge: PCP - Diagnosis (1) Acute renal failure (ARF) Priority: Primary Status: Acute (2) Elevated troponin Priority: Secondary Status: Acute (3) Atrial fibrillation Priority: Secondary Status: Acute (4) HFrEF (heart failure with reduced ejection fraction) Priority: Secondary Status: Acute (5) Inguinal hernia Priority: Secondary Status: Acute (6) Bladder calculus Priority: Secondary Status: Acute (7) DVT prophylaxis Priority: Secondary Status: Acute (8) Counseling regarding goals of care Priority: Secondary Status: Acute - Respiratory Orders Smoking Cessation: Smoking cessation has been advised. For more information, call the [place] Tobacco Quit Line at 1-905-TEMQ-NOW. - Diet/Nutrition Diet/Nutrition Orders: Cardiac - Activity Activity Orders: Ambulate - Services Needed Following services are medically necessary services: Home Health Aide - Transfer Medications Home Medications: Cholecalciferol (D-3) [Vitamin D] 2,000 unit PO DAILY 04/22/17 [History] Lactobacillus Combination No.8 [Adult Probiotic] 1 cap PO DAILY 04/22/17 [ History] Multivitamin [Multi-Day Vitamins] 1 tab PO DAILY 04/22/17 [History] [place]-3/Dha/Epa/Fish Oil [Fish Oil 1,000 mg Softgel] 1,000 mg PO DAILY 04/22/17 [History] Aspirin 81 mg PO DAILY #0 04/30/17 [Rx] Furosemide [Lasix] 40 mg PO DAILY #0 tab 04/30/17 [Rx] Ferrous Sulfate 325 mg PO BIDWM tablet 10/11/17 [Rx] Melatonin 3 mg PO HS PRN tablet 10/11/17 [Rx] Omeprazole [PriLOSEC] 20 mg PO BIDAC capsule. 10/11/17 [Rx] Tamsulosin [Flomax] 0.4 mg PO HS capsule 10/11/17 [Rx] Ascorbate Calcium/Bioflavonoid [Edith-C 500 mg Tablet] 1 tab PO DAILY 10/22/17 [ History] Atorvastatin Calcium [Lipitor] 20 mg PO DAILY 10/22/17 [History] Acetaminophen [Tylenol] 650 mg PO Q6HR PRN tablet 10/31/17 [Rx] Digoxin [Lanoxin] 0.125 mg PO DAILY tablet 10/31/17 [Rx] Lutein 40 mg PO DAILY 06/04/18 [History] Metoprolol XL (24 HR) Succ [Toprol Xl] 25 mg PO BID 06/04/18 [History] Ubidecarenone [Coq10] 200 mg PO DAILY 06/04/18 [History] Allergies/Adverse Reactions: 3 Allergy/AdvReac Type Severity Reaction Status Date / Time Sulfa (Sulfonamide Allergy Rash Verified 10/05/17 13:28 Antibiotics) Certification: Further, I certify that my clinical findings support that this patient is homebound (i.e. absences from home require considerable and taxing effort and are for medical reasons or christianity services or infrequently or short duration when for other reasons) because: Homebound Reason: Patient requires assistance of a person or device to safely leave home Attestation: My signature below is to certify that this patient is under my care and that I, or nurse practitioner, or a physician's physicians assistant working with me, has a face-to -face encounter with this patient.
--- NOTE | 2018-06-08 10:50 | Electrocardiograph Report ---
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
--- NOTE | 2018-06-08 11:34 | Electrocardiograph Report ---
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
== END 2018-06-06 14:30 | disposition home or self-care (01) ==
LOC: EMEROOARM 12:38 → 2ANU 12:38
PROVIDERS: ADMIT Internal Medicine; ATTEND Internal Medicine

== ENCOUNTER 2019-06-10 13:42 | Inpatient (IN) ==
[2019-06-10] MEDS ORDERED: 0.9 % Sodium Chloride 1,000 ML IVC ONE ×2 (14:04→15:30)
[2019-06-10] MEDS ORDERED: Piperacillin/Tazobactam 3.375 GM in Water for inj. (sterile) 20 ML IVP ONE (14:04)
[2019-06-10 14:40] LABS: Basophils # 0.1 K/mcL (0.0-0.2); Basophils % 0.9 %; Eosinophils # 0.1 K/mcL (0.0-0.6); Eosinophils % 0.9 %; Hematocrit 47.5 % (37.5-50.1); Hemoglobin 15.6 g/dL (12.9-16.9); Immature Granulocytes % 0.7 % (0-4); Lymphocytes # 1.2 K/mcL (0.6-4.6); Lymphocytes % 21.4 %; Mean Corpuscular HGB Conc 32.8 g/dL (31.6-35.5); Mean Corpuscular Hemoglobin 35.3 pg (28.0-33.3); Mean Corpuscular Volume 107.5 fL (83.0-100.0); Mean Platelet Volume 10.2 fL (9.4-12.4); Monocytes # 0.6 K/mcL (0.0-1.3); Monocytes % 10.8 %; Neutrophils # 3.8 K/mcL (1.6-8.9); Platelet Count 138 K/mcL (140-400); Red Blood Count 4.42 M/mcL (4.19-5.50); Red Cell Distribution Width 15.9 % (11.5-14.5); Segmented Neutrophils % 65.3 %; White Blood Count 5.7 K/mcL (4.3-11.1)
[2019-06-10 14:44] LABS: INR 1.1; Prothrombin Time 12.8 Seconds (9.4-12.1)
[2019-06-10 14:46] LABS: Activated Partial Thrombo Time 36.7 Seconds (26.0-36.0)
[2019-06-10 15:00] LABS: Alanine Aminotransferase 21 Units/L (7-52); Albumin/Globulin Ratio 1.6 (1.1-2.2); Alkaline Phosphatase 105 Units/L (34-104); Aspartate Amino Transferase 28 Units/L (13-39); BUN/Creatinine Ratio 24 (6-26); Bilirubin,Direct 1.1 mg/dL (0.0-0.2); Bilirubin,Indirect 1.1 mg/dL (0.0-1.2); Bilirubin,Total 2.2 mg/dL (0.3-1.0); Blood Urea Nitrogen 24 mg/dL (8-23); Calcium 9.3 mg/dL (8.6-10.3); Carbon Dioxide 27 mEq/L (23-29); Chloride 110 mEq/L (98-107); Globulin 2.5 g/dL (2.4-3.5); Glucose 95 mg/dL (70-105); Magnesium 2.2 mg/dL (1.6-2.6); Osmolality,Calculated 302 (280-300); Phosphorous 2.9 mg/dL (2.7-4.5); Potassium 3.9 mEq/L (3.5-5.1); Sodium 144 mEq/L (136-145); Total Protein 6.5 g/dL (6.4-8.9); Troponin I 0.07 ng/mL (< 0.04); eGFR For African Americans > 60 (> 60); eGFR For Non-African Americans > 60 (> 60)
[2019-06-10 15:07] LABS: Bilirubin,Urine Negative (Negative); Blood,Urine Moderate (Negative); Clarity,Urine Cloudy (Clear); Color,Urine Yellow (Yellow); Ketones,Urine Negative (Negative); Leukocyte Esterase,Urine Large (Negative); Nitrite,Urine Positive (Negative); Protein,Urine 30 mg/dL (Neg-Trace); Specific Gravity,Urine 1.016 (1.010-1.025); Urobilinogen,Urine Normal (Normal)
[2019-06-10 15:09] LABS: Bacteria,Urine Many per hpf (None-Few); Hyaline Casts,Urine None Seen per lpf (None-Few); Squamous Epithelial Cell,Urine Few per lpf (None-Few); WBC,Urine TNTC per hpf (0-3)
[2019-06-10 15:11] LABS: Glucose,Urine (UA) Normal (Normal)
[2019-06-10 15:21] LABS: Calcium Oxalate Crystals,Urine Present
[2019-06-10 15:22] LABS: Transitional Epi Cells,Urine Few per hpf (None-Few)
[2019-06-10] MEDS ORDERED: Aspirin 81 MG TAB.CHEW PO ONE (15:57)
[2019-06-10] MEDS ORDERED: Ondansetron 4 MG/2 ML VIAL IVP PRN (16:44)
[2019-06-10] MEDS ORDERED: Naloxone 0.4 MG/ML INJ IVP PRN (16:44)
[2019-06-10] MEDS: *HR* Metoprolol 5 MG/5 ML VIAL IVP PRN (18:21)
[2019-06-10] MEDS: Furosemide 40 MG/4 ML VIAL IVP SCH (18:21)
[2019-06-10] MEDS ORDERED: Perflutren Lipid Microsphere 1.3 ML in 0.9 % Sodium Chloride 8.7 ML IVP ONE (19:38)
[2019-06-11] MEDS: Piperacillin/Tazobactam 3.375 GM in 0.9 % Sodium Chloride Mini Bag 100 ML IVPB SCH ×4 (00:09→23:17)
[2019-06-11] MEDS: *HR* Metoprolol 5 MG/5 ML VIAL IVP PRN ×2 (01:45→08:29)
[2019-06-11 03:42] LABS: Basophils % 0.8 %; Eosinophils # 0.1 K/mcL (0.0-0.6); Eosinophils % 1.3 %; Hematocrit 40.8 % (37.5-50.1); Hemoglobin 13.2 g/dL (12.9-16.9); Immature Granulocytes % 0.4 % (0-4); Lymphocytes # 0.8 K/mcL (0.6-4.6); Lymphocytes % 15.8 %; Mean Corpuscular HGB Conc 32.4 g/dL (31.6-35.5); Mean Corpuscular Hemoglobin 34.6 pg (28.0-33.3); Mean Corpuscular Volume 106.8 fL (83.0-100.0); Mean Platelet Volume 10.1 fL (9.4-12.4); Monocytes # 0.7 K/mcL (0.0-1.3); Monocytes % 12.9 %; Neutrophils # 3.6 K/mcL (1.6-8.9); Platelet Count 102 K/mcL (140-400); Red Blood Count 3.82 M/mcL (4.19-5.50); Red Cell Distribution Width 15.8 % (11.5-14.5); Segmented Neutrophils % 68.8 %; White Blood Count 5.2 K/mcL (4.3-11.1)
[2019-06-11 03:49] LABS: INR 1.3; Prothrombin Time 14.5 Seconds (9.4-12.1)
[2019-06-11 04:00] LABS: BUN/Creatinine Ratio 21 (6-26); Blood Urea Nitrogen 26 mg/dL (8-23); Calcium 8.3 mg/dL (8.6-10.3); Carbon Dioxide 24 mEq/L (23-29); Chloride 115 mEq/L (98-107); Glucose 108 mg/dL (70-105); Osmolality,Calculated 301 (280-300); Potassium 3.4 mEq/L (3.5-5.1); Sodium 143 mEq/L (136-145); eGFR For African Americans > 60 (> 60); eGFR For Non-African Americans 57 (> 60)
[2019-06-11] MEDS: Furosemide 40 MG/4 ML VIAL IVP SCH (08:19)
[2019-06-11] MEDS: *HR* Digoxin 0.125 MG TABLET PO SCH (10:39)
[2019-06-11] MEDS ORDERED: Melatonin 3 MG TABLET PO PRN (10:51)
[2019-06-11] MEDS: *HR* Heparin 5,000 UNIT/ML VIAL SQ SCH (16:45)
[2019-06-11] MEDS: Acetaminophen 325 MG TABLET PO PRN ×2 (17:54→23:17)
[2019-06-11] MEDS: Silvasorb 44.4 ML TUBE TP SCH (17:55)
[2019-06-12] MEDS: *HR* Heparin 5,000 UNIT/ML VIAL SQ SCH ×2 (04:27→16:31)
[2019-06-12] MEDS: *HR* Metoprolol 5 MG/5 ML VIAL IVP PRN ×2 (04:27→10:24)
[2019-06-12 05:08] LABS: Basophils # 0.1 K/mcL (0.0-0.2); Basophils % 1.7 %; Eosinophils # 0.1 K/mcL (0.0-0.6); Eosinophils % 2.1 %; Hematocrit 43.2 % (37.5-50.1); Immature Granulocytes % 0.7 % (0-4); Lymphocytes # 1.3 K/mcL (0.6-4.6); Lymphocytes % 22.5 %; Mean Corpuscular HGB Conc 32.4 g/dL (31.6-35.5); Mean Corpuscular Hemoglobin 35.4 pg (28.0-33.3); Mean Corpuscular Volume 109.1 fL (83.0-100.0); Mean Platelet Volume 10.5 fL (9.4-12.4); Monocytes # 0.6 K/mcL (0.0-1.3); Monocytes % 10.1 %; Neutrophils # 3.6 K/mcL (1.6-8.9); Platelet Count 107 K/mcL (140-400); Red Blood Count 3.96 M/mcL (4.19-5.50); Red Cell Distribution Width 15.8 % (11.5-14.5); Segmented Neutrophils % 62.9 %; White Blood Count 5.7 K/mcL (4.3-11.1)
[2019-06-12 05:24] LABS: BUN/Creatinine Ratio 25 (6-26); Blood Urea Nitrogen 31 mg/dL (8-23); C-Reactive Protein 27 mg/L (Less than 10); Calcium 8.8 mg/dL (8.6-10.3); Carbon Dioxide 22 mEq/L (23-29); Chloride 119 mEq/L (98-107); Glucose 90 mg/dL (70-105); Magnesium 2.2 mg/dL (1.6-2.6); Osmolality,Calculated 306 (280-300); Phosphorous 3.2 mg/dL (2.7-4.5); Potassium 3.7 mEq/L (3.5-5.1); Sodium 145 mEq/L (136-145); eGFR For African Americans > 60 (> 60); eGFR For Non-African Americans 57 (> 60)
[2019-06-12] MEDS: Piperacillin/Tazobactam 3.375 GM in 0.9 % Sodium Chloride Mini Bag 100 ML IVPB SCH (08:08)
[2019-06-12] MEDS ORDERED: Simethicone 80 MG TAB.CHEW PO PRN (08:08)
[2019-06-12] MEDS: Bumetanide 1 MG/4 ML VIAL IVP SCH (08:09)
[2019-06-12] MEDS: Cholecalciferol (D-3) 1,000 UNIT (25MCG) TABLET PO SCH (08:09)
[2019-06-12] MEDS: Aspirin Enteric Coated 81 MG Tablet PO SCH (08:09)
[2019-06-12] MEDS: *HR* Digoxin 0.125 MG TABLET PO SCH (08:09)
[2019-06-12] MEDS: Silvasorb 44.4 ML TUBE TP SCH (08:10)
[2019-06-12] MEDS ORDERED: Aminoglycoside Consult 1 EACH MC ONE (15:21)
[2019-06-13] MEDS: *HR* Heparin 5,000 UNIT/ML VIAL SQ SCH ×2 (05:05→19:29)
[2019-06-13 06:28] LABS: BUN/Creatinine Ratio 30 (6-26); Blood Urea Nitrogen 40 mg/dL (8-23); Carbon Dioxide 25 mEq/L (23-29); Chloride 111 mEq/L (98-107); Glucose 83 mg/dL (70-105); Magnesium 2.1 mg/dL (1.6-2.6); Osmolality,Calculated 309 (280-300); Phosphorous 3.9 mg/dL (2.7-4.5); Potassium 3.4 mEq/L (3.5-5.1); Sodium 145 mEq/L (136-145); eGFR For African Americans > 60 (> 60); eGFR For Non-African Americans 51 (> 60)
[2019-06-13] MEDS: Bumetanide 1 MG/4 ML VIAL IVP SCH (09:30)
[2019-06-13] MEDS: Aspirin Enteric Coated 81 MG Tablet PO SCH (09:30)
[2019-06-13] MEDS: *HR* Digoxin 0.125 MG TABLET PO SCH (09:30)
[2019-06-13] MEDS: Cholecalciferol (D-3) 1,000 UNIT (25MCG) TABLET PO SCH (09:31)
[2019-06-13] MEDS: Silvasorb 44.4 ML TUBE TP SCH (09:31)
[2019-06-13] MEDS ORDERED: Lidocaine -MPF 2% 2 ML VIAL ONE (14:59)
[2019-06-13] MEDS ORDERED: *HR* FentaNYL (PF) 100 MCG/2 ML VIAL ONE (15:25)
[2019-06-13] MEDS ORDERED: *HR* Etomidate 40 MG/20 ML VIAL IVP ONE (15:25)
[2019-06-13] MEDS ORDERED: *HR* Propofol 200 MG/20 ML VIAL IVP ONE (15:25)
[2019-06-13] MEDS ORDERED: Ondansetron 4 MG/2 ML VIAL ONE (15:28)
[2019-06-13] MEDS ORDERED: *HR* Succinylcholine 200 MG/10 ML VIAL IVP ONE (15:28)
[2019-06-13] MEDS ORDERED: Dexamethasone 4 MG/ML VIAL ONE (15:28)
[2019-06-13] MEDS ORDERED: *HR* Phenylephrine 10 MG/ML VIAL ONE (15:31)
[2019-06-13] MEDS ORDERED: Morphine Sulfate 2 MG/ML SYRINGE IVP PRN (15:41)
[2019-06-13] MEDS ORDERED: Ondansetron 4 MG/2 ML VIAL IVP ONE (15:41)
[2019-06-13] MEDS ORDERED: Acetaminophen IV 1,000 MG/100 ML INFUS..BTL ONE (15:51)
[2019-06-13] MEDS ORDERED: Ondansetron 4 MG/2 ML VIAL IVP PRN (17:10)
[2019-06-13] MEDS ORDERED: Melatonin 3 MG TABLET PO PRN (17:10)
[2019-06-13] MEDS ORDERED: Naloxone 0.4 MG/ML INJ IVP PRN (17:10)
[2019-06-13] MEDS ORDERED: Acetaminophen 325 MG TABLET PO PRN (17:10)
[2019-06-13] MEDS ORDERED: *HR* Metoprolol 5 MG/5 ML VIAL IVP PRN (17:10)
[2019-06-14] MEDS: *HR* Heparin 5,000 UNIT/ML VIAL SQ SCH (06:25)
[2019-06-14 08:17] LABS: BUN/Creatinine Ratio 35 (6-26); Blood Urea Nitrogen 44 mg/dL (8-23); Calcium 8.4 mg/dL (8.6-10.3); Carbon Dioxide 27 mEq/L (23-29); Chloride 112 mEq/L (98-107); Glucose 101 mg/dL (70-105); Osmolality,Calculated 307 (280-300); Potassium 3.9 mEq/L (3.5-5.1); Sodium 143 mEq/L (136-145); eGFR For African Americans > 60 (> 60); eGFR For Non-African Americans 54 (> 60)
[2019-06-14] MEDS: *HR* Digoxin 0.125 MG TABLET PO SCH (08:35)
[2019-06-14] MEDS: Cholecalciferol (D-3) 1,000 UNIT (25MCG) TABLET PO SCH (08:35)
[2019-06-14] MEDS: Aspirin Enteric Coated 81 MG Tablet PO SCH (08:36)
[2019-06-14] MEDS: Bumetanide 1 MG/4 ML VIAL IVP SCH (08:37)
[2019-06-14] MEDS ORDERED: Silvasorb 44.4 ML TUBE TP SCH (09:00)
[2019-06-15 05:56] LABS: Basophils % 0.3 %; Eosinophils # 0.1 K/mcL (0.0-0.6); Eosinophils % 1.8 %; Hematocrit 39.3 % (37.5-50.1); Immature Granulocytes % 0.5 % (0-4); Lymphocytes # 1.1 K/mcL (0.6-4.6); Lymphocytes % 18.2 %; Mean Corpuscular HGB Conc 33.1 g/dL (31.6-35.5); Mean Corpuscular Hemoglobin 35.7 pg (28.0-33.3); Monocytes # 0.7 K/mcL (0.0-1.3); Monocytes % 10.9 %; Neutrophils # 4.1 K/mcL (1.6-8.9); Platelet Count 140 K/mcL (140-400); Red Blood Count 3.64 M/mcL (4.19-5.50); Red Cell Distribution Width 15.7 % (11.5-14.5); Segmented Neutrophils % 68.3 %
[2019-06-15 06:15] LABS: Calcium 8.5 mg/dL (8.6-10.3); Magnesium 2.1 mg/dL (1.6-2.6); Phosphorous 3.1 mg/dL (2.7-4.5); Potassium 3.5 mEq/L (3.5-5.1)
[2019-06-15] MEDS: Aspirin Enteric Coated 81 MG Tablet PO SCH (08:25)
[2019-06-15] MEDS: Cholecalciferol (D-3) 1,000 UNIT (25MCG) TABLET PO SCH (08:25)
[2019-06-15] MEDS: Bumetanide 1 MG/4 ML VIAL IVP SCH (08:25)
[2019-06-15] MEDS: *HR* Digoxin 0.125 MG TABLET PO SCH (08:26)
[2019-06-15 12:19] VITALS: BP 116/71
== END 2019-06-15 15:22 | disposition home health service (06) | DRG 602 ==
LOC: 2ANU 13:42 → EMEROOARM 13:42 → SUATTDRO 16:57 → 2ANU 17:00
PROVIDERS: ADMIT Internal Medicine; ATTEND Internal Medicine

== ENCOUNTER 2020-02-11 12:55 | Inpatient (IN) ==
[2020-02-11] MEDS ORDERED: *HR* Labetalol 20 MG/4 ML SYRINGE IVP PRN (13:08)
[2020-02-11] MEDS ORDERED: DilTIAZem 50 MG in 0.9 % Sodium Chloride 40 ML IVC SCH (13:15)
[2020-02-11 13:43] LABS: Basophils # 0.1 K/mcL (0.0-0.2); Basophils % 1.2 %; Eosinophils # 0.1 K/mcL (0.0-0.6); Eosinophils % 1.4 %; Hematocrit 44.9 % (37.5-50.1); Hemoglobin 14.5 g/dL (12.9-16.9); Immature Granulocytes % 0.4 % (0-4); Lymphocytes # 1.5 K/mcL (0.6-4.6); Lymphocytes % 25.6 %; Mean Corpuscular HGB Conc 32.3 g/dL (31.6-35.5); Mean Corpuscular Volume 105.4 fL (83.0-100.0); Mean Platelet Volume 10.2 fL (9.4-12.4); Monocytes # 0.6 K/mcL (0.0-1.3); Monocytes % 10.5 %; Neutrophils # 3.5 K/mcL (1.6-8.9); Platelet Count 147 K/mcL (140-400); Red Blood Count 4.26 M/mcL (4.19-5.50); Red Cell Distribution Width 16.2 % (11.5-14.5); Segmented Neutrophils % 60.9 %; White Blood Count 5.7 K/mcL (4.3-11.1)
[2020-02-11 13:53] LABS: INR 1.2; Prothrombin Time 13.8 Seconds (9.4-12.1)
[2020-02-11 13:55] LABS: Activated Partial Thrombo Time 34.9 Seconds (26.0-36.0)
[2020-02-11 14:09] LABS: Troponin I 0.19 ng/mL (< 0.04)
[2020-02-11] MEDS ORDERED: 0.9 % Sodium Chloride 250 ML IVC ONE (14:18)
[2020-02-11] MEDS ORDERED: *HR* Digoxin 0.5 MG/2 ML AMPUL IVP ONE (14:22)
[2020-02-11 14:27] LABS: Calcium 9.4 mg/dL (8.6-10.3); Potassium 4.8 mEq/L (3.5-5.1)
[2020-02-11 14:43] LABS: Digoxin 0.8 ng/mL (0.8-2.0)
[2020-02-11] MEDS ORDERED: Ondansetron 4 MG/2 ML VIAL IVP PRN (17:00)
[2020-02-11] MEDS ORDERED: Naloxone 0.4 MG/ML INJ IVP PRN (17:00)
[2020-02-11] MEDS ORDERED: *HR* Digoxin 0.125 MG TABLET PO SCH (17:30)
[2020-02-11] MEDS: Metoprolol XL (24 HR) Succ 25 MG TAB.ER.24H PO SCH (17:51)
[2020-02-11 18:09] LABS: Magnesium 2.2 mg/dL (1.6-2.6)
[2020-02-11 18:14] LABS: Troponin I 0.19 ng/mL (< 0.04)
[2020-02-11 18:32] LABS: Thyroid Stimulating Hormone 2.449 mcIU/mL (0.340-5.600)
[2020-02-11 18:39] LABS: Amorphous Sediment,Urine Few per hpf (None-Few); Bacteria,Urine Few per hpf (None-Few); Bilirubin,Urine Negative (Negative); Blood,Urine Moderate (Negative); Budding Yeast,Urine Many per hpf (None Seen); Calcium Oxalate Crystals,Urine Present; Clarity,Urine Ex.Turbid (Clear); Color,Urine Yellow (Yellow); Glucose,Urine (UA) Normal (Normal); Hyaline Casts,Urine Many per lpf (None Seen); Ketones,Urine Negative (Negative); Leukocyte Esterase,Urine Large (Negative); Mucus,Urine Few per lpf (None-Few); Nitrite,Urine Negative (Negative); PH,Urine 5.5 pH Units (5.0-8.0); Protein,Urine 50 mg/dL (Neg-Trace); RBC,Urine 50-100 per hpf (0-3); Specific Gravity,Urine 1.009 (1.010-1.025); Squamous Epithelial Cell,Urine Few per hpf (None-Few); Urobilinogen,Urine Normal (Normal); WBC,Urine TNTC per hpf (0-3); Waxy Casts,Urine Many per lpf (None Seen)
[2020-02-11] MEDS ORDERED: Metoprolol XL (24 HR) Succ 25 MG TAB.ER.24H PO SCH (21:00)
[2020-02-11] MEDS ORDERED: Bumetanide 1 MG TABLET PO SCH (21:00)
[2020-02-11] MEDS: Aspirin 81 MG TAB.CHEW PO SCH (21:56)
[2020-02-11] MEDS: *HR* Heparin 5,000 UNIT/ML VIAL SQ SCH (23:50)
[2020-02-12 00:29] LABS: Basophils # 0.1 K/mcL (0.0-0.2); Eosinophils # 0.1 K/mcL (0.0-0.6); Eosinophils % 1.7 %; Hematocrit 39.5 % (37.5-50.1); Lymphocytes # 1.2 K/mcL (0.6-4.6); Lymphocytes % 22.1 %; Mean Corpuscular HGB Conc 31.9 g/dL (31.6-35.5); Mean Corpuscular Volume 106.5 fL (83.0-100.0); Mean Platelet Volume 10.2 fL (9.4-12.4); Monocytes # 0.6 K/mcL (0.0-1.3); Monocytes % 11.4 %; Neutrophils # 3.3 K/mcL (1.6-8.9); Platelet Count 126 K/mcL (140-400); Red Blood Count 3.71 M/mcL (4.19-5.50); Red Cell Distribution Width 15.9 % (11.5-14.5); Segmented Neutrophils % 62.8 %; White Blood Count 5.3 K/mcL (4.3-11.1)
[2020-02-12 00:32] LABS: Hemoglobin 12.6 g/dL (12.9-16.9)
[2020-02-12 00:34] LABS: Calcium 8.6 mg/dL (8.6-10.3); Potassium 4.2 mEq/L (3.5-5.1)
[2020-02-12 00:39] LABS: Troponin I 0.25 ng/mL (< 0.04)
[2020-02-12] MEDS: *HR* Heparin 5,000 UNIT/ML VIAL SQ SCH ×3 (05:59→21:37)
[2020-02-12 08:16] LABS: Calcium 9.1 mg/dL (8.6-10.3); Potassium 4.1 mEq/L (3.5-5.1)
[2020-02-12 08:18] LABS: Hematocrit 41.1 % (37.5-50.1); Hemoglobin 13.2 g/dL (12.9-16.9); Mean Corpuscular HGB Conc 32.1 g/dL (31.6-35.5); Mean Corpuscular Hemoglobin 34.3 pg (28.0-33.3); Mean Corpuscular Volume 106.8 fL (83.0-100.0); Mean Platelet Volume 9.8 fL (9.4-12.4); Platelet Count 132 K/mcL (140-400); Red Blood Count 3.85 M/mcL (4.19-5.50); Red Cell Distribution Width 15.9 % (11.5-14.5); White Blood Count 5.3 K/mcL (4.3-11.1)
[2020-02-12] MEDS: Aspirin 81 MG TAB.CHEW PO SCH (08:49)
[2020-02-12] MEDS: Metoprolol XL (24 HR) Succ 25 MG TAB.ER.24H PO SCH (08:50)
[2020-02-12] MEDS ORDERED: *HR* Digoxin 0.125 MG TABLET PO SCH ×2 (09:00)
[2020-02-12] MEDS: *HR* Metoprolol 5 MG/5 ML VIAL IVP PRN (13:38)
[2020-02-12] MEDS: *HR* Digoxin 0.125 MG TABLET PO SCH (13:54)
[2020-02-13 02:39] LABS: Hematocrit 41.4 % (37.5-50.1); Mean Corpuscular HGB Conc 31.4 g/dL (31.6-35.5); Mean Corpuscular Hemoglobin 33.8 pg (28.0-33.3); Mean Corpuscular Volume 107.5 fL (83.0-100.0); Mean Platelet Volume 9.8 fL (9.4-12.4); Platelet Count 129 K/mcL (140-400); Red Blood Count 3.85 M/mcL (4.19-5.50); Red Cell Distribution Width 15.7 % (11.5-14.5); White Blood Count 5.5 K/mcL (4.3-11.1)
[2020-02-13 03:01] LABS: BUN/Creatinine Ratio 30 (6-26); Blood Urea Nitrogen 39 mg/dL (8-23); Calcium 8.6 mg/dL (8.6-10.3); Carbon Dioxide 25 mEq/L (23-29); Chloride 113 mEq/L (98-107); Glucose 87 mg/dL (70-105); Osmolality,Calculated 307 (280-300); Potassium 3.9 mEq/L (3.5-5.1); Sodium 144 mEq/L (136-145); eGFR For African Americans > 60 (> 60); eGFR For Non-African Americans 54 (> 60)
[2020-02-13] MEDS: *HR* Heparin 5,000 UNIT/ML VIAL SQ SCH ×3 (05:53→20:03)
[2020-02-13] MEDS: Aspirin 81 MG TAB.CHEW PO SCH (07:50)
[2020-02-13] MEDS: Metoprolol XL (24 HR) Succ 25 MG TAB.ER.24H PO SCH (07:50)
[2020-02-13] MEDS: *HR* Digoxin 0.125 MG TABLET PO SCH (07:50)
[2020-02-13] MEDS: *HR* Metoprolol 5 MG/5 ML VIAL IVP PRN (08:34)
[2020-02-13 09:05] LABS: Albumin 3.7 g/dL (3.5-5.7); Albumin/Globulin Ratio 1.7 (1.1-2.2); Bilirubin,Direct 0.6 mg/dL (0.0-0.2); Bilirubin,Total 1.6 mg/dL (0.3-1.0); Globulin 2.2 g/dL (2.4-3.5); Total Protein 5.9 g/dL (6.4-8.9)
[2020-02-13] MEDS ORDERED: Albumin 25% 25gram/100mL 25 GM/100 ML IV.SOLN IVPB ONE (10:57)
[2020-02-13] MEDS: Lactulose Oral Soln 20 GM/30 ML UDC PO SCH ×2 (12:56→20:03)
[2020-02-13] MEDS ORDERED: Albumin 25% 25gram/100mL 25 GM/100 ML IV.SOLN IVC SCH (13:45)
[2020-02-13] MEDS: Metoprolol XL (24 HR) Succ 50 MG TAB.ER.24H PO SCH (20:02)
[2020-02-13] MEDS: Albumin 25% 25gram/100mL 25 GM/100 ML IV.SOLN IVPB SCH (21:07)
[2020-02-14 02:20] LABS: Basophils # 0.1 K/mcL (0.0-0.2); Eosinophils # 0.2 K/mcL (0.0-0.6); Eosinophils % 3.2 %; Hemoglobin 12.6 g/dL (12.9-16.9); Immature Granulocytes % 0.4 % (0-4); Lymphocytes # 1.1 K/mcL (0.6-4.6); Lymphocytes % 21.2 %; Mean Corpuscular HGB Conc 31.5 g/dL (31.6-35.5); Mean Corpuscular Hemoglobin 33.2 pg (28.0-33.3); Mean Corpuscular Volume 105.5 fL (83.0-100.0); Monocytes # 0.7 K/mcL (0.0-1.3); Monocytes % 13.2 %; Neutrophils # 3.2 K/mcL (1.6-8.9); Platelet Count 139 K/mcL (140-400); Red Blood Count 3.79 M/mcL (4.19-5.50); Red Cell Distribution Width 15.7 % (11.5-14.5); White Blood Count 5.2 K/mcL (4.3-11.1)
[2020-02-14 02:25] LABS: INR 1.4; Prothrombin Time 15.8 Seconds (9.4-12.1)
[2020-02-14 02:39] LABS: BUN/Creatinine Ratio 28 (6-26); Blood Urea Nitrogen 37 mg/dL (8-23); Calcium 9.2 mg/dL (8.6-10.3); Carbon Dioxide 24 mEq/L (23-29); Chloride 113 mEq/L (98-107); Glucose 102 mg/dL (70-105); Osmolality,Calculated 309 (280-300); Potassium 3.9 mEq/L (3.5-5.1); Sodium 145 mEq/L (136-145); eGFR For African Americans > 60 (> 60); eGFR For Non-African Americans 52 (> 60)
[2020-02-14] MEDS: *HR* Heparin 5,000 UNIT/ML VIAL SQ SCH ×3 (04:39→22:07)
[2020-02-14] MEDS: Lactulose Oral Soln 20 GM/30 ML UDC PO SCH ×2 (08:42→19:59)
[2020-02-14] MEDS: *HR* Digoxin 0.125 MG TABLET PO SCH (08:42)
[2020-02-14] MEDS: Metoprolol XL (24 HR) Succ 50 MG TAB.ER.24H PO SCH ×2 (08:42→19:59)
[2020-02-14] MEDS: Aspirin 81 MG TAB.CHEW PO SCH (08:42)
[2020-02-14] MEDS: Albumin 25% 25gram/100mL 25 GM/100 ML IV.SOLN IVPB SCH ×2 (11:03→22:07)
[2020-02-14] MEDS ORDERED: Furosemide 40 MG/4 ML VIAL IVP ONE (13:56)
[2020-02-15 02:07] LABS: Calcium 9.4 mg/dL (8.6-10.3); Potassium 3.9 mEq/L (3.5-5.1)
[2020-02-15 02:08] LABS: % Iron Saturation 19 % (20-55); Iron 47 mcg/dL (65-175); Transferrin 173 mg/dL (203-362)
[2020-02-15 02:23] LABS: Ferritin 62 ng/mL (20-250)
[2020-02-15 02:31] LABS: Folate > 22.3 ng/mL (3.0-16.0); Vitamin B12 1241 pg/mL (250-1100)
[2020-02-15] MEDS: *HR* Heparin 5,000 UNIT/ML VIAL SQ SCH ×3 (05:58→20:30)
[2020-02-15] MEDS ORDERED: Iron Sucrose Complex 400 MG in 0.9 % Sodium Chloride 250 ML IVPB ONE (07:45)
[2020-02-15] MEDS: *HR* Digoxin 0.125 MG TABLET PO SCH (08:07)
[2020-02-15] MEDS: Aspirin 81 MG TAB.CHEW PO SCH (08:07)
[2020-02-15] MEDS: Metoprolol XL (24 HR) Succ 50 MG TAB.ER.24H PO SCH ×2 (08:07→20:30)
[2020-02-15] MEDS: Lactulose Oral Soln 20 GM/30 ML UDC PO SCH ×2 (08:07→20:30)
[2020-02-15] MEDS ORDERED: Acetaminophen 325 MG TABLET PO PRN (10:35)
[2020-02-15] MEDS: Albumin 25% 25gram/100mL 25 GM/100 ML IV.SOLN IVPB SCH ×2 (12:18→20:30)
[2020-02-16] MEDS: *HR* Heparin 5,000 UNIT/ML VIAL SQ SCH ×3 (05:37→20:15)
[2020-02-16 06:04] LABS: Basophils # 0.1 K/mcL (0.0-0.2); Basophils % 0.7 %; Eosinophils # 0.1 K/mcL (0.0-0.6); Hematocrit 42.1 % (37.5-50.1); Hemoglobin 13.3 g/dL (12.9-16.9); Immature Granulocytes % 1.9 % (0-4); Lymphocytes # 1.2 K/mcL (0.6-4.6); Lymphocytes % 17.2 %; Mean Corpuscular HGB Conc 31.6 g/dL (31.6-35.5); Mean Corpuscular Hemoglobin 33.8 pg (28.0-33.3); Mean Corpuscular Volume 106.9 fL (83.0-100.0); Mean Platelet Volume 10.6 fL (9.4-12.4); Monocytes # 0.8 K/mcL (0.0-1.3); Monocytes % 11.8 %; Neutrophils # 4.6 K/mcL (1.6-8.9); Nucleated Red Blood Cells 0.3 /100 WBC (0); Platelet Count 121 K/mcL (140-400); Red Blood Count 3.94 M/mcL (4.19-5.50); Segmented Neutrophils % 67.4 %; White Blood Count 6.9 K/mcL (4.3-11.1)
[2020-02-16 06:24] LABS: Calcium 9.6 mg/dL (8.6-10.3)
[2020-02-16] MEDS: Aspirin 81 MG TAB.CHEW PO SCH (08:00)
[2020-02-16] MEDS: Metoprolol XL (24 HR) Succ 50 MG TAB.ER.24H PO SCH ×2 (08:00→20:15)
[2020-02-16] MEDS: Lactulose Oral Soln 20 GM/30 ML UDC PO SCH ×2 (08:00→20:15)
[2020-02-16] MEDS: *HR* Digoxin 0.125 MG TABLET PO SCH (08:00)
[2020-02-16] MEDS ORDERED: Ringers Solution, Lactated 250 ML IVC PRN (13:52)
[2020-02-17 01:02] LABS: Basophils # 0.1 K/mcL (0.0-0.2); Eosinophils # 0.1 K/mcL (0.0-0.6); Eosinophils % 1.9 %; Hematocrit 44.3 % (37.5-50.1); Hemoglobin 14.2 g/dL (12.9-16.9); Immature Granulocytes % 1.6 % (0-4); Lymphocytes # 1.2 K/mcL (0.6-4.6); Mean Corpuscular HGB Conc 32.1 g/dL (31.6-35.5); Mean Corpuscular Hemoglobin 34.2 pg (28.0-33.3); Mean Corpuscular Volume 106.7 fL (83.0-100.0); Mean Platelet Volume 10.7 fL (9.4-12.4); Monocytes # 0.8 K/mcL (0.0-1.3); Monocytes % 11.9 %; Neutrophils # 4.4 K/mcL (1.6-8.9); Nucleated Red Blood Cells 0.7 /100 WBC (0); Platelet Count 134 K/mcL (140-400); Red Blood Count 4.15 M/mcL (4.19-5.50); Red Cell Distribution Width 16.1 % (11.5-14.5); Segmented Neutrophils % 65.6 %; White Blood Count 6.7 K/mcL (4.3-11.1)
[2020-02-17 01:17] LABS: Calcium 9.4 mg/dL (8.6-10.3); Potassium 3.9 mEq/L (3.5-5.1)
[2020-02-17] MEDS: *HR* Heparin 5,000 UNIT/ML VIAL SQ SCH (05:12)
[2020-02-17 07:29] VITALS: BP 118/85
[2020-02-17] MEDS: *HR* Digoxin 0.125 MG TABLET PO SCH (08:19)
[2020-02-17] MEDS: Metoprolol XL (24 HR) Succ 50 MG TAB.ER.24H PO SCH (08:21)
[2020-02-17] MEDS: Aspirin 81 MG TAB.CHEW PO SCH (08:26)
[2020-02-17] MEDS: Lactulose Oral Soln 20 GM/30 ML UDC PO SCH (08:26)
== END 2020-02-17 11:23 ==
LOC: EMEROOARM 12:55 → 2ANU 12:55 → SUATTDRO 18:02 → 2ANU 18:38 → SUATTDRO 02-12 15:58
PROVIDERS: ADMIT Pharmacist; ATTEND Internal Medicine